=== PATIENT | male | born 1985 | race Caucasian/White ===

== ENCOUNTER 2016-06-18 09:14 | Inpatient (IN) ==
[2016-06-18] MEDS ORDERED: ONDANSETRON 4 MG/2 ML VIAL IV ONE (09:23)
[2016-06-18] MEDS: HYDROmorphone 2 MG/ML SYRINGE IV PRN ×7 (09:54→17:29)
--- NOTE | 2016-06-18 09:54 | XRay Report ---
CLINICAL INFORMATION: Increasing dyspnea TECHNIQUE: Upright PA and lateral chest x-ray COMPARISON: Multiple previous chest x-rays including examinations dated 06/14/2016, 10/13/2015, 10/11/2015, 09/30/2015, 09/28/2015. FINDINGS: Bilateral infiltrates are worse than on previous examination. There continue to be septal lines consistent with pulmonary edema. There are increasing central infiltrates bilaterally. Bilateral central distribution suggests worsening pulmonary edema. There is a more focal infiltrate in the left perihilar region and pneumonia is possible. Clinical correlation and continued radiographic follow-up recommended. There is mild cardiomegaly, unchanged. No pleural fluid. IMPRESSION: 1. Increasing parenchymal infiltrates most consistent with pulmonary edema. Pneumonia is not excluded. 2. Chest x-ray is worse since 06/14/2016 Interpreted and Authenticated by: Roman Mcqueen 06/18/16
--- NOTE | 2016-06-18 09:59 | Emergency Department Note ---
General Adult HPI - General Chief complaint: Headache Stated complaint: bernal, cough, anxious Time Seen by Provider: 06/18/16 09:22 Source: patient Mode of arrival: ambulatory Limitations: no limitations - History of Present Illness HPI Narrative: This is a dialysis patient who seems to be having trouble with fluid overload over the last couple of weeks. He gets dialysis Sunday. I saw him last Sunday in the morning before his dialysis and he felt fluid overloaded. He went to dialysis and then he says he feels better after dialysis before the next dialysis he tends to feel short of breath. His chest x -ray today certainly looks fluid overloaded. Patient denies getting extra salt in his diet and says he is careful about that. Also careful not to take too much fluid in his diet. He is coughing a little bit of blood tinged sputum. He also has had a headache recently. - Related Data Previous Rx's Medication Instructions Recorded gabapentin 100 mg capsule 200 mg PO Q8H #60 cap 10/25/15 metoprolol tartrate 25 mg tablet 100 mg PO BID 90 Days 11/26/15 hydralazine 100 mg tablet 100 mg PO TID 90 Days 12/20/15 paroxetine 20 mg tablet 40 mg PO DAILY #30 tab 01/24/16 clonazepam 2 mg tablet 2 mg PO BID #60 tab 03/23/16 nifedipine ER 90 mg 90 mg PO DAILY #30 tab 03/23/16 tablet,extended release 24 hr trazodone 150 mg tablet 150 mg PO QHS PRN #30 tab 03/23/16 valsartan 160 mg tablet 1 each PO BID #60 tab 03/23/16 omeprazole 20 mg capsule,delayed 20 mg PO BIDAC #60 cap 04/14/16 release ropinirole 0.5 mg tablet 0.5 mg PO QHS 30 Days 04/14/16 calcium acetate 667 mg capsule 667 mg PO .COMPLEX #450 cap 04/24/16 Allergies Allergy/AdvReac Type Severity Reaction Status Date / Time Iodinated Contrast Media - Allergy Itching Verified 06/05/16 08:58 Oral and Review of Systems Constitutional: Denies: fever Eyes: Denies: eye pain ENT ED: Denies: ear pain Cardiovascular: Denies: chest pain Respiratory: Reports: cough, dyspnea Gastrointestinal: Denies: abdominal pain Genitourinary: Denies: urgency Musculoskeletal: Denies: back pain Integumentary: Denies: rash Neurological: Reports: headache Past Medical History - Past Medical History Medical history: Reports: CHF, CVA, hypertension, renal disease, seizures, thyroid disease, valvular heart disease, other Surgical history ED: Reports: orthopedic, other (shoulder replacement), other ( nephrectomy) Psychiatric history: Reports: anxiety - Social History Alcohol use: Reports: None Drug use: Reports: marijuana Physical Exam - General Limitations: no limitations General appearance: alert, in no apparent distress - Head Head exam: atraumatic, normocephalic - Eye Eye exam: Present: normal appearance - ENT ENT exam: normal exam, normal oropharynx - Neck Neck exam: Present: normal inspection - Chest Chest inspection: Present: normal inspection - Respiratory Respiratory exam: Present: normal lung sounds bilaterally. Absent: respiratory distress, wheezes - Cardiovascular Cardiovascular exam: Present: regular rate, normal rhythm, normal heart sounds - Abdominal Exam Abdominal exam: Present: soft. Absent: distention, tenderness - Extremities Exam Extremities exam: Absent: pedal edema - Neurological Exam Neurological exam: Present: alert, oriented X3 - Psychiatric Psychiatric exam: Present: normal affect, normal mood - Skin Skin exam: Present: warm, dry, intact. Absent: rash Course Vital Signs Temperature 97.8 F 06/18/16 09:15 Pulse Rate 109 H 06/18/16 09:15 Respiratory Rate 32 H 06/18/16 09:15 Blood Pressure 154/107 06/18/16 09:15 Pulse Oximetry (%) 94 06/18/16 09:15 Temperature 97.8 F 06/18/16 09:15 Pulse Rate 96 H 06/18/16 10:30 Respiratory Rate 27 H 06/18/16 10:30 Blood Pressure 181/119 06/18/16 10:30 Pulse Oximetry (%) 95 06/18/16 10:30 Medical Decision Making - [facility] Narrative Medical decision making narrative: I discussed this case with Dr. Barr the director corporate security sales applications engineer and Dr. Zee and the patient will be admitted to the ICU for acute dialysis - Lab Data Lab results reviewed: Yes I reviewed the patient's lab results. Result diagrams: 06/18/16 09:27 06/18/16 09:27 Lab Results 06/18/16 06/18/16 06/18/16 Range/Units 09:27 09:27 09:27 WBC 8.3 (4.5-11.0) K/mcL RBC 3.15 L (4.50-5.90) M/mcL Hgb 10.4 L (13.5-16.5) g/dL Hct 31.9 L (41.0-55.0) % MCV 101.1 H (80.0-100.0) fL MCH 33.1 (26.0-34.0) pg MCHC 32.7 (31.0-36.0) g/dL RDW 16.5 H (11.5-14.5) % Plt Count 289 (140-440) K/mcL MPV 7.0 L (7.4-10.4) fL Gran % 75.9 (38.0-78.0) % Lymph % (Auto) 10.0 L (15.5-49.0) % [place] % (Auto) 5.7 (1.0-9.0) % Eos % (Auto) 7.7 H (0.0-7.0) % Baso % (Auto) 0.7 (0.0-2.0) % Gran # 6.3 (1.8-8.0) K/mcL Lymph # 0.8 L (1.5-4.8) K/mcL [place] # 0.5 (0.1-0.9) K/mcL Eos # 0.6 (0.0-0.7) K/mcL Baso # 0.1 (0.0-0.3) K/mcL Sodium 137 (133-145) mmol/L Potassium 5.6 H (3.3-5.1) mmol/L Chloride 95 L (96-108) mmol/L Carbon Dioxide 24 (22-30) mmol/L Anion Gap 18.0 H (8-16) BUN 63 H (6-20) mg/dl Creatinine 10.1 H* (0.7-1.2) mg/dl GFR Calculation 6 Glucose 109 H (70-105) mg/dL Calcium 10.0 (8.6-10.4) mg/dl Total Bilirubin 0.5 (0.0-1.0) mg/dL AST 47 H (0-37) U/l ALT 74 H (0-40) U/l Alkaline Phosphatase 68 (39-117) U/L Troponin T 0.06 H* (0-0.03) ng/ml NT-Pro-B Natriuret Pep 39055.0 H (0-125) pg/ml Total Protein 7.8 (5.9-8.4) gm/dL Albumin 4.5 (3.2-5.2) gm/dL Globulin 3.3 (2.2-3.7) gm/dL Albumin/Globulin Ratio 1.4 (1.0-2.3) - Radiology Data Radiology results reviewed: Yes I reviewed the patient's radiology results. ( chest x-ray shows pulmonary edema) Disposition Clinical Impression: Fluid overload Disposition: Xfer As Inpt ([facility]) Condition: Good Referrals: Pat Martinez DO [Primary Care Provider] - Time of Disposition: 11:42
[2016-06-18 10:11] LABS: Basophils # (Auto) 0.1 K/mcL (0.0-0.3); Basophils % (Auto) 0.7 % (0.0-2.0); Eosinophils # (Auto) 0.6 K/mcL (0.0-0.7); Eosinophils % (Auto) 7.7 % (0.0-7.0); Granulocytes % (Auto) 75.9 % (38.0-78.0); Lymphocytes # (Auto) 0.8 K/mcL (1.5-4.8); Mean Cell Volume 101.1 fL (80.0-100.0); Mean Corpuscular HGB Conc 32.7 g/dL (31.0-36.0); Mean Corpuscular Hemoglobin 33.1 pg (26.0-34.0); Monocytes # (Auto) 0.5 K/mcL (0.1-0.9); Monocytes % (Auto) 5.7 % (1.0-9.0); Platelet Count 289 K/mcL (140-440); RBC 3.15 M/mcL (4.50-5.90); Red Cell Distribution Width 16.5 % (11.5-14.5)
[2016-06-18 10:31] LABS: ALT/SGPT 74 U/l (0-40); Albumin 4.5 gm/dL (3.2-5.2); Albumin/Globulin Ratio 1.4 (1.0-2.3); Alkaline Phosphatase 68 U/L (39-117); Blood Urea Nitrogen 63 mg/dl (6-20)
--- NOTE | 2016-06-18 12:02 | Emergency Department Note ---
General Adult HPI - General Chief complaint: Headache Stated complaint: bernal, cough, anxious Time Seen by Provider: 06/18/16 09:22 Source: patient Mode of arrival: ambulatory Limitations: no limitations - Related Data Previous Rx's Medication Instructions Recorded gabapentin 100 mg capsule 200 mg PO Q8H #60 cap 10/25/15 metoprolol tartrate 25 mg tablet 100 mg PO BID 90 Days 11/26/15 hydralazine 100 mg tablet 100 mg PO TID 90 Days 12/20/15 paroxetine 20 mg tablet 40 mg PO DAILY #30 tab 01/24/16 clonazepam 2 mg tablet 2 mg PO BID #60 tab 03/23/16 nifedipine ER 90 mg 90 mg PO DAILY #30 tab 03/23/16 tablet,extended release 24 hr trazodone 150 mg tablet 150 mg PO QHS PRN #30 tab 03/23/16 valsartan 160 mg tablet 1 each PO BID #60 tab 03/23/16 omeprazole 20 mg capsule,delayed 20 mg PO BIDAC #60 cap 04/14/16 release ropinirole 0.5 mg tablet 0.5 mg PO QHS 30 Days 04/14/16 calcium acetate 667 mg capsule 667 mg PO .COMPLEX #450 cap 04/24/16 Allergies Allergy/AdvReac Type Severity Reaction Status Date / Time Iodinated Contrast Media - Allergy Itching Verified 06/05/16 08:58 Oral and Review of Systems Constitutional: Denies: fever Eyes: Denies: eye pain ENT ED: Denies: ear pain Cardiovascular: Denies: chest pain Respiratory: Reports: cough, dyspnea Gastrointestinal: Denies: abdominal pain Genitourinary: Denies: urgency Musculoskeletal: Denies: back pain Integumentary: Denies: rash Neurological: Reports: headache Past Medical History - Past Medical History Medical history: Reports: CHF, CVA, hypertension, renal disease, seizures, thyroid disease, valvular heart disease, other Surgical history ED: Reports: orthopedic, other (shoulder replacement), other ( nephrectomy) Psychiatric history: Reports: anxiety - Social History Alcohol use: Reports: None Drug use: Reports: marijuana Physical Exam - General Limitations: no limitations General appearance: alert, in no apparent distress Course Vital Signs Temperature 97.8 F 06/18/16 09:15 Pulse Rate 109 H 06/18/16 09:15 Respiratory Rate 32 H 03/19/17 09:15 Blood Pressure 154/107 03/19/17 09:15 Pulse Oximetry (%) 94 06/18/16 09:15 Temperature 97.8 F 06/18/16 09:15 Pulse Rate 93 H 06/18/16 11:15 Respiratory Rate 16 06/18/16 11:15 Blood Pressure 169/116 06/18/16 11:15 Pulse Oximetry (%) 91 06/18/16 11:15 Medical Decision Making - MDM Narrative Medical decision making narrative: Additional history reveals moderately severe mitral valve disease with both regurgitation and insufficiency. Patient is on hold for a valve replacement because of drug abuse with methamphetamine. - Lab Data Result diagrams: 06/18/16 09:27 06/18/16 09:27 Lab Results 06/18/16 06/18/16 06/18/16 Range/Units 09:27 09:27 09:27 WBC 8.3 (4.5-11.0) K/mcL RBC 3.15 L (4.50-5.90) M/mcL Hgb 10.4 L (13.5-16.5) g/dL Hct 31.9 L (41.0-55.0) % MCV 101.1 H (80.0-100.0) fL MCH 33.1 (26.0-34.0) pg MCHC 32.7 (31.0-36.0) g/dL RDW 16.5 H (11.5-14.5) % Plt Count 289 (140-440) K/mcL MPV 7.0 L (7.4-10.4) fL Gran % 75.9 (38.0-78.0) % Lymph % (Auto) 10.0 L (15.5-49.0) % [place] % (Auto) 5.7 (1.0-9.0) % Eos % (Auto) 7.7 H (0.0-7.0) % Baso % (Auto) 0.7 (0.0-2.0) % Gran # 6.3 (1.8-8.0) K/mcL Lymph # 0.8 L (1.5-4.8) K/mcL [place] # 0.5 (0.1-0.9) K/mcL Eos # 0.6 (0.0-0.7) K/mcL Baso # 0.1 (0.0-0.3) K/mcL Sodium 137 (133-145) mmol/L Potassium 5.6 H (3.3-5.1) mmol/L Chloride 95 L (96-108) mmol/L Carbon Dioxide 24 (22-30) mmol/L Anion Gap 18.0 H (8-16) BUN 63 H (6-20) mg/dl Creatinine 10.1 H* (0.7-1.2) mg/dl GFR Calculation 6 Glucose 109 H (70-105) mg/dL Calcium 10.0 (8.6-10.4) mg/dl Total Bilirubin 0.5 (0.0-1.0) mg/dL AST 47 H (0-37) U/l ALT 74 H (0-40) U/l Alkaline Phosphatase 68 (39-117) U/L Troponin T 0.06 H* (0-0.03) ng/ml NT-Pro-B Natriuret Pep 83047.0 H (0-125) pg/ml Total Protein 7.8 (5.9-8.4) gm/dL Albumin 4.5 (3.2-5.2) gm/dL Globulin 3.3 (2.2-3.7) gm/dL Albumin/Globulin Ratio 1.4 (1.0-2.3) Disposition Clinical Impression: Fluid overload Disposition: Xfer As Inpt ([facility]) Condition: Good Referrals: Pat Martinez DO [Primary Care Provider] -
[2016-06-18] MEDS ORDERED: NITROGLYCERIN 1 GM OINT.TOP TD ONE (12:21)
--- NOTE | 2016-06-18 12:27 | Internal Med History&Physical ---
Medical - H&P: HPI Patient information: Note initiated : 06/18/16 at 12:22 pm Service Date, if different from initiated Date: [] Patient: Jorge Bates a 31 y/o M admitted on for bernal, cough, anxious. Chief Complaint: [] History of present illness: Mr. Bates is a 31 year old male with h/o ESRD on HD, MWF, presents to the ER today with sob, and blood in sputum. The patient has not been feeling well since Sunday when he was in the ER for shortness of breath and noted to be in fluid overload. he presented just 1 hr before his scheduled HD session then and had HD done, with improvement in symptoms. He also had HD done on Sunday. The patient has since Sunday worsening sob, cough with blood and frothy sputum, shortness of breath on minimal exertion. Activity makes it worse, rest makes it better. He also has been a migraine headache for the last 2 days. He denies missing HD sessions or having them cut short, admits to be compliant to dietary restrictions. He also has not done meth since 2 weeks as per him. In the ER his bp was high, CXR shows yazan pulm edema, he is needing oxygen, bp is very high with systolic > 180, diastolic > 110, His bnp is chr elevatd and troponin is c hr elevated. Nephrology was consulted for HD, and patient presented to hospitalist for admission to [facility] for fluid overload. The patient h/o reviewed, he had an echo done in 09/2015 which showed lvh, moderate to severe ms and mr, pulm htn with pressure of 60mmhg. Subsequently he was evaluated at [facility] ( I do not have access to documents) but the patient was noted to need a new valve, however given his ongoing use of methamphetamine he is unable to get a new valve. I discussed with him again that he needs to quit drugs if there is any hope for him to survive. - Constitutional Constitutional: Present: fatigue, weakness - EENT Eyes: Absent: blind spots, blurry vision Ears: Absent: ear discharge, tinnitus Nose, mouth and throat: Absent: disequilibrium, dizziness - Cardiovascular Cardiovascular: Present: diaphoresis, dyspnea on exertion, orthopnea, paroxysmal nocturnal dyspnea. Absent: chest pain, palpatations - Respiratory Respiratory: Present: hemoptysis, dyspnea on exertion, wheezing, chest congestion, excessive phlegm production - Gastrointestinal Gastrointestinal: Present: constipation. Absent: abdominal pain, nausea, vomiting - Genitourinary Additional comments: no urine, s/p yazan nephrectomy. - Integumentary Integumentary: Absent: skin pain, skin ulcer, wounds, jaundice - Neurological Neurological: Present: headache(s). Absent: focal weakness, syncope, vertigo - Psychiatric Psychiatric: Present: anxiety, depression. Absent: confusion - Endocrine Endocrine: Absent: polydipsia, polyphagia, polyuria Additional comments: no urine. - Hematologic/Lymphatic Hematologic/Lymphatic: Absent: easy bleeding, easy bruising - Allergic/Immunologic Allergic/Immunologic: Present: wheezing. 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) Mitral regurgitation (Chronic) Uncontrolled hypertension (Chronic) FSGS (focal segmental glomerulosclerosis) with nephrosis (Resolved) Surgical history: Past Surgical History History of parathyroidectomy (Chronic) History of shoulder replacement (Chronic) History of surgery (Chronic) S/p nephrectomy (Inactive) Family history: reviewed and not pertinent (mother with h/o drug abuse.) Medical - H&P: Meds Home Medications Medication Instructions Recorded Confirmed Type gabapentin 100 mg capsule 200 mg PO Q8H #60 cap 10/25/15 06/14/16 Rx metoprolol tartrate 25 mg tablet 100 mg PO BID 90 Days 11/26/15 06/14/16 Rx hydralazine 100 mg tablet 100 mg PO TID 90 Days 12/20/15 06/14/16 Rx paroxetine 20 mg tablet 40 mg PO DAILY #30 tab 01/24/16 06/14/16 Rx clonazepam 2 mg tablet 2 mg PO BID #60 tab 03/23/16 06/14/16 Rx nifedipine ER 90 mg 90 mg PO DAILY #30 tab 03/23/16 06/14/16 Rx tablet,extended release 24 hr trazodone 150 mg tablet 150 mg PO QHS PRN #30 tab 03/23/16 06/14/16 Rx valsartan 160 mg tablet 1 each PO BID #60 tab 03/23/16 06/14/16 Rx omeprazole 20 mg capsule,delayed 20 mg PO BIDAC #60 cap 04/14/16 06/14/16 Rx release ropinirole 0.5 mg tablet 0.5 mg PO QHS 30 Days 04/14/16 06/14/16 Rx calcium acetate 667 mg capsule 667 mg PO .COMPLEX #450 cap 04/24/16 06/14/16 Rx Allergies Allergy/AdvReac Type Severity Reaction Status Date / Time Iodinated Contrast Media - Allergy Itching Verified 06/05/16 08:58 Oral and Medical - H&P: Exam - Constitutional Vitals: Temp Pulse Resp BP Pulse Ox 97.8 F 93 H 16 169/116 91 06/18/16 09:15 06/18/16 11:15 06/18/16 11:15 06/18/16 11:15 06/18/16 11:15 General appearance: mild distress - Head Head exam: Present: atraumatic, normal inspection, normocephalic - Eye Eye exam: Present: PERRL. Absent: periorbital swelling, periorbital tenderness , scleral icterus - ENT ENT exam: Present: mucous membranes moist - Neck Neck exam: Present: normal inspection - Respiratory Respiratory exam: Present: prolonged expiratory phase, rales, wheezes. Absent: accessory muscle use, respiratory distress, rhonchi, stridor - Cardiovascular Cardiovascular exam: Present: normal rate and rhythm, +S1, +S2 - GI/Abdominal GI/Abdominal exam: Present: normal bowel sounds, soft. Absent: firm, guarding, rigid - Extremities Exam Extremities exam: Present: Foot pink and warm, neurovascular intact. Absent: pedal edema - Back Exam Back exam: Present: normal inspection. Absent: CVA tenderness (L), CVA tenderness (R), paraspinal tenderness - Neurological Exam Neurological exam: Present: alert, CN II-XII intact, oriented X3. Absent: motor sensory deficit - Psychiatric Psychiatric exam: Present: anxious. Absent: agitated, depressed - Skin Skin exam: Present: warm. Absent: rash, urticaria Medical - H&P: Reslt - Labs CBC & Chem 7: 06/18/16 09:27 06/18/16 09:27 Labs: Short CBC 06/18/16 Range/Units 09:27 WBC 8.3 (4.5-11.0) K/mcL Hgb 10.4 L (13.5-16.5) g/dL Hct 31.9 L (41.0-55.0) % Plt Count 289 (140-440) K/mcL BMP 06/18/16 09:27 Sodium 137 Potassium 5.6 H Chloride 95 L Carbon Dioxide 24 BUN 63 H Creatinine 10.1 H* Glucose 109 H Calcium 10.0 Cardiac Enzymes 06/18/16 Range/Units 09:27 Troponin T 0.06 H* (0-0.03) ng/ml Liver Function 06/18/16 Range/Units 09:27 Total Bilirubin 0.5 (0.0-1.0) mg/dL AST 47 H (0-37) U/l ALT 74 H (0-40) U/l Alkaline Phosphatase 68 (39-117) U/L Albumin 4.5 (3.2-5.2) gm/dL Medical - H&P: A/P (1) Acute congestive heart failure Current visit: Yes Status: Acute (2) Hypertensive emergency Current visit: Yes Status: Acute (3) Mitral stenosis with insufficiency Current visit: Yes Status: Acute (4) Pulmonary hypertension Current visit: Yes Status: Acute (5) Substance use disorder Current visit: Yes Status: Acute (6) End stage renal disease Current visit: No Status: Chronic (7) Acute respiratory failure with hypoxia Current visit: Yes Status: Acute (8) Migraine Current visit: Yes Status: Acute - Narrative A/P Narrative: Admit to ICU Oxygen supplementation NTG TD to help with BP and shortness of breath, the bp should improve with HD, if needed will start on NTG drip. Nephrology consulted, dialysis to be initiated as soon as pt mobilized to ICU. Gillian valve replacement is needed, however cannot happen till pt is free from meth, educated on same, pt verablized understanding, but it seems that the patient has been counselled many times in the past with no results Pulm HTN secondary to lvh, mitral valve pathology, need to relieve forward pressures to help with pulm htn. Monitor on tele, close resp status monitoring, bipap if needed. [place] to help with shortness of breath given wheezing on exam. DVT - Hep SQ Diet- Renal Code - full Social History - Tobacco smoking status: Current some day smoker - Tobacco Type tobacco type: cigarettes - Quit Details pack-years: 10 - Alcohol alcohol intake frequency: holiday/special occasion only - Substance use substance use type: marijuana, amphetamines counseling given: Yes
--- NOTE | 2016-06-18 12:42 | Nephrology Consult Note ---
History of Present Illness - Reason for Consult Patient information: Note initiated : 06/18/16 at 12:33 pm Service Date, if different from initiated Date: [] Patient: Jorge Bates 31 y/o M admitted on for melgar, cough, anxious. Chief Complaint: [] Consult date: 06/18/16 end stage renal disease, hyperkalemia, accelerated hypertension Requesting physician: Rigo Jones - Chief Complaint SOB, anxiety, MELGAR - History of Present Illness Pt is a 31 yo male with hx of ESRD on Hemodialysis ( MWF, last HD on Sunday) , hx of substance abuse who presented to the ED with c/o SOB, and bloody, frothy sputum. Pt was seen in ED on 06/14/16, 1 hour prior to HD with similar complaints. He did feel better after his HD session. CXR done showed worsening pulmonary congestion, with a possible infiltrate in the left hilar region. -Pt denies any fevers/chills. He is c/o of a MELGAR, has had migraine x 2 days and BPs have been elevated with SBP > 170 and DBP > 110. Pt was last hemodialyzed on Sunday06/16/16, was doing fine until last night when he became SOB. States compliance with fluid intake and low salt diet. States he has been fluid overloaded on and off and has been feeling it in his chest with no edema on ext. He feels some generalized chest pressure which he states he feels with volume overload. BNP > 27026 and Troponin > 0.06 but has been elevated since 2016 based on evaluation of EMR. Pt had an ECHO done in 09/2015 which showed: LVH, moderate to severe MS and MR, PHTN with pressure of 60mmhg. Pt had an evaluation done at [facility], was noted to need valve replacement but unable to get one given his ongoing use of methamphetamine Tox screen was sent from ED which is pending at this time. Appreciate Dr Puente help with managing this patient Review of Systems ROS unobtainable: other (as ) All systems PM: reviewed and no additional remarkable complaints except as stated (as stated in HPI) Past History Past medical history: End stage renal disease (Chronic) on HD Fluid overload Anemia in chronic kidney disease (CKD) Anxiety disorder (Acute) Chest pain Congestive heart failure Epileptic seizure Fracture of fifth metacarpal bone of left hand Hyperkalemia Hypertensive crisis Medication side effects Nausea Restless legs Insomnia disorder Mitral regurgitation Uncontrolled hypertension FSGS (focal segmental glomerulosclerosis) with nephrosis Past surgical history: History of parathyroidectomy (Chronic) History of shoulder replacement (Chronic) History of surgery (Chronic) S/p nephrectomy Past family history: mother with hx of drug abuse Past social history: Lives with his girlfriend Hx of meth use Medications and Allergies Home Medications Medication Instructions Recorded Confirmed Type gabapentin 100 mg capsule 200 mg PO Q8H #60 cap 10/25/15 06/14/16 Rx metoprolol tartrate 25 mg tablet 100 mg PO BID 90 Days 11/26/15 06/14/16 Rx hydralazine 100 mg tablet 100 mg PO TID 90 Days 12/20/15 06/14/16 Rx paroxetine 20 mg tablet 40 mg PO DAILY #30 tab 01/24/16 06/14/16 Rx clonazepam 2 mg tablet 2 mg PO BID #60 tab 03/23/16 06/14/16 Rx nifedipine ER 90 mg 90 mg PO DAILY #30 tab 03/23/16 06/14/16 Rx tablet,extended release 24 hr trazodone 150 mg tablet 150 mg PO QHS PRN #30 tab 03/23/16 06/14/16 Rx valsartan 160 mg tablet 1 each PO BID #60 tab 03/23/16 06/14/16 Rx omeprazole 20 mg capsule,delayed 20 mg PO BIDAC #60 cap 04/14/16 06/14/16 Rx release ropinirole 0.5 mg tablet 0.5 mg PO QHS 30 Days 04/14/16 06/14/16 Rx calcium acetate 667 mg capsule 667 mg PO .COMPLEX #450 cap 04/24/16 06/14/16 Rx Allergies Allergy/AdvReac Type Severity Reaction Status Date / Time Iodinated Contrast Media - Allergy Itching Verified 06/05/16 08:58 Oral and Exam - Vital Signs Vital signs: Temp Pulse Resp BP Pulse Ox 97.8 F 93 H 16 169/116 91 06/18/16 09:15 06/18/16 11:15 06/18/16 11:15 06/18/16 11:15 06/18/16 11:15 - General Appearance General appearance: well-developed, well-nourished, moderate distress (visibly SOB), anxious EENT: mucous membranes dry (mildly), scleral icterus Neck: no JVD, supple Respiratory: wheezing (decreased air entry overall), rales Cardiology: no edema, regular rate, regular rhythm, normal S1, normal S2 Gastrointestinal: normoactive bowel sounds, no tenderness, no guarding, no organomegaly Integumentary: no rash, warm and dry Neurologic: no focal deficit, no asterixis, alert and oriented x3 Musculoskeletal: no deformities, no erythema Psychiatric: cooperative (anxious) Additional exam: Left upper ext - AVF with +ve thrill/bruit Results - Lab Results 06/18/16 09:27 06/18/16 09:27 Most recent lab results Calcium 10.0 mg/dl (8.6-10.4) 06/18/16 09:27 BNP > 18,000 CXR : with pulmonary edema (worsened since 06/14/16); and infiltrate in left perihilar region - Image Kidney/bladder ultrasound: other Assessment and Plan (1) Fluid overload Pt with hx of valvular problems, ESRD on HD with volume overload Tox screen pending Has elevated BPs ? flash pulmonary edema - will dialyze patient today - monitor BNP and troponin ( at baseline at present) Status: Acute Priority: High (2) ESRD (end stage renal disease) on dialysis MWF schedule for HD Is SOB, with more pulmonary congestion than when seen in ED on 06/14 Was HDialyzed on 06/16 will undergo HD now monitor salt/fluid intake f/u tox screen results Given his hx of PHTN and valvular problems, will need care with fluid removal at HD Status: Acute (3) Acute congestive heart failure As above Status: Acute (4) Migraine hx of migraines on prn dialudid Needs care with med administration given HD dependence and chance of med acculumation in his system Status: Acute (5) Substance use disorder hx of Meth use Tox screen pending Status: Acute (6) Pneumonia ? infiltrate on CXR - PNA vs vascular congestion empiric antibiotics ordered for now Status: Acute (7) Hypertensive urgency BPs elevated SBP/DBP > 180/>110; likely 2/2 volume overload +/- meth use +/- pain ( HAs) NTG patch ordered HD will help tele monitoring Status: Acute
[2016-06-18] MEDS ORDERED: NALOXONE HCL 0.4 MG/ML VIAL IV PRN (13:09)
[2016-06-18] MEDS: 0.9 % SODIUM CHLORIDE 10 ML SYRINGE IV SCH ×2 (13:20→21:22)
[2016-06-18] MEDS ORDERED: CEFEPIME 1 GM in DEXTROSE 5% IN WATER 50 ML IV ONE (14:00)
[2016-06-18] MEDS ORDERED: cloNIDine HCL 0.1 MG TABLET ONE (14:22)
[2016-06-18] MEDS: cloNIDine HCL 0.1 MG TABLET PO SCH ×2 (14:22→17:41)
[2016-06-18] MEDS: ACETAMINOPHEN 325 MG TABLET PO PRN ×2 (14:24→18:19)
[2016-06-18] MEDS ORDERED: cloNIDine HCL 0.1 MG TABLET PO ONE (14:45)
[2016-06-18] MEDS ORDERED: VANCOMYCIN PER PHARMACY IV SCH (14:58)
[2016-06-18] MEDS ORDERED: VANCOMYCIN 1,000 MG in 0.9 % SODIUM CHLORIDE 250 ML IV ONE (15:00)
[2016-06-18] MEDS ORDERED: hydrALAZINE 20 MG/ML VIAL IV ONE ×2 (15:16→16:00)
[2016-06-18] MEDS ORDERED: traZODone HCL 150 MG TABLET PO PRN (15:44)
[2016-06-18] MEDS: IPRATROPIUM/ALBUTEROL 3 ML AMPUL.NEB NEB SCH ×3 (15:55→23:16)
[2016-06-18] MEDS: CALCIUM ACETATE 667 MG CAPSULE PO SCH (17:01)
[2016-06-18] MEDS: PANTOPRAZOLE 40 MG TABLET PO SCH (17:02)
[2016-06-18] MEDS ORDERED: LORazepam 2 MG/ML VIAL IV PRN (17:17)
[2016-06-18] MEDS ORDERED: LORazepam 2 MG/ML VIAL ONE (18:09)
[2016-06-18] MEDS: METOPROLOL TARTRATE 25 MG TABLET PO SCH ×2 (18:19→21:22)
[2016-06-18] MEDS: LOSARTAN 50 MG TABLET PO SCH ×2 (18:19→21:22)
--- NOTE | 2016-06-18 18:57 | Cat Scan Report ---
CLINICAL INFORMATION: Headache. Hypertension. COMPARISON: None. TECHNIQUE: Axial noncontrast-enhanced images through the brain. FINDINGS: No acute intracranial hemorrhage. No intra-axial hematoma. There is mild white matter abnormality within the centrum semiovale bilaterally. Findings are consistent with small vessel ischemic change in this patient with history of chronic renal failure. No localized mass effect. No midline shift. Brain volume is normal. No hydrocephalus. Brainstem and cerebellum are negative. No extra-axial, intracranial abnormality. No subdural hematoma. No subarachnoid hemorrhage. No calvarial lesions. Skull base is negative. IMPRESSION: No acute abnormality. Interpreted and Authenticated by: Roman Mcqueen 06/18/16
[2016-06-18] MEDS ORDERED: KETOROLAC 15 MG/ML VIAL IV PRN (19:17)
[2016-06-18] MEDS ORDERED: HYDROmorphone 2 MG/ML SYRINGE IV PRN (19:18)
[2016-06-18] MEDS ORDERED: DOXAZOSIN 1 MG TABLET PO SCH (19:45)
[2016-06-18] MEDS ORDERED: KETOROLAC 15 MG/ML VIAL ONE (19:52)
[2016-06-18] MEDS ORDERED: CLONAZEPAM 2 MG PO SCH (21:00)
[2016-06-18] MEDS ORDERED: METOPROLOL TARTRATE 25 MG TABLET PO SCH (21:00)
[2016-06-18] MEDS ORDERED: VALSARTAN 160 MG TABLET PO SCH (21:00)
[2016-06-18] MEDS ORDERED: clonazePAM 1 MG TABLET PO SCH (21:00)
[2016-06-18] MEDS ORDERED: LOSARTAN 50 MG TABLET PO SCH (21:00)
[2016-06-18] MEDS: HEPARIN 5,000 UNIT/ML VIAL SQ SCH (21:45)
[2016-06-18] MEDS: GABAPENTIN 100 MG CAPSULE PO SCH (21:45)
[2016-06-18] MEDS: DOXAZOSIN 4 MG TABLET PO SCH (21:46)
[2016-06-18] MEDS: hydrALAZINE 25 MG TABLET PO SCH (21:46)
[2016-06-18] MEDS: rOPINIRole 0.25 MG TABLET PO SCH (21:47)
[2016-06-18] MEDS: clonazePAM 1 MG TABLET PO SCH (21:47)
[2016-06-18] MEDS ORDERED: CALCIUM CARBONATE 500 MG TAB.CHEW CHEWED PRN (21:51)
[2016-06-19] MEDS: IPRATROPIUM/ALBUTEROL 3 ML AMPUL.NEB NEB SCH ×6 (02:57→22:46)
[2016-06-19 06:05] LABS: Basophils # (Auto) 0 K/mcL (0.0-0.3); Basophils % (Auto) 0.5 % (0.0-2.0); Eosinophils # (Auto) 0.4 K/mcL (0.0-0.7); Granulocytes % (Auto) 63.1 % (38.0-78.0); Lymphocytes # (Auto) 1.2 K/mcL (1.5-4.8); Lymphocytes % (Auto) 20.9 % (15.5-49.0); Mean Cell Volume 100.8 fL (80.0-100.0); Mean Corpuscular HGB Conc 32.8 g/dL (31.0-36.0); Monocytes # (Auto) 0.5 K/mcL (0.1-0.9); Monocytes % (Auto) 8.5 % (1.0-9.0); Platelet Count 207 K/mcL (140-440); RBC 2.46 M/mcL (4.50-5.90)
[2016-06-19 06:19] LABS: ALT/SGPT 68 U/l (0-40); Albumin 3.3 gm/dL (3.2-5.2); Albumin/Globulin Ratio 1.2 (1.0-2.3); Alkaline Phosphatase 50 U/L (39-117); Bilirubin,Direct < 0.2 mg/dL (0.0-0.3); Blood Urea Nitrogen 37 mg/dl (6-20); Gamma Glutamyl Transpeptidase 45 U/L (8-61); Magnesium 1.9 mg/dL (1.6-2.5); Phosphorous 3.6 mg/dL (2.7-4.5); Uric Acid 2.9 mg/dL (2.5-8.0)
[2016-06-19] MEDS: 0.9 % SODIUM CHLORIDE 10 ML SYRINGE IV SCH ×3 (06:43→21:05)
[2016-06-19] MEDS: PANTOPRAZOLE 40 MG TABLET PO SCH ×2 (07:36→17:24)
[2016-06-19] MEDS: hydrALAZINE 25 MG TABLET PO SCH ×3 (07:36→20:56)
[2016-06-19] MEDS: GABAPENTIN 100 MG CAPSULE PO SCH ×3 (08:08→20:57)
[2016-06-19] MEDS: METOPROLOL TARTRATE 25 MG TABLET PO SCH ×2 (08:08→20:57)
--- NOTE | 2016-06-19 08:08 | XRay Report ---
CLINICAL INFORMATION: Headache. Cough. Anxiety. TECHNIQUE: AP portable upright chest x-ray COMPARISON: Multiple previous chest x-rays including most recent studies dated 06/18/2016, 06/14/2016, 10/11/2015. FINDINGS: Vascularity remains prominent consistent with chronic pulmonary congestion. The bilateral central infiltrates and left perihilar consolidation are improved. No new focal infiltrate or mass. There is cardiomegaly, unchanged. IMPRESSION: 1. Cardiomegaly and prominent vascularity consistent with pulmonary congestion. 2. No focal infiltrate. Interpreted and Authenticated by: Roman Mcqueen 06/19/16
[2016-06-19] MEDS: LOSARTAN 50 MG TABLET PO SCH ×2 (08:09→21:00)
[2016-06-19] MEDS: HEPARIN 5,000 UNIT/ML VIAL SQ SCH ×2 (08:09→20:57)
[2016-06-19] MEDS: CALCIUM ACETATE 667 MG CAPSULE PO SCH ×3 (08:09→17:24)
[2016-06-19] MEDS: NIFEdipine 30 MG TAB.XL.24H PO SCH (08:17)
[2016-06-19] MEDS: ACETAMINOPHEN 325 MG TABLET PO PRN ×2 (08:17→13:02)
--- NOTE | 2016-06-19 08:17 | Nephrology Progress Note ---
Subjective Patient information: Note initiated : 06/19/16 at 8:16 am Service Date, if different from initiated Date: [] Patient: Jorge Bates 31 y/o M admitted on 06/18/16 for melgar, cough, anxious. Chief Complaint: [] Principal diagnosis: SOB, MELGAR Interval history: Pt admitted, hemodialyzed with improvement in symptoms. Repeat CXR without any infiltrate. Toxicology report pending. Has hx of anxiety and substance abuse Objective - Vital Signs Vital signs: Vital Signs Temp Pulse Pulse Resp BP BP Pulse Ox 06/19/16 07:27 99 H 16 06/19/16 07:15 100 06/19/16 07:00 99 H 16 150/119 100 06/19/16 06:00 20 160/113 99 06/19/16 04:57 16 151/110 99 06/19/16 04:00 99.1 F 14 139/104 98 06/19/16 03:00 17 136/98 99 06/19/16 02:57 98 H 19 06/19/16 01:58 14 139/98 97 06/19/16 01:00 14 136/95 95 06/19/16 00:00 99.4 F 15 144/110 96 06/18/16 23:24 98 H 18 06/18/16 23:00 14 155/112 98 06/18/16 22:00 16 156/98 92 06/18/16 20:07 98 H 17 06/18/16 20:00 99.5 F 25 H 163/110 96 06/18/16 19:59 97 06/18/16 19:17 170/113 06/18/16 19:00 100.1 F H 108 H 24 162/97 99 06/18/16 18:15 99.6 F 108 H 178/106 06/18/16 18:00 100.3 F H 20 181/113 97 06/18/16 17:56 97 H 181/113 06/18/16 17:45 98 H 173/111 06/18/16 17:31 99 H 170/113 06/18/16 17:19 98 H 169/119 06/18/16 17:05 120 H 176/120 06/18/16 17:00 99.3 F 25 H 176/120 94 06/18/16 16:48 113 H 192/122 06/18/16 16:31 111 H 172/117 06/18/16 16:20 96 H 180/130 06/18/16 16:05 95 H 181/124 06/18/16 16:00 98.9 F 16 180/130 99 06/18/16 15:54 93 H 193/131 06/18/16 15:40 92 H 193/137 06/18/16 15:10 96 H 198/125 06/18/16 15:09 98.9 F 06/18/16 15:00 98.9 F 21 198/125 93 06/18/16 14:52 101 H 202/127 06/18/16 14:39 101 H 206/138 06/18/16 14:24 99.0 F 06/18/16 14:10 98.7 F 102 H 184/127 06/18/16 14:00 30 H 182/118 98 Intake and Output 06/18/16 06/19/16 06/19/16 21:59 05:59 13:59 Intake Total 960 / 960 500 / 500 0 / 0 Output Total 33987 / 37961 Balance -28284 / -54645 500 / 500 0 / 0 Intake: IV 300 / 300 Dextrose 5% in Water 50 50 / 50 ml @ 100 mls/hr IV ONCE ONE with Maxipime 1 gm Rx #:[id number] Sodium Chloride 0.9% 250 250 / 250 ml @ 250 mls/hr IV ONCE ONE with Vancomycin 1,000 mg Rx#:[id number] Oral 660 / 660 500 / 500 0 / 0 Output: Hemodialysis UF 52505 / 58884 Other: Meal Dinner Percent of Meal Consumed 50% Feeding Ability Independent Weight 133 lb 6 oz Intake & Output: Intake & Output 06/18/16 06/19/16 06/19/16 21:59 05:59 13:59 Intake Total 960 / 960 500 / 500 0 / 0 Output Total 45944 / 82499 Balance -38889 / -85474 500 / 500 0 / 0 Weight 133 lb 6 oz Intake: IV 300 / 300 Dextrose 5% in Water 50 50 / 50 ml @ 100 mls/hr IV ONCE ONE with Maxipime 1 gm Rx #:[id number] Sodium Chloride 0.9% 250 250 / 250 ml @ 250 mls/hr IV ONCE ONE with Vancomycin 1,000 mg Rx#:[id number] Oral 660 / 660 500 / 500 0 / 0 Output: Hemodialysis UF 90437 / 13549 Other: Meal Dinner Percent of Meal Consumed 50% Feeding Ability Independent - General Appearance General appearance: well-developed, well-nourished (laying comfortably in bed) EENT: mucous membranes moist Neck: supple Respiratory: clear (overall decreased breath sounds bilaterally) Cardiology: regular rate, regular rhythm, normal S1, normal S2 Gastrointestinal: normoactive bowel sounds, no tenderness, no guarding Neurologic: no focal deficit, no asterixis, alert and oriented x3 Musculoskeletal: no deformities, no erythema Psychiatric: mood/affect appropriate, cooperative - Lab 06/19/16 04:00 06/19/16 04:00 Most recent lab results Calcium 8.4 mg/dl (8.6-10.4) L 06/19/16 04:00 Phosphorus 3.6 mg/dL (2.7-4.5) 06/19/16 04:00 Magnesium 1.9 mg/dL (1.6-2.5) 06/19/16 04:00 Assessment and Plan (1) Fluid overload improved s/p HD yesterday for now, will need daily dialysis Status: Acute Priority: High (2) ESRD (end stage renal disease) on dialysis HD today will aim for HD alternating with PUF Status: Acute (3) Acute congestive heart failure improved post HD CXR improved Status: Acute (4) Migraine no MELGAR this AM CT head obtained yesterday was negative Status: Acute (5) Substance use disorder Tox screen pending Status: Acute (6) Pneumonia was febrile yesterday and CXR with possible infiltrate Tx with empiric antibiotics CXR today with out infiltrate ( was volume overloaded) Status: Acute (7) Hypertensive urgency BPs improved post HD Diastolic remain high ? anxiety. ? illicit drug use on clonazepam which will help with BPs will monitor for now Status: Acute
[2016-06-19] MEDS: clonazePAM 1 MG TABLET PO SCH ×2 (08:18→21:02)
[2016-06-19] MEDS: KETOROLAC 15 MG/ML VIAL IV PRN ×2 (08:25→21:29)
--- NOTE | 2016-06-19 09:02 | Internal Med Progress Note ---
Medical - PN: Subj Patient information: Note initiated : 06/19/16 at 8:59 am Service Date, if different from initiated Date: [] Patient: Jorge Bates 31 y/o M admitted on 06/18/16 for bernal, cough, anxious. Chief Complaint: [] Interval history: 06/18: Mr. Bates is a 31 year old male with h/o ESRD on HD, MWF, presents to the ER today with sob, and blood in sputum. The patient has not been feeling well since Sunday when he was in the ER for shortness of breath and noted to be in fluid overload. he presented just 1 hr before his scheduled HD session then and had HD done, with improvement in symptoms. He also had HD done on Sunday. The patient has since Sunday worsening sob, cough with blood and frothy sputum, shortness of breath on minimal exertion. Activity makes it worse, rest makes it better. He also has been a migraine headache for the last 2 days. He denies missing HD sessions or having them cut short, admits to be compliant to dietary restrictions. He also has not done meth since 2 weeks as per him. In the ER his bp was high, CXR shows yazan pulm edema, he is needing oxygen, bp is very high with systolic > 180, diastolic > 110, His bnp is chr elevated and troponin is c hr elevated.Nephrology was consulted for HD, and patient presented to hospitalist for admission to [facility] for fluid overload.The patient h/o reviewed, he had an echo done in 09/2015 which showed lvh, moderate to severe ms and mr, pulm htn with pressure of 60mmhg.Subsequently he was evaluated at [facility] ( I do not have access to documents) but the patient was noted to need a new valve, however given his ongoing use of methamphetamine he is unable to get a new valve. I discussed with him again that he needs to quit drugs if there is any hope for him to survive. Pt Procalcitonin was elevated, concern for possible pna, on vanco and cefepime for same. 06/19: Pt seen examined doing well, overnight events noted, he is intermittently tachycardic, Headache due to migraine, CT head is negative. The patient had HD yesterday, with 3500m removed, today plan to have HD again. his BP was high during HD needing IV hydralazine. I have resumed his home meds and added doxazosin to his regime. This AM he denies any cp, has some sob, no nausea or vomting, headache better ( on ketorolac for same Has no kidneys). Pertinent ROS: Denies headache, dizziness Denies chest pain, palpitations cough and sob much improved Denies abdominal pain, nausea or vomiting. - Constitutional Vitals: Vital Signs Temp Pulse Resp BP Pulse Ox 99.1 F 109 H 16 159/99 95 06/19/16 04:00 06/19/16 08:00 06/19/16 08:00 06/19/16 08:00 06/19/16 08:00 Period Temp Pulse Resp BP Sys/Umana Pulse Ox Last 24 Hr 98.7 F-100.3 F 92-120 14-30 136-206/95-138 92-100 Intake and Output 06/18/16 06/19/16 06/19/16 21:59 05:59 13:59 Intake Total 960 / 960 500 / 500 200 / 200 Output Total 97314 / 40632 Balance -20489 / -05652 500 / 500 200 / 200 Weight 133 lb 6 oz Intake & Output: Intake & Output 06/18/16 06/19/16 06/19/16 21:59 05:59 13:59 Intake Total 960 / 960 500 / 500 200 / 200 Output Total 80791 / 19392 Balance -54547 / -37686 500 / 500 200 / 200 Weight 133 lb 6 oz Intake: IV 300 / 300 Dextrose 5% in Water 50 50 / 50 ml @ 100 mls/hr IV ONCE ONE with Maxipime 1 gm Rx #:[id number] Sodium Chloride 0.9% 250 250 / 250 ml @ 250 mls/hr IV ONCE ONE with Vancomycin 1,000 mg Rx#:[id number] Oral 660 / 660 500 / 500 200 / 200 Output: Hemodialysis UF 96225 / 62670 Other: Meal Dinner Breakfast Percent of Meal Consumed 50% 75% Feeding Ability Independent Assist with Tray Set Up Exam: Constitutional; Afebrile, cooperative, alert, not in distress. Eyes- No icterus, Pupils equal, reactive, No periorbital swelling Ears- Ext ear normal, hearing normal to conversation. Neck- Midline trachea, supple Respiratory system: Air Entry equal on both sides, No crackles or wheezing, no rhonchi. CVS- Rate rhythm regular, S1,S2 heard, no gallop, no rub. Abdomen- Soft nontender abdomen, no organomegaly, no tenderness, no guarding or rigidity, [employer]- AOOx3, moving all extremities, no focal deficit noted. Medical - PN: Obj Da - Labs CBC & Chem 7: 06/19/16 04:00 06/19/16 04:00 Labs: Abnormal Lab Results 06/19/16 06/19/16 04:00 04:00 RBC 2.46 L Hgb 8.1 L Hct 24.8 L MCV 100.8 H RDW 16.0 H Lymph # 1.2 L Chloride 93 L BUN 37 H Creatinine 6.0 H* Calcium 8.4 L AST 50 H ALT 68 H Meds: Medications Acetaminophen (Tylenol) 650 mg PO Q4-6HP PRN PRN Reason: PAIN/FEVER > 101 Last Admin: 06/19/16 08:17 Dose: 650 mg Albuterol/Ipratropium (Duoneb) 3 ml NEB Q4HRT [facility] Last Admin: 06/19/16 07:24 Dose: 3 ml Calcium Acetate (Phoslo) 667 mg PO TIDCC [facility] Last Admin: 06/19/16 08:09 Dose: 667 mg Calcium Carbonate/Glycine (Tums) 500 mg CHEWED Q4HP PRN PRN Reason: Dyspepsia Clonazepam (Klonopin) 1 mg PO BID [facility] Last Admin: 06/19/16 08:18 Dose: 1 mg Doxazosin Mesylate (Cardura) 2 mg PO HS [facility] Last Admin: 06/18/16 21:46 Dose: 2 mg Gabapentin (Neurontin) 200 mg PO TID [facility] Last Admin: 06/19/16 08:08 Dose: 200 mg Heparin Sodium (Porcine) (Heparin) 5,000 unit SQ Q12 [facility] Last Admin: 06/19/16 08:09 Dose: 5,000 unit Hydralazine HCl (Apresoline) 75 mg PO TID [facility] Last Admin: 06/19/16 07:36 Dose: 75 mg Hydromorphone HCl (Dilaudid) 1 mg IV Q4-6HP PRN PRN Reason: Pain Last Admin: 06/18/16 21:56 Dose: 1 mg Cefepime HCl 0.5 gm/ Dextrose 50 mls @ 100 mls/hr IV Q24H [facility] Ketorolac Tromethamine (Toradol) 15 mg IV Q6HP PRN PRN Reason: headache/ pain. Last Admin: 06/19/16 08:25 Dose: 15 mg Lorazepam (Ativan) 0.5 mg IV Q2-4HP PRN PRN Reason: ANXIETY/SEDATION Last Admin: 06/18/16 18:13 Dose: 0.5 mg Losartan Potassium (Cozaar) 100 mg PO BID [facility] Last Admin: 06/19/16 08:09 Dose: 100 mg Metoprolol Tartrate (Lopressor) 50 mg PO BID [facility] Last Admin: 06/19/16 08:08 Dose: 50 mg Naloxone HCl (Narcan) 0.1 mg IV Q2MIN PRN PRN Reason: Opiate Reversal Nifedipine (Procardia Xl) 90 mg PO DAILY [facility] Last Admin: 06/19/16 08:17 Dose: 90 mg Pantoprazole Sodium (Protonix) 40 mg PO BIDAC [facility] Last Admin: 06/19/16 07:36 Dose: 40 mg Ropinirole HCl (Requip) 0.5 mg PO HS [facility] Last Admin: 06/18/16 21:47 Dose: 0.5 mg Sodium Chloride (Saline Flush) 10 ml IV Q8 [facility] Last Admin: 06/19/16 06:43 Dose: 10 ml Trazodone HCl (Desyrel) 150 mg PO QHS PRN PRN Reason: insomnia Last Admin: 06/18/16 21:47 Dose: 150 mg Vancomycin HCl (Vancomycin Per Pharmacy) 1 order IV UD [facility] Medical - PN: A/P - Time Spent With Patient Total time spent is greater than 50% in coordination of care (as documented) at patient's floor/unit and/or counseling patient: (1) Acute congestive heart failure Status: Acute Current Visit: Yes (2) Hypertensive emergency Status: Acute Current Visit: Yes (3) Mitral stenosis with insufficiency Status: Acute Current Visit: Yes (4) Pulmonary hypertension Status: Acute Current Visit: Yes (5) Substance use disorder Status: Acute Current Visit: Yes (6) End stage renal disease Status: Chronic Current Visit: No (7) Acute respiratory failure with hypoxia Status: Acute Current Visit: Yes (8) Migraine Status: Acute Current Visit: Yes (9) HCAP (healthcare-associated pneumonia) Status: Acute Current Visit: Yes - Narrative A/P Narrative: Acute congestive heart failure : X ray shows edema this AM, continue HD. ESRD on HD: HD as per nephrology, Acute hypoxic resp failure: On Oxygen 2-3 L, Resp rate much better this AM. Headache: Migrane headache, on ketorolac and dilaudid, CT head neg for any SAH Hcap pna: elevated procalcitonin, CXR was positive yesterday, reported neg today , cultures awaited, IV vanco and cefepime for now. Substance abuse: Meth and THC, educated to abstain, unable to get valve replacement unless his changes. Has been to rehab multiple times. Mitral regurgitation/ stenosis/ Pulmonary HTN: Medical management for now. Follows with Dr Nair. Hypertension, Uncontrolled: Resumed home meds, Started on doxazosin, monitor BP , Anxiety: atvian prn for now, on clonazepam 1mg bid, (takes 2mg bid at home) DVT: hep sq Diet: renal diet Code: Full code. Medical - PN: Qual - VTE Deep Vein Thrombosis/Pulmonary Embolism Present on Admission: No
[2016-06-19] MEDS: CEFEPIME 0.5 GM in DEXTROSE 5% IN WATER 50 ML IV SCH ×2 (09:10→14:50)
[2016-06-19] MEDS ORDERED: METOPROLOL TARTRATE 5 MG/5 ML VIAL IV ONE (11:17)
[2016-06-19] MEDS: METOPROLOL TARTRATE 5 MG/5 ML VIAL IV SCH ×3 (11:23→11:35)
[2016-06-19] MEDS: rOPINIRole 0.25 MG TABLET PO SCH (20:56)
[2016-06-19] MEDS: DOXAZOSIN 4 MG TABLET PO SCH (21:02)
[2016-06-20] MEDS: IPRATROPIUM/ALBUTEROL 3 ML AMPUL.NEB NEB SCH ×3 (04:01→13:06)
[2016-06-20 05:44] LABS: Basophils # (Auto) 0.1 K/mcL (0.0-0.3); Basophils % (Auto) 1.2 % (0.0-2.0); Eosinophils # (Auto) 0.4 K/mcL (0.0-0.7); Eosinophils % (Auto) 9.2 % (0.0-7.0); Granulocytes % (Auto) 62.6 % (38.0-78.0); Mean Cell Volume 100.4 fL (80.0-100.0); Mean Corpuscular HGB Conc 32.6 g/dL (31.0-36.0); Mean Corpuscular Hemoglobin 32.7 pg (26.0-34.0); Monocytes # (Auto) 0.3 K/mcL (0.1-0.9); Platelet Count 239 K/mcL (140-440); RBC 3.01 M/mcL (4.50-5.90); Red Cell Distribution Width 15.6 % (11.5-14.5)
[2016-06-20 06:04] LABS: Vancomycin,Random 12.2 ug/ml
[2016-06-20 06:16] LABS: ALT/SGPT 86 U/l (0-40); Albumin 3.6 gm/dL (3.2-5.2); Albumin/Globulin Ratio 1.2 (1.0-2.3); Alkaline Phosphatase 57 U/L (39-117); Bilirubin,Direct < 0.2 mg/dL (0.0-0.3); Blood Urea Nitrogen 32 mg/dl (6-20); Gamma Glutamyl Transpeptidase 50 U/L (8-61); Magnesium 2.1 mg/dL (1.6-2.5); Phosphorous 2.8 mg/dL (2.7-4.5); Uric Acid 2.7 mg/dL (2.5-8.0)
[2016-06-20] MEDS: 0.9 % SODIUM CHLORIDE 10 ML SYRINGE IV SCH ×2 (06:34→14:12)
[2016-06-20] MEDS: PANTOPRAZOLE 40 MG TABLET PO SCH (07:22)
[2016-06-20] MEDS: hydrALAZINE 25 MG TABLET PO SCH (08:10)
[2016-06-20] MEDS: GABAPENTIN 100 MG CAPSULE PO SCH (08:11)
[2016-06-20] MEDS: CALCIUM ACETATE 667 MG CAPSULE PO SCH ×2 (08:11→12:50)
[2016-06-20] MEDS: LOSARTAN 50 MG TABLET PO SCH (08:11)
[2016-06-20] MEDS: HEPARIN 5,000 UNIT/ML VIAL SQ SCH (08:12)
[2016-06-20] MEDS: METOPROLOL TARTRATE 25 MG TABLET PO SCH (08:12)
[2016-06-20] MEDS: clonazePAM 1 MG TABLET PO SCH (08:13)
--- NOTE | 2016-06-20 08:42 | Nephrology Progress Note ---
Subjective Patient information: Note initiated : 06/20/16 at 8:41 am Service Date, if different from initiated Date: [] Patient: Jorge Bates 31 y/o M admitted on 06/18/16 for Headache, Cough, Anxious/Fluid Overload. Chief Complaint: [] Principal diagnosis: SOB, MELGAR Interval history: Was dialyzed yesterday, very comfortable, breathing well and BPs good. Wants to go home today since its his daughters first birthday tomorrow. Objective - Vital Signs Vital signs: Vital Signs Temp Pulse Pulse Resp BP BP Pulse Ox 06/20/16 08:00 94 H 16 139/102 96 06/20/16 07:00 101 H 16 134/104 96 06/20/16 06:35 96 06/20/16 06:00 98 H 16 129/99 95 06/20/16 05:00 91 H 18 129/99 98 06/20/16 04:00 98.4 F 96 H 20 127/88 96 06/20/16 03:00 92 H 18 134/105 06/20/16 02:00 85 20 116/94 99 06/20/16 01:00 83 16 120/86 99 06/20/16 00:00 90 18 125/84 06/19/16 23:00 98 H 18 129/88 94 06/19/16 22:00 98 H 18 135/100 97 06/19/16 21:00 96 H 18 135/95 96 06/19/16 20:00 98.7 F 20 128/90 99 06/19/16 18:00 96 H 16 128/85 96 06/19/16 17:00 102 H 16 124/84 100 06/19/16 16:00 97.4 F L 20 129/82 96 06/19/16 15:00 90 16 120/75 98 06/19/16 14:00 95 H 12 136/96 95 06/19/16 13:20 98.7 F 89 129/85 06/19/16 13:09 96 06/19/16 13:00 88 16 125/89 97 06/19/16 12:58 86 125/89 06/19/16 12:29 97 H 149/94 06/19/16 12:00 99.0 F 88 20 136/77 136/77 96 06/19/16 11:46 94 H 16 131/101 96 06/19/16 11:38 93 H 132/95 06/19/16 11:37 92 H 132/95 06/19/16 11:32 97 H 136/105 06/19/16 11:30 81 147/92 06/19/16 11:26 87 118/100 06/19/16 11:24 103 H 118/100 06/19/16 11:00 16 95 06/19/16 10:56 99 H 143/95 06/19/16 10:30 101 H 152/96 06/19/16 10:20 104 H 143/99 06/19/16 10:00 98 H 16 143/99 96 06/19/16 09:59 102 H 151/102 06/19/16 09:50 100 H 140/104 06/19/16 09:36 102 H 139/119 06/19/16 09:15 99.2 F 101 H 146/112 06/19/16 09:00 99.2 F 105 H 16 146/112 94 Intake and Output 06/19/16 06/20/16 06/20/16 21:59 05:59 13:59 Intake Total 240 / 240 300 / 300 0 / 0 Output Total 0 / 0 Balance 240 / 240 300 / 300 0 / 0 Intake: Oral 240 / 240 300 / 300 0 / 0 Output: Urine Catheter Amount 0 / 0 Other: Meal Dinner Percent of Meal Consumed 75% Feeding Ability Assist with Tray Set Up # Bowel Movements 0 Weight 132 lb 6.4 oz Intake & Output: Intake & Output 06/19/16 06/20/16 06/20/16 21:59 05:59 13:59 Intake Total 240 / 240 300 / 300 0 / 0 Output Total 0 / 0 Balance 240 / 240 300 / 300 0 / 0 Weight 132 lb 6.4 oz Intake: Oral 240 / 240 300 / 300 0 / 0 Output: Urine Catheter Amount 0 / 0 Other: Meal Dinner Percent of Meal Consumed 75% Feeding Ability Assist with Tray Set Up # Bowel Movements 0 - General Appearance General appearance: well-developed, well-nourished EENT: mucous membranes moist Neck: supple Respiratory: clear (no wheezing/crackles) Cardiology: no edema, regular rate, regular rhythm, normal S1, normal S2 Gastrointestinal: normoactive bowel sounds, no tenderness, no guarding Integumentary: no rash, warm and dry Neurologic: no focal deficit, no asterixis, alert and oriented x3 Musculoskeletal: no deformities Psychiatric: mood/affect appropriate - Lab 06/20/16 04:30 06/20/16 04:30 Most recent lab results Calcium 9.1 mg/dl (8.6-10.4) 06/20/16 04:30 Phosphorus 2.8 mg/dL (2.7-4.5) 06/20/16 04:30 Magnesium 2.1 mg/dL (1.6-2.5) 06/20/16 04:30 Assessment and Plan (1) Fluid overload improved s/p HD yesterday will schedule for PUF today Status: Acute Priority: High (2) ESRD (end stage renal disease) on dialysis PUF today Regular HD tomorrow Status: Acute (3) Acute congestive heart failure improved post HD breathing well, not in fluid overload Status: Acute (4) Migraine continues with mild MELGAR this AM Status: Acute (5) Substance use disorder Tox screen pending Status: Acute (6) Pneumonia was febrile, started on empiric antibiotics will be d/c with 4 more days of antibiotics Status: Acute (7) Hypertensive urgency BPs improved , diastolic slightly high likely a combination of fluid overload + illicit drug use + anxiety Is on clonazepam Status: Acute
[2016-06-20] MEDS: CEFEPIME 0.5 GM in DEXTROSE 5% IN WATER 50 ML IV SCH ×2 (08:52→09:00)
[2016-06-20] MEDS: KETOROLAC 15 MG/ML VIAL IV PRN (09:00)
[2016-06-20] MEDS ORDERED: ONDANSETRON 4 MG/2 ML VIAL ONE (09:06)
[2016-06-20] MEDS ORDERED: ONDANSETRON 4 MG/2 ML VIAL IV PRN (09:07)
[2016-06-20] MEDS: VANCOMYCIN 1,000 MG in 0.9 % SODIUM CHLORIDE 250 ML IV ONE ×2 (09:47→12:45)
[2016-06-20] MEDS: NIFEdipine 30 MG TAB.XL.24H PO SCH ×2 (09:47→12:50)
--- NOTE | 2016-06-20 11:01 | Discharge Summary ---
Medical - DS: Prov Patient information: Note initiated : 06/20/16 at 10:56 am Service Date, if different from initiated Date: [] Patient: Jorge Bates 31 y/o M admitted on 06/18/16 for Headache, Cough, Anxious/Fluid Overload. Chief Complaint: [] Date of admission: 06/18/16 13:02 Discharge date: 06/20/16 Primary care physician: [f_Reg Prim Care Provider] Medical - DS: Meds - Discharge Medications Prescriptions: Cefepime [Maxipime] 0.5 gm IV Q24H #5 vial Vancomycin Per Pharmacy 1 order IV ONCE #4 miscell Active and Home Medications: Home Medications gabapentin 100 mg capsule 200 mg PO Q8H #60 cap 10/25/15 [Rx Confirmed 06/18/16 Last Taken 06/17/16] clonazepam 2 mg tablet 2 mg PO BID #60 tab 03/23/16 [Rx Confirmed 06/18/16 Last Taken 06/11/16] nifedipine ER 90 mg tablet,extended release 24 hr 90 mg PO DAILY #30 tab [Rx Confirmed 06/18/16 Last Taken 06/17/16] trazodone 150 mg tablet 150 mg PO QHS PRN #30 tab 03/23/16 [Rx Confirmed Last Taken 06/17/16] valsartan 160 mg tablet 1 each PO BID #60 tab 03/23/16 [Rx Confirmed 06/18/16 Last Taken 06/17/16] omeprazole 20 mg capsule,delayed release 20 mg PO BIDAC #60 cap 04/14/16 [Rx Confirmed 06/18/16 Last Taken 06/17/16] ropinirole 0.5 mg tablet 0.5 mg PO QHS 30 Days 04/14/16 [Rx Confirmed 06/18/16 Last Taken 06/17/16] Metoprolol Tartrate [Lopressor] 50 mg PO BID 06/18/16 [History Confirmed Last Taken 06/17/16] calcium acetate 667 mg capsule 667 mg PO TID 06/18/16 [History Confirmed Last Taken 06/17/16] hydrALAZINE [Apresoline] 75 mg PO TID 06/18/16 [History Confirmed 06/18/16 Last Taken 03/18/17] Cefepime [Maxipime] 0.5 gm IV Q24H #5 vial 06/20/16 [Rx Last Taken Unknown] Doxazosin [Cardura] 2 mg PO HS #30 tablet 06/20/16 [Rx Last Taken Unknown] Vancomycin Per Pharmacy 1 order IV ONCE #4 miscell 06/20/16 [Rx Last Taken Unknown] Medical - DS: Hosp Hospital course: DISCHARGE DIAGNOSIS * Acute congestive heart failure : fully resolved with ongoing dialysis and fluid removal * nosocomial pneumonia-clinical improvement noted.continue cefepime and vancomycin for additional 4 days * acute hypoxic respiratory failure secondary to accommodation above-On room air.. Resolved * ESRD on HD. Managed by nephrology * hypertension Continue home medication. Add doxazocin * Migrane headache, on ketorolac and dilaudid, CT head neg for any SAH * history of sepsis is * Severe mitral stenosis/Regurgitation-follow cardiology as outpatient * Anxiety: ontinue home dose clonazepam on discharge BRIEF HOSPITAL COURSE 06/18: Mr. Bates is a 31 year old male with h/o ESRD on HD, MWF, presents to the ER today with sob, and blood in sputum. The patient has not been feeling well since Sunday when he was in the ER for shortness of breath and noted to be in fluid overload. he presented just 1 hr before his scheduled HD session then and had HD done, with improvement in symptoms. He also had HD done on Sunday. The patient has since Sunday worsening sob, cough with blood and frothy sputum, shortness of breath on minimal exertion. Activity makes it worse, rest makes it better. He also has been a migraine headache for the last 2 days. He denies missing HD sessions or having them cut short, admits to be compliant to dietary restrictions. He also has not done meth since 2 weeks as per him. In the ER his bp was high, CXR shows yazan pulm edema, he is needing oxygen, bp is very high with systolic > 180, diastolic > 110, His bnp is chr elevated and troponin is c hr elevated.Nephrology was consulted for HD, and patient presented to hospitalist for admission to [facility] for fluid overload.The patient h/o reviewed, he had an echo done in 09/2015 which showed lvh, moderate to severe ms and mr, pulm htn with pressure of 60mmhg.Subsequently he was evaluated at [facility] ( I do not have access to documents) but the patient was noted to need a new valve, however given his ongoing use of methamphetamine he is unable to get a new valve. I discussed with him again that he needs to quit drugs if there is any hope for him to survive. Pt Procalcitonin was elevated, concern for possible pna, on vanco and cefepime for same. 06/19: Pt seen examined doing well, overnight events noted, he is intermittently tachycardic, Headache due to migraine, CT head is negative. The patient had HD yesterday, with 3500m removed, today plan to have HD again. his BP was high during HD needing IV hydralazine. I have resumed his home meds and added doxazosin to his regime. This AM he denies any cp, has some sob, no nausea or vomting, headache better ( on ketorolac for same Has no kidneys). 06/20-patient doing well. Ongoing hemodialysis. On room air. She is at baseline. No active concerns including fever chills nausea vomiting CP/SOB area and no overnight events. Discharging with advice to continue antibiotics for additional 4 days and follow-up with nephrology/cardiology. Discharge diagnosis: . - Time Spent with Patient Total time spent providing and/or coordinating discharge services: Greater than 30 minutes Medical - DS: Exam - Constitutional Vitals: Vital Signs Temp Pulse Pulse Resp BP BP Pulse Ox 06/20/16 10:48 98.8 F 93 H 125/95 06/20/16 10:00 94 H 16 116/83 95 06/20/16 09:00 99.2 F 96 H 16 134/95 06/20/16 08:00 94 H 16 139/102 96 06/20/16 07:00 101 H 16 134/104 96 06/20/16 06:35 96 06/20/16 06:00 98 H 16 129/99 95 06/20/16 05:00 91 H 18 129/99 98 06/20/16 04:00 98.4 F 96 H 20 127/88 96 06/20/16 03:00 92 H 18 134/105 06/20/16 02:00 85 20 116/94 99 06/20/16 01:00 83 16 120/86 99 06/20/16 00:00 90 18 125/84 06/19/16 23:00 98 H 18 129/88 94 06/19/16 22:00 98 H 18 135/100 97 06/19/16 21:00 96 H 18 135/95 96 06/19/16 20:00 98.7 F 20 128/90 99 06/19/16 18:00 96 H 16 128/85 96 06/19/16 17:00 102 H 16 124/84 100 06/19/16 16:00 97.4 F L 20 129/82 96 06/19/16 15:00 90 16 120/75 98 06/19/16 14:00 95 H 12 136/96 95 06/19/16 13:20 98.7 F 89 129/85 06/19/16 13:09 96 06/19/16 13:00 88 16 125/89 97 06/19/16 12:58 86 125/89 06/19/16 12:29 97 H 149/94 06/19/16 12:00 99.0 F 88 20 136/77 136/77 96 06/19/16 11:46 94 H 16 131/101 96 06/19/16 11:38 93 H 132/95 06/19/16 11:37 92 H 132/95 06/19/16 11:32 97 H 136/105 06/19/16 11:30 81 147/92 06/19/16 11:26 87 118/100 06/19/16 11:24 103 H 118/100 06/19/16 11:00 16 95 Intake and Output 06/19/16 06/20/16 06/20/16 21:59 05:59 13:59 Intake Total 290 / 290 300 / 300 150 / 150 Output Total 0 / 0 300 / 300 Balance 290 / 290 300 / 300 -150 / -150 Intake: IV 50 / 50 50 / 50 Dextrose 5% in Water 50 50 / 50 50 / 50 ml @ 100 mls/hr IV Q24H ANDRE with Maxipime 0.5 gm Rx#:[id number] Oral 240 / 240 300 / 300 100 / 100 Output: Urine Catheter Amount 0 / 0 Emesis 300 / 300 Hemodialysis UF 0 / 0 Other: Meal Dinner Breakfast Percent of Meal Consumed 75% 100% Feeding Ability Assist with Tray Set Up Assist with Tray Set Up # Bowel Movements 0 Weight 132 lb 6.4 oz Medical - DS: Data Labs on day of discharge: Labs from last 24 hours 03/21/17 03/21/17 03/21/17 04:30 04:30 04:30 WBC 4.9 RBC 3.01 L Hgb 9.8 L Hct 30.2 L MCV 100.4 H MCH 32.7 MCHC 32.6 RDW 15.6 H Plt Count 239 MPV 7.2 L Gran % 62.6 Lymph % (Auto) 20.0 [place] % (Auto) 7.0 Eos % (Auto) 9.2 H Baso % (Auto) 1.2 Gran # 3.0 Lymph # 1.0 L [place] # 0.3 Eos # 0.4 Baso # 0.1 Sodium 137 Potassium 3.9 Chloride 94 L Carbon Dioxide 29 Anion Gap 14.0 BUN 32 H Creatinine 5.7 H* GFR Calculation 12 Glucose 98 Uric Acid 2.7 Calcium 9.1 Phosphorus 2.8 Magnesium 2.1 Total Bilirubin 0.7 Direct Bilirubin < 0.2 GGT 50 AST 60 H ALT 86 H Alkaline Phosphatase 57 Lactate Dehydrogenase 232 Total Protein 6.7 Albumin 3.6 Globulin 3.1 Albumin/Globulin Ratio 1.2 Triglycerides 92 Random Vancomycin 12.2 Vancomycin Dose Not Reportable Vanco Last Dose Time Not Reportable Preliminary micro results at discharge 06/18/16 13:15 Blood Culture - Preliminary Blood 06/18/16 13:26 Blood Culture - Preliminary Blood Medical - DS: A/P - Patient/Caregiver Discharge Instructions Activity: increase activity as tolerated Diet: Renal/Consistent Carbs Additional Instructions: Follow-up PCP in 5 days follow-up nephrology for hemodialysis Follow-up cardiology for MS MR evaluation I recommend primary care physician to check INR, CBC BMP UA as a posthospital follow-up and Chest x-ray in 1 week for interval change assessment. Antibiotics for additional 4 days-IV vancomycin/cefepime Return to ER if worsening fever chills shortness of breath, diarrhea, bleeding Review risk and side effect profile of medications including antibiotics. Side effect may include mild to severe reaction including rash, diarrhea, cdiff and even which can be prevented by close follow-up with PCP and monitoring for side effects Refrain from smoking , methamphetamine use and alcohol Continue renal/low sodium diet and activity as advised Discussed importance of medication adherence Please review medication list with patient prior to discharge Please schedule follow-up with PCP/Providers prior to discharge and provide printouts Portions of this chart may have been created with Dragon voice recognition software. Occasional wrong-word or ?sound-like? substitutions may have occurred due to the inherent limitations of voice recognition software. Please read the chart carefully and recognize, using context, where the substitutions have occurred. CC- PCP Prescriptions: Cefepime [Maxipime] 0.5 gm IV Q24H #5 vial Vancomycin Per Pharmacy 1 order IV ONCE #4 miscell - Follow up Plan Follow up with: Pat Martinez DO [Primary Care Provider] - 06/27/16 11:00 am Disposition: Home, Self-Care Prognosis: Good Rehab Potential: Undetermined I certify that the patient requires SNF services: No Overall status at discharge: patient is progressing back to baseline Medical - DS: Qual - VTE Deep Vein Thrombosis/Pulmonary Embolism Present on Admission: No
[2016-06-26 14:46] LABS: Amphetamine Screen NEGATIVE (NEGATIVE); Benzodiazepine Screen NEGATIVE (NEGATIVE); Opiate Screen NEGATIVE (NEGATIVE)
== END 2016-06-20 14:50 | disposition home or self-care (01) | DRG 291 ==
LOC: ED 09:14 → ICU 13:02
PROVIDERS: ADMIT Internal Medicine; ATTEND Internal Medicine

== ENCOUNTER 2016-11-25 19:17 | Inpatient (IN) ==
[2016-11-25] MEDS ORDERED: 0.9 % SODIUM CHLORIDE 1,000 ML IV ONE (19:27)
[2016-11-25] MEDS ORDERED: FUROSEMIDE 100 MG/10 ML VIAL IV ONE (19:54)
[2016-11-25] MEDS ORDERED: CALCIUM CHLORIDE 1,000 MG/10 ML SYRINGE IV ONE (19:54)
[2016-11-25] MEDS ORDERED: DEXTROSE 50% 50 ML VIAL IV ONE (19:54)
[2016-11-25] MEDS ORDERED: INSULIN REGULAR, HUMAN 1 UNIT/0.01 ML UNIT IV ONE (19:54)
[2016-11-25] MEDS ORDERED: ALBUTEROL SULFATE 5 MG/ML NEB SOLUTION BOTTLE NEB ONE (19:54)
[2016-11-25] MEDS ORDERED: SODIUM POLYSTYRENE SULFONATE 15 GM/60 ML SUSPENSION PO ONE (19:54)
[2016-11-25 19:59] LABS: Basophils # (Auto) 0 K/mcL (0.0-0.3); Basophils % (Auto) 0.8 % (0.0-2.0); Eosinophils # (Auto) 0.2 K/mcL (0.0-0.7); Eosinophils % (Auto) 4.6 % (0.0-7.0); Lymphocytes # (Auto) 1.3 K/mcL (1.5-4.8); Lymphocytes % (Auto) 27.3 % (15.5-49.0); Mean Corpuscular HGB Conc 33.5 g/dL (31.0-36.0); Mean Corpuscular Hemoglobin 33.5 pg (26.0-34.0); Monocytes # (Auto) 0.5 K/mcL (0.1-0.9); Monocytes % (Auto) 10.3 % (1.0-12.0); Platelet Count 149 K/mcL (140-440); RBC 3.21 M/mcL (4.50-5.90); Red Cell Distribution Width 14.6 % (11.5-14.5)
[2016-11-25] MEDS ORDERED: DEXTROSE 50% 50 ML SYRINGE IV ONE (20:13)
[2016-11-25 20:21] LABS: ALT/SGPT 78 U/l (0-40); Albumin 4.6 gm/dL (3.2-5.2); Alkaline Phosphatase 51 U/L (39-117); Blood Urea Nitrogen 111 mg/dl (6-20); Magnesium 2.4 mg/dL (1.6-2.5)
--- NOTE | 2016-11-25 20:37 | Emergency Department Note ---
Syncope HPI - General Chief Complaint: Syncope Stated Complaint: passed out at home Time Seen by Provider: 11/25/16 19:27 Source: patient Mode of arrival: ambulatory Limitations: no limitations - History of Present Illness HPI Narrative: 31-year-old male who missed his dialysis appointment yesterday. Then today after working in the yard he had syncopal episode at a friend's house. He is somewhat emotionally distraught due to "stress". He has avoided taking any fluids because he does not want to be overloaded. He is very fatigued but denies any nausea vomiting diarrhea fever - Related Data Home Medications Medication Instructions Recorded Confirmed calcium acetate 667 mg capsule 667 mg PO TID 06/18/16 11/05/16 Previous Rx's Medication Instructions Recorded valsartan 160 mg tablet 1 each PO BID #60 tab 03/23/16 doxazosin 4 mg tablet 2 mg PO HS #30 tab 06/28/16 alprazolam 1 mg tablet 1 mg PO BID PRN #60 tab 08/17/16 trazodone 150 mg tablet 150 mg PO QHS PRN #30 tab 08/22/16 ropinirole 0.5 mg tablet 0.5 mg PO QHS 30 Days 08/30/16 omeprazole 20 mg capsule,delayed 20 mg PO BIDAC #60 cap 10/04/16 release gabapentin 100 mg capsule 200 mg PO Q8H #60 cap 10/05/16 nifedipine ER 90 mg 90 mg PO DAILY #30 tab 10/10/16 tablet,extended release 24 hr metoprolol tartrate 25 mg tablet 50 mg PO BID #60 tab 11/08/16 hydralazine 25 mg tablet 75 mg PO TID #90 tab 11/14/16 sertraline 100 mg tablet 100 mg PO QDAY #30 tab 11/15/16 Allergies Allergy/AdvReac Type Severity Reaction Status Date / Time Iodinated Contrast- Oral and Allergy Itching Verified 08/29/16 15:41 IV Dye [Iodinated Contrast Media - Oral and] Review of Systems All systems ED: reviewed and negative except as stated. Past Medical History - Past Medical History Attestation: Yes: The following information was validated with the patient. Medical history: Reports: CHF, CVA, hypertension, renal disease, seizures, thyroid disease, valvular heart disease. Denies: diabetes Surgical history ED: Reports: orthopedic, other (right shoulder replacement), other (nephrectomy, fistula) Psychiatric history: Reports: anxiety - Social History smoking status: Current every day smoker Alcohol use: Reports: None Drug use: Reports: marijuana Physical Exam Thin male fatigued ill-appearing. Normocephalic atraumatic. Bilateral conjunctival injection which is mild. No discharge. Pupils are equal round reactive light and accommodation. No nasal discharge or congestion. Oropharynx with dry buccal mucosa. Neck is supple without lymphadenopathy or thyromegaly. Heart is regular rate and rhythm no murmurs appreciated. Lungs are clear to auscultation bilaterally without wheezes rales rhonchi or respiratory distress. Abdomen is soft nontender nondistended. Fistulas on left arm. No pedal edema. No dysarthria ataxia or tremor. Somewhat emotionally distraught labile mood - General Limitations: no limitations Course Vital Signs Temperature 96.8 F L 11/25/16 19:18 Pulse Rate 79 11/25/16 19:18 Respiratory Rate 16 11/25/16 19:18 Pulse Oximetry (%) 99 11/25/16 19:18 Temperature 96.8 F L 11/25/16 19:18 Pulse Rate 81 11/25/16 20:47 Respiratory Rate 16 11/25/16 20:25 Blood Pressure 171/99 11/25/16 20:47 Pulse Oximetry (%) 99 11/25/16 20:47 Syncope - Lab Data Lab results reviewed: Yes I reviewed the patient's lab results. Result diagrams: 11/25/16 19:35 11/25/16 19:36 Lab Results 11/25/16 11/25/16 Range/Units 19:35 19:36 WBC 4.7 (4.5-11.0) K/mcL RBC 3.21 L (4.50-5.90) M/mcL Hgb 10.7 L (13.5-16.5) g/dL Hct 32.1 L (41.0-55.0) % POC Hct 33.0 L (41.0-55.0) % MCV 100.0 (80.0-100.0) fL MCH 33.5 (26.0-34.0) pg MCHC 33.5 (31.0-36.0) g/dL RDW 14.6 H (11.5-14.5) % Plt Count 149 (140-440) K/mcL MPV 7.5 (7.4-10.4) fL Gran % 57.0 (38.0-78.0) % Lymph % (Auto) 27.3 (15.5-49.0) % [place] % (Auto) 10.3 (1.0-12.0) % Eos % (Auto) 4.6 (0.0-7.0) % Baso % (Auto) 0.8 (0.0-2.0) % Gran # 2.7 (1.8-8.0) K/mcL Lymph # (Auto) 1.3 L (1.5-4.8) K/mcL [place] # (Auto) 0.5 (0.1-0.9) K/mcL Eos # (Auto) 0.2 (0.0-0.7) K/mcL Baso # (Auto) 0 (0.0-0.3) K/mcL POC Sodium 139 (133-145) mmol/L Sodium 141 (133-145) mmol/L POC Potassium 6.1 H* (3.3-5.1) mmol/L Potassium 6.3 H* (3.3-5.1) mmol/L POC Chloride 106 (96-108) mmol/L Chloride 99 (96-108) mmol/L Carbon Dioxide 20 L (22-30) mmol/L POC Total CO2 21 L (22-30) mmol/L Anion Gap 22.0 H (8-16) POC BUN 116 H* (6-20) mg/dl BUN 111 H* (6-20) mg/dl Creatinine 17.3 H* (0.7-1.2) mg/dl POC Creatinine 18.7 H* (0.7-1.2) mg/dl GFR Calculation 3 Glucose 141 H (70-105) mg/dL POC Glucose 136 H (70-105) mg/dL Calcium 8.9 (8.6-10.4) mg/dl POC WB Ioniz Calcium 1.08 L (1.16-1.32) mmol/L Magnesium 2.4 (1.6-2.5) mg/dL Total Bilirubin 0.5 (0.0-1.0) mg/dL AST 66 H (0-37) U/l ALT 78 H (0-40) U/l Alkaline Phosphatase 51 (39-117) U/L Total Protein 6.9 (5.9-8.4) gm/dL Albumin 4.6 (3.2-5.2) gm/dL Globulin 2.3 (2.2-3.7) gm/dL Albumin/Globulin Ratio 2.0 (1.0-2.3) - Radiology Data Radiology results reviewed: Yes I reviewed the patient's radiology results. X-ray shows no acute cardiopulmonary pathology - EKG Data EKG attestation: Yes I reviewed and interpreted this EKG. 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 Found to be hyperkalemic so protocol intervention started. Discussed with Dr. Jenkins and he agreed patient needs urgent dialysis. Discussed with Dr. Fuentes the hospitalist who agreed to accept the patient for further care. Will be admitted and get urgent dialysis Disposition: [facility]fer As Inpt ([facility] Condition: Fair Referrals: Pat Martinez DO [Primary Care Provider] -
--- NOTE | 2016-11-25 20:43 | Internal Med History&Physical ---
Medical - H&P: [facility] Patient information: Note initiated : 11/25/16 at 8:39 pm Service Date, if different from initiated Date: [] Patient: Jorge Bates 31 y/o M admitted on for passed out at home. Chief Complaint: [] Chief complaint: fall History of present illness: Mr. Bates is a 31 year old M who passed out at home. The patient has been working in the yard and missed dialysis yesterday as he has been busy with recent move and trying to take care of 1-1/2-year-old. e called the dialysis center and as unable to schedule ialysis until Sunday. He also has been working in his yard in the sun and felt that he probably got too dehydrated. he subsequently passed out nd was down for a minute until family discovered and brought him to [place] [facility]. He denied thunderclap headache, fever or seizure like activity. Denied incontinence. here was no postictal phase. He denies unilateral weakness or chest palpitations. Initial evaluation in the ER was significant for potassium 6.3 along with BUN over 100 and creatinine 17.7. ff initiating hyperkalemia protocol Nephrology was consulted. Nephrology recommended admission for emergent hemodialysis. Patient carries a history of IV drug use/with amphetamines. a tox screen is pending As per recent echo patient has significant valvular heart disease but he denies shortness of breath,cough or productive sputum. 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) Mitral regurgitation (Chronic) Uncontrolled hypertension (Chronic) FSGS (focal segmental glomerulosclerosis) with nephrosis (Resolved) Surgical history: History of parathyroidectomy (Chronic) History of shoulder replacement (Chronic) History of surgery (Chronic) S/p nephrectomy (Inactive) Pertinent family history: istory of drug abuse in mother Functional capacity: independent ambulation Drug use: other Alcohol use: none Medical - H&P: Meds Home Medications Medication Instructions Recorded Confirmed Type valsartan 160 mg tablet 1 each PO BID #60 tab 03/23/16 11/05/16 Rx calcium acetate 667 mg capsule 667 mg PO TID 06/18/16 11/05/16 History doxazosin 4 mg tablet 2 mg PO HS #30 tab 06/28/16 11/05/16 Rx alprazolam 1 mg tablet 1 mg PO BID PRN #60 tab 08/17/16 11/05/16 Rx trazodone 150 mg tablet 150 mg PO QHS PRN #30 tab 08/22/16 11/05/16 Rx ropinirole 0.5 mg tablet 0.5 mg PO QHS 30 Days 08/30/16 11/05/16 Rx omeprazole 20 mg capsule,delayed 20 mg PO BIDAC #60 cap 10/04/16 11/05/16 Rx release gabapentin 100 mg capsule 200 mg PO Q8H #60 cap 10/05/16 11/05/16 Rx nifedipine ER 90 mg 90 mg PO DAILY #30 tab 10/10/16 11/05/16 Rx tablet,extended release 24 hr metoprolol tartrate 25 mg tablet 50 mg PO BID #60 tab 11/08/16 Rx hydralazine 25 mg tablet 75 mg PO TID #90 tab 11/14/16 Rx sertraline 100 mg tablet 100 mg PO QDAY #30 tab 11/15/16 Rx Allergies Allergy/AdvReac Type Severity Reaction Status Date / Time Iodinated Contrast- Oral and Allergy Itching Verified 08/29/16 15:41 IV Dye [Iodinated Contrast Media - Oral and] Medical - H&P: Exam - Constitutional Vitals: Temp Pulse Resp Pulse Ox 96.8 F L 77 16 98 11/25/16 19:18 11/25/16 20:25 11/25/16 20:25 11/25/16 20:25 General appearance: disheveled, thin Exam: pupils symmetric oral cavity dry no eardischarge Dry mouthmucous membrane neck no lymphadenopathy S1 and S2 regular diminished breath sounds bases Abdomen soft no cyanosis clubbing, eft upper extremity multiple fistulas forearm and arm. Fistula thrill appreciated only mid left arm no joint swelling lert but anxious moving all 4 extremities Medical - H&P: Reslt - Labs CBC & Chem 7: 11/25/16 19:35 11/25/16 19:36 Labs: Short CBC 11/25/16 Range/Units 19:35 WBC 4.7 (4.5-11.0) K/mcL Hgb 10.7 L (13.5-16.5) g/dL Hct 32.1 L (41.0-55.0) % Plt Count 149 (140-440) K/mcL BMP 11/25/16 19:36 Sodium 141 Potassium 6.3 H* Chloride 99 Carbon Dioxide 20 L BUN 111 H* Creatinine 17.3 H* Glucose 141 H Calcium 8.9 Liver Function 11/25/16 Range/Units 19:36 Total Bilirubin 0.5 (0.0-1.0) mg/dL AST 66 H (0-37) U/l ALT 78 H (0-40) U/l Alkaline Phosphatase 51 (39-117) U/L Albumin 4.6 (3.2-5.2) gm/dL Medical - H&P: A/P (1) Hyperkalemia, diminished renal excretion Current visit: Yes Status: Acute * Hyperkalemia-Nephrology consulted. patient missed hemodialysis. Emergent hemodialysis tonight. Patient status post hyperkalemia protocol * Syncope-unclear etiology. Possible hyperkalemia mediated arrhythmia. Admit to ICU. emergent hemodialysis.Continue monitoring * history of substance abuse-tox screen * Hypertension on metoprolol/valsartan/hydralazineNifedipine * Neuropathy on gabapentin * anxiety disorder on sertraline/alprazolamtrazodone * Full code Plan * nephrology consult for emergent hemodialysis * Monitor for arrythmia * admitted to ICU. * Tox screen * CXR Critical care time jenna 35 minutes
[2016-11-25] MEDS ORDERED: ONDANSETRON 4 MG/2 ML VIAL IV PRN (22:31)
[2016-11-25] MEDS ORDERED: SENNOSIDES/DOCUSATE SODIUM 1 TAB TABLET PO SCH (22:31)
[2016-11-25] MEDS ORDERED: traZODone HCL 50 MG TABLET PO PRN (22:31)
[2016-11-25] MEDS ORDERED: ACETAMINOPHEN 325 MG TABLET PO PRN (22:31)
[2016-11-25] MEDS: HEPARIN 5,000 UNIT/ML VIAL SQ SCH (23:03)
[2016-11-25] MEDS: DOCUSATE SODIUM 100 MG CAPSULE PO SCH (23:03)
[2016-11-25] MEDS: 0.9 % SODIUM CHLORIDE 10 ML SYRINGE IV SCH (23:03)
[2016-11-26] MEDS ORDERED: LORazepam 2 MG/ML VIAL IV ONE (00:47)
[2016-11-26] MEDS ORDERED: LORazepam 2 MG/ML VIAL ONE (00:55)
[2016-11-26] MEDS ORDERED: METOPROLOL TARTRATE 25 MG TABLET ONE (05:30)
[2016-11-26] MEDS: 0.9 % SODIUM CHLORIDE 10 ML SYRINGE IV SCH ×2 (05:37→13:09)
[2016-11-26] MEDS: hydrALAZINE 25 MG TABLET PO SCH ×2 (05:37→07:14)
[2016-11-26 06:06] LABS: Mean Cell Volume 100.3 fL (80.0-100.0); Mean Corpuscular Hemoglobin 34.1 pg (26.0-34.0); Platelet Count 136 K/mcL (140-440); RBC 3.02 M/mcL (4.50-5.90); Red Cell Distribution Width 14.6 % (11.5-14.5)
[2016-11-26 06:54] LABS: ALT/SGPT 78 U/l (0-40); Albumin 3.8 gm/dL (3.2-5.2); Albumin/Globulin Ratio 1.6 (1.0-2.3); Alkaline Phosphatase 51 U/L (39-117); Bilirubin,Direct < 0.2 mg/dL (0.0-0.3); Blood Urea Nitrogen 59 mg/dl (6-20); Gamma Glutamyl Transpeptidase 52 U/L (8-61); Magnesium 1.9 mg/dL (1.6-2.5); Uric Acid 4.5 mg/dL (2.5-8.0)
[2016-11-26] MEDS: HEPARIN 5,000 UNIT/ML VIAL SQ SCH (07:12)
[2016-11-26] MEDS: DOCUSATE SODIUM 100 MG CAPSULE PO SCH (07:14)
[2016-11-26 08:00] LABS: Basophils % (Manual) 1 % (0-2); Eosinophils % (Manual) 5 % (0-7); Lymphocytes % 33 % (15-49); Monocytes % (Manual) 7 % (1-12); Platelet Estimate DECREASED (NORMAL); RBC Morphology NORMAL (NORMAL); Segmented Neutrophils % 54 % (38-78)
--- NOTE | 2016-11-26 08:07 | XRay Report ---
CLINICAL INFORMATION: History CHF - hyperkalemia COMPARISON: 07/27/2016 FINDINGS: The heart has increased and is now moderately enlarged. Mediastinum is unremarkable. The pulmonary arteries are moderately congested and there is moderate peribronchialvascular edema with interstitial edema in the lateral bases. Tiny bilateral pleural effusions noted. No infiltrates IMPRESSION: Moderate CHF Interpreted and Authenticated by: Roman Perez 11/26/16
[2016-11-26] MEDS ORDERED: MULTIVIT,THER IRON,CA,FA & MIN 1 TABLET PO SCH (09:00)
[2016-11-26] MEDS ORDERED: LOSARTAN 50 MG TABLET PO SCH ×2 (09:00→21:00)
[2016-11-26] MEDS ORDERED: METOPROLOL TARTRATE 50 MG TABLET PO SCH (09:00)
[2016-11-26] MEDS ORDERED: NIFEdipine 30 MG TAB.XL.24H PO SCH (11:15)
[2016-11-26] MEDS ORDERED: traZODone HCL 150 MG TABLET PO PRN (12:18)
--- NOTE | 2016-11-26 12:23 | Internal Med Progress Note ---
Medical - PN: Subj Patient information: Note initiated : 11/26/16 at 12:19 pm Service Date, if different from initiated Date: [] Patient: Jorge Bates 31 y/o M admitted on 11/25/16 for passed out at home. Chief Complaint: [] Interval history: The patient has been working in the yard and missed dialysis yesterday as he has been busy with recent move and trying to take care of 1-1/2-year-old. e called the dialysis center and as unable to schedule ialysis until Sunday. He also has been working in his yard in the sun and felt that he probably got too dehydrated. he subsequently passed out nd was down for a minute until family discovered and brought him to [facility]. He denied thunderclap headache, fever or seizure like activity. Denied incontinence. here was no postictal phase. He denies unilateral weakness or chest palpitations. Initial evaluation in the ER was significant for potassium 6.3 along with BUN over 100 and creatinine 17.7. ff initiating hyperkalemia protocol Nephrology was consulted. Nephrology recommended admission for emergent hemodialysis. 11/26- otassium down to 4.7 from 6.3 post hemodialysis. moderate CHF on chest imaging, patient this morning feels a lot better. No overnight events. Fever chills or rrhythmias and monitor. Await further recommendations from nephrology. Patient will likely be discharge in 24 hours. - Constitutional Vitals: Vital Signs Temp Pulse Resp BP Pulse Ox 98.1 F 79 21 195/135 98 11/26/16 08:00 11/26/16 10:01 11/26/16 10:42 11/26/16 10:01 11/26/16 10:42 Period Temp Pulse Resp BP Sys/[place] Pulse Ox Last 24 Hr 97 F-98.1 F 79-102 11-23 153-204/93-137 90-100 Intake and Output 11/25/16 11/26/16 11/26/16 21:59 05:59 13:59 Intake Total 0 / 1000 710 / 710 Output Total 2700 / 2700 Balance -2700 / -1700 710 / 710 Intake & Output: Intake & Output 11/25/16 11/26/16 11/26/16 21:59 05:59 13:59 Intake Total 0 / 1000 710 / 710 Output Total 2700 / 2700 Balance -2700 / -1700 710 / 710 Intake: Oral 0 / 0 710 / 710 Output: Void Amount 0 / 0 Hemodialysis UF 2700 / 2700 General appearance: thin Exam: nondistressedalert and oriented nonlabored breathing no pallor Nondistended abdomen Medical - PN: Obj Da - Labs CBC & Chem 7: 11/26/16 04:08 11/26/16 04:08 Labs: Abnormal Lab Results 11/26/16 11/26/16 04:08 04:08 WBC 3.6 L RBC 3.02 L Hgb 10.3 L Hct 30.3 L MCV 100.3 H MCH 34.1 H RDW 14.6 H Plt Count 136 L Platelet Estimate Decreased A BUN 59 H Creatinine 11.7 H* Calcium 8.5 L Phosphorus 5.3 H AST 63 H ALT 78 H Lactate Dehydrogenase 428 H Meds: Medications Acetaminophen (Tylenol) 650 mg PO Q4-6HP PRN PRN Reason: PAIN/FEVER > 101 Docusate Sodium (Colace) 100 mg PO BID [facility] Last Admin: 11/26/16 07:14 Dose: 100 mg Heparin Sodium (Porcine) (Heparin) 5,000 unit SQ Q12 [facility] Last Admin: 11/26/16 07:12 Dose: 5,000 unit Hydralazine HCl (Apresoline) 25 mg PO TID [facility] Last Admin: 11/26/16 07:14 Dose: 25 mg Iron Carb/Multivit/[place]/Folic Acid (Multivitamin W/Minerals) 1 tab PO DAILY [facility] Last Admin: 11/26/16 07:14 Dose: 1 tab Metoprolol Tartrate (Lopressor) 50 mg PO BID [facility] Last Admin: 11/26/16 07:14 Dose: 50 mg Nifedipine (Procardia Xl) 60 mg PO Q12H [facility] Last Admin: 11/26/16 11:15 Dose: 60 mg Ondansetron HCl (Zofran) 4 mg IV Q4-6HP PRN PRN Reason: Nausea And Vomiting Senna/Docusate Sodium (Senna Plus Tablet) 1 tab PO HS [facility] Last Admin: 11/25/16 23:03 Dose: Not Given Sodium Chloride (Saline Flush) 10 ml IV Q8 [facility] Last Admin: 11/26/16 05:37 Dose: 10 ml Trazodone HCl (Desyrel) 50 mg PO HSP PRN PRN Reason: Insomnia Medical - PN: A/P - Time Spent With Patient Total time spent is greater than 50% in coordination of care (as documented) at patient's floor/unit and/or counseling patient: 25 - 35 minutes (1) Hyperkalemia, diminished renal excretion Status: Acute Assessment and plan: * Hyperkalemia-clinically resolved post hemodialysis Management nephrology. * acute decompensated heart failure secondary to volume overload-managed by nephrology. Ongoing hemodialysis and fluid removal * suboptimally controlled hypertension currently on hydralazine/beta maya/ARB * Neuropathy and gabapentin * Anxiety disorder on sertraline/lprazolam/trazodone * GERD on PPI * Full code plan * hyperkalemia/volume overload management per nephrologywith ongoing hemodialysis * pre-existing medical condition management as above * discharge once approved by nephrology Current Visit: Yes Medical - PN: Qual - VTE Deep Vein Thrombosis/Pulmonary Embolism Present on Admission: No
[2016-11-26] MEDS ORDERED: ALPRAZolam 0.5 MG TABLET PO PRN (12:25)
--- NOTE | 2016-11-26 14:17 | Discharge Summary ---
Medical - DS: Prov Patient information: Note initiated : 11/26/16 at 2:14 pm Service Date, if different from initiated Date: [] Patient: Jorge Bates 31 y/o M admitted on 11/25/16 for passed out at home. Chief Complaint: [] Date of admission: 11/25/16 22:21 Discharge date: 11/26/16 Primary care physician: Pat Martinez DO Medical - DS: Meds - Discharge Medications Prescriptions: NIFEdipine [Procardia Xl] 60 mg PO Q12H #60 Active and Home Medications: Home Medications calcium acetate 667 mg capsule 667 mg PO TID 06/18/16 [History Confirmed Last Taken 11/25/16] doxazosin 4 mg tablet 2 mg PO HS #30 tab 06/28/16 [Rx Confirmed 11/25/16 Last Taken 11/24/16] alprazolam 1 mg tablet 1 mg PO BID PRN #60 tab 08/17/16 [Rx Confirmed 11/25/16 Last Taken 11/25/16] trazodone 150 mg tablet 150 mg PO QHS PRN #30 tab 08/22/16 [Rx Confirmed Last Taken Unknown] ropinirole 0.5 mg tablet 0.5 mg PO QHS 30 Days 08/30/16 [Rx Confirmed 11/25/16 Last Taken Unknown] omeprazole 20 mg capsule,delayed release 20 mg PO BIDAC #60 cap 10/04/16 [Rx Confirmed 11/25/16 Last Taken 11/25/16] gabapentin 100 mg capsule 200 mg PO Q8H #60 cap 10/05/16 [Rx Confirmed 11/25/16 Last Taken 11/24/16] metoprolol tartrate 25 mg tablet 50 mg PO BID #60 tab 11/08/16 [Rx Confirmed Last Taken 11/25/16] hydralazine 25 mg tablet 75 mg PO TID #90 tab 11/14/16 [Rx Confirmed 11/25/16 Last Taken 11/25/16] sertraline 100 mg tablet 100 mg PO QDAY #30 tab 11/15/16 [Rx Confirmed 11/25/16 Last Taken 11/25/16] NIFEdipine [Procardia Xl] 60 mg PO Q12H #60 11/26/16 [Rx Last Taken Unknown] Medical - DS: Hosp Hospital course: DISCHARGE DIAGNOSIS * Hyperkalemia-clinically resolved post hemodialysis. Nephrology recommends discontinuing valsartan due to hyperkalemia. * acute decompensated heart failure secondary to volume overload-managed by nephrology. Ongoing hemodialysis and fluid removal * suboptimally controlled hypertension . Nephrology recommends continuing hydralazine/beta maya and dditionally added nifedipine 60 twice dailywhile discontinuing valsartan * Neuropathy and gabapentin * Anxiety disorder on sertraline/alprazolam/trazodone * GERD on PPI Brief hospital course . Mr. Bates is a 31 year old M admitted with hyperkalemia and decompensated heart failure from volume overload following missed dialysis The patient has been working in the yard and missed dialysis yesterday as he has been busy with recent move and trying to take care of 1-1/2-year-old. as per patient he called the dialysis center and as unable to schedule dialysis until Sunday. He also has been working in his yard in the sun and felt that he probably got too dehydrated. he subsequently passed out and was down for a minute until family discovered and brought him to [place] ER. He denied thunderclap headache, fever or seizure like activity. Denied incontinence. here was no postictal phase. He denies unilateral weakness or chest palpitations. Initial evaluation in the ER was significant for potassium 6.3 along with BUN over 100 and creatinine 17.7. ff initiating hyperkalemia protocol Nephrology was consulted. Nephrology recommended admission for emergent hemodialysis. 11/26- otassium down to 4.7 from 6.3 post hemodialysis. moderate CHF on chest imaging, patient this morning feels a lot better. No overnight events. Fever chills or rrhythmias and monitor. Await further recommendations from nephrology. Patient will likely be discharge in 24 hours. Nephrology after assessing patient ost dialysis recommended discharge on nifedipine 60twice daily and recommended discotinuing valsartan. detailed discharge instructions as below. patient agrees to follow up with nephrology for continued hemodialysis. He is ambulating tolerating diet and feels at baseline Discharge diagnosis: hyperkalemia,congestive heart failure from volume overload, missed hemodialy - Time Spent with Patient Total time spent providing and/or coordinating discharge services: Greater than 30 minutes Medical - DS: Exam - Constitutional Vitals: Vital Signs Temp Pulse Resp BP BP Pulse Ox 11/26/16 13:41 98 11/26/16 13:10 78 100 11/26/16 13:03 98.5 F 76 16 193/142 98 11/26/16 12:00 98 11/26/16 11:02 14 194/128 11/26/16 10:42 21 98 11/26/16 10:01 79 16 195/135 100 11/26/16 09:00 23 H 178/137 99 11/26/16 08:00 98.1 F 22 196/137 100 11/26/16 07:02 14 204/125 99 11/26/16 06:01 16 198/105 100 11/26/16 06:00 99 11/26/16 05:09 20 190/124 94 11/26/16 04:02 98.1 F 22 181/109 91 11/26/16 03:02 15 175/108 98 11/26/16 02:02 12 174/110 100 11/26/16 01:02 16 169/111 100 11/26/16 00:59 97 F 102 H 169/111 11/26/16 00:25 86 157/105 11/26/16 00:02 97.8 F 14 167/93 95 11/26/16 00:00 98 11/25/16 23:57 88 167/93 11/25/16 23:31 94 H 18 94 11/25/16 23:27 90 181/99 11/25/16 23:12 88 165/102 11/25/16 23:02 13 173/102 93 11/25/16 22:57 89 173/102 11/25/16 22:40 97 F 90 153/108 11/25/16 22:31 98.0 F 11 L 157/97 90 Intake and Output 11/26/16 11/26/16 11/26/16 05:59 13:59 21:59 Intake Total 0 / 1000 710 / 710 Output Total 2700 / 2700 Balance -2700 / -1700 710 / 710 Intake: Oral 0 / 0 710 / 710 Output: Void Amount 0 / 0 Hemodialysis UF 2700 / 2700 Medical - DS: Data Labs on day of discharge: Labs from last 24 hours 11/26/16 11/26/16 04:08 04:08 WBC 3.6 L RBC 3.02 L Hgb 10.3 L Hct 30.3 L MCV 100.3 H MCH 34.1 H MCHC 34.0 RDW 14.6 H Plt Count 136 L MPV 7.5 Total Counted 100 Seg Neutrophils % 54 Band Neutrophils % Not Reportable Lymphocytes % 33 Monocytes % (Manual) 7 Eosinophils % (Manual) 5 Basophils % (Manual) 1 Platelet Estimate Decreased A RBC Morphology Normal Sodium 139 Potassium 4.7 Chloride 100 Carbon Dioxide 23 Anion Gap 16.0 BUN 59 H Creatinine 11.7 H* GFR Calculation 5 Glucose 70 Uric Acid 4.5 Calcium 8.5 L Phosphorus 5.3 H Magnesium 1.9 Total Bilirubin 0.4 Direct Bilirubin < 0.2 GGT 52 AST 63 H ALT 78 H Alkaline Phosphatase 51 Lactate Dehydrogenase 428 H Total Protein 6.2 Albumin 3.8 Globulin 2.4 Albumin/Globulin Ratio 1.6 Triglycerides 90 Medical - DS: A/P - Patient/Caregiver Discharge Instructions Activity: increase activity as tolerated Diet: Renal Additional Instructions: discontinue valsartan take nifedipine as advised by nephrology ontinue hemodialysis as scheduled follow-up nephrology and 3-5 days Duration from substance abuse including methamphetamine Prescriptions: NIFEdipine [Procardia Xl] 60 mg PO Q12H #60 - Follow up Plan Follow up with: Pat Martinez DO [Primary Care Provider] - Disposition: Home, Self-Care Prognosis: Fair Rehab Potential: Fair I certify that the patient requires SNF services: No Overall status at discharge: patient is progressing back to baseline Medical - DS: Qual - VTE Deep Vein Thrombosis/Pulmonary Embolism Present on Admission: No
--- NOTE | 2016-11-26 14:47 | Nephrology Consult Note ---
History of Present Illness - Reason for Consult Patient information: Note initiated : 11/26/16 at 2:46 pm Service Date, if different from initiated Date: [] Patient: Jorge Bates 31 y/o M admitted on 11/25/16 for passed out at home. Chief Complaint: [] Consult date: 11/25/16 Requesting physician: Marco Antonio Arce - Chief Complaint Managment of hemodialysis for end stage renal disease - History of Present Illness 31 years old male with h/o ESRD on hemodialysis, admitted with c/o syncope. He missed dialysis on Sunday11/24/2016 from his usual [id number][facility][id number]. On ER labs, he was noted to have hyperkalemia and sever azotemia and received a short hemodialysis last night using 1K bath. He was noted to have uncontrolled hypertension, with SBP up to 204 mmHg. He was on valsartan as out patient, replaced by available formulary Losartan while hospitalized. Due to non- compliance with hemodialysis and risk of recurrent hyperkalemia, ARB was stopped and he was started on Nifedipine XL 60 mg po q12h. He continues to receive Hydralazine, Metoprolol and Cardura from his out patient anti hypertensive regimen. He is scheduled for hemodialysis in am tomorrow at [facility] out patient hemodialysis center, according to usual out patient Sunday-Sunday -Sunday hemodialysis schedule At present, he reported feeling well. No c/o dyspnea, chest discomfort, nausea, vomiting or fever. He has LUE AV fistula and noted to have high negative arterial pressures at out patient and was ordered to go for fistulogram by interventional radiology at [facility] Review of Systems All systems PM: reviewed and no additional remarkable complaints except as stated Past History Past medical history: Medical - H&P: PMH Medical history: Fluid overload (Acute) Anemia in chronic kidney disease (CKD) (Acute) Anxiety disorder (Acute) Chest pain (Acute) Congestive heart failure (Acute) ESRD (end stage renal disease) on dialysis (Acute) Epileptic seizure (Acute) Fluid overload (Acute) Fracture of fifth metacarpal bone of left hand (Acute) Hyperkalemia (Acute) Hypertensive crisis (Acute) Medication side effects (Acute) Nausea (Acute) Restless legs (Acute) End stage renal disease (Chronic) 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 Denied use of alcohol or drug abuse Medications and Allergies Home Medications Medication Instructions Recorded Confirmed Type calcium acetate 667 mg capsule 667 mg PO TID 06/18/16 11/25/16 History doxazosin 4 mg tablet 2 mg PO HS #30 tab 06/28/16 11/25/16 Rx alprazolam 1 mg tablet 1 mg PO BID PRN #60 tab 08/17/16 11/25/16 Rx trazodone 150 mg tablet 150 mg PO QHS PRN #30 tab 08/22/16 11/25/16 Rx ropinirole 0.5 mg tablet 0.5 mg PO QHS 30 Days 08/30/16 11/25/16 Rx omeprazole 20 mg capsule,delayed 20 mg PO BIDAC #60 cap 10/04/16 11/25/16 Rx release gabapentin 100 mg capsule 200 mg PO Q8H #60 cap 10/05/16 11/25/16 Rx metoprolol tartrate 25 mg tablet 50 mg PO BID #60 tab 11/08/16 11/25/16 Rx hydralazine 25 mg tablet 75 mg PO TID #90 tab 11/14/16 11/25/16 Rx sertraline 100 mg tablet 100 mg PO QDAY #30 tab 11/15/16 11/25/16 Rx NIFEdipine [Procardia Xl] 60 mg PO Q12H #60 11/26/16 Rx Allergies Allergy/AdvReac Type Severity Reaction Status Date / Time Iodinated Contrast- Oral and AdvReac Mild Itching Verified 11/26/16 07:04 IV Dye [Iodinated Contrast Media - Oral and] Exam - Vital Signs Vital signs: Temp Pulse Resp BP Pulse Ox 98.5 F 87 16 186/121 93 11/26/16 13:03 11/26/16 14:36 11/26/16 13:03 11/26/16 14:04 11/26/16 14:36 Results - Lab Results 11/26/16 04:08 11/26/16 04:08 Most recent lab results Calcium 8.5 mg/dl (8.6-10.4) L 11/26/16 04:08 Phosphorus 5.3 mg/dL (2.7-4.5) H 11/26/16 04:08 Magnesium 1.9 mg/dL (1.6-2.5) 11/26/16 04:08 Assessment and Plan (1) ESRD (end stage renal disease) on dialysis 31 years old male with h/o ESRD on chronic out patient hemodialysis, non- compliance with hemodialysis. Hyperkalemia has resolved after hemodialysis. Valsartan will be discontinued from his out patient medications, and Nifedipine XL 60 mg po q12h will be added to his anti hypertensive regimen. He will continue his usual dose of phosphate binders. Expect BP to improve with ultrafiltration to his estimated dry weight at outpatient dialysis. Counseled regrading compliance with medications and dialysis Stable for discharge from renal stand point Status: Acute
[2016-11-26] MEDS ORDERED: hydrALAZINE 25 MG TABLET PO SCH (15:00)
[2016-11-26] MEDS ORDERED: GABAPENTIN 100 MG CAPSULE PO SCH (15:00)
[2016-11-26] MEDS ORDERED: OMEPRAZOLE 20 MG CAPSULE PO SCH (17:00)
[2016-11-26] MEDS ORDERED: CALCIUM ACETATE 667 MG CAPSULE PO SCH (17:30)
[2016-11-26] MEDS ORDERED: rOPINIRole 0.25 MG TABLET PO SCH (21:00)
[2016-11-26] MEDS ORDERED: METOPROLOL TARTRATE 25 MG TABLET PO SCH (21:00)
[2016-11-26] MEDS ORDERED: DOXAZOSIN 4 MG TABLET PO SCH (21:00)
[2016-11-27] MEDS ORDERED: SERTRALINE 50 MG TABLET PO SCH (09:00)
== END 2016-11-26 16:15 | disposition home or self-care (01) | DRG 640 ==
LOC: ED 19:17 → ICU 22:20
PROVIDERS: ADMIT Internal Medicine; ATTEND Internal Medicine

== ENCOUNTER 2016-12-27 14:15 | Inpatient (IN) ==
--- NOTE | 2016-12-27 14:43 | Emergency Department Note ---
General Adult HPI - General Chief complaint: Cold/Flu Symptoms Stated complaint: Cough, hypertension Time Seen by Provider: 12/27/16 14:41 Source: patient Mode of arrival: ambulatory Limitations: no limitations - History of Present Illness HPI Narrative: Patient sent over from Dr. Navarrete's office after dialysis. His diastolic blood pressure was 138 when he checked in he is complaining of a headache which is frontal and in the back of his neck, no fevers no chills but has had a cough for the last couple of days, slightly wheezy he states he still smokes 1 or 2 cigarettes a day, on dialysis for the last 9 years ago. Finished his dialysis run today, he thinks she has a migraine but is not vomiting, does not have any photophobia. Denies chest pain but he has a history of CHF, fluid overload - Related Data Home Medications Medication Instructions Recorded Confirmed calcium acetate 667 mg capsule 667 mg PO TID 06/18/16 12/05/16 Previous Rx's Medication Instructions Recorded doxazosin 4 mg tablet 2 mg PO HS #30 tab 06/28/16 trazodone 150 mg tablet 150 mg PO QHS PRN #30 tab 08/22/16 omeprazole 20 mg capsule,delayed 20 mg PO BIDAC #60 cap 10/04/16 release sertraline 100 mg tablet 100 mg PO QDAY #30 tab 11/15/16 NIFEdipine [Procardia Xl] 60 mg PO Q12H #60 11/26/16 gabapentin 100 mg capsule 200 mg PO Q8H #180 cap 11/29/16 hydralazine 25 mg tablet 75 mg PO TID #90 tab 12/06/16 Ondansetron HCl [Zofran ODT] 4 mg SL Q4-6HP PRN #14 tablet 12/09/16 alprazolam 1 mg tablet 1 mg PO BID PRN #60 tab 12/20/16 metoprolol tartrate 25 mg tablet 50 mg PO BID #60 tab 12/20/16 ropinirole 0.5 mg tablet 0.5 mg PO QHS 30 Days 12/25/16 Allergies Allergy/AdvReac Type Severity Reaction Status Date / Time Iodinated Contrast- Oral and AdvReac Mild Itching Verified 12/27/16 14:19 IV Dye [Iodinated Contrast Media - Oral and] Review of Systems All systems ED: reviewed and negative except as stated. 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 Absent: conjunctival injection, nystagmus - ENT ENT exam: normal exam, normal oropharynx, mucous membranes moist, TM's normal bilaterally, normal external ear exam - Neck Neck exam: Present: normal inspection, full ROM, trachea midline. Absent: tenderness, meningismus, thyromegaly - Chest Chest inspection: Present: normal inspection, symmetric chest wall rise - Respiratory Respiratory exam: Present: wheezes, stridor, prolonged expiratory phase - Cardiovascular Cardiovascular exam: Present: regular rate, normal rhythm, systolic murmur - Abdominal Exam Abdominal exam: Present: soft, normal bowel sounds. Absent: distention, tenderness, guarding - Extremities Exam Extremities exam: Present: other (AV fistula to the left forearm). Absent: pedal edema, joint swelling - Back Exam Back exam: Present: normal inspection. Absent: CVA tenderness (R), CVA tenderness (L) - Neurological Exam Neurological exam: Present: alert, oriented X3, CN II-XII intact - Psychiatric Psychiatric exam: Present: normal affect - Skin Skin exam: Present: warm, dry, intact Course Vital Signs Temperature 97.8 F 12/27/16 14:16 Pulse Rate 98 H 12/27/16 14:16 Respiratory Rate 16 12/27/16 14:16 Blood Pressure 208/136 12/27/16 14:16 Pulse Oximetry (%) 100 12/27/16 14:16 Temperature 97.8 F 12/27/16 14:16 Pulse Rate 92 H 12/27/16 17:31 Respiratory Rate 17 12/27/16 17:31 Blood Pressure 205/122 12/27/16 17:31 Pulse Oximetry (%) 98 12/27/16 17:31 Medical Decision Making - [facility] Narrative Medical decision making narrative: His blood pressure remained high despite multiple doses of medications, at this point we will start him on nicardipine drip and he will be admitted for further observation. Final diagnosis is hypertensive crisis, renal failure, on dialysis. Discussed with Dr. East - Medical Records Medical records reviewed: Yes I reviewed the patient's medical records. - Lab Data Lab results reviewed: Yes I reviewed the patient's lab results. Result diagrams: 12/27/16 14:51 12/27/16 14:51 Lab Results 12/27/16 12/27/16 12/27/16 Range/Units 14:51 14:51 14:51 WBC 5.5 (4.5-11.0) K/mcL RBC 3.06 L (4.50-5.90) M/mcL Hgb 10.0 L (13.5-16.5) g/dL Hct 29.5 L (41.0-55.0) % MCV 96.4 (80.0-100.0) fL MCH 32.6 (26.0-34.0) pg MCHC 33.8 (31.0-36.0) g/dL RDW 13.4 (11.5-14.5) % Plt Count 133 L (140-440) K/mcL MPV 8.1 (7.4-10.4) fL Gran % 66.8 (38.0-78.0) % Lymph % (Auto) 18.7 (15.5-49.0) % [place] % (Auto) 6.8 (1.0-12.0) % Eos % (Auto) 7.2 H (0.0-7.0) % Baso % (Auto) 0.5 (0.0-2.0) % Gran # 3.6 (1.8-8.0) K/mcL Lymph # (Auto) 1.0 L (1.5-4.8) K/mcL [place] # (Auto) 0.4 (0.1-0.9) K/mcL Eos # (Auto) 0.4 (0.0-0.7) K/mcL Baso # (Auto) 0 (0.0-0.3) K/mcL Sodium 136 (133-145) mmol/L Potassium 4.6 (3.3-5.1) mmol/L Chloride 96 (96-108) mmol/L Carbon Dioxide 28 (22-30) mmol/L Anion Gap 12.0 (8-16) BUN 48 H (6-20) mg/dl Creatinine 7.4 H* (0.7-1.2) mg/dl GFR Calculation 9 Glucose 94 (70-105) mg/dL Calcium 8.5 L (8.6-10.4) mg/dl Total Bilirubin 0.5 (0.0-1.0) mg/dL AST 19 (0-37) U/l ALT 33 (0-40) U/l Alkaline Phosphatase 59 (39-117) U/L Troponin T 0.08 H* (0-0.03) ng/ml NT-Pro-B Natriuret Pep 26111.0 H (0-125) pg/ml Total Protein 6.6 (5.9-8.4) gm/dL Albumin 3.8 (3.2-5.2) gm/dL Globulin 2.8 (2.2-3.7) gm/dL Albumin/Globulin Ratio 1.4 (1.0-2.3) - Radiology Data Radiology results reviewed: Yes I reviewed the patient's radiology results. Disposition Pt seen by [facility] only: No Clinical Impression: Congestive heart failure, Hypertensive urgency Disposition: Xfer As Inpt ([facility]) Condition: Fair Referrals: Pat Martinez DO [Primary Care Provider] -
[2016-12-27] MEDS ORDERED: METOPROLOL TARTRATE 5 MG/5 ML VIAL IV ONE ×2 (14:44→16:24)
[2016-12-27] MEDS ORDERED: PROCHLORPERAZINE 10 MG/2 ML VIAL IV ONE (14:44)
[2016-12-27] MEDS ORDERED: diphenhydrAMINE 50 MG/ML VIAL IV ONE (14:44)
[2016-12-27] MEDS ORDERED: cloNIDine HCL 0.1 MG TABLET PO SCH ×2 (15:00→16:30)
[2016-12-27] MEDS ORDERED: hydrALAZINE 20 MG/ML VIAL IV ONE ×2 (15:14→16:24)
[2016-12-27 15:18] LABS: Basophils # (Auto) 0 K/mcL (0.0-0.3); Basophils % (Auto) 0.5 % (0.0-2.0); Eosinophils # (Auto) 0.4 K/mcL (0.0-0.7); Eosinophils % (Auto) 7.2 % (0.0-7.0); Granulocytes % (Auto) 66.8 % (38.0-78.0); Lymphocytes % (Auto) 18.7 % (15.5-49.0); Mean Cell Volume 96.4 fL (80.0-100.0); Mean Corpuscular HGB Conc 33.8 g/dL (31.0-36.0); Mean Corpuscular Hemoglobin 32.6 pg (26.0-34.0); Monocytes # (Auto) 0.4 K/mcL (0.1-0.9); Monocytes % (Auto) 6.8 % (1.0-12.0); Platelet Count 133 K/mcL (140-440); RBC 3.06 M/mcL (4.50-5.90); Red Cell Distribution Width 13.4 % (11.5-14.5)
[2016-12-27 15:45] LABS: ALT/SGPT 33 U/l (0-40); Albumin 3.8 gm/dL (3.2-5.2); Albumin/Globulin Ratio 1.4 (1.0-2.3); Alkaline Phosphatase 59 U/L (39-117); Blood Urea Nitrogen 48 mg/dl (6-20)
--- NOTE | 2016-12-27 15:54 | XRay Report ---
CLINICAL INFORMATION: Chest pain COMPARISON: 11/25/2016 FINDINGS: The heart is mildly enlarged, but slightly decreased. Mediastinum is unremarkable. The pulmonary vessels are mildly distended and there is minimal interstitial edema. No infiltrates. Small bilateral pleural effusions noted IMPRESSION: Mild CHF Interpreted and Authenticated by: Roman Perez 12/27/16
[2016-12-27] MEDS ORDERED: METOPROLOL TARTRATE 50 MG TABLET PO ONE (16:31)
[2016-12-27] MEDS ORDERED: niCARdipine 25 MG in 0.9 % SODIUM CHLORIDE 240 ML IV SCH (17:15)
[2016-12-27] MEDS ORDERED: niCARdipine 25 MG in 0.9 % SODIUM CHLORIDE 240 ML IV ONE (17:30)
--- NOTE | 2016-12-27 18:04 | Internal Med History&Physical ---
Medical - H&P: HPI Patient information: Note initiated : 12/27/16 at 5:49 pm Patient: Jorge Bates 31 y/o M admitted on for Cough, Hypertension. History of present illness: Mr. Bates is a 31 year old man with a history of end-stage renal disease, hypertension, CHF, and drug abuse, as well as tobacco abuse, who has not been feeling well over the last week. He says about 1 week ago he started to have intermittent nausea vomiting and diarrhea. He is not sure if he kept all of his medications down. And then 3 or 4 days ago he developed a bad headache, a sore throat, runny nose and a cough. Today when he came to dialysis, blood pressures were very high. He was sent to the emergency room after dialysis with blood pressures greater than 220/140. In the emergency room he received IV hydralazine and metoprolol, oral clonidine, IV morphine, and ultimately nicardipine drip. Patient reports a fairly severe headache lately, but denies new eye or ear changes, sinus pain, tooth pain. He denies stiff neck, swollen glands, chest pain or palpitations. He has noted mildly increased shortness of breath the last couple of days. He is also noted wheezing, which started a few days ago. He denies abdominal pain. He has not had nausea, vomiting, diarrhea today. He is anuric. 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 daily Ropinirole 0.5 mg nightly Omeprazole 20 mg p.o. twice daily Metoprolol 50 mg twice daily Hydralazine 75 mg 3 times daily Gabapentin 200 mg every 8 hours Doxazosin 2 mg nightly Calcium acetate 667 mg 3 times daily Alprazolam 1 mg twice daily as needed Zofran 4 mg sublingual every 4 hours as needed Nifedipine XL 60 mg every 12 hours (Intermittent marijuana and methamphetamines) Allergies: Oral and IV dye. Family history: Father reportedly had heart failure. Mother of a drug overdose. He does not know his siblings. Past social history: He currently lives with a friend and her kids. He smokes 2 or 3 cigarettes per day. He smokes marijuana frequently. He still smokes methamphetamines intermittently. He is unemployed. He does manage to do some light housework. Medical - H&P: Meds Home Medications Medication Instructions Recorded Confirmed Type calcium acetate 667 mg capsule 667 mg PO TID 06/18/16 12/05/16 History doxazosin 4 mg tablet 2 mg PO HS #30 tab 06/28/16 12/05/16 Rx trazodone 150 mg tablet 150 mg PO QHS PRN #30 tab 08/22/16 12/05/16 Rx omeprazole 20 mg capsule,delayed 20 mg PO BIDAC #60 cap 10/04/16 12/05/16 Rx release sertraline 100 mg tablet 100 mg PO QDAY #30 tab 11/15/16 12/05/16 Rx NIFEdipine [Procardia Xl] 60 mg PO Q12H #60 11/26/16 12/05/16 Rx gabapentin 100 mg capsule 200 mg PO Q8H #180 cap 11/29/16 12/05/16 Rx hydralazine 25 mg tablet 75 mg PO TID #90 tab 12/06/16 Rx Ondansetron HCl [Zofran ODT] 4 mg SL Q4-6HP PRN #14 tablet 12/09/16 Rx alprazolam 1 mg tablet 1 mg PO BID PRN #60 tab 12/20/16 Rx metoprolol tartrate 25 mg tablet 50 mg PO BID #60 tab 12/20/16 Rx ropinirole 0.5 mg tablet 0.5 mg PO QHS 30 Days 12/25/16 Rx Allergies Allergy/AdvReac Type Severity Reaction Status Date / Time Iodinated Contrast- Oral and AdvReac Mild Itching Verified 12/27/16 14:19 IV Dye [Iodinated Contrast Media - Oral and] Medical - H&P: Exam - Constitutional Vitals: Temp Pulse Resp BP Pulse Ox 97.8 F 92 H 17 205/122 98 12/27/16 14:16 12/27/16 17:31 12/27/16 17:31 12/27/16 17:31 12/27/16 17:31 Blood pressure max 225/193, currently down to 163/102. O2 saturation is currently 87-94% on room air. Head: Normocephalic, atraumatic. Ears: TMs and canals are clear. Eyes: PERRLA, EOMI, anicteric. Pharynx: Appears clear. Teeth are in fair condition. Neck: Is supple, without obvious JVD, thyromegaly, lymphadenopathy. I do not believe he has bruits, but there is a lot of noise in the neck related to chest wheezing. Cardiac exam shows regular rate and rhythm with normal S1 and S2, without murmurs, rubs, gallops. Lungs: Breath sounds are diffusely coarse, with fairly diffuse wheezing throughout. I do not hear definite crackles or rhonchi. Abdomen: Is soft and nontender without obvious masses. Bowel sounds are active. Extremities: Show no edema, cyanosis or clubbing. Left upper and lower arms of scars at fistula sites. There appear to be some venous aneurysms in the lower arm. Neurologic exam: Patient is alert and oriented, although he seems sleepy at times. He is calm and cooperative. Cranial nerves are grossly intact. Motor exam is grossly intact and symmetric. Medical - H&P: Reslt - Labs CBC & Chem 7: 12/27/16 14:51 12/27/16 14:51 Labs: Short CBC 12/27/16 Range/Units 14:51 WBC 5.5 (4.5-11.0) K/mcL Hgb 10.0 L (13.5-16.5) g/dL Hct 29.5 L (41.0-55.0) % Plt Count 133 L (140-440) K/mcL BMP 12/27/16 14:51 Sodium 136 Potassium 4.6 Chloride 96 Carbon Dioxide 28 BUN 48 H Creatinine 7.4 H* Glucose 94 Calcium 8.5 L Cardiac Enzymes 12/27/16 Range/Units 14:51 Troponin T 0.08 H* (0-0.03) ng/ml Liver Function 12/27/16 Range/Units 14:51 Total Bilirubin 0.5 (0.0-1.0) mg/dL AST 19 (0-37) U/l ALT 33 (0-40) U/l Alkaline Phosphatase 59 (39-117) U/L Albumin 3.8 (3.2-5.2) gm/dL December 27: Troponin is elevated at 0.08 BNP is elevated at 48,637 Chest x-ray: Mild cardiomegaly. Mild pulmonary vascular distention consistent with mild CHF. EKG: Shows normal sinus rhythm, with LVH and peaked T waves, no significant change from December 06, 2016. Medical - H&P: A/P (1) Hypertensive emergency Current visit: No Status: Acute (2) Hyperkalemia, diminished renal excretion Current visit: No Status: Acute (3) End stage renal disease Current visit: No Status: Chronic (4) Congestive heart failure Current visit: Yes Status: Acute (5) Anemia in chronic kidney disease (CKD) Current visit: No Status: Acute (6) Restless legs Current visit: No Status: Acute (7) Upper respiratory infection Current visit: Yes Status: Acute (8) Substance use disorder Current visit: No Status: Acute - Narrative A/P Narrative: #1. Hypertensive urgency/renal. -This patient has a long history of uncontrolled hypertension, in the setting of end-stage renal disease. He did not respond well to treatments given in the ER, and is now admitted for aggressive management with an IV drip. He has been vomiting on and off for the last week, and may not have kept all of his medications down. Unfortunately, he is also still intermittently using methamphetamines, which may be contributing to his blood pressure issues. His chest x-ray would suggest mild volume overload, although he just had dialysis today. -Monitor on telemetry. -Nephrology consult. -BNP and troponin are both elevated, but these are chronically elevated, so meaning is unclear. -Continue oral metoprolol, hydralazine, doxazosin, nifedipine. Wean nicardipine drip as able.. Continue calcium acetate. -History of focal segmental glomerulosclerosis. 2. CODE STATUS: Full code. He would like his roommate, Zeinab Gilliland, to act as his POA. 3. DVT prophylaxis: Subcu heparin. 4. Chronic anemia. 5. Cardiac. History of CHF. He may have a mild CHF exacerbation at this time. Dr. Jenkins says he will be dialyzed tomorrow, and take off extra fluid. - history of mitral regurgitation. 6. History of a seizure disorder. 7. History of restless leg syndrome. Continue ropinirole. 8. History of IV drug use. -Patient continues to intermittently use methamphetamines, although he says he is trying to stop. We discussed that that definitely contributes to blood pressure issues. 9. GI. History of gastroparesis. Continue omeprazole. 10. Psychiatric. History of depression. Continue sertraline and trazodone. Continue as needed alprazolam. #11. Infectious disease. Patient has an abnormal lung exam, and recent history of upper respiratory symptoms. I will cover him with Rocephin, just in case there is an infectious component of his current breathing issues. -Oxygen, nebulizers, pulmonary toilet as needed. Visit took approximately 60 minutes, to review patient's previous records, review his case with the ER MD, interview and examine him, touch base with nephrology, and write orders.
[2016-12-27] MEDS ORDERED: MAGNESIUM HYDROXIDE 30 ML ORAL.SUSP PO PRN (19:15)
[2016-12-27] MEDS ORDERED: ONDANSETRON 4 MG/2 ML VIAL IV PRN (19:15)
[2016-12-27] MEDS ORDERED: DOCUSATE SODIUM 100 MG CAPSULE PO PRN (19:15)
[2016-12-27] MEDS ORDERED: ALBUTEROL SULFATE 2.5 MG/3 ML NEBULIZER NEB PRN (19:15)
[2016-12-27] MEDS ORDERED: LORazepam 2 MG/ML VIAL IV PRN (19:15)
[2016-12-27] MEDS ORDERED: traZODone HCL 150 MG TABLET PO PRN (20:30)
[2016-12-27] MEDS ORDERED: ONDANSETRON ODT 4 MG TABLET SL PRN (20:30)
[2016-12-27] MEDS ORDERED: guaiFENesin/CODEINE 10 ML UDC PO PRN (20:32)
[2016-12-27] MEDS ORDERED: rOPINIRole 0.25 MG TABLET PO SCH (21:00)
[2016-12-27] MEDS ORDERED: DOXAZOSIN 4 MG TABLET PO SCH (21:00)
[2016-12-27] MEDS: METOPROLOL TARTRATE 25 MG TABLET PO SCH (22:23)
[2016-12-27] MEDS ORDERED: cefTRIAXone 1 GM VIAL ONE (22:30)
[2016-12-27] MEDS: cefTRIAXone 1 GM in DEXTROSE 5% IN WATER 50 ML IV SCH (22:33)
[2016-12-27] MEDS: HEPARIN 5,000 UNIT/ML VIAL SQ SCH (22:34)
[2016-12-27] MEDS: hydrALAZINE 25 MG TABLET PO SCH (22:34)
[2016-12-27] MEDS: NIFEdipine 30 MG TAB.XL.24H PO SCH (22:35)
[2016-12-27] MEDS: ALPRAZolam 0.5 MG TABLET PO SCH (22:35)
[2016-12-27] MEDS: 0.9 % SODIUM CHLORIDE 10 ML SYRINGE IV SCH (22:35)
[2016-12-27] MEDS: GABAPENTIN 100 MG CAPSULE PO SCH (22:36)
[2016-12-28] MEDS ORDERED: niCARdipine 25 MG in 0.9 % SODIUM CHLORIDE 240 ML IV SCH (00:15)
[2016-12-28] MEDS: 0.9 % SODIUM CHLORIDE 10 ML SYRINGE IV SCH (05:51)
[2016-12-28] MEDS: GABAPENTIN 100 MG CAPSULE PO SCH (05:51)
[2016-12-28 06:00] LABS: ALT/SGPT 28 U/l (0-40); Albumin 3.7 gm/dL (3.2-5.2); Albumin/Globulin Ratio 1.4 (1.0-2.3); Alkaline Phosphatase 60 U/L (39-117); Bilirubin,Direct < 0.2 mg/dL (0.0-0.3); Blood Urea Nitrogen 60 mg/dl (6-20); Gamma Glutamyl Transpeptidase 72 U/L (8-61); Magnesium 1.7 mg/dL (1.6-2.5); Uric Acid 4.4 mg/dL (2.5-8.0)
[2016-12-28] MEDS ORDERED: OMEPRAZOLE 20 MG CAPSULE PO SCH ×2 (07:30→17:00)
[2016-12-28] MEDS: NIFEdipine 30 MG TAB.XL.24H PO SCH (07:38)
[2016-12-28] MEDS: METOPROLOL TARTRATE 25 MG TABLET PO SCH (07:39)
[2016-12-28] MEDS: ALPRAZolam 0.5 MG TABLET PO SCH (07:39)
[2016-12-28] MEDS: hydrALAZINE 25 MG TABLET PO SCH (07:39)
[2016-12-28] MEDS: HEPARIN 5,000 UNIT/ML VIAL SQ SCH (07:40)
[2016-12-28] MEDS ORDERED: CALCIUM ACETATE 667 MG CAPSULE PO SCH (08:00)
--- NOTE | 2016-12-28 08:35 | Nephrology Consult Note ---
History of Present Illness - Reason for Consult Patient information: Note initiated : 12/28/16 at 8:32 am Service Date, if different from initiated Date: [] Patient: Jorge Bates 31 y/o M admitted on 12/27/16 for Cough, Hypertension. Chief Complaint: [] Consult date: 12/28/16 - History of Present Illness 31 years old male sent from dialysis unit due to uncontrolled hypertension. He stated that he was not able to take his out patient BP meds due to nausea and vomiting. He had dialysis yesterday, post HD weight was 62.3 kg. CXR showed mild CHF. He likely also has LRTI and is receiving empiric iv Rocephin. BP is better after iv nicardipine and resumption of his out patient BP meds since he is able to tolerate them now Past History Past medical history: Medical history: Fluid overload (Acute) Anemia in chronic kidney disease (CKD) (Acute) Anxiety disorder (Acute) Chest pain (Acute) Congestive heart failure (Acute) ESRD (end stage renal disease) on dialysis (Acute) Epileptic seizure (Acute) Fluid overload (Acute) Fracture of fifth metacarpal bone of left hand (Acute) Hyperkalemia (Acute) Hypertensive crisis (Acute) Medication side effects (Acute) Nausea (Acute) Restless legs (Acute) End stage renal disease (Chronic) 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 Mother of a drug overdose. He does not know his siblings. Past social history: Social history: He currently lives with a friend and her kids. He smokes 2 or 3 cigarettes per day. He smokes marijuana frequently. He still smokes methamphetamines intermittently. He is unemployed. He does manage to do some light housework. Medications and Allergies Home Medications Medication Instructions Recorded Confirmed Type calcium acetate 667 mg capsule 667 mg PO TID 06/18/16 12/28/16 History doxazosin 4 mg tablet 2 mg PO HS #30 tab 06/28/16 12/28/16 Rx trazodone 150 mg tablet 150 mg PO QHS PRN #30 tab 08/22/16 12/28/16 Rx omeprazole 20 mg capsule,delayed 20 mg PO BIDAC #60 cap 10/04/16 12/28/16 Rx release sertraline 100 mg tablet 100 mg PO QDAY #30 tab 11/15/16 12/28/16 Rx NIFEdipine [Procardia Xl] 60 mg PO Q12H #60 11/26/16 12/28/16 Rx gabapentin 100 mg capsule 200 mg PO Q8H #180 cap 11/29/16 12/28/16 Rx hydralazine 25 mg tablet 75 mg PO TID #90 tab 12/06/16 12/28/16 Rx Ondansetron HCl [Zofran ODT] 4 mg SL Q4-6HP PRN #14 tablet 12/09/16 12/28/16 Rx alprazolam 1 mg tablet 1 mg PO BID PRN #60 tab 12/20/16 12/28/16 Rx metoprolol tartrate 25 mg tablet 50 mg PO BID #60 tab 12/20/16 12/28/16 Rx ropinirole 0.5 mg tablet 0.5 mg PO QHS 30 Days 12/25/16 12/28/16 Rx Allergies Allergy/AdvReac Type Severity Reaction Status Date / Time Iodinated Contrast- Oral and AdvReac Mild Itching Verified 12/27/16 14:19 IV Dye [Iodinated Contrast Media - Oral and] Exam - Vital Signs Vital signs: Temp Pulse Resp BP Pulse Ox 99.1 F H 88 16 153/104 96 12/28/16 08:01 12/28/16 08:09 12/28/16 05:00 12/28/16 08:01 12/28/16 08:09 Results - Lab Results 12/27/16 14:51 12/28/16 03:52 Most recent lab results Calcium 8.5 mg/dl (8.6-10.4) L 12/28/16 03:52 Phosphorus 2.5 mg/dL (2.7-4.5) L 12/28/16 03:52 Magnesium 1.7 mg/dL (1.6-2.5) 12/28/16 03:52 Assessment and Plan (1) Fluid overload HD today, 2-2.5 hrs, with goal of UF up to 2.0L as tolerated. Agree with continuing usual anti-hypertensive medications. If clinically improved, and without dyspnea or hypoxia, after hemodialysis, discharge home can be considered Status: Acute
[2016-12-28] MEDS ORDERED: SERTRALINE 50 MG TABLET PO SCH (09:00)
[2016-12-28] MEDS: cefTRIAXone 1 GM in DEXTROSE 5% IN WATER 50 ML IV SCH (09:20)
--- NOTE | 2016-12-28 09:23 | XRay Report ---
CLINICAL INFORMATION: Fever and cough COMPARISON: 12/27/2016 FINDINGS: Moderate cardiomegaly has increased slightly. Mediastinum is unremarkable. Pulmonary vasculature remain mildly distended and there is moderate interstitial disease throughout both lungs which has worsened considerably. IMPRESSION: Moderate moderate interstitial disease throughout both lungs worsening considerably since yesterday. This could represent pulmonary edema from CHF and/or interstitial inflammation.. If there is any clinical support for CHF, consider diuresis and repeat two view chest x-ray to determine underlying interstitial inflammation Interpreted and Authenticated by: Roman Perez 12/28/16
--- NOTE | 2016-12-28 10:29 | Internal Med Progress Note ---
Medical - PN: Subj Patient information: Note initiated : 12/28/16 at 10:29 am Service Date, if different from initiated Date: [] Patient: Jorge Bates 31 y/o M admitted on 12/27/16 for Cough, Hypertension. Chief Complaint: [] - Constitutional Vitals: Vital Signs Temp Pulse Resp BP Pulse Ox 99.1 F H 88 16 153/104 96 12/28/16 08:01 12/28/16 08:09 12/28/16 05:00 12/28/16 08:01 12/28/16 08:09 Period Temp Pulse Resp BP Sys/Umana Pulse Ox Last 24 Hr 99.1 F-99.2 F 81-102 16-16 131-166/84-110 88-100 Intake and Output 12/27/16 12/28/16 12/28/16 21:59 05:59 13:59 Intake Total 50 / 50 550 / 550 300 / 300 Balance 50 / 50 550 / 550 300 / 300 Weight 138 lb Intake & Output: Intake & Output 12/27/16 12/28/16 12/28/16 21:59 05:59 13:59 Intake Total 50 / 50 550 / 550 300 / 300 Balance 50 / 50 550 / 550 300 / 300 Weight 138 lb Intake: IV 500 / 500 Rocephin 1 gm In Dextrose 50 / 50 5% in Water 50 ml @ 100 mls/hr IV Q24H [facility] Rx#: [id number] Cardene 25 MG In Sodium 450 / 450 Chloride 0.9% 240 ml @ 5 MG/HR 50 mls/hr IV ONCE [facility] Rx#:[id number] Oral 50 / 50 50 / 50 300 / 300 Other: Meal Breakfast Percent of Meal Consumed 100% Medical - PN: Obj Da - Labs CBC & Chem 7: 12/27/16 14:51 12/28/16 03:52 Labs: Abnormal Lab Results 12/28/16 03:52 Chloride 94 L BUN 60 H Creatinine 9.2 H* Calcium 8.5 L Phosphorus 2.5 L GGT 72 H Lactate Dehydrogenase 306 H Meds: Medications Albuterol Sulfate (Ventolin) 2.5 mg NEB Q4HRT PRN PRN Reason: Shortness Of Breath Or Wheezing Alprazolam (Xanax) 1 mg PO BID [facility] Last Admin: 12/28/16 07:39 Dose: 1 mg Calcium Acetate (Phoslo) 667 mg PO TIDCC [facility] Last Admin: 12/28/16 07:39 Dose: 667 mg Docusate Sodium (Colace) 100 mg PO BID PRN PRN Reason: Constipation Doxazosin Mesylate (Cardura) 2 mg PO HS [facility] Last Admin: 12/27/16 22:34 Dose: 2 mg Gabapentin (Neurontin) 200 mg PO Q8 [facility] Last Admin: 12/28/16 05:51 Dose: 200 mg Guaifenesin/Codeine Phosphate (Robitussin Ac) 10 ml PO Q4HP PRN PRN Reason: Cough Heparin Sodium (Porcine) (Heparin) 5,000 unit SQ Q12 [facility] Last Admin: 12/28/16 07:40 Dose: 5,000 unit Hydralazine HCl (Apresoline) 75 mg PO TID [facility] Last Admin: 12/28/16 07:39 Dose: 75 mg Ceftriaxone Sodium 1 gm/ (Dextrose) 50 mls @ 100 mls/hr IV Q24H [facility] Last Admin: 12/28/16 09:20 Dose: 100 mls/hr Nicardipine HCl 25 mg/ Sodium (Chloride) 250 mls @ 50 mls/hr IV ONCE [facility]; 5 MG/ HR PRN Reason: Protocol Last Titration: 12/28/16 05:20 Dose: 0 mg/hr, 0 mls/hr Lorazepam (Ativan) 0.5 mg IV Q2HP PRN PRN Reason: ANXIETY/SEDATION Magnesium Hydroxide (Milk Of Magnesia) 30 ml PO DAILYP PRN PRN Reason: Constipation Metoprolol Tartrate (Lopressor) 50 mg PO BID [facility] Last Admin: 12/28/16 07:39 Dose: 50 mg Nifedipine (Procardia Xl) 60 mg PO Q12 [facility] Last Admin: 12/28/16 07:38 Dose: 60 mg Omeprazole (Prilosec) 20 mg PO BIDAC [facility] Last Admin: 12/28/16 07:39 Dose: 20 mg Ondansetron HCl (Zofran) 4 mg IV Q4-6HP PRN PRN Reason: Nausea And Vomiting Ondansetron HCl (Zofran Odt) 4 mg SL Q4-6HP PRN PRN Reason: Nausea And Vomiting Ropinirole HCl (Requip) 0.5 mg PO HS [facility] Last Admin: 12/27/16 22:35 Dose: 0.5 mg Sertraline HCl (Zoloft) 100 mg PO DAILY [facility] Last Admin: 12/28/16 07:39 Dose: 100 mg Sodium Chloride (Saline Flush) 10 ml IV Q8 [facility] Last Admin: 12/28/16 05:51 Dose: 10 ml Trazodone HCl (Desyrel) 150 mg PO QHS PRN PRN Reason: insomnia Medical - PN: A/P - Time Spent With Patient Total time spent is greater than 50% in coordination of care (as documented) at patient's floor/unit and/or counseling patient: (1) Hypertensive emergency Status: Acute Current Visit: No (2) Hyperkalemia, diminished renal excretion Status: Acute Current Visit: No (3) End stage renal disease Status: Chronic Current Visit: No (4) Congestive heart failure Status: Acute Current Visit: Yes (5) Anemia in chronic kidney disease (CKD) Status: Acute Current Visit: No (6) Restless legs Status: Acute Current Visit: No (7) Upper respiratory infection Status: Acute Current Visit: Yes (8) Substance use disorder Status: Acute Current Visit: No Medical - PN: Qual - VTE Deep Vein Thrombosis/Pulmonary Embolism Present on Admission: No
[2016-12-28] MEDS ORDERED: guaiFENesin/CODEINE 10 ML UDC PO PRN (11:28)
[2016-12-28] MEDS ORDERED: ALBUTEROL SULFATE 2.5 MG/3 ML NEBULIZER NEB PRN (11:28)
[2016-12-28] MEDS ORDERED: LORazepam 2 MG/ML VIAL IV PRN (11:28)
[2016-12-28] MEDS ORDERED: DOCUSATE SODIUM 100 MG CAPSULE PO PRN (11:28)
[2016-12-28] MEDS ORDERED: ONDANSETRON 4 MG/2 ML VIAL IV PRN (11:28)
[2016-12-28] MEDS ORDERED: traZODone HCL 150 MG TABLET PO PRN (11:28)
[2016-12-28] MEDS ORDERED: MAGNESIUM HYDROXIDE 30 ML ORAL.SUSP PO PRN (11:28)
[2016-12-28] MEDS ORDERED: ONDANSETRON ODT 4 MG TABLET SL PRN (11:28)
[2016-12-28] MEDS: CALCIUM ACETATE 667 MG CAPSULE PO SCH ×2 (13:57→17:03)
[2016-12-28] MEDS ORDERED: 0.9 % SODIUM CHLORIDE 10 ML SYRINGE IV SCH (14:00)
[2016-12-28] MEDS ORDERED: GABAPENTIN 100 MG CAPSULE PO SCH (14:00)
[2016-12-28] MEDS ORDERED: hydrALAZINE 25 MG TABLET PO SCH (15:00)
--- NOTE | 2016-12-28 15:57 | XRay Report ---
CLINICAL INFORMATION: Post dialysis COMPARISON: 12/20/2016 0637 hours FINDINGS: Following dialysis, interstitial edema has decreased only slightly. There is moderate residual. The heart is moderately enlarged, but unchanged. Mediastinum is unremarkable. Pulmonary vessels remain mild to moderately distended IMPRESSION: Moderate CHF or volume overload. Only slight reduction in interstitial edema following dialysis Interpreted and Authenticated by: Roman Perez 12/28/16
[2016-12-28] MEDS ORDERED: AZITHROMYCIN 250 MG TABLET PO ONE (16:12)
--- NOTE | 2016-12-28 16:17 | Discharge Summary ---
Medical - DS: Prov Patient information: Note initiated : 12/28/16 at 4:09 pm Patient: Jorge Bates 31 y/o M admitted on 12/27/16 for Cough, Hypertension/ CHF. Date of admission: 12/27/16 19:05 Discharge date: 12/28/16 Primary care physician: Pat Martinez DO Admitting clinician: Liliana Carrasco Consults: Dr. Momo Jenkins, nephrology Attending physician on discharge: Liliana Carrasco Medical - DS: Meds - Discharge Medications Prescriptions: Azithromycin [Zithromax] 250 mg PO DAILY #4 tablet guaiFENesin/CODEINE [Robitussin AC] 10 ml PO Q4HP PRN #120 PRN Reason: Cough Active and Home Medications: Discharge medications: Zithromax, 250 mg p.o. daily, 4 more days. Guaifenesin with codeine, 10 mL every 4-6 hours as needed cough Alprazolam 1 mg p.o. twice daily as needed anxiety PhosLo 667 mg 3 times daily with meals Doxazosin 2 mg nightly Gabapentin 200 mg every 8 hours Hydralazine 75 mg p.o. 3 times daily Metoprolol 50 mg p.o. twice daily Nifedipine 60 mg p.o. every 12 hours Omeprazole 20 mg p.o. twice daily next line Zofran 4 mg sublingual every 4-6 hours as needed Requip 0.5 mg p.o. nightly Sertraline 100 mg p.o. daily Trazodone 150 mg nightly as needed Previous home Medications: calcium acetate 667 mg capsule 667 mg PO TID 06/18/16 [History Confirmed Last Taken 12/27/16] doxazosin 4 mg tablet 2 mg PO HS #30 tab 06/28/16 [Rx Confirmed 12/28/16 Last Taken 12/26/16] trazodone 150 mg tablet 150 mg PO QHS PRN #30 tab 08/22/16 [Rx Confirmed Last Taken 12/26/16] omeprazole 20 mg capsule,delayed release 20 mg PO BIDAC #60 cap 10/04/16 [Rx Confirmed 12/28/16 Last Taken 12/27/16] sertraline 100 mg tablet 100 mg PO QDAY #30 tab 11/15/16 [Rx Confirmed 12/28/16 Last Taken 12/26/16] gabapentin 100 mg capsule 200 mg PO Q8H #180 cap 11/29/16 [Rx Confirmed Last Taken 12/27/16] hydralazine 25 mg tablet 75 mg PO TID #90 tab 12/06/16 [Rx Confirmed 12/28/16 Last Taken 12/27/16] Ondansetron HCl [Zofran ODT] 4 mg SL Q4-6HP PRN #14 tablet 12/09/16 [Rx Confirmed 12/28/16 Last Taken Unknown] alprazolam 1 mg tablet 1 mg PO BID PRN #60 tab 12/20/16 [Rx Confirmed 12/28/16 Last Taken 12/26/16] metoprolol tartrate 25 mg tablet 50 mg PO BID #60 tab 12/20/16 [Rx Confirmed Last Taken 12/26/16] ropinirole 0.5 mg tablet 0.5 mg PO QHS 30 Days 12/25/16 [Rx Confirmed 12/28/16 Last Taken 12/26/16] nifedipine ER 30 mg tablet,extended release 24 hr 60 mg PO Q12H #60 12/28/16 [ Rx Last Taken Unknown] Medical - DS: Hosp Hospital course: Mr. Bates is a 31 year old M December 27, 2016: History of present illness: Mr. Bates is a 31 year old man with a history of end-stage renal disease, hypertension, CHF, and drug abuse, as well as tobacco abuse, who has not been feeling well over the last week. He says about 1 week ago he started to have intermittent nausea vomiting and diarrhea. He is not sure if he kept all of his medications down. And then 3 or 4 days ago he developed a bad headache, a sore throat, runny nose and a cough. Today when he came to dialysis, blood pressures were very high. He was sent to the emergency room after dialysis with blood pressures greater than 220/140. In the emergency room he received IV hydralazine and metoprolol, oral clonidine, IV morphine, and ultimately nicardipine drip. Patient reports a fairly severe headache lately, but denies new eye or ear changes, sinus pain, tooth pain. He denies stiff neck, swollen glands, chest pain or palpitations. He has noted mildly increased shortness of breath the last couple of days. He is also noted wheezing, which started a few days ago. He denies abdominal pain. He has not had nausea, vomiting, diarrhea today. He is anuric. December 28, 2016: Hospital course: -The patient was admitted with hypertensive urgency and severe headache. Over the course of the evening, blood pressure gradually came down after an IV nicardipine drip, plus numerous oral doses of metoprolol, nifedipine, clonidine , hydralazine, morphine. This morning, blood pressure was closer to his baseline. He then underwent dialysis, and blood pressure has been much closer to normal since then. The patient reports his headache is almost gone at this time. With the numerous medications it took to get him controlled, and his past history of stroke, his providers feel that he should stay overnight and let us continue to monitor him, to be sure that things do not ramp back up. However, the patient is quite anxious to leave, and indicates he would leave AMA if he has to. -Patient had very congested lung sounds on admission. Chest x-ray was suggestive of possible CHF. However, he also had recent symptoms of an upper respiratory infection. He was started on IV Rocephin. Today he will be changed over to oral Zithromax. Follow-up chest x-ray this morning actually looks worse than last night, but that was prior to dialysis. He has since had a follow-up chest x-ray after dialysis, and that continues to show cardiomegaly , and pulmonary vessels remain mild to moderately distended. 2500 mL of fluid was removed during dialysis today. Otherwise today, the patient denies chest pain or palpitations. He continues to have a congested cough, congested lungs, with mild shortness of breath. He denies abdominal pain, nausea or vomiting, diarrhea or constipation. He is in uric. Exam: Temperature 98.9. Heart rate 84. Blood pressure 132/90. O2 saturation 98% on 2 L nasal cannula Neck is supple without obvious lymphadenopathy or JVD. Cardiac exam shows regular rate and rhythm. Lungs: Continue to show diffuse coarse, wet sounding breath sounds with wheezes throughout both lung vidal. There is no accessory muscle use. Abdomen is soft and nontender. Extremities: Show no edema. Neurologic exam: Is grossly nonfocal. A/P Narrative: #1. Hypertensive urgency/renal. -This patient has a long history of uncontrolled hypertension, in the setting of end-stage renal disease. He was admitted after very aggressive treatment for hypertension in the emergency room yesterday, to which he had only minimal response. It is not clear if perhaps he missed some of his doses of medication over the last week, as he reports he had been having nausea and vomiting. This morning, blood pressure was closer to normal, after very aggressive management overnight, including a nicardipine drip. Blood pressure is even lower this afternoon, after receiving dialysis. Unfortunately, he still occasionally uses methamphetamines, which are likely contributing to his erratic blood pressure control. Chest x-ray continues to show signs of pulmonary vascular congestion, worrisome for worsening CHF. -The patient did have an echocardiogram in September 2015, which mainly showed moderate to moderately severe mitral stenosis as well as mitral regurgitation. There is also moderate left atrial enlargement, and moderate pulmonary hypertension. Concentric LVH was also noted. Ejection fraction 70%. -BNP and troponin are both elevated, but these are chronically elevated, so meaning is unclear. -Continue oral metoprolol, hydralazine, doxazosin, nifedipine. In view of possible worsening heart failure symptoms, consider titrating his metoprolol up, and possibly changing over to metoprolol succinate, which would allow possible weaning of the nifedipine or hydralazine doses. Continue calcium acetate. -History of focal segmental glomerulosclerosis. 2. CODE STATUS: Full code. He would like his roommate, Zeinab Gilliland, to act as his POA. 3. DVT prophylaxis: Subcu heparin. 4. Chronic anemia. 5. Cardiac. History of CHF. He was dialyzed for 2500 mL today. It is not clear that that has improved his chest x-ray findings, but perhaps those are lagging behind his clinical improvement. - history of mitral regurgitation. 6. History of a seizure disorder. 7. History of restless leg syndrome. Continue ropinirole. 8. History of IV drug use. -Patient continues to intermittently use methamphetamines, although he says he is trying to stop. We discussed that that definitely contributes to blood pressure issues. Social work did touch base with him today, about entering rehab. 9. GI. History of gastroparesis. Continue omeprazole. 10. Psychiatric. History of depression. Continue sertraline and trazodone. Continue as needed alprazolam. #11. Infectious disease. Patient had an abnormal lung exam, and recent history of upper respiratory symptoms. We covered him him with Rocephin, just in case there is an infectious component of his current breathing issues. He discharges, he will be switched over to oral Zithromax. -Oxygen, nebulizers, pulmonary toilet as needed were prescribed, while in the hospital. Approximately 40 minutes was spent today, interviewing and examining the patient , touching base with nephrology as well as case management, reviewing his case at our team meeting, reviewing test results and writing orders.. .. Discharge diagnosis: Hypertensive urgency. Pulmonary vascular congestion. URI. Secondary discharge diagnosis: Drug abuse, with methamphetamines and marijuana. End-stage renal disease, on dialysis. History of anxiety History of CHF Restless leg syndrome Moderately severe mitral regurgitation as well as mitral stenosis. - Time Spent with Patient Total time spent providing and/or coordinating discharge services: Greater than 30 minutes Medical - DS: Exam - Constitutional Vitals: Vital Signs Temp Pulse Pulse Pulse Resp BP Pulse Ox 12/28/16 13:50 79 94 12/28/16 13:30 82 121/84 99 12/28/16 13:14 80 128/93 94 12/28/16 13:04 82 132/90 99 12/28/16 13:00 82 136/88 98 12/28/16 12:59 98.9 F 84 132/90 12/28/16 12:48 83 98 12/28/16 12:37 98.7 F 83 132/93 98 12/28/16 12:35 82 95 12/28/16 12:32 85 132/93 12/28/16 12:30 81 132/93 96 12/28/16 12:11 83 130/92 100 12/28/16 12:04 85 130/92 12/28/16 12:00 85 126/86 100 12/28/16 11:47 83 135/93 98 12/28/16 11:42 83 135/93 12/28/16 11:30 82 135/85 99 12/28/16 11:12 84 131/94 99 12/28/16 11:01 85 137/94 100 12/28/16 11:00 98.6 F 106 H 131/94 12/28/16 10:30 85 132/93 93 12/28/16 10:00 87 137/92 93 12/28/16 09:30 86 135/90 90 12/28/16 09:00 87 124/89 96 12/28/16 08:31 99.1 F H 87 139/106 100 12/28/16 08:09 88 96 12/28/16 08:01 99.1 F H 93 H 153/104 95 12/28/16 08:00 99 12/28/16 07:30 161/109 12/28/16 07:11 91 H 100 12/28/16 07:00 93 H 138/105 100 12/28/16 06:30 96 H 148/100 97 12/28/16 06:00 95 H 143/100 95 12/28/16 05:30 94 H 138/97 93 12/28/16 05:00 102 H 16 144/88 89 L 12/28/16 04:30 97 H 133/90 92 12/28/16 04:00 99.2 F H 96 H 131/84 94 12/28/16 03:30 102 H 148/100 99 12/28/16 03:00 95 H 143/97 95 12/28/16 02:30 94 H 145/101 88 L 12/28/16 02:00 90 91 H 90 16 150/103 92 12/28/16 01:31 96 H 147/103 94 12/28/16 01:00 91 H 138/99 94 12/28/16 00:30 90 136/100 94 12/28/16 00:01 96 H 166/104 91 12/27/16 23:48 88 93 12/27/16 23:45 88 142/102 92 12/27/16 23:30 87 147/100 92 12/27/16 23:04 82 156/110 97 12/27/16 22:30 139/95 12/27/16 22:00 135/94 12/27/16 21:30 149/95 12/27/16 21:00 83 135/102 96 12/27/16 20:33 85 92 12/27/16 20:30 83 143/97 95 12/27/16 20:15 81 139/90 93 12/27/16 20:00 85 151/98 91 12/27/16 19:45 87 152/108 96 12/27/16 19:37 89 153/107 91 Intake and Output 12/28/16 12/28/16 12/28/16 05:59 13:59 21:59 Intake Total 550 / 550 600 / 600 Output Total 2500 / 2500 Balance 550 / 550 -1900 / -1900 Intake: IV 500 / 500 Rocephin 1 gm In Dextrose 50 / 50 5% in Water 50 ml @ 100 mls/hr IV Q24H [facility] Rx#: [id number] Cardene 25 MG In Sodium 450 / 450 Chloride 0.9% 240 ml @ 5 MG/HR 50 mls/hr IV ONCE [facility] Rx#:[id number] Oral 50 / 50 600 / 600 Output: Hemodialysis UF 2500 / 2500 Other: Meal Lunch Percent of Meal Consumed 100% Medical - DS: Data Labs on day of discharge: Labs from last 24 hours 12/28/16 03:52 Sodium 134 Potassium 5.1 Chloride 94 L Carbon Dioxide 27 Anion Gap 13.0 BUN 60 H Creatinine 9.2 H* GFR Calculation 7 Glucose 105 Uric Acid 4.4 Calcium 8.5 L Phosphorus 2.5 L Magnesium 1.7 Total Bilirubin 0.4 Direct Bilirubin < 0.2 GGT 72 H AST 17 ALT 28 Alkaline Phosphatase 60 Lactate Dehydrogenase 306 H Total Protein 6.4 Albumin 3.7 Globulin 2.7 Albumin/Globulin Ratio 1.4 Triglycerides 118 December 28: Chest x-ray from 3:51 PM: Postdialysis: Moderate CHF, only slight reduction in interstitial edema following dialysis. Chest x-ray from 09 29: Shows moderate interstitial disease throughout both lungs, worsening since yesterday. Could represent pulmonary edema and/or interstitial inflammation. December 27: CBC: White blood cell count is 5000, hemoglobin 10, hematocrit 29, platelets 133 ,000. 7.2% eosinophils are noted on the differential. Troponin is elevated at 0.08 BNP is elevated at 48,637 Chest x-ray: Mild cardiomegaly. Mild pulmonary vascular distention consistent with mild CHF. EKG: Shows normal sinus rhythm, with LVH and peaked T waves, no significant change from December 06, 2016. Medical - DS: A/P - Patient/Caregiver Discharge Instructions Activity: increase activity as tolerated Diet: Renal Additional Instructions: 1. Your dialysis on December 29 is scheduled for 11:20. #2. Hypertensive crisis. We suspect that you missed several doses of your blood pressure medications, while you were sick over the last week. Your blood pressure has returned to normal today, after dialysis. -These resume all your usual blood pressure medications. Please do not miss any doses. -Please avoid use of [id number] medications, and also illegal drugs such as methamphetamines, which could spike your blood pressure. Blood pressures as high certainly put you at risk for stroke. -Your chest x-ray shows extra fluid in your lungs, which had not completely resolved by this afternoon. Please follow-up with your primary care physician, or with Dr. Navarrete, sometime in the next several days, to recheck your lungs, labs , and perhaps a chest x-ray. You may need a follow-up echocardiogram. -Since you have been having symptoms of infection for the last few days, we treated you with IV antibiotics. Because we had to stop these early, we have started you on oral Zithromax. Please take 1 a day for the next 4 days. Next -I have also prescribed guaifenesin with codeine, to use as needed for your cough. Please return to the emergency room for recurrent symptoms, very high blood pressures, shortness of breath, bad headaches, etc. #3. Drug abuse. Please make an appointment with [facility], to discuss possible detox and rehab. Drug use in the setting of your severe kidney disease, puts her at very high risk for severe complications. Prescriptions: Azithromycin [Zithromax] 250 mg PO DAILY #4 tablet guaiFENesin/CODEINE [Robitussin AC] 10 ml PO Q4HP PRN #120 PRN Reason: Cough - Problem Maintenance (1) Hypertensive emergency Status: Acute (2) Hyperkalemia, diminished renal excretion Status: Acute (3) End stage renal disease Status: Chronic (4) Congestive heart failure Status: Acute Qualifiers: Congestive heart failure type: unspecified congestive heart failure type (5) Anemia in chronic kidney disease (CKD) Status: Chronic (6) Restless legs Status: Chronic (7) Upper respiratory infection Status: Acute Qualifiers: URI type: unspecified viral URI Qualified Code(s): J06.9 - Acute upper respiratory infection, unspecified; B97.89 - Other viral agents as the cause of diseases classified elsewhere (8) Substance use disorder Status: Chronic - Follow up Plan Follow up with: Elle Navarrete MD [Physician] - (Follow up with Dr. Navarrete in dialysis clinic.) Pat Martinez DO [Primary Care Provider] - 01/04/17 1:30 pm Disposition: Home, Self-Care Prognosis: Fair Rehab Potential: Fair Overall status at discharge: patient is progressing back to baseline Medical - DS: Qual - VTE Deep Vein Thrombosis/Pulmonary Embolism Present on Admission: No
[2016-12-28] MEDS ORDERED: NIFEdipine 30 MG TAB.XL.24H PO SCH (21:00)
[2016-12-28] MEDS ORDERED: METOPROLOL TARTRATE 25 MG TABLET PO SCH (21:00)
[2016-12-28] MEDS ORDERED: DOXAZOSIN 4 MG TABLET PO SCH (21:00)
[2016-12-28] MEDS ORDERED: rOPINIRole 0.25 MG TABLET PO SCH (21:00)
[2016-12-28] MEDS ORDERED: ALPRAZolam 0.5 MG TABLET PO SCH (21:00)
[2016-12-28] MEDS ORDERED: HEPARIN 5,000 UNIT/ML VIAL SQ SCH (21:00)
[2016-12-29] MEDS ORDERED: cefTRIAXone 1 GM in DEXTROSE 5% IN WATER 50 ML IV SCH (09:00)
[2016-12-29] MEDS ORDERED: SERTRALINE 50 MG TABLET PO SCH (09:00)
== END 2016-12-28 18:15 | disposition home or self-care (01) | DRG 304 ==
LOC: ED 14:15 → ICU 19:05
PROVIDERS: ADMIT Internal Medicine; ATTEND Internal Medicine

== ENCOUNTER 2017-01-26 14:13 | Inpatient (IN) ==
--- NOTE | 2017-01-26 15:03 | XRay Report ---
HISTORY: Reason for Exam:SOB. And pulmonary edema FINDINGS: Congestive heart failure is present with mild cardiomegaly and coronary edema. The heart has diminished in size and the pulmonary edema has improved since the earlier study done at 2:21 AM on the same date. There is no pleural effusion. No lobar consolidation has developed. IMPRESSION: Improving congestive heart failure and pulmonary edema Interpreted and Authenticated by: Rodolfo Giles 01/26/17
[2017-01-26 15:15] LABS: Basophils # (Auto) 0.1 K/mcL (0.0-0.3); Basophils % (Auto) 0.8 % (0.0-2.0); Eosinophils # (Auto) 0.3 K/mcL (0.0-0.7); Eosinophils % (Auto) 4.4 % (0.0-7.0); Granulocytes % (Auto) 70.5 % (38.0-78.0); Lymphocytes # (Auto) 1.3 K/mcL (1.5-4.8); Mean Cell Volume 97.8 fL (80.0-100.0); Mean Corpuscular HGB Conc 33.7 g/dL (31.0-36.0); Monocytes # (Auto) 0.4 K/mcL (0.1-0.9); Monocytes % (Auto) 5.3 % (1.0-12.0); Platelet Count 211 K/mcL (140-440); RBC 2.22 M/mcL (4.50-5.90); Red Cell Distribution Width 16.9 % (11.5-14.5)
[2017-01-26] MEDS ORDERED: 0.9 % SODIUM CHLORIDE 250 ML IV SCH ×2 (15:45→21:15)
--- NOTE | 2017-01-26 15:46 | Nephrology Consult Note ---
History of Present Illness - Reason for Consult Patient information: Note initiated : 01/26/17 at 3:41 pm Service Date, if different from initiated Date: [] Patient: Jorge Bates 31 y/o M admitted on for SOB, Coughing Up Blood. Chief Complaint: [] Consult date: 01/26/17 end stage renal disease Requesting physician: Rigo Jones - Chief Complaint SOB - History of Present Illness Mr Bates is a 31 y/o male with PMH of HTN, ESRD on HD, who presented to ED last night with SOB that was of sudden onset Patient was noted to have uncontrolled HTN, BP was more than 200 systolic and more than 120 diastolic and he was treated with vasotec. He also had 2 episodes of vomiting. He received symptomatic treatment for this. I was called this morning to evaluate him He was noted to have uncontrolled HTN with elevated pro bnp and CXR s/o CHF He was dialysed as outpatient and he had an episode of ? hematemesis and he was still SOB and hence sent back to ER He had repeat CXR which showed improving CHF but his Hb declined from 8.2 to 7.3 given concern of fluid excess, possible GI bleed and persistent uncontrolled HTN , patient needs hospitalisation, we do not have tele bed or GI video conference specialist this weekend and hence I have requested the patient be transferred to [facility] for further management Patient denies CP, his SOB was a little better he denies LE edema no other concerns Review of Systems All systems PM: reviewed and no additional remarkable complaints except as stated (as in HPI) Past History Past medical history: 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 h/o uncontrolled HTN h/o severe MR intervention not needed by cardiology last year h/o renal osteodystrophy, h/o anemia Past surgical history: b/l nephrectomy h/o AVF/AVG surgery Past family history: not pertinent Past social history: lives with his friends h/o drub abuse, 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 and smoke marijuana Medications and Allergies Home Medications Medication Instructions Recorded Confirmed Type calcium acetate 667 mg capsule 667 mg PO TID 06/18/16 12/28/16 History doxazosin 4 mg tablet 2 mg PO HS #30 tab 06/28/16 12/28/16 Rx trazodone 150 mg tablet 150 mg PO QHS PRN #30 tab 08/22/16 12/28/16 Rx omeprazole 20 mg capsule,delayed 20 mg PO BIDAC #60 cap 10/04/16 12/28/16 Rx release sertraline 100 mg tablet 100 mg PO QDAY #30 tab 11/15/16 12/28/16 Rx gabapentin 100 mg capsule 200 mg PO Q8H #180 cap 11/29/16 12/28/16 Rx hydralazine 25 mg tablet 75 mg PO TID #90 tab 12/06/16 12/28/16 Rx Ondansetron HCl [Zofran ODT] 4 mg SL Q4-6HP PRN #14 tablet 12/09/16 12/28/16 Rx metoprolol tartrate 25 mg tablet 50 mg PO BID #60 tab 12/20/16 12/28/16 Rx ropinirole 0.5 mg tablet 0.5 mg PO QHS 30 Days #30 tab 12/25/16 12/28/16 Rx Azithromycin [Zithromax] 250 mg PO DAILY #4 tablet 12/28/16 Rx guaiFENesin/CODEINE [Robitussin AC] 10 ml PO Q4HP PRN #120 12/28/16 Rx nifedipine ER 30 mg 60 mg PO Q12H #60 12/28/16 Rx tablet,extended release 24 hr Ondansetron HCl [Zofran ODT] 4 mg SL Q6H PRN #20 tab 01/13/17 Rx alprazolam 1 mg tablet 1 mg PO BID PRN #60 tab 01/15/17 Rx levETIRAcetam [Keppra] 500 mg PO DAILY #30 tab 01/20/17 Rx Allergies Allergy/AdvReac Type Severity Reaction Status Date / Time Iodinated Contrast- Oral and AdvReac Mild Itching Verified 01/13/17 09:28 IV Dye [Iodinated Contrast Media - Oral and] Exam - Vital Signs Vital signs: Temp Pulse Resp BP Pulse Ox 97.5 F 91 H 16 175/122 94 01/26/17 14:15 01/26/17 15:34 01/26/17 14:55 01/26/17 15:32 01/26/17 15:34 - General Appearance General appearance: appears started age, chronically ill EENT: mucous membranes moist Neck: no JVD Respiratory: rales Cardiology: no edema, normal S1, normal S2 Gastrointestinal: no tenderness, no guarding Integumentary: warm and dry Neurologic: alert and oriented x3 Musculoskeletal: no erythema, no clubbing Psychiatric: mood/affect appropriate Results - Lab Results 01/26/17 14:49 Assessment and Plan (1) Anemia Status: Acute (2) ESRD (end stage renal disease) on dialysis ER physician concerned with drop in H/H and ongoing bleed prefers PRBC transfusion before transfer to [facility] appreciate ER Physician's help in getting this patient appropiate care and transfer to outside facility he has been dialysed today but will likely need more dialysis and fluid removal again tomorrow, he has around 3.1L of net UF today Status: Acute
--- NOTE | 2017-01-26 17:13 | Emergency Department Note ---
GI Bleed HPI - General Chief complaint: Shortness of Breath/Dyspnea Stated complaint: SOB, coughing up blood Time Seen by Provider: 01/26/17 15:39 Source: patient Mode of arrival: wheelchair Limitations: no limitations - History of Present Illness MD complaint: blood streaked emesis, coffee ground emesis, other (possible hemoptysis mildly (pink tingued mucous)) Onset (ago): hour(s) Consistency: intermittent Severity: moderate Context: other (today after dialysis. Has a history of nausea/vomiting for which he has ondansetron. Sometimes makes difficult to take medications. Did take his medications without vomiting them up last pm.) Associated symptoms: Reports: nausea, vomiting (multiple episodes yesterday. Stomach problems X 2 months. Takes Prevacid two BID. Once previous hematemesis about a week ago.), chills, shortness of breath, other (hot flashes new X 2 weeks. Received dialysis after admission and discharge early this AM, removal of 2.3 L (?) per Dr. Navarrete. Labs were ordered and chest x-ray.) - Related Data Home Medications Medication Instructions Recorded Confirmed calcium acetate 667 mg capsule 667 mg PO TID 06/18/16 12/28/16 Previous Rx's Medication Instructions Recorded doxazosin 4 mg tablet 2 mg PO HS #30 tab 06/28/16 trazodone 150 mg tablet 150 mg PO QHS PRN #30 tab 08/22/16 omeprazole 20 mg capsule,delayed 20 mg PO BIDAC #60 cap 10/04/16 release sertraline 100 mg tablet 100 mg PO QDAY #30 tab 11/15/16 gabapentin 100 mg capsule 200 mg PO Q8H #180 cap 11/29/16 hydralazine 25 mg tablet 75 mg PO TID #90 tab 12/06/16 Ondansetron HCl [Zofran ODT] 4 mg SL Q4-6HP PRN #14 tablet 12/09/16 metoprolol tartrate 25 mg tablet 50 mg PO BID #60 tab 12/20/16 ropinirole 0.5 mg tablet 0.5 mg PO QHS 30 Days #30 tab 12/25/16 Azithromycin [Zithromax] 250 mg PO DAILY #4 tablet 12/28/16 guaiFENesin/CODEINE [Robitussin AC] 10 ml PO Q4HP PRN #120 12/28/16 nifedipine ER 30 mg 60 mg PO Q12H #60 12/28/16 tablet,extended release 24 hr Ondansetron HCl [Zofran ODT] 4 mg SL Q6H PRN #20 tab 01/13/17 alprazolam 1 mg tablet 1 mg PO BID PRN #60 tab 01/15/17 levETIRAcetam [Keppra] 500 mg PO DAILY #30 tab 01/20/17 Allergies Allergy/AdvReac Type Severity Reaction Status Date / Time Iodinated Contrast- Oral and AdvReac Mild Itching Verified 01/13/17 09:28 IV Dye [Iodinated Contrast Media - Oral and] Review of Systems Review of Systems: see HPI and previous H&P of Dr. Jones from earlier today. Past Medical History - Past Medical History [facility] Narrative: see information in previous H&P from earlier today. Medical history: Reports: CHF, CVA, hypertension, renal disease (end stage - focal segmental glomerulosclerosis - on dialysis.), seizures, thyroid disease, valvular heart disease, other Surgical history ED: Reports: orthopedic, other, vascular surgery, other ( fistula) Psychiatric history: Reports: anxiety - Social History smoking status: Current some day smoker Alcohol use: Reports: None Drug use: Reports: marijuana (Heavy daily use), methamphetamine Physical Exam - General Limitations: no limitations General appearance: alert, in no apparent distress - Head Head exam: atraumatic, normocephalic - Chest Chest inspection: Present: symmetric chest wall rise - Respiratory Respiratory exam: Absent: respiratory distress - Cardiovascular Cardiovascular exam: Present: regular rate, normal rhythm - Abdominal Exam Abdominal exam: Present: tenderness (mild midline upper abdomen). Absent: distention, guarding, rebound, rigidity - Extremities Exam Extremities exam: Absent: pedal edema, pretibial edema - Expanded Upper Extremity Exam Shoulder exam: Present: other Arm exam: Present: other (multiple bumps (AV Fistulas) left forearm.) - Neurological Exam Neurological exam: Present: alert, oriented X3 - Psychiatric Psychiatric exam: Present: normal affect - Skin Skin exam: Present: warm, dry Course Vital Signs Temperature 97.5 F 01/26/17 14:15 Pulse Rate 90 01/26/17 14:15 Respiratory Rate 20 01/26/17 14:15 Blood Pressure 193/135 01/26/17 14:15 Pulse Oximetry (%) 95 01/26/17 14:15 Temperature 97.5 F 01/26/17 14:15 Pulse Rate 95 H 01/26/17 18:28 Respiratory Rate 19 01/26/17 18:54 Blood Pressure 202/146 01/26/17 20:46 Pulse Oximetry (%) 96 01/26/17 18:28 GI Bleed - [facility] Narrative Medical decision making narrative: Patient's initial hemoglobin was 8.3 earlier this morning and on repeat this evening was 7.4. I discussed his case with Dr. Navarrete with concern of not being able to do dialysis over the weekend and that patient probably needed to be observed if his labs went low because there is not a monitored bed available and [facility] and dialysis is not available at [facility]. We had concluded to give him 1 unit of blood before transfer to [place]. I next spoke with Dr. Almonte at [place], hospitalist, who indicated that he would prefer to have patient have an additional 4 hour blood test to check for stability and confirm that he is bleeding rather than just bring him in for observation and transfer him. If he needs a scope and we are unable to do that certainly that could be a reason for transfer. Had been given clonidine by Dr. Navarrete during the day during or around dialysis; and Vasotec when was in ER early this AM. Bp was 169/ 120 here near admission to ER (2nd admission). Will monitor. 9:10 PM Multiple discussions throughout the afternoon and evening regarding this patient 's situation and concerns include the following considerations. Follow-up blood test (CBC) showed a further decline to 7.0 of his hemoglobin. This indicates that he is continuing to have a slow GI bleed. Obtaining an upper scope is agreed by all that it needs to be done. Stabilizing him or improving this risk by giving him pRBC's before EGD, is the chosen course, after discussing this with both Dr. Yo, surgeon, and Dr. Zee, hospitalist. Patient seems stable enough to improve this area with slow IV infusion while monitoring for congestive heart failure. Therefore patient will be admitted to a monitored bed here which is now available. Consideration for EGD by Dr. Yo in AM. Meanwhile will be put on PPI drip, blood pressure monitored also. Dialysis if needed over the weekend I understand will be available. - Lab Data Result diagrams: 10/27/17 18:50 Lab Results 01/26/17 01/26/17 01/26/17 Range/Units 14:49 14:49 16:25 WBC 6.7 (4.5-11.0) K/mcL RBC 2.22 L (4.50-5.90) M/mcL Hgb 7.3 L (13.5-16.5) g/dL Hct 21.7 L (41.0-55.0) % POC Hct 20.0 L* (41.0-55.0) % MCV 97.8 (80.0-100.0) fL MCH 33.0 (26.0-34.0) pg MCHC 33.7 (31.0-36.0) g/dL RDW 16.9 H (11.5-14.5) % Plt Count 211 (140-440) K/mcL MPV 7.1 L (7.4-10.4) fL Gran % 70.5 (38.0-78.0) % Lymph % (Auto) 19.0 (15.5-49.0) % Burt % (Auto) 5.3 (1.0-12.0) % Eos % (Auto) 4.4 (0.0-7.0) % Baso % (Auto) 0.8 (0.0-2.0) % Gran # 4.7 (1.8-8.0) K/mcL Lymph # (Auto) 1.3 L (1.5-4.8) K/mcL Burt # (Auto) 0.4 (0.1-0.9) K/mcL Eos # (Auto) 0.3 (0.0-0.7) K/mcL Baso # (Auto) 0.1 (0.0-0.3) K/mcL POC Sodium 134 (133-145) mmol/L POC Potassium 4.2 (3.3-5.1) mmol/L POC Chloride 93 L (96-108) mmol/L POC Total CO2 31 H (22-30) mmol/L POC BUN 26 H (6-20) mg/dl POC Creatinine 4.8 H (0.7-1.2) mg/dl POC Glucose 91 (70-105) mg/dL POC WB Ioniz Calcium 0.96 L (1.16-1.32) mmol/L NT-Pro-B Natriuret Pep 13280.0 H (0-125) pg/ml 01/26/17 Range/Units 18:50 WBC 6.0 (4.5-11.0) K/mcL RBC 2.14 L (4.50-5.90) M/mcL Hgb 7.0 L* (13.5-16.5) g/dL Hct 20.9 L* (41.0-55.0) % POC Hct (41.0-55.0) % MCV 97.4 (80.0-100.0) fL MCH 32.5 (26.0-34.0) pg MCHC 33.4 (31.0-36.0) g/dL RDW 16.7 H (11.5-14.5) % Plt Count 181 (140-440) K/mcL MPV 7.2 L (7.4-10.4) fL Gran % 70.6 (38.0-78.0) % Lymph % (Auto) 18.6 (15.5-49.0) % Burt % (Auto) 5.8 (1.0-12.0) % Eos % (Auto) 4.2 (0.0-7.0) % Baso % (Auto) 0.8 (0.0-2.0) % Gran # 4.2 (1.8-8.0) K/mcL Lymph # (Auto) 1.1 L (1.5-4.8) K/mcL Burt # (Auto) 0.3 (0.1-0.9) K/mcL Eos # (Auto) 0.2 (0.0-0.7) K/mcL Baso # (Auto) 0 (0.0-0.3) K/mcL POC Sodium (133-145) mmol/L POC Potassium (3.3-5.1) mmol/L POC Chloride (96-108) mmol/L POC Total CO2 (22-30) mmol/L POC BUN (6-20) mg/dl POC Creatinine (0.7-1.2) mg/dl POC Glucose (70-105) mg/dL POC WB Ioniz Calcium (1.16-1.32) mmol/L NT-Pro-B Natriuret Pep (0-125) pg/ml Disposition Pt seen by LEARNING OPERATIONS SPECIALIST/PA only: No Clinical Impression: Anemia, blood loss, Hypertension, essential CRF (chronic renal failure) Qualifiers: Chronic kidney disease stage: stage 5 Qualified Code(s): N18.5 - Chronic kidney disease, stage 5 CHF (congestive heart failure) Qualifiers: Congestive heart failure type: unspecified congestive heart failure type Congestive heart failure chronicity: chronic Qualified Code(s): I50.9 - Heart failure, unspecified Hematemesis Qualifiers: Nausea presence: with nausea Qualified Code(s): K92.0 - Hematemesis Disposition: Xfer As Inpt ([facility]) Condition: Fair Referrals: Pat Martinez DO [Primary Care Provider] -
[2017-01-26 19:33] LABS: Basophils # (Auto) 0 K/mcL (0.0-0.3); Basophils % (Auto) 0.8 % (0.0-2.0); Eosinophils # (Auto) 0.2 K/mcL (0.0-0.7); Eosinophils % (Auto) 4.2 % (0.0-7.0); Granulocytes % (Auto) 70.6 % (38.0-78.0); Lymphocytes # (Auto) 1.1 K/mcL (1.5-4.8); Lymphocytes % (Auto) 18.6 % (15.5-49.0); Mean Cell Volume 97.4 fL (80.0-100.0); Mean Corpuscular HGB Conc 33.4 g/dL (31.0-36.0); Mean Corpuscular Hemoglobin 32.5 pg (26.0-34.0); Monocytes # (Auto) 0.3 K/mcL (0.1-0.9); Monocytes % (Auto) 5.8 % (1.0-12.0); Platelet Count 181 K/mcL (140-440); RBC 2.14 M/mcL (4.50-5.90); Red Cell Distribution Width 16.7 % (11.5-14.5)
[2017-01-26] MEDS ORDERED: ACETAMINOPHEN 325 MG TABLET PO ONE (21:26)
[2017-01-26] MEDS ORDERED: HYDROmorphone 2 MG/ML SYRINGE IV PRN (22:10)
[2017-01-26] MEDS ORDERED: PANTOPRAZOLE 40 MG VIAL IV ONE ×2 (22:10→22:24)
[2017-01-26] MEDS ORDERED: NALOXONE HCL 0.4 MG/ML VIAL IV PRN (22:10)
[2017-01-26] MEDS ORDERED: ONDANSETRON 4 MG/2 ML VIAL IV PRN (22:10)
[2017-01-26] MEDS ORDERED: ALPRAZolam 0.5 MG TABLET PO PRN (22:10)
--- NOTE | 2017-01-26 22:16 | Internal Med History&Physical ---
Medical - H&P: HPI Patient information: Note initiated : 01/26/17 at 10:13 pm Service Date, if different from initiated Date: [] Patient: Jorge Bates 31 y/o M admitted on 01/26/17 for SOB, Coughing Up Blood. Chief Complaint: [] History of present illness: Mr. Bates is a 31 year old Male presents to the ER last night with complaints of shortness of breath, he was also having some epigastric pain and nausea and some vomiting. Overnight he was noted to be chf and fluid overload secondary to his ESRD status. the patient had hb of 8.2 at that time. He underwent dialysis , but her had some coughing up of red sputum? vs spitting or vomiting bright red blood, not clear on the history here. The pt does admit having coffe ground emesis this AM before hemodialysis. The patient hb after hd is 7.4, and then dropped to 7.0 Initially there was no ICU bed available to admit the patient, later in the evening bed did become available, the patient was therefore admitted to the hospital ICu for close monitoring and treatment The patient notes that he has been having epigastric abdominal pain x 2 weeks, he note that he has had a few episodes of blood in his vomitus. He denies any conor or blood in the stools He denies using aspirin, nsaids, or consuming alcohol, admits to use of tobacco he does admit to having headaches and consuming some otc meds for same In the ER x ray chest showed chf, labs show hb of 7.0, hr was mildly tachycardic 100-120, bp elevated significantly likely as he did not get his bp meds All systems: reviewed and no additional remarkable complaints except as stated ( as per HPI) Medical - H&P: PMH Medical history: Medical History Fluid overload (Acute) Fluid overload (Acute) Acute congestive heart failure (Acute) Hypertensive emergency (Acute) Mitral stenosis with insufficiency (Acute) Pulmonary hypertension (Acute) Substance use disorder (Chronic) Acute respiratory failure with hypoxia (Acute) Migraine (Acute) Pneumonia (Acute) Hypertensive urgency (Acute) HCAP (healthcare-associated pneumonia) (Acute) Fall (Acute) Acute anxiety (Acute) Sinusitis (Acute) Sinusitis (Acute) Nausea (Acute) Laceration (Acute) Dehydration (Acute) Hyperkalemia, diminished renal excretion (Acute) Gastroparesis (Acute) Upper respiratory infection (Acute) Generalized seizure (Acute) Anemia (Acute) Anemia, blood loss (Acute) CRF (chronic renal failure) (Acute) Hypertension, essential (Acute) Hematemesis (Acute) End stage renal disease (Chronic) Mitral regurgitation (Chronic) Epileptic seizure (Acute) Anxiety disorder (Acute) Nausea (Acute) Medication side effects (Acute) 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) Anxiety (Chronic) FSGS (focal segmental glomerulosclerosis) with nephrosis (Resolved) Congestive heart failure (Acute) ESRD (end stage renal disease) on dialysis (Acute) Uncontrolled hypertension (Chronic) Anemia in chronic kidney disease (CKD) (Chronic) Hyperkalemia (Acute) Restless legs (Chronic) Hypertensive crisis (Acute) Fracture of fifth metacarpal bone of left hand (Acute) Chest pain (Acute) Surgical history: Past Surgical History S/p nephrectomy (Inactive) History of parathyroidectomy (Chronic) History of shoulder replacement (Chronic) History of surgery (Chronic) Pertinent family history: Family History Father Heart failure Medical - H&P: Meds Home Medications Medication Instructions Recorded Confirmed Type ALPRAZolam [Xanax] 1 mg PO BID 01/26/17 01/26/17 History Calcium Acetate [Phoslyra] 667 mg PO TID 01/26/17 01/26/17 History Metoprolol Tartrate [Lopressor] 100 mg PO BID 01/26/17 01/26/17 History NIFEdipine [Procardia Xl] 90 mg PO ONCE 01/26/17 01/26/17 History Omeprazole [Prilosec] 20 mg PO BID 01/26/17 01/26/17 History PARoxetine [Paxil] 40 mg PO ONCE 01/26/17 01/26/17 History hydrALAZINE HCL [Hydralazine HCl] 100 mg PO TID 01/26/17 01/26/17 History traZODone HCL [Desyrel] 100 mg PO TID 01/26/17 01/26/17 History Allergies Allergy/AdvReac Type Severity Reaction Status Date / Time Iodinated Contrast- Oral and AdvReac Mild Itching Verified 01/13/17 09:28 IV Dye [Iodinated Contrast Media - Oral and] Medical - H&P: Exam - Constitutional Vitals: Temp Pulse Resp BP Pulse Ox 97.5 F 95 H 19 202/146 96 01/26/17 14:15 01/26/17 18:28 01/26/17 18:54 01/26/17 20:46 01/26/17 18:28 Exam: GENERAL: The patient is a well-developed, well-nourished in no apparent distress. Is alert and oriented x3. VITAL SIGNS: Reviewed and as noted elsewhere. HEENT: Head is normocephalic and atraumatic. Extraocular muscles are intact. Pupils are equal, round, and reactive to light. Nares appeared normal. Mouth appears any without lesions. Mucous membranes are moist. NECK: Normal to inspection, Supple, No lymphadenopathy or thyromegaly. LUNGS: Air entry equal on both sides, yazan exp wheezing present, no crackles or rhonchi noted. No accessory muscles of respiration HEART: Regular rate and rhythm normal, S1 and S2 heard, no Gallop, S3 or Rub Noted, No Gross murmur heard. ABDOMEN: Soft, nontender, and nondistended. Positive bowel sounds. No hepatosplenomegaly was noted. EXTREMITIES: No cyanosis, clubbing, rash, lesions or edema. NEUROLOGIC: Cranial nerves II through XII are grossly intact. Motor and Sensory System Grossly Intact PSYCHIATRIC: Normal affect, Normal Mood. Appropriate Behavior. SKIN: No ulceration or wounds noted, No jaundice, No rash noted. Medical - H&P: Reslt - Labs CBC & Chem 7: 01/26/17 18:50 Labs: Short CBC 01/26/17 01/26/17 Range/Units 14:49 18:50 WBC 6.7 6.0 (4.5-11.0) K/mcL Hgb 7.3 L 7.0 L* (13.5-16.5) g/dL Hct 21.7 L 20.9 L* (41.0-55.0) % Plt Count 211 181 (140-440) K/mcL Medical - H&P: A/P - Narrative A/P Narrative: A/P Acute Upper GI bleed Congestive heart failure ESRd on HD Subsutance abuse issues Anemia acute blood loss and anemia of chr disease Malignant hypertension Plan Admit to PCU status IV blood transfusion 1 unit overnight slowly, high risk of developoing chf given x ray shows chf today after dialysis as well as patient not having any kidneys to help remove fluid with lasix, Will need HD tomorrow , nephrology aware IV protonix 80mg IV bolus then drip IV nicardipine to control blood pressure for now, resume home meds gradually. Monitor hb, goal Hb > 8 -9 given thats where he usually is prn dilaudid for pain DVT SCD NPO for now Full code Social History - Tobacco smoking status: Current some day smoker - Tobacco Type tobacco type: cigarettes - Quit Details pack-years: 10 - Alcohol alcohol intake frequency: holiday/special occasion only - Substance use substance use type: marijuana, amphetamines counseling given: Yes
[2017-01-26] MEDS: PANTOPRAZOLE 80 MG in 0.9 % SODIUM CHLORIDE 100 ML IV SCH (22:36)
[2017-01-26] MEDS: 0.9 % SODIUM CHLORIDE 10 ML SYRINGE IV SCH (22:37)
[2017-01-26] MEDS: niCARdipine 25 MG in 0.9 % SODIUM CHLORIDE 240 ML IV SCH (22:49)
[2017-01-26] MEDS ORDERED: HYDROmorphone 2 MG/ML SYRINGE ONE (23:34)
[2017-01-27] MEDS: IPRATROPIUM/ALBUTEROL 3 ML AMPUL.NEB NEB SCH ×7 (00:37→23:09)
[2017-01-27] MEDS: niCARdipine 25 MG in 0.9 % SODIUM CHLORIDE 240 ML IV SCH ×3 (03:05→19:18)
[2017-01-27] MEDS ORDERED: HYDROmorphone 2 MG/ML SYRINGE ONE (03:08)
[2017-01-27] MEDS ORDERED: IPRATROPIUM/ALBUTEROL 3 ML AMPUL.NEB NEB ONE (03:31)
[2017-01-27] MEDS: 0.9 % SODIUM CHLORIDE 10 ML SYRINGE IV SCH ×3 (05:11→22:11)
[2017-01-27 06:04] LABS: Basophils # (Auto) 0.1 K/mcL (0.0-0.3); Basophils % (Auto) 0.7 % (0.0-2.0); Eosinophils # (Auto) 0.2 K/mcL (0.0-0.7); Eosinophils % (Auto) 2.4 % (0.0-7.0); Granulocytes % (Auto) 77.8 % (38.0-78.0); Lymphocytes % (Auto) 12.5 % (15.5-49.0); Mean Cell Volume 97.2 fL (80.0-100.0); Mean Corpuscular HGB Conc 34.2 g/dL (31.0-36.0); Mean Corpuscular Hemoglobin 33.2 pg (26.0-34.0); Monocytes # (Auto) 0.5 K/mcL (0.1-0.9); Monocytes % (Auto) 6.6 % (1.0-12.0); Platelet Count 188 K/mcL (140-440); RBC 2.67 M/mcL (4.50-5.90); Red Cell Distribution Width 15.5 % (11.5-14.5)
[2017-01-27 06:49] LABS: ALT/SGPT 48 U/l (0-40); Albumin 3.4 gm/dL (3.2-5.2); Albumin/Globulin Ratio 1.3 (1.0-2.3); Alkaline Phosphatase 56 U/L (39-117); Amylase 180 U/L (28-100); Bilirubin,Direct < 0.2 mg/dL (0.0-0.3); Blood Urea Nitrogen 35 mg/dl (6-20); Gamma Glutamyl Transpeptidase 46 U/L (8-61); Lipase 226 U/L (7-60); Magnesium 1.9 mg/dL (1.6-2.5); Uric Acid 3.5 mg/dL (2.5-8.0)
[2017-01-27] MEDS: PANTOPRAZOLE 80 MG in 0.9 % SODIUM CHLORIDE 100 ML IV SCH (08:33)
[2017-01-27] MEDS ORDERED: niCARdipine 25 MG in 0.9 % SODIUM CHLORIDE 240 ML IV SCH (09:00)
--- NOTE | 2017-01-27 11:03 | General Surg History&Physical ---
History of Present Illness Patient information: Note initiated : 01/27/17 at 11:01 am Service Date, if different from initiated Date: [] Patient: Jorge Bates a 31 y/o M admitted on 01/26/17 for SOB, Coughing Up Blood. Chief Complaint: [] HPI: Mr. Bates is a 31 year old M admitted with history of upper GI bleeding and progressive anemia. Patient states that he has had intermittent emesis of blood for about 1 month. He had some emesis of coffee-ground material while on dialysis on yesterday and was transferred to the emergency room. His hemoglobin had drifted down from a previous level of 10-7.3. He did not have melena or hematochezia. He has a long history of epigastric pain. He has not had evaluation of this pain. He is not on nonsteroidals or aspirin products. He is not on blood thinners. He is admitted and has received 1 unit of blood. He is not in acute distress but will need to have urgent endoscopy. Review of Systems - Constitutional fatigue, headache(s), malaise - EENT Nose, mouth and throat: dizziness, headache(s), no abnormal hearing, no bleeding gums, no epistaxis, no mouth lesions - Cardiovascular dyspnea on exertion, irregular heart rhythm, leg edema, palpatations, pedal edema, rapid heart rate, syncope, no chest pain at rest, no chest pain with activity, no diaphoresis - Respiratory dyspnea, dyspnea on exertion, chest congestion - Gastrointestinal abdominal pain, coffee ground emesis, dyspepsia, hematochezia, nausea, vomiting , no melena - Genitourinary other (Anuric status post bilateral nephrectomy on hemodialysis) - Musculoskeletal arthralgias, muscle cramps, muscle weakness - Integumentary no new lesions, no pruritus, no rash - Neurological convulsions, headache(s), no confusion - Psychiatric abnormal sleep pattern, anxiety, depression - Endocrine fatigue - Hematologic/Lymphatic no easy bleeding, no easy bruising, no lymphadenopathy - Allergic/Immunologic no tongue swelling, no throat swelling, no itchy eyes, no uticaria, no wheezing , no lip swelling Past History Past medical history: End-stage renal disease status post bilateral nephrectomy on hemodialysis Recurrent congestive heart failure due to volume overload Recurrent hypertensive emergency Pulmonary hypertension Migraine headaches Gastroparesis Seizure disorder Anemia of chronic renal disease Focal segmental glomerulosclerosis Chronic substance abuse Mitral valve heart disease with insufficiency Past surgical history: Bilateral nephrectomy Parathyroidectomy Right shoulder replacement AV fistula with multiple revisions Past family history: Father at early age due to heart disease Mother due to overdose 2 siblings health unknown Past social history: Tobacco use daily Alcohol use Frequent marijuana and methamphetamine use Disabled Unemployed Medications and Allergies Home Medications Medication Instructions Recorded Confirmed Type ALPRAZolam [Xanax] 1 mg PO BIDP PRN 01/26/17 01/27/17 History Calcium Acetate [Phoslyra] 667 mg PO TIDCC 01/26/17 01/27/17 History Metoprolol Tartrate [Lopressor] 50 mg PO BID 01/26/17 01/27/17 History Omeprazole [Prilosec] 20 mg PO BIDAC 01/26/17 01/27/17 History hydrALAZINE HCL [Hydralazine HCl] 75 mg PO TID 01/26/17 01/27/17 History Doxazosin [Cardura] 2 mg PO HS 01/27/17 01/27/17 History Gabapentin [Neurontin] 200 mg PO TID 01/27/17 01/27/17 History NIFEdipine [Nifedipine ER] 60 mg PO BID 01/27/17 01/27/17 History Sertraline [Zoloft] 100 mg PO DAILY 01/27/17 01/27/17 History levETIRAcetam [Keppra] 500 mg PO DAILY 01/27/17 01/27/17 History rOPINIRole [Requip] 0.5 mg PO HS 01/27/17 01/27/17 History traZODone HCL [Desyrel] 150 mg PO HSP PRN 01/27/17 01/27/17 History Allergies Allergy/AdvReac Type Severity Reaction Status Date / Time Iodinated Contrast- Oral and AdvReac Mild Itching Verified 01/13/17 09:28 IV Dye [Iodinated Contrast Media - Oral and] Exam Temp Pulse Resp BP Pulse Ox 98.5 F 96 H 19 146/81 94 01/27/17 09:01 01/27/17 10:13 01/27/17 10:13 01/27/17 10:01 01/27/17 10:13 - General physical appearance well developed, well nourished, no distress - Eyes PERRL, normal ocular movement - ENT normal pinna, normal nares, normal mucosa, no hearing loss, no congestion - Head Head exam IM: Present: atraumatic, normal inspection, normocephalic - Neck no masses, no bruits, trachea midline, no lymphadectomy, no venous distension, other (He will lower surgical scar) - Cardiovascular Cardiovascular exam IM: Present: normal rate and rhythm, gallop, JVD, RRR, +S1, +S2, +S4, systolic murmur Intensity IM: 3/6 - Respiratory normal expansion, normal respiratory effort, clear to percussion, clear to auscultation - Abdomen Abdomen: Present: soft, non tender, bowel sounds, surgical scars (Healed midline surgical scar) Hernia: Present: none - Genitourinary Present: normal penis with no external lesions - Integumentary Present: no rash, no growths, no abnormal pigmentation - Neurologic Present: normal coordination, normal sensation - Musculoskeletal Present: normal gait, normal posture, other (AV fistula left upper extremity; no peripheral edema; operative changes right shoulder) - Psychiatric Present: oriented to time, oriented to person, oriented to place, speech is normal, memory intact Assessment and Plan (1) Upper GI bleeding Patient has been adequately transfused and is on PPI infusion We will do upper endoscopy this morning and treat as appropriate Other medical problems will be handled by nephrology and hospitalist Status: Acute (2) Mitral stenosis with insufficiency Status: Acute (3) Pulmonary hypertension Status: Acute (4) Gastroparesis Status: Acute (5) Anemia, blood loss Status: Acute (6) Hypertension, essential Status: Acute (7) Epileptic seizure Status: Acute Qualifiers: Epilepsy type: unspecified Intractability: not intractable Status epilepticus: without status epilepticus Qualified Code(s): G40.909 - Epilepsy , unspecified, not intractable, without status epilepticus (8) Congestive heart failure Status: Acute Qualifiers: Congestive heart failure type: unspecified congestive heart failure type Congestive heart failure chronicity: chronic Qualified Code(s): I50.9 - Heart failure, unspecified (9) ESRD (end stage renal disease) on dialysis Status: Acute (10) Anemia in chronic kidney disease (CKD) Status: Chronic
[2017-01-27] MEDS ORDERED: MIDAZOLAM 2 MG/2 ML VIAL IV ONE (12:00)
[2017-01-27] MEDS ORDERED: CALCIUM ACETATE 667 MG CAPSULE PO SCH (12:00)
[2017-01-27] MEDS ORDERED: DEXAMETHASONE 10 MG/ML VIAL IV ONE (12:00)
[2017-01-27] MEDS ORDERED: ONDANSETRON 4 MG/2 ML VIAL IV ONE (12:00)
[2017-01-27] MEDS ORDERED: SUCCINYLCHOLINE 20 MG/ML ML IV ONE (12:00)
[2017-01-27] MEDS ORDERED: LIDOCAINE HCL/PF 100 MG/5 ML SYRINGE IV ONE (12:00)
[2017-01-27] MEDS ORDERED: PROPOFOL 200 MG/20 ML VIAL IV ONE (12:00)
[2017-01-27] MEDS ORDERED: fentaNYL 100 MCG/2 ML VIAL IV ONE (12:00)
[2017-01-27] MEDS ORDERED: KETAMINE 100 MG/ML ML IV ONE (12:00)
--- NOTE | 2017-01-27 12:18 | Brief Operative Note ---
Date of procedure: 01/27/17 Pre-op diagnosis: upper G I BLEEDEING Post-op diagnosis: other (ACUTE EROSIVE GASTRITISAND DUODENITIS) Procedure: EGD WITH BIOPSIES AND CLOTEST Grafts/Implants: No Anesthesia: GETA Findings: MODERATELY DIFFUSE INFLAMMATION OF BODY AND ANTRUM OF STOMACH AND DUODENAL BULB NO MAJOR ULCERATION NORMAL ESOPHAGUS Complications: none Surgeon: Terry Yo Specimens Removed/Pathology: none sent (GASTRIC BIOPSIES) Condition: stable Disposition: ICU
[2017-01-27] MEDS ORDERED: ONDANSETRON 4 MG/2 ML VIAL IV PRN ×2 (12:32→13:53)
[2017-01-27] MEDS ORDERED: ePHEDrine 50 MG/ML AMPUL IV PRN ×2 (12:32→13:53)
[2017-01-27] MEDS ORDERED: IPRATROPIUM/ALBUTEROL 3 ML AMPUL.NEB NEB PRN ×2 (12:32→13:53)
[2017-01-27] MEDS ORDERED: fentaNYL 100 MCG/2 ML VIAL IV PRN ×2 (12:32→13:53)
[2017-01-27] MEDS ORDERED: NALOXONE HCL 0.4 MG/ML VIAL IV PRN ×3 (12:32→13:53)
[2017-01-27] MEDS ORDERED: BENZOCAINE/MENTHOL 1 LOZENGE PO PRN ×2 (12:32→13:53)
[2017-01-27] MEDS ORDERED: MEPERIDINE 25 MG/ML SYRINGE IV PRN ×2 (12:32→13:53)
[2017-01-27] MEDS ORDERED: FLUMAZENIL 0.1 MG/ML ML IV PRN ×2 (12:32→13:53)
[2017-01-27] MEDS ORDERED: PROMETHAZINE 25 MG/ML VIAL IV PRN ×2 (12:32→13:53)
[2017-01-27] MEDS ORDERED: diphenhydrAMINE 50 MG/ML VIAL IV PRN ×2 (12:32→13:53)
[2017-01-27] MEDS ORDERED: LACTATED RINGERS 1,000 ML IV SCH ×2 (12:45→13:53)
[2017-01-27] MEDS ORDERED: traZODone HCL 150 MG TABLET PO PRN (13:39)
[2017-01-27] MEDS ORDERED: SERTRALINE 50 MG TABLET PO SCH (13:40)
--- NOTE | 2017-01-27 14:02 | Internal Med Progress Note ---
Medical - PN: Subj Patient information: Note initiated : 01/27/17 at 1:58 pm Service Date, if different from initiated Date: [] Patient: Jorge Bates 31 y/o M admitted on 01/26/17 for SOB, Coughing Up Blood. Chief Complaint: [] Interval history: Mr. Bates is a 31 year old Male presents to the ER last night with complaints of shortness of breath, he was also having some epigastric pain and nausea and some vomiting. Overnight he was noted to be chf and fluid overload secondary to his ESRD status. the patient had hb of 8.2 at that time. He underwent dialysis , but her had some coughing up of red sputum? vs spitting or vomiting bright red blood, not clear on the history here. The pt does admit having coffe ground emesis this AM before hemodialysis. The patient hb after hd is 7.4, and then dropped to 7.0 Initially there was no ICU bed available to admit the patient, later in the evening bed did become available, the patient was therefore admitted to the hospital ICu for close monitoring and treatment The patient notes that he has been having epigastric abdominal pain x 2 weeks, he note that he has had a few episodes of blood in his vomitus. He denies any conor or blood in the stools He denies using aspirin, nsaids, or consuming alcohol, admits to use of tobacco he does admit to having headaches and consuming some otc meds for same In the ER x ray chest showed chf, labs show hb of 7.0, hr was mildly tachycardic 100-120, bp elevated significantly likely as he did not get his bp meds january 27 Patient seen examined overnight events noted, bp is better on the nicardipine drip s/p EGD this Am, no ulcer only gastritis, plan for omeprazole and carafate outpatient surgery follow up with Dr gaby gandhi nephrology following, not sure if plan to have HD today. Pertinent ROS: Present headache. Denies chest pain, palpitations Denies cough or shortness of breath epigastric abdominal pain present, no nausea or vomiting. - Constitutional Vitals: Vital Signs Temp Pulse Resp BP Pulse Ox 97.4 F 96 H 14 146/80 94 01/27/17 13:24 01/27/17 13:24 01/27/17 13:24 01/27/17 13:24 01/27/17 13:24 Period Temp Pulse Resp BP Sys/Umana Pulse Ox Last 24 Hr 97.4 F-100.9 F 87-116 10-32 96-214/49-148 89-100 Intake and Output 01/26/17 01/27/17 01/27/17 21:59 05:59 13:59 Intake Total 613 / 613 130 / 130 Balance 613 / 613 130 / 130 Weight 139 lb 15.896 oz 158 lb 158 lb Patient Weight 01/28/17 05:59 Weight 158 lb Intake & Output: Intake & Output 01/26/17 01/27/17 01/27/17 21:59 05:59 13:59 Intake Total 613 / 613 130 / 130 Balance 613 / 613 130 / 130 Weight 139 lb 15.896 oz 158 lb 158 lb Intake: IV 288 / 288 10 / 10 Cardene 25 MG In Sodium 288 / 288 10 / 10 Chloride 0.9% 240 ml @ 5 MG/HR 50 mls/hr IV Q5H [facility] Rx#: [id number] Blood Product 325 / 325 GI Tube Flush IV - Manual Only 60 Exam: Constitutional; Afebrile, cooperative, alert, not in distress. Eyes- No icterus, , No periorbital swelling Ears- Ext ear normal, hearing normal to conversation. Neck- Midline trachea, supple Respiratory system: Air Entry equal on both sides, No crackles or wheezing, no rhonchi. CVS- Rate rhythm regular, S1,S2 heard, no gallop, no rub. Abdomen- Soft nontender abdomen, no organomegaly, no tenderness, no guarding or rigidity, LEVEL VIAL SETTER- AOOx3, moving all extremities, no gross focal deficit noted. Medical - PN: Obj Da - Labs CBC & Chem 7: 01/27/17 03:50 01/27/17 03:50 Labs: Abnormal Lab Results 01/27/17 01/27/17 01/26/17 03:50 03:50 18:50 RBC 2.67 L 2.14 L Hgb 8.9 L 7.0 L* Hct 25.9 L 20.9 L* POC Hct RDW 15.5 H 16.7 H MPV 7.2 L Lymph % (Auto) 12.5 L Lymph # (Auto) 1.0 L 1.1 L POC Chloride Chloride 95 L POC Total CO2 POC BUN BUN 35 H Creatinine 5.6 H* POC Creatinine Calcium 8.3 L POC WB Ioniz Calcium AST 73 H ALT 48 H Lactate Dehydrogenase 406 H NT-Pro-B Natriuret Pep Amylase 180 H Lipase 226 H 01/26/17 01/26/17 01/26/17 16:25 14:49 14:49 RBC 2.22 L Hgb 7.3 L Hct 21.7 L POC Hct 20.0 L* RDW 16.9 H MPV 7.1 L Lymph % (Auto) Lymph # (Auto) 1.3 L POC Chloride 93 L Chloride POC Total CO2 31 H POC BUN 26 H BUN Creatinine POC Creatinine 4.8 H Calcium POC WB Ioniz Calcium 0.96 L AST ALT Lactate Dehydrogenase NT-Pro-B Natriuret Pep 76019.0 H Amylase Lipase Meds: Medications Albuterol/Ipratropium (Duoneb) 3 ml NEB Q4HRT ANDRE Albuterol/Ipratropium (Duoneb) 3 ml NEB ONCE PRN PRN Reason: Wheezing Stop: 01/27/17 14:32 Alprazolam (Xanax) 1 mg PO BIDP PRN PRN Reason: Anxiety Calcium Acetate (Phoslo) 667 mg PO TIDCC [facility] Diphenhydramine HCl (Benadryl) 25 mg IV ONCE PRN PRN Reason: ITCH Stop: 01/27/17 14:32 Doxazosin Mesylate (Cardura) 2 mg PO HS [facility] Ephedrine Sulfate (Akovaz) 0 mg IV Q30M PRN PRN Reason: Hypotension Stop: 01/27/17 14:32 Fentanyl (Sublimaze) 25 mcg IV Q2M PRN PRN Reason: Pain Stop: 01/27/17 14:33 Flumazenil (Romazicon) 0.1 mg IV Q2MIN PRN PRN Reason: BENZODIAZEPINE REVERSAL Stop: 01/27/17 14:33 Gabapentin (Neurontin) 200 mg PO TID ANDRE Hydralazine HCl (Apresoline) 75 mg PO TID ANDRE Hydromorphone HCl (Dilaudid) 0.5 mg IV Q2HP PRN PRN Reason: Pain Lactated Ringer's (Lactated Ringers) 1,000 mls @ 20 mls/hr IV .Q24H ANDRE Stop: 01/27/17 14:33 Nicardipine HCl 25 mg/ Sodium (Chloride) 250 mls @ 50 mls/hr IV Q5H ANDRE; 5 MG/ HR PRN Reason: Protocol Levetiracetam (Keppra) 500 mg PO DAILY [facility] Meperidine HCl (Demerol) 12.5 mg IV Q5M PRN PRN Reason: Shivering Stop: 01/27/17 14:32 Metoprolol Tartrate (Lopressor) 50 mg PO BID ANDRE Naloxone HCl (Narcan) 0.1 mg IV Q2MIN PRN PRN Reason: Opiate Reversal Naloxone HCl (Narcan) 0.1 mg IV Q2MIN PRN PRN Reason: Opiate Reversal Stop: 01/27/17 14:33 Nifedipine (Procardia Xl) 60 mg PO BID [facility] Non-Formulary Medication (Nifedipine [Nifedipine Er]) 60 mg PO BID [facility] Non-Formulary Medication (Ropinirole) 0.5 mg PO HS [facility] Omeprazole (Prilosec) 20 mg PO BIDAC [facility] Ondansetron HCl (Zofran) 4 mg IV Q4-6HP PRN PRN Reason: Nausea And Vomiting Ondansetron HCl (Zofran) 4 mg IV ONCE PRN PRN Reason: Nausea And Vomiting Stop: 01/27/17 14:33 Paroxetine HCl (Paxil) 40 mg PO DAILY [facility] Promethazine HCl (Phenergan) 6.25 mg IV Q15M PRN PRN Reason: Nausea And Vomiting Stop: 01/27/17 14:33 Ropinirole HCl (Requip) 0.5 mg PO HS [facility] Sertraline HCl (Zoloft) 100 mg PO DAILY [facility] Sodium Chloride (Saline Flush) 10 ml IV Q8 [facility] Sucralfate (Carafate) 1 gm PO ACHS [facility] Throat Lozenges (Cepacol) 1 lozenge PO PRN PRN PRN Reason: Sore Throat Stop: 01/27/17 14:32 Trazodone HCl (Desyrel) 150 mg PO HSP PRN PRN Reason: Insomnia Medical - PN: A/P - Time Spent With Patient Total time spent is greater than 50% in coordination of care (as documented) at patient's floor/unit and/or counseling patient: - Narrative A/P Narrative: A/P Acute Upper GI bleed Congestive heart failure ESRd on HD Subsutance abuse issues Anemia acute blood loss and anemia of chr disease Malignant hypertension acute anxiety Plan monitor for now, still needs nicardipine drip, resume home meds d/c ppi drip, on oral ppi and carafate Nehrpology following, may need HD today resume home prn dilaudid for pain prn xanax. DVT SCD renal diet Full code Medical - PN: Qual - VTE Deep Vein Thrombosis/Pulmonary Embolism Present on Admission: No
[2017-01-27] MEDS ORDERED: METOPROLOL TARTRATE 50 MG TABLET PO ONE (14:19)
[2017-01-27] MEDS ORDERED: NIFEdipine 30 MG TAB.XL.24H PO ONE (14:21)
[2017-01-27] MEDS: hydrALAZINE 25 MG TABLET PO SCH ×2 (14:38→22:09)
[2017-01-27] MEDS ORDERED: GABAPENTIN 100 MG CAPSULE PO SCH (15:00)
[2017-01-27] MEDS ORDERED: traZODone HCL 50 MG TABLET PO SCH (15:00)
[2017-01-27] MEDS ORDERED: hydrALAZINE 25 MG TABLET PO SCH ×2 (15:00)
[2017-01-27] MEDS: GABAPENTIN 100 MG CAPSULE PO SCH ×2 (15:30→22:09)
[2017-01-27] MEDS ORDERED: OMEPRAZOLE 20 MG CAPSULE PO SCH (17:00)
[2017-01-27] MEDS: SUCRALFATE 1 GM/10 ML ORAL.SUSP PO SCH ×2 (17:35→22:09)
[2017-01-27] MEDS: OMEPRAZOLE 20 MG CAPSULE PO SCH (17:36)
[2017-01-27] MEDS: CALCIUM ACETATE 667 MG CAPSULE PO SCH (17:39)
--- NOTE | 2017-01-27 18:12 | Nephrology Progress Note ---
Subjective Patient information: Note initiated : 01/27/17 at 6:09 pm Service Date, if different from initiated Date: [] Patient: Jorge Bates 31 y/o M admitted on 01/26/17 for SOB, Coughing Up Blood. Chief Complaint: [] Principal diagnosis: GI Bleed Interval history: Patient was hospitalised at [facility] last night as we had a tele bed he received one unit of prbc transfusion overnight he also was on nicardipine gtt for uncontrolled HTN he is feeling much better today He denies SOB, this has improved denies CP no edema he did have EGD this am which showed erosive gastritis Pertinent ROS: as above Objective - Vital Signs Vital signs: Vital Signs Temp Pulse Pulse Resp BP BP BP 01/27/17 17:53 98.2 F 94 H 153/93 01/27/17 17:05 96 H 15 01/27/17 17:01 95 H 14 134/85 01/27/17 16:46 96 H 13 123/82 01/27/17 16:37 95 H 13 127/88 01/27/17 16:31 96 H 15 119/102 01/27/17 16:16 95 H 16 132/84 01/27/17 16:08 96 H 11 L 137/85 01/27/17 16:07 97.6 F 96 H 23 H 137/85 01/27/17 15:46 97 H 22 152/86 01/27/17 15:31 96 H 21 151/94 01/27/17 15:25 97.7 F 93 H 20 01/27/17 15:18 98 H 16 01/27/17 15:16 92 H 19 156/90 01/27/17 15:01 96 H 18 154/93 01/27/17 14:46 95 H 18 172/103 01/27/17 14:31 95 H 13 169/104 01/27/17 14:16 90 15 162/98 01/27/17 14:01 92 H 19 161/88 01/27/17 13:46 92 H 16 146/88 01/27/17 13:28 95 H 22 146/80 01/27/17 13:24 97.4 F 96 H 14 146/80 01/27/17 13:00 98.4 F 96 H 17 121/57 01/27/17 12:50 98.2 F 92 H 18 112/52 10/28/17 12:45 90 18 110/49 01/27/17 12:40 94 H 20 100/53 01/27/17 12:35 98.1 F 94 H 18 96/49 01/27/17 11:46 101 H 17 162/89 01/27/17 11:31 97 H 21 150/77 01/27/17 11:25 98 H 16 01/27/17 11:19 101 H 20 01/27/17 11:16 98 H 28 H 145/79 01/27/17 11:01 96 H 18 143/88 01/27/17 10:46 96 H 13 150/87 01/27/17 10:31 95 H 13 140/91 01/27/17 10:16 98.6 F 95 H 18 143/82 01/27/17 10:13 96 H 19 01/27/17 10:01 96 H 17 146/81 01/27/17 09:46 95 H 12 157/93 01/27/17 09:31 97 H 11 L 160/97 01/27/17 09:16 96 H 12 160/98 01/27/17 09:01 98.5 F 94 H 12 158/96 01/27/17 08:46 94 H 12 158/98 01/27/17 08:31 93 H 13 161/97 01/27/17 08:16 94 H 18 156/91 01/27/17 08:09 92 H 14 01/27/17 08:01 99.6 F H 99 H 21 167/98 01/27/17 08:00 01/27/17 07:39 91 H 18 01/27/17 07:31 89 12 151/93 01/27/17 07:16 90 12 154/96 01/27/17 07:14 90 14 01/27/17 07:01 89 13 158/96 01/27/17 06:46 92 H 14 159/96 01/27/17 06:31 89 11 L 150/94 01/27/17 06:17 87 11 L 150/90 01/27/17 06:01 87 11 L 147/91 01/27/17 05:46 88 11 L 144/92 01/27/17 05:31 11 L 147/93 01/27/17 05:16 11 L 147/93 01/27/17 05:01 14 153/96 01/27/17 05:00 11 L 01/27/17 04:46 91 H 11 L 151/91 01/27/17 04:31 92 H 11 L 149/99 01/27/17 04:16 91 H 10 L 153/94 01/27/17 04:01 94 H 12 164/104 01/27/17 04:00 95 H 13 01/27/17 03:46 93 H 10 L 146/127 01/27/17 03:31 95 H 12 148/96 01/27/17 03:16 97 H 11 L 150/96 01/27/17 03:07 17 01/27/17 03:01 102 H 14 156/102 01/27/17 02:46 12 150/92 01/27/17 02:31 96 H 13 145/91 01/27/17 02:16 99 H 13 159/97 01/27/17 02:01 98 H 12 150/95 01/27/17 02:00 01/27/17 01:46 12 149/86 01/27/17 01:31 13 155/89 01/27/17 01:16 13 154/88 01/27/17 01:01 13 144/89 01/27/17 00:46 14 161/91 01/27/17 00:31 116 H 16 176/95 01/27/17 00:16 110 H 13 157/87 01/27/17 00:01 110 H 21 163/90 01/26/17 23:46 113 H 18 172/95 01/26/17 23:31 113 H 21 172/93 01/26/17 23:16 111 H 22 186/113 01/26/17 23:07 109 H 16 01/26/17 23:01 109 H 16 199/121 01/26/17 22:46 106 H 32 H 214/125 01/26/17 22:17 107 H 24 H 198/128 01/26/17 22:12 181/127 01/26/17 22:02 100.9 F H 106 H 27 H 199/121 01/26/17 21:46 181/127 01/26/17 21:31 193/128 01/26/17 21:27 191/148 01/26/17 21:16 188/131 01/26/17 21:01 185/129 01/26/17 20:46 202/146 01/26/17 20:31 197/139 01/26/17 20:16 184/120 01/26/17 20:01 176/132 01/26/17 19:46 185/119 01/26/17 19:31 194/136 01/26/17 19:16 176/134 01/26/17 19:01 176/124 01/26/17 18:54 19 01/26/17 18:46 22 195/133 01/26/17 18:31 17 192/133 01/26/17 18:28 95 H 16 191/127 01/26/17 18:16 94 H 14 191/127 Pulse Ox 01/27/17 17:53 01/27/17 17:05 99 01/27/17 17:01 99 01/27/17 16:46 100 01/27/17 16:37 100 01/27/17 16:31 100 01/27/17 16:16 100 01/27/17 16:08 99 01/27/17 16:07 100 01/27/17 15:46 99 01/27/17 15:31 87 L 01/27/17 15:25 91 01/27/17 15:18 98 01/27/17 15:16 100 01/27/17 15:01 98 01/27/17 14:46 100 01/27/17 14:31 100 01/27/17 14:16 100 01/27/17 14:01 100 01/27/17 13:46 96 01/27/17 13:28 98 01/27/17 13:24 94 01/27/17 13:00 94 01/27/17 12:50 98 01/27/17 12:45 91 01/27/17 12:40 94 01/27/17 12:35 91 01/27/17 11:46 95 01/27/17 11:31 95 01/27/17 11:25 01/27/17 11:19 96 01/27/17 11:16 96 01/27/17 11:01 94 01/27/17 10:46 93 01/27/17 10:31 92 01/27/17 10:16 92 01/27/17 10:13 94 01/27/17 10:01 93 01/27/17 09:46 97 01/27/17 09:31 98 01/27/17 09:16 97 01/27/17 09:01 98 01/27/17 08:46 100 01/27/17 08:31 100 01/27/17 08:16 100 01/27/17 08:09 100 01/27/17 08:01 97 01/27/17 08:00 100 01/27/17 07:39 95 01/27/17 07:31 94 01/27/17 07:16 94 01/27/17 07:14 94 01/27/17 07:01 95 01/27/17 06:46 95 01/27/17 06:31 97 01/27/17 06:17 96 01/27/17 06:01 96 01/27/17 05:46 94 01/27/17 05:31 01/27/17 05:16 01/27/17 05:01 01/27/17 05:00 01/27/17 04:46 98 01/27/17 04:31 97 01/27/17 04:16 97 01/27/17 04:01 94 01/27/17 04:00 93 01/27/17 03:46 95 01/27/17 03:31 93 01/27/17 03:16 91 01/27/17 03:07 01/27/17 03:01 94 01/27/17 02:46 01/27/17 02:31 98 01/27/17 02:16 96 01/27/17 02:01 97 01/27/17 02:00 97 01/27/17 01:46 01/27/17 01:31 01/27/17 01:16 01/27/17 01:01 01/27/17 00:46 01/27/17 00:31 93 01/27/17 00:16 92 01/27/17 00:01 92 01/26/17 23:46 89 L 01/26/17 23:31 90 01/26/17 23:16 92 01/26/17 23:07 91 01/26/17 23:01 90 01/26/17 22:46 95 01/26/17 22:17 93 01/26/17 22:12 01/26/17 22:02 91 01/26/17 21:46 01/26/17 21:31 01/26/17 21:27 01/26/17 21:16 01/26/17 21:01 01/26/17 20:46 01/26/17 20:31 01/26/17 20:16 01/26/17 20:01 01/26/17 19:46 01/26/17 19:31 01/26/17 19:16 01/26/17 19:01 01/26/17 18:54 01/26/17 18:46 01/26/17 18:31 01/26/17 18:28 96 01/26/17 18:16 96 Intake and Output 01/27/17 01/27/17 01/27/17 05:59 13:59 21:59 Intake Total 613 / 613 130 / 130 240 / 240 Balance 613 / 613 130 / 130 240 / 240 Intake: IV 288 / 288 240 / 240 Protonix 80 mg In Sodium 78 / 78 Chloride 0.9% 100 ml @ 8 MG/HR 10 mls/hr IV Q10H [facility] Rx#: [id number] Cardene 25 MG In Sodium 288 / 288 162 / 162 Chloride 0.9% 240 ml @ 5 MG/HR 50 mls/hr IV Q5H [facility] Rx#: [id number] Blood Product 325 / 325 GI Tube Flush IV - Manual Only Other: Weight 158 lb 158 lb Patient Weight 01/28/17 05:59 Weight 158 lb Intake & Output: Intake & Output 01/27/17 01/27/17 01/27/17 05:59 13:59 21:59 Intake Total 613 / 613 130 / 130 240 / 240 Balance 613 / 613 130 / 130 240 / 240 Weight 158 lb 158 lb Intake: IV 288 / 288 240 / 240 Protonix 80 mg In Sodium 78 / 78 Chloride 0.9% 100 ml @ 8 MG/HR 10 mls/hr IV Q10H [facility] Rx#: [id number] Cardene 25 MG In Sodium 288 / 288 162 / 162 Chloride 0.9% 240 ml @ 5 MG/HR 50 mls/hr IV Q5H [facility] Rx#: [id number] Blood Product 325 / 325 GI Tube Flush / 60 IV - Manual Only - General Appearance General appearance: appears started age, chronically ill EENT: mucous membranes moist Neck: no JVD Respiratory: rales Cardiology: no rub, no edema, normal S1, normal S2 Gastrointestinal: no tenderness, no guarding Integumentary: no rash, warm and dry Neurologic: alert and oriented x3 Musculoskeletal: no cyanosis, no clubbing - Lab 01/27/17 03:50 01/27/17 03:50 Most recent lab results Calcium 8.3 mg/dl (8.6-10.4) L 01/27/17 03:50 Phosphorus 2.8 mg/dL (2.7-4.5) 01/27/17 03:50 Magnesium 1.9 mg/dL (1.6-2.5) 01/27/17 03:50 Assessment and Plan (1) Anemia Status: Acute (2) ESRD (end stage renal disease) on dialysis Patient will be dialysed today for fluid removal given persistent pul edema on CXR repeated after dialysis yesterday dialysis today for 3 hrs using revaclear dialyser, 2K/2.5Ca dialysate, UF goal of 2-3L as tolerated, [id number]/min and qd700/800ml/min his next HD is on Sunday uncontrolled HTN: would resume home medications ad taper and stop nicardipine gtt drug tox is pending will discuss with patient if interested in trying to get to inpatient rehab and see if case management can help with this anemia: s/p transfusion, has received aranesp this week he will resume aranesp as outpt h/o GI bleed with EGD showing acute erosive gastritis, on PPI will follow histo path Status: Acute
[2017-01-27] MEDS ORDERED: NIFEdipine 30 MG TAB.XL.24H PO SCH (21:00)
[2017-01-27] MEDS ORDERED: NIFEDIPINE 60 MG PO SCH ×2 (21:00)
[2017-01-27] MEDS ORDERED: rOPINIRole 0.25 MG TABLET PO SCH (21:00)
[2017-01-27] MEDS ORDERED: traZODone HCL 150 MG TABLET PO SCH (21:00)
[2017-01-27] MEDS ORDERED: DOXAZOSIN 4 MG TABLET PO SCH (21:00)
[2017-01-27] MEDS ORDERED: ROPINIROLE 0.5 MG PO SCH ×2 (21:00)
[2017-01-27] MEDS ORDERED: METOPROLOL TARTRATE 50 MG TABLET PO SCH (21:00)
[2017-01-27] MEDS: rOPINIRole 0.25 MG TABLET PO SCH (22:09)
[2017-01-27] MEDS: NIFEdipine 30 MG TAB.XL.24H PO SCH (22:10)
[2017-01-27] MEDS: DOXAZOSIN 4 MG TABLET PO SCH (22:10)
[2017-01-27] MEDS: METOPROLOL TARTRATE 50 MG TABLET PO SCH (22:11)
[2017-01-27] MEDS: traZODone HCL 150 MG TABLET PO PRN (22:11)
[2017-01-27] MEDS: HYDROmorphone 2 MG/ML SYRINGE IV PRN (23:23)
[2017-01-27] MEDS: ONDANSETRON 4 MG/2 ML VIAL IV PRN (23:24)
[2017-01-28] MEDS: IPRATROPIUM/ALBUTEROL 3 ML AMPUL.NEB NEB SCH ×6 (04:37→22:51)
[2017-01-28] MEDS: niCARdipine 25 MG in 0.9 % SODIUM CHLORIDE 240 ML IV SCH ×4 (05:16→22:27)
[2017-01-28 05:17] LABS: Basophils # (Auto) 0 K/mcL (0.0-0.3); Basophils % (Auto) 0 % (0.0-2.0); Eosinophils # (Auto) 0 K/mcL (0.0-0.7); Eosinophils % (Auto) 0 % (0.0-7.0); Granulocytes % (Auto) 94.7 % (38.0-78.0); Lymphocytes # (Auto) 0.3 K/mcL (1.5-4.8); Lymphocytes % (Auto) 3.1 % (15.5-49.0); Mean Cell Volume 96.6 fL (80.0-100.0); Mean Corpuscular HGB Conc 34.3 g/dL (31.0-36.0); Mean Corpuscular Hemoglobin 33.1 pg (26.0-34.0); Monocytes # (Auto) 0.2 K/mcL (0.1-0.9); Monocytes % (Auto) 2.2 % (1.0-12.0); Platelet Count 215 K/mcL (140-440); RBC 2.69 M/mcL (4.50-5.90); Red Cell Distribution Width 16.5 % (11.5-14.5)
[2017-01-28 05:32] LABS: ALT/SGPT 49 U/l (0-40); Albumin 3.4 gm/dL (3.2-5.2); Albumin/Globulin Ratio 1.4 (1.0-2.3); Alkaline Phosphatase 56 U/L (39-117); Bilirubin,Direct < 0.2 mg/dL (0.0-0.3); Blood Urea Nitrogen 33 mg/dl (6-20); Gamma Glutamyl Transpeptidase 42 U/L (8-61); Magnesium 1.9 mg/dL (1.6-2.5); Uric Acid 3.1 mg/dL (2.5-8.0)
[2017-01-28] MEDS: 0.9 % SODIUM CHLORIDE 10 ML SYRINGE IV SCH ×3 (05:44→22:28)
[2017-01-28] MEDS: SUCRALFATE 1 GM/10 ML ORAL.SUSP PO SCH ×4 (07:28→21:07)
[2017-01-28] MEDS: OMEPRAZOLE 20 MG CAPSULE PO SCH ×2 (07:28→16:15)
[2017-01-28] MEDS: CALCIUM ACETATE 667 MG CAPSULE PO SCH ×3 (07:31→16:15)
[2017-01-28] MEDS: HYDROmorphone 2 MG/ML SYRINGE IV PRN ×5 (07:35→23:02)
[2017-01-28] MEDS: METOPROLOL TARTRATE 50 MG TABLET PO SCH ×2 (08:14→21:10)
[2017-01-28] MEDS: GABAPENTIN 100 MG CAPSULE PO SCH ×3 (08:14→21:09)
[2017-01-28] MEDS: hydrALAZINE 25 MG TABLET PO SCH ×3 (08:14→21:11)
[2017-01-28] MEDS: levETIRAcetam 500 MG TABLET PO SCH (08:14)
[2017-01-28] MEDS: SERTRALINE 50 MG TABLET PO SCH (08:15)
[2017-01-28] MEDS: NIFEdipine 30 MG TAB.XL.24H PO SCH ×2 (08:15→21:09)
[2017-01-28] MEDS ORDERED: PARoxetine 20 MG TABLET PO SCH ×2 (09:00)
[2017-01-28] MEDS ORDERED: levETIRAcetam 500 MG TABLET PO SCH (09:00)
--- NOTE | 2017-01-28 10:01 | Internal Med Progress Note ---
Medical - PN: Subj Patient information: Note initiated : 01/28/17 at 9:59 am Service Date, if different from initiated Date: [] Patient: Jorge Bates 31 y/o M admitted on 01/26/17 for SOB, Coughing Up Blood. Chief Complaint: [] Interval history: Mr. Bates is a 31 year old Male presents to the ER last night with complaints of shortness of breath, he was also having some epigastric pain and nausea and some vomiting. Overnight he was noted to be chf and fluid overload secondary to his ESRD status. the patient had hb of 8.2 at that time. He underwent dialysis , but her had some coughing up of red sputum? vs spitting or vomiting bright red blood, not clear on the history here. The pt does admit having coffe ground emesis this AM before hemodialysis. The patient hb after hd is 7.4, and then dropped to 7.0 Initially there was no ICU bed available to admit the patient, later in the evening bed did become available, the patient was therefore admitted to the hospital ICu for close monitoring and treatment The patient notes that he has been having epigastric abdominal pain x 2 weeks, he note that he has had a few episodes of blood in his vomitus. He denies any conor or blood in the stools He denies using aspirin, nsaids, or consuming alcohol, admits to use of tobacco he does admit to having headaches and consuming some otc meds for same In the ER x ray chest showed chf, labs show hb of 7.0, hr was mildly tachycardic 100-120, bp elevated significantly likely as he did not get his bp meds january 27 Patient seen examined overnight events noted, bp is better on the nicardipine drip s/p EGD this Am, no ulcer only gastritis, plan for omeprazole and carafate outpatient surgery follow up with Dr gaby gandhi nephrology following, not sure if plan to have HD today. January 28 Patient seen examined no acute overnight events, still has migraine type headaches. he denies any other complaints his blood pressure went up again this AM needing reinitiation of nicardipine drip, he was off for a while. The patient bp meds this AM are resumed will check to see if his bp improves and if so d/c drip and get him on med surg status The patient has strong history of substance abuse, he has been trying to get in a inpatient rehab program to help. However as outpatient this has been difficult for him. He has been present in the ER 21 times this year in this facility, probably has been seen also in the other hospital. Case discussed with director social service to see if we can get him in a acute rehab program so as to help with his substance abuse issues. Pertinent ROS: chr headaches present. Denies chest pain, palpitations Denies cough or shortness of breath Denies abdominal pain, nausea or vomiting. - Constitutional Vitals: Vital Signs Temp Pulse Resp BP Pulse Ox 98.8 F 97 H 12 149/90 91 01/28/17 08:01 01/28/17 09:31 01/28/17 09:50 01/28/17 09:46 01/28/17 09:31 Period Temp Pulse Resp BP Sys/Umana Pulse Ox Last 24 Hr 97.4 F-99.0 F 77-101 - 96-183/49-121 87-100 Intake and Output 01/27/17 01/28/17 01/28/17 21:59 05:59 13:59 Intake Total 875 / 875 107 / 107 82 / 82 Output Total 3600 / 3600 Balance -2725 / -2725 107 / 107 82 / 82 Weight 161 lb Intake & Output: Intake & Output 01/27/17 01/28/17 01/28/17 21:59 05:59 13:59 Intake Total 875 / 875 107 / 107 82 / 82 Output Total 3600 / 3600 Balance -2725 / -2725 107 / 107 82 / 82 Weight 161 lb Intake: IV 775 / 775 107 / 107 82 / 82 Protonix 80 mg In Sodium 78 / 78 Chloride 0.9% 100 ml @ 8 MG/HR 10 mls/hr IV Q10H ANDRE Rx#: [id number] Cardene 25 MG In Sodium 250 / 250 107 / 107 82 / 82 Chloride 0.9% 240 ml @ 5 MG/HR 50 mls/hr IV Q5H ANDRE Rx#: [id number] Oral 100 / 100 Output: Hemodialysis UF 3600 / 3600 Exam: Constitutional; Afebrile, cooperative, alert, not in distress. Eyes- No icterus, , No periorbital swelling Ears- Ext ear normal, hearing normal to conversation. Neck- Midline trachea, supple Respiratory system: Air Entry equal on both sides, No crackles or wheezing, no rhonchi. CVS- Rate rhythm regular, S1,S2 heard, no gallop, no rub. Abdomen- Soft nontender abdomen, no organomegaly, no tenderness, no guarding or rigidity, HEAD IRRIGATOR- AOOx3, moving all extremities, no gross focal deficit noted. Medical - PN: Obj Da - Labs CBC & Chem 7: 01/28/17 03:47 01/28/17 03:47 Labs: Abnormal Lab Results 01/28/17 01/28/17 01/27/17 03:47 03:47 03:50 RBC 2.69 L Hgb 8.9 L Hct 26.0 L POC Hct RDW 16.5 H MPV Gran % 94.7 H Lymph % (Auto) 3.1 L Lymph # (Auto) 0.3 L POC Chloride Chloride 94 L 95 L Carbon Dioxide 31 H POC Total CO2 POC BUN BUN 33 H 35 H Creatinine 5.4 H* 5.6 H* POC Creatinine Glucose 239 H Calcium 8.4 L 8.3 L POC WB Ioniz Calcium AST 47 H 73 H ALT 49 H 48 H Lactate Dehydrogenase 319 H 406 H NT-Pro-B Natriuret Pep Amylase 180 H Lipase 226 H 01/27/17 01/26/17 01/26/17 03:50 18:50 16:25 RBC 2.67 L 2.14 L Hgb 8.9 L 7.0 L* Hct 25.9 L 20.9 L* POC Hct 20.0 L* RDW 15.5 H 16.7 H MPV 7.2 L Gran % Lymph % (Auto) 12.5 L Lymph # (Auto) 1.0 L 1.1 L POC Chloride 93 L Chloride Carbon Dioxide POC Total CO2 31 H POC BUN 26 H BUN Creatinine POC Creatinine 4.8 H Glucose Calcium POC WB Ioniz Calcium 0.96 L AST ALT Lactate Dehydrogenase NT-Pro-B Natriuret Pep Amylase Lipase 01/26/17 01/26/17 14:49 14:49 RBC 2.22 L Hgb 7.3 L Hct 21.7 L POC Hct RDW 16.9 H MPV 7.1 L Gran % Lymph % (Auto) Lymph # (Auto) 1.3 L POC Chloride Chloride Carbon Dioxide POC Total CO2 POC BUN BUN Creatinine POC Creatinine Glucose Calcium POC WB Ioniz Calcium AST ALT Lactate Dehydrogenase NT-Pro-B Natriuret Pep 16406.0 H Amylase Lipase Meds: Medications Albuterol/Ipratropium (Duoneb) 3 ml NEB Q4HRT [facility] Last Admin: 01/28/17 07:12 Dose: 3 ml Alprazolam (Xanax) 1 mg PO BIDP PRN PRN Reason: Anxiety Calcium Acetate (Phoslo) 667 mg PO TIDCC [facility] Last Admin: 01/28/17 07:31 Dose: 667 mg Doxazosin Mesylate (Cardura) 2 mg PO HS [facility] Last Admin: 01/27/17 22:10 Dose: 2 mg Gabapentin (Neurontin) 200 mg PO TID [facility] Last Admin: 01/28/17 08:14 Dose: 200 mg Hydralazine HCl (Apresoline) 75 mg PO TID [facility] Last Admin: 01/28/17 08:14 Dose: 75 mg Hydromorphone HCl (Dilaudid) 0.5 mg IV Q2HP PRN PRN Reason: Pain Last Admin: 01/28/17 07:35 Dose: 0.5 mg Nicardipine HCl 25 mg/ Sodium (Chloride) 250 mls @ 50 mls/hr IV Q5H [facility]; 5 MG/ HR PRN Reason: Protocol Last Titration: 01/28/17 07:04 Dose: 2 mg/hr, 20 mls/hr Levetiracetam (Keppra) 500 mg PO DAILY [facility] Last Admin: 01/28/17 08:14 Dose: 500 mg Metoprolol Tartrate (Lopressor) 50 mg PO BID [facility] Last Admin: 01/28/17 08:14 Dose: 50 mg Naloxone HCl (Narcan) 0.1 mg IV Q2MIN PRN PRN Reason: Opiate Reversal Nifedipine (Procardia Xl) 60 mg PO BID [facility] Last Admin: 01/28/17 08:15 Dose: 60 mg Omeprazole (Prilosec) 20 mg PO BIDAC [facility] Last Admin: 01/28/17 07:28 Dose: 20 mg Ondansetron HCl (Zofran) 4 mg IV Q4-6HP PRN PRN Reason: Nausea And Vomiting Last Admin: 01/27/17 23:24 Dose: 4 mg Ropinirole HCl (Requip) 0.5 mg PO HS [facility] Last Admin: 01/27/17 22:09 Dose: 0.5 mg Sertraline HCl (Zoloft) 100 mg PO DAILY [facility] Last Admin: 01/28/17 08:15 Dose: 100 mg Sodium Chloride (Saline Flush) 10 ml IV Q8 [facility] Last Admin: 01/28/17 05:44 Dose: 10 ml Sucralfate (Carafate) 1 gm PO ACHS [facility] Last Admin: 01/28/17 07:28 Dose: 1 gm Trazodone HCl (Desyrel) 150 mg PO HSP PRN PRN Reason: Insomnia Last Admin: 01/27/17 22:11 Dose: 150 mg Medical - PN: A/P - Time Spent With Patient Total time spent is greater than 50% in coordination of care (as documented) at patient's floor/unit and/or counseling patient: - Narrative A/P Narrative: A/P Acute Upper GI bleed Congestive heart failure ESRd on HD Subsutance abuse issues Anemia acute blood loss and anemia of chr disease Malignant hypertension acute anxiety Plan monitor for now, still needs nicardipine drip, resume home meds wean off drip if able to titrate home bp meds in consultation with nephrology d/c ppi drip, on oral ppi and carafate Nehrpology following, Patient will need x gala to inaptient rehab if possible for his substance abuse issues, to break cycle of repeated ER visits after consuming drugs. He has no kidneys and he is unable to monitor prn dilaudid for pain prn xanax. DVT SCD renal diet Full code Medical - PN: Qual - VTE Deep Vein Thrombosis/Pulmonary Embolism Present on Admission: No
[2017-01-28] MEDS ORDERED: hydrALAZINE 25 MG TABLET PO ONE (10:08)
[2017-01-28] MEDS ORDERED: METOPROLOL TARTRATE 50 MG TABLET PO ONE (10:13)
[2017-01-28] MEDS: ONDANSETRON 4 MG/2 ML VIAL IV PRN ×2 (14:59→21:13)
[2017-01-28] MEDS: CALCIUM CARBONATE 500 MG TAB.CHEW CHEWED PRN ×2 (15:45→19:32)
[2017-01-28] MEDS: ALPRAZolam 0.5 MG TABLET PO PRN (17:54)
[2017-01-28] MEDS ORDERED: LORazepam 2 MG/ML VIAL IV PRN (18:57)
[2017-01-28] MEDS ORDERED: NICOTINE 7 MG PATCH TOPICAL SCH (19:00)
[2017-01-28] MEDS: rOPINIRole 0.25 MG TABLET PO SCH (21:06)
[2017-01-28] MEDS: traZODone HCL 150 MG TABLET PO PRN (21:07)
[2017-01-28] MEDS: DOXAZOSIN 4 MG TABLET PO SCH (21:08)
[2017-01-29] MEDS: niCARdipine 25 MG in 0.9 % SODIUM CHLORIDE 240 ML IV SCH ×2 (03:10→07:16)
[2017-01-29] MEDS: IPRATROPIUM/ALBUTEROL 3 ML AMPUL.NEB NEB SCH ×2 (03:11→07:16)
[2017-01-29] MEDS: HYDROmorphone 2 MG/ML SYRINGE IV PRN ×2 (05:31→08:26)
[2017-01-29] MEDS: ONDANSETRON 4 MG/2 ML VIAL IV PRN (05:31)
[2017-01-29 06:05] LABS: Basophils # (Auto) 0 K/mcL (0.0-0.3); Basophils % (Auto) 0.3 % (0.0-2.0); Eosinophils # (Auto) 0.2 K/mcL (0.0-0.7); Eosinophils % (Auto) 2.2 % (0.0-7.0); Granulocytes % (Auto) 80.1 % (38.0-78.0); Lymphocytes # (Auto) 1.2 K/mcL (1.5-4.8); Mean Corpuscular HGB Conc 34.2 g/dL (31.0-36.0); Mean Corpuscular Hemoglobin 33.5 pg (26.0-34.0); Monocytes # (Auto) 0.7 K/mcL (0.1-0.9); Monocytes % (Auto) 6.4 % (1.0-12.0); Platelet Count 205 K/mcL (140-440); RBC 2.37 M/mcL (4.50-5.90); Red Cell Distribution Width 16.9 % (11.5-14.5)
[2017-01-29 06:35] LABS: ALT/SGPT 40 U/l (0-40); Albumin 2.9 gm/dL (3.2-5.2); Albumin/Globulin Ratio 1.2 (1.0-2.3); Alkaline Phosphatase 46 U/L (39-117); Bilirubin,Direct < 0.2 mg/dL (0.0-0.3); Blood Urea Nitrogen 60 mg/dl (6-20); Gamma Glutamyl Transpeptidase 35 U/L (8-61); Magnesium 2.1 mg/dL (1.6-2.5); Uric Acid 4.9 mg/dL (2.5-8.0)
[2017-01-29] MEDS: OMEPRAZOLE 20 MG CAPSULE PO SCH ×2 (07:24→18:42)
[2017-01-29] MEDS: SUCRALFATE 1 GM/10 ML ORAL.SUSP PO SCH ×4 (07:34→22:13)
[2017-01-29] MEDS: 0.9 % SODIUM CHLORIDE 10 ML SYRINGE IV SCH ×3 (07:37→20:55)
[2017-01-29] MEDS: CALCIUM ACETATE 667 MG CAPSULE PO SCH ×3 (08:24→18:42)
[2017-01-29] MEDS: ALPRAZolam 0.5 MG TABLET PO PRN (08:24)
[2017-01-29] MEDS: GABAPENTIN 100 MG CAPSULE PO SCH ×3 (08:24→20:40)
[2017-01-29] MEDS ORDERED: ACETAMINOPHEN 1,000 MG/100 ML BOTTLE IV ONE ×2 (08:25→10:00)
[2017-01-29] MEDS: METOPROLOL TARTRATE 50 MG TABLET PO SCH ×2 (08:25→20:45)
[2017-01-29] MEDS: levETIRAcetam 500 MG TABLET PO SCH (08:25)
[2017-01-29] MEDS: NIFEdipine 30 MG TAB.XL.24H PO SCH ×2 (08:25→20:41)
[2017-01-29] MEDS: SERTRALINE 50 MG TABLET PO SCH (08:25)
[2017-01-29] MEDS: hydrALAZINE 25 MG TABLET PO SCH ×3 (08:26→20:44)
[2017-01-29] MEDS ORDERED: ONDANSETRON 4 MG/2 ML VIAL IV PRN (09:40)
[2017-01-29] MEDS ORDERED: ALPRAZolam 0.5 MG TABLET PO PRN (09:40)
[2017-01-29] MEDS ORDERED: NALOXONE HCL 0.4 MG/ML VIAL IV PRN (09:40)
[2017-01-29] MEDS ORDERED: HYDROmorphone 2 MG/ML SYRINGE IV PRN (09:40)
[2017-01-29] MEDS ORDERED: CALCIUM CARBONATE 500 MG TAB.CHEW CHEWED PRN (09:40)
[2017-01-29] MEDS ORDERED: IPRATROPIUM/ALBUTEROL 3 ML AMPUL.NEB NEB PRN (10:10)
[2017-01-29] MEDS: NICOTINE 7 MG PATCH TOPICAL SCH ×2 (10:44→22:14)
--- NOTE | 2017-01-29 10:47 | Operative Note ---
DATE OF OPERATION: 01/27/2017 PREOPERATIVE DIAGNOSIS: Upper GI bleeding. POSTOPERATIVE DIAGNOSIS: Acute erosive gastritis and duodenitis. PROCEDURE: Esophagogastroduodenoscopy with biopsies and CLOtest. SURGEON: Terry Yo MD FINDINGS: Moderately diffuse inflammation of the body and antrum of the stomach and duodenal bulb. No major ulcerations, normal esophagus. DESCRIPTION OF PROCEDURE: Under general endotracheal anesthesia, the patient was left in supine position. The head was turned to the left. A bite block was placed. A timeout procedure was carried out as per protocol. The scope was introduced through the bite block into the retropharynx and esophagus. The esophagus was normal down to the GE junction. GE junction was normal. There was no inflammation, stricture or web or ring. There is no hiatal hernia. There was some moderate diffuse inflammation in the scattered pattern of the body and antrum. There were superficial erosions in the proximal antrum and in the prepyloric area. There was inflammation with superficial erosions in the duodenal bulb. Second and third portions of the duodenum were normal. There was no active bleeding. Scope was pulled back, retroflexed view was done. No hiatal hernia was seen. No other ulcerations or mass, or other abnormality was noted. Biopsies of the prepyloric antrum were taken and some were sent for H. pylori. The patient tolerated the procedure well. Air was suctioned from the stomach and the scope was removed. He was awakened, extubated, and transferred back to the ICU in stable satisfactory condition. LCS:jonas Job ID: [id number] Doc ID: [id number] Terry Yo M.D.
[2017-01-29] MEDS ORDERED: niCARdipine 25 MG in 0.9 % SODIUM CHLORIDE 240 ML IV PRN (11:00)
[2017-01-29] MEDS ORDERED: IPRATROPIUM/ALBUTEROL 3 ML AMPUL.NEB NEB SCH (11:00)
--- NOTE | 2017-01-29 15:05 | Nephrology Progress Note ---
Subjective Patient information: Note initiated : 01/29/17 at 2:35 pm Service Date, if different from initiated Date: [] Patient: Jorge Bates 31 y/o M admitted on 01/26/17 for SOB, Coughing Up Blood/Upper GI Bleed. Chief Complaint: [] Principal diagnosis: GI Bleed Interval history: c/o feeling withdrawal symptoms, on ativan no SOB, CP still c/o epigastric discomfort BP control a little better due for dialysis today SW working to see if he could for inpatient rehab which the patient agrees to Pertinent ROS: as above Objective - Vital Signs Vital signs: Vital Signs Temp Pulse Pulse Resp BP BP Pulse Ox 01/29/17 12:00 97.7 F 81 12 139/96 97 01/29/17 11:00 93 01/29/17 10:51 124/78 87 L 01/29/17 10:50 89 L 01/29/17 09:01 99.9 F H 131/88 92 01/29/17 08:02 133/84 89 L 01/29/17 07:43 89 01/29/17 07:01 150/104 01/29/17 06:00 145/101 01/29/17 05:00 138/88 01/29/17 04:01 127/86 01/29/17 03:01 141/82 01/29/17 02:01 144/86 01/29/17 01:00 136/81 01/29/17 00:25 99.1 F H 01/29/17 00:01 130/83 01/28/17 23:00 144/104 01/28/17 22:57 93 H 16 01/28/17 22:00 130/78 01/28/17 21:00 130/80 01/28/17 20:01 128/80 01/28/17 19:37 97 01/28/17 19:02 95 H 16 135/99 01/28/17 18:56 98 01/28/17 18:02 137/84 01/28/17 17:31 140/98 01/28/17 17:02 18 122/73 95 01/28/17 16:31 142/96 01/28/17 16:01 97.8 F 16 141/91 96 01/28/17 15:32 136/87 01/28/17 15:02 147/92 01/28/17 14:42 94 H 16 Intake and Output 01/29/17 01/29/17 01/29/17 05:59 13:59 21:59 Intake Total 480 / 480 665 / 665 Output Total 450 / 450 Balance 665 / 665 Intake: IV 100 / 100 Oral 480 / 480 565 / 565 Output: Emesis 450 / 450 Other: Meal hs snack Breakfast Percent of Meal Consumed 100% 100% Feeding Ability Independent Independent Intake & Output: Intake & Output 01/29/17 01/29/17 01/29/17 05:59 13:59 21:59 Intake Total 480 / 480 665 / 665 Output Total 450 / 450 Balance 665 / 665 Intake: IV 100 / 100 Oral 480 / 480 565 / 565 Output: Emesis 450 / 450 Other: Meal hs snack Breakfast Percent of Meal Consumed 100% 100% Feeding Ability Independent Independent - General Appearance General appearance: appears started age, chronically ill EENT: mucous membranes moist Neck: no JVD, no carotid bruit Respiratory: clear Cardiology: no edema, normal S1, normal S2 Gastrointestinal: no tenderness, no guarding Integumentary: no rash, warm and dry Neurologic: alert and oriented x3 Psychiatric: mood/affect appropriate - Lab 01/29/17 08:30 01/29/17 03:47 Most recent lab results Calcium 8.2 mg/dl (8.6-10.4) L 01/29/17 03:47 Phosphorus 4.1 mg/dL (2.7-4.5) 01/29/17 03:47 Magnesium 2.1 mg/dL (1.6-2.5) 01/29/17 03:47 Assessment and Plan (1) Anemia Status: Acute (2) ESRD (end stage renal disease) on dialysis Patient will be dialysed today dialysis today for 4 hrs using revaclear dialyser, 2K/2.5Ca dialysate, UF goal of 2-3L as tolerated, qb 400ml/min and qd700/800ml/min his next HD is on sunday uncontrolled HTN: on meds, improving control will follow and optimize drug tox is pending awaiting inpatient rehab placement, hope this works as patient has significant cardiac issues and need to stop using meth to prevent progression of this, also cannot get renal transplant without been drug free anemia: s/p transfusion, will need aranesp h/o GI bleed with EGD showing acute erosive gastritis, on PPI will follow histo path Status: Acute
--- NOTE | 2017-01-29 15:36 | Internal Med Progress Note ---
Medical - PN: Subj Patient information: Note initiated : 01/29/17 at 3:34 pm Service Date, if different from initiated Date: [] Patient: Jorge Bates 31 y/o M admitted on 01/26/17 for SOB, Coughing Up Blood/Upper GI Bleed. Chief Complaint: [] Interval history: Mr. Bates is a 31 year old Male presents to the ER last night with complaints of shortness of breath, he was also having some epigastric pain and nausea and some vomiting. Overnight he was noted to be chf and fluid overload secondary to his ESRD status. the patient had hb of 8.2 at that time. He underwent dialysis , but her had some coughing up of red sputum? vs spitting or vomiting bright red blood, not clear on the history here. The pt does admit having coffe ground emesis this AM before hemodialysis. The patient hb after hd is 7.4, and then dropped to 7.0 Initially there was no ICU bed available to admit the patient, later in the evening bed did become available, the patient was therefore admitted to the hospital ICu for close monitoring and treatment The patient notes that he has been having epigastric abdominal pain x 2 weeks, he note that he has had a few episodes of blood in his vomitus. He denies any conor or blood in the stools He denies using aspirin, nsaids, or consuming alcohol, admits to use of tobacco he does admit to having headaches and consuming some otc meds for same In the ER x ray chest showed chf, labs show hb of 7.0, hr was mildly tachycardic 100-120, bp elevated significantly likely as he did not get his bp meds january 27 Patient seen examined overnight events noted, bp is better on the nicardipine drip s/p EGD this Am, no ulcer only gastritis, plan for omeprazole and carafate outpatient surgery follow up with Dr gaby gandhi nephrology following, not sure if plan to have HD today. January 28 Patient seen examined no acute overnight events, still has migraine type headaches. he denies any other complaints his blood pressure went up again this AM needing reinitiation of nicardipine drip, he was off for a while. The patient bp meds this AM are resumed will check to see if his bp improves and if so d/c drip and get him on med surg status The patient has strong history of substance abuse, he has been trying to get in a inpatient rehab program to help. However as outpatient this has been difficult for him. He has been present in the ER 21 times this year in this facility, probably has been seen also in the other hospital. Case discussed with social staff worker to see if we can get him in a acute rehab program so as to help with his substance abuse issues. January 29 pt seen examined, notes had some vomiting with few blood streaks hb stable patient off nicardipine drip now, ok to xfer to med surg patient thinks he is withdrawing from his dailyi meth use, daily thc, tobacco use. prn ativan ordered. the patient later seen walking in his room and fairly comfortable and did not seem much in distress he is awaiting placement to inpatient rehab for his substance abuse issues. Pertinent ROS: Present headache, dizziness Denies chest pain, palpitations Denies cough or shortness of breath Denies abdominal pain, nausea or vomiting. has some myalgia. - Constitutional Vitals: Vital Signs Temp Pulse Resp BP Pulse Ox 98.2 F 78 12 160/106 97 01/29/17 14:25 01/29/17 15:20 01/29/17 12:00 01/29/17 15:20 01/29/17 12:00 Period Temp Pulse Resp BP Sys/Umana Pulse Ox Last 24 Hr 97.7 F-99.9 F 78-95 12-18 122-160/73-108 87-98 Intake and Output 01/29/17 01/29/17 01/29/17 05:59 13:59 21:59 Intake Total 480 / 480 665 / 665 Output Total 450 / 450 Balance 665 / 665 Intake & Output: Intake & Output 01/29/17 01/29/17 01/29/17 05:59 13:59 21:59 Intake Total 480 / 480 665 / 665 Output Total 450 / 450 Balance 665 / 665 Intake: IV 100 / 100 Oral 480 / 480 565 / 565 Output: Emesis 450 / 450 Other: Meal hs snack Breakfast Percent of Meal Consumed 100% 100% Feeding Ability Independent Independent Exam: Constitutional; Afebrile, cooperative, alert, not in distress. Eyes- No icterus, , No periorbital swelling Ears- Ext ear normal, hearing normal to conversation. Neck- Midline trachea, supple Respiratory system: Air Entry equal on both sides, No crackles or wheezing, no rhonchi. CVS- Rate rhythm regular, S1,S2 heard, no gallop, no rub. Abdomen- Soft nontender abdomen, no organomegaly, no tenderness, no guarding or rigidity, CHARGE ACCOUNT IDENTIFICATION CLERK- AOOx3, moving all extremities, no gross focal deficit noted. Medical - PN: Obj Da - Labs CBC & Chem 7: 01/29/17 08:30 01/29/17 03:47 Labs: Abnormal Lab Results 01/29/17 01/29/17 01/29/17 08:30 03:47 03:47 RBC 2.37 L Hgb 8.5 L 7.9 L Hct 25.3 L 23.2 L POC Hct RDW 16.9 H MPV Gran % 80.1 H Lymph % (Auto) 11.0 L Gran # 8.6 H Lymph # (Auto) 1.2 L POC Chloride Chloride 93 L Carbon Dioxide POC Total CO2 POC BUN BUN 60 H Creatinine 7.5 H* POC Creatinine Glucose Calcium 8.2 L POC WB Ioniz Calcium AST ALT Lactate Dehydrogenase NT-Pro-B Natriuret Pep Total Protein 5.4 L Albumin 2.9 L Amylase Lipase 01/28/17 01/28/17 01/27/17 03:47 03:47 03:50 RBC 2.69 L Hgb 8.9 L Hct 26.0 L POC Hct RDW 16.5 H MPV Gran % 94.7 H Lymph % (Auto) 3.1 L Gran # Lymph # (Auto) 0.3 L POC Chloride Chloride 94 L 95 L Carbon Dioxide 31 H POC Total CO2 POC BUN BUN 33 H 35 H Creatinine 5.4 H* 5.6 H* POC Creatinine Glucose 239 H Calcium 8.4 L 8.3 L POC WB Ioniz Calcium AST 47 H 73 H ALT 49 H 48 H Lactate Dehydrogenase 319 H 406 H NT-Pro-B Natriuret Pep Total Protein Albumin Amylase 180 H Lipase 226 H 01/27/17 01/26/17 01/26/17 03:50 18:50 16:25 RBC 2.67 L 2.14 L Hgb 8.9 L 7.0 L* Hct 25.9 L 20.9 L* POC Hct 20.0 L* RDW 15.5 H 16.7 H MPV 7.2 L Gran % Lymph % (Auto) 12.5 L Gran # Lymph # (Auto) 1.0 L 1.1 L POC Chloride 93 L Chloride Carbon Dioxide POC Total CO2 31 H POC BUN 26 H BUN Creatinine POC Creatinine 4.8 H Glucose Calcium POC WB Ioniz Calcium 0.96 L AST ALT Lactate Dehydrogenase NT-Pro-B Natriuret Pep Total Protein Albumin Amylase Lipase 01/26/17 14:49 RBC Hgb Hct POC Hct RDW MPV Gran % Lymph % (Auto) Gran # Lymph # (Auto) POC Chloride Chloride Carbon Dioxide POC Total CO2 POC BUN BUN Creatinine POC Creatinine Glucose Calcium POC WB Ioniz Calcium AST ALT Lactate Dehydrogenase NT-Pro-B Natriuret Pep 47945.0 H Total Protein Albumin Amylase Lipase Meds: Medications Albuterol/Ipratropium (Duoneb) 3 ml NEB Q4HRT PRN PRN Reason: Shortness Of Breath Or Wheezing Alprazolam (Xanax) 1 mg PO BIDP PRN PRN Reason: Anxiety Calcium Acetate (Phoslo) 667 mg PO TIDCC [facility] Last Admin: 01/29/17 12:15 Dose: 667 mg Calcium Carbonate/Glycine (Tums) 500 mg CHEWED Q4HP PRN PRN Reason: Dyspepsia Doxazosin Mesylate (Cardura) 2 mg PO HS [facility] Gabapentin (Neurontin) 200 mg PO TID [facility] Hydralazine HCl (Apresoline) 100 mg PO TID [facility] Hydromorphone HCl (Dilaudid) 0.5 mg IV Q2HP PRN PRN Reason: Pain Last Admin: 01/29/17 13:36 Dose: 0.5 mcg Nicardipine HCl 25 mg/ Sodium (Chloride) 250 mls @ 50 mls/hr IV Q5HP PRN; Protocol; 5 MG/HR PRN Reason: Hypertension Levetiracetam (Keppra) 500 mg PO DAILY [facility] Lorazepam (Ativan) 1 mg IV Q2-4HP PRN PRN Reason: ANXIETY/SEDATION Metoprolol Tartrate (Lopressor) 100 mg PO BID [facility] Naloxone HCl (Narcan) 0.1 mg IV Q2MIN PRN PRN Reason: Opiate Reversal Nicotine (Nicoderm) 7 mg TOPICAL DAILY@1000 [facility] Last Admin: 01/29/17 10:44 Dose: 7 mg Nifedipine (Procardia Xl) 60 mg PO BID [facility] Omeprazole (Prilosec) 40 mg PO BIDAC [facility] Ondansetron HCl (Zofran) 4 mg IV Q4-6HP PRN PRN Reason: Nausea And Vomiting Ropinirole HCl (Requip) 0.5 mg PO HS [facility] Sertraline HCl (Zoloft) 100 mg PO DAILY [facility] Sodium Chloride (Saline Flush) 10 ml IV Q8 [facility] Sucralfate (Carafate) 1 gm PO ACHS [facility] Last Admin: 01/29/17 11:34 Dose: 1 gm Trazodone HCl (Desyrel) 150 mg PO HSP PRN PRN Reason: Insomnia Medical - PN: A/P - Time Spent With Patient Total time spent is greater than 50% in coordination of care (as documented) at patient's floor/unit and/or counseling patient: - Narrative A/P Narrative: A/P Acute Upper GI bleed Congestive heart failure ESRd on HD Subsutance abuse issues Anemia acute blood loss and anemia of chr disease Malignant hypertension acute anxiety Plan med surg status off nicardipine drip x 24 hrs continue oroal ppi and carafate, recent egd neg, slight blood from vomitus likely from gasritis. Nehrpology following, HD today Patient will need x gala to inaptient rehab if possible for his substance abuse issues, to break cycle of repeated ER visits after consuming drugs. He has no kidneys prn dilaudid for pain prn xanax ativan prn for withdrawal. DVT SCD renal diet Full code Medical - PN: Qual - VTE Deep Vein Thrombosis/Pulmonary Embolism Present on Admission: No
[2017-01-29] MEDS: DOXAZOSIN 4 MG TABLET PO SCH (20:41)
[2017-01-29] MEDS: rOPINIRole 0.25 MG TABLET PO SCH (20:42)
[2017-01-29] MEDS: HYDROmorphone 2 MG TABLET PO PRN (20:56)
[2017-01-29] MEDS: traZODone HCL 150 MG TABLET PO PRN (20:56)
[2017-01-30] MEDS: HYDROmorphone 2 MG TABLET PO PRN ×5 (04:18→21:16)
[2017-01-30 06:30] LABS: ALT/SGPT 47 U/l (0-40); Albumin 3.2 gm/dL (3.2-5.2); Albumin/Globulin Ratio 1.4 (1.0-2.3); Alkaline Phosphatase 53 U/L (39-117); Bilirubin,Direct < 0.2 mg/dL (0.0-0.3); Blood Urea Nitrogen 32 mg/dl (6-20); Gamma Glutamyl Transpeptidase 38 U/L (8-61); Magnesium 1.9 mg/dL (1.6-2.5); Uric Acid 2.4 mg/dL (2.5-8.0)
[2017-01-30 07:30] LABS: Basophils # (Auto) 0.1 K/mcL (0.0-0.3); Basophils % (Auto) 0.5 % (0.0-2.0); Eosinophils # (Auto) 0.5 K/mcL (0.0-0.7); Eosinophils % (Auto) 5.4 % (0.0-7.0); Granulocytes % (Auto) 66.1 % (38.0-78.0); Lymphocytes # (Auto) 1.9 K/mcL (1.5-4.8); Lymphocytes % (Auto) 20.1 % (15.5-49.0); Mean Cell Volume 98.2 fL (80.0-100.0); Mean Corpuscular HGB Conc 34.4 g/dL (31.0-36.0); Mean Corpuscular Hemoglobin 33.8 pg (26.0-34.0); Monocytes # (Auto) 0.7 K/mcL (0.1-0.9); Monocytes % (Auto) 7.9 % (1.0-12.0); Platelet Count 217 K/mcL (140-440); RBC 2.47 M/mcL (4.50-5.90); Red Cell Distribution Width 17.1 % (11.5-14.5)
[2017-01-30] MEDS: GABAPENTIN 100 MG CAPSULE PO SCH ×3 (07:59→21:15)
[2017-01-30] MEDS: METOPROLOL TARTRATE 50 MG TABLET PO SCH ×2 (07:59→21:16)
[2017-01-30] MEDS: CALCIUM ACETATE 667 MG CAPSULE PO SCH ×3 (07:59→16:57)
[2017-01-30] MEDS: SERTRALINE 50 MG TABLET PO SCH (08:01)
[2017-01-30] MEDS: OMEPRAZOLE 20 MG CAPSULE PO SCH ×2 (08:01→16:57)
[2017-01-30] MEDS: NIFEdipine 30 MG TAB.XL.24H PO SCH ×2 (08:01→21:16)
[2017-01-30] MEDS: SUCRALFATE 1 GM/10 ML ORAL.SUSP PO SCH ×4 (08:01→21:16)
[2017-01-30] MEDS: levETIRAcetam 500 MG TABLET PO SCH (08:02)
[2017-01-30] MEDS: hydrALAZINE 25 MG TABLET PO SCH ×3 (08:09→21:15)
[2017-01-30] MEDS: NICOTINE 7 MG PATCH TOPICAL SCH (12:23)
--- NOTE | 2017-01-30 12:49 | Internal Med Progress Note ---
Medical - PN: Subj Patient information: Note initiated : 01/30/17 at 12:44 pm Service Date, if different from initiated Date: [] Patient: Jorge Bates 31 y/o M admitted on 01/26/17 for SOB, Coughing Up Blood/Upper GI Bleed. Chief Complaint: [] Interval history: Mr. Bates is a 31 year old Male presents to the ER last night with complaints of shortness of breath, he was also having some epigastric pain and nausea and some vomiting. Overnight he was noted to be chf and fluid overload secondary to his ESRD status. the patient had hb of 8.2 at that time. He underwent dialysis , but her had some coughing up of red sputum? vs spitting or vomiting bright red blood, not clear on the history here. The pt does admit having coffe ground emesis this AM before hemodialysis. The patient hb after hd is 7.4, and then dropped to 7.0 Initially there was no ICU bed available to admit the patient, later in the evening bed did become available, the patient was therefore admitted to the hospital ICu for close monitoring and treatment The patient notes that he has been having epigastric abdominal pain x 2 weeks, he note that he has had a few episodes of blood in his vomitus. He denies any conor or blood in the stools He denies using aspirin, nsaids, or consuming alcohol, admits to use of tobacco he does admit to having headaches and consuming some otc meds for same In the ER x ray chest showed chf, labs show hb of 7.0, hr was mildly tachycardic 100-120, bp elevated significantly likely as he did not get his bp meds january 27 Patient seen examined overnight events noted, bp is better on the nicardipine drip s/p EGD this Am, no ulcer only gastritis, plan for omeprazole and carafate outpatient surgery follow up with Dr gaby gandhi nephrology following, not sure if plan to have HD today. January 28 Patient seen examined no acute overnight events, still has migraine type headaches. he denies any other complaints his blood pressure went up again this AM needing reinitiation of nicardipine drip, he was off for a while. The patient bp meds this AM are resumed will check to see if his bp improves and if so d/c drip and get him on med surg status The patient has strong history of substance abuse, he has been trying to get in a inpatient rehab program to help. However as outpatient this has been difficult for him. He has been present in the ER 21 times this year in this facility, probably has been seen also in the other hospital. Case discussed with social media content specialist to see if we can get him in a acute rehab program so as to help with his substance abuse issues. January 29 pt seen examined, notes had some vomiting with few blood streaks hb stable patient off nicardipine drip now, ok to xfer to med surg patient thinks he is withdrawing from his dailyi meth use, daily thc, tobacco use. prn ativan ordered. the patient later seen walking in his room and fairly comfortable and did not seem much in distress he is awaiting placement to inpatient rehab for his substance abuse issues. January 30: This 31-year-old man with a long-standing history of kidney failure, CHF, drug abuse, hypertension was admitted with volume overload and pulmonary vascular congestion. He also had nausea, vomiting and some bleeding, and endoscopy showed gastritis. Blood pressure was also initially poorly controlled. Both volume status and blood pressure are now improving, as he is receiving regular dialysis. He continues to have lots of discomforts related to drug withdrawal. He reports significant fatigue, aching all over, bitemporal headache, but is reportedly used to using daily marijuana and methamphetamines. Otherwise, he denies fever chills, shortness of breath, chest pain other than generalized aching, abdominal pain, nausea or vomiting, diarrhea or constipation. He is a anuric. Medical History Fluid overload (Acute) Acute congestive heart failure (Acute) Hypertensive emergency (Acute) Mitral stenosis with insufficiency (Acute) Pulmonary hypertension (Acute) Substance use disorder (Chronic) Migraine (Acute) Pneumonia (Acute) HCAP (healthcare-associated pneumonia) (Acute) Acute anxiety (Acute) Sinusitis Hyperkalemia, diminished renal excretion (Acute) Gastroparesis (Acute) Generalized seizure (Acute) Anemia, blood loss (Acute) CRF (chronic renal failure) (Acute) Mitral regurgitation (Chronic) Epileptic seizure (Acute) FSGS (focal segmental glomerulosclerosis) with nephrosis (Resolved) Congestive heart failure (Acute) Anemia in chronic kidney disease (CKD) (Chronic) Restless legs (Chronic) - Constitutional Vitals: Vital Signs Temp Pulse Resp BP Pulse Ox 97.5 F 82 16 146/84 100 01/30/17 08:21 01/30/17 07:29 01/30/17 08:00 01/30/17 08:00 01/30/17 08:00 Period Temp Pulse Resp BP Sys/Umana Pulse Ox Last 24 Hr 97.5 F-98.9 F 72-87 16-18 135-176/75-112 93-100 Intake and Output 01/29/17 01/30/17 01/30/17 21:59 05:59 13:59 Intake Total 660 / 660 150 / 150 Output Total 3000 / 3000 Balance -2340 / -2340 150 / 150 Weight 147 lb 6.4 oz Intake & Output: Intake & Output 01/29/17 01/30/17 01/30/17 21:59 05:59 13:59 Intake Total 660 / 660 150 / 150 Output Total 3000 / 3000 Balance -2340 / -2340 150 / 150 Weight 147 lb 6.4 oz Intake: Oral 660 / 660 150 / 150 Output: Hemodialysis UF 3000 / 3000 Other: Meal Dinner Breakfast Percent of Meal Consumed 100% 100% Feeding Ability Independent Independent On exam, he is sitting up in bed, in no acute distress. Head is normocephalic atraumatic. Neck: Is supple without obvious JVD. Cardiac exam shows regular rate and rhythm. Lungs are clear to auscultation. Abdomen is soft and nontender. Extremities show no edema. Neurologic exam is grossly nonfocal. Medical - PN: Obj Da - Labs CBC & Chem 7: 01/30/17 04:05 01/30/17 04:05 Labs: Abnormal Lab Results 01/30/17 01/30/17 01/29/17 04:05 04:05 08:30 RBC 2.47 L Hgb 8.4 L 8.5 L Hct 24.3 L 25.3 L RDW 17.1 H Gran % Lymph % (Auto) Gran # Lymph # (Auto) Chloride 93 L Carbon Dioxide BUN 32 H Creatinine 5.2 H* Glucose Uric Acid 2.4 L Calcium 8.0 L Phosphorus 2.5 L AST ALT 47 H Lactate Dehydrogenase 251 H Total Protein 5.5 L Albumin Triglycerides 207 H 01/29/17 01/29/17 01/28/17 03:47 03:47 03:47 RBC 2.37 L Hgb 7.9 L Hct 23.2 L RDW 16.9 H Gran % 80.1 H Lymph % (Auto) 11.0 L Gran # 8.6 H Lymph # (Auto) 1.2 L Chloride 93 L 94 L Carbon Dioxide 31 H BUN 60 H 33 H Creatinine 7.5 H* 5.4 H* Glucose 239 H Uric Acid Calcium 8.2 L 8.4 L Phosphorus AST 47 H ALT 49 H Lactate Dehydrogenase 319 H Total Protein 5.4 L Albumin 2.9 L Triglycerides 01/28/17 03:47 RBC 2.69 L Hgb 8.9 L Hct 26.0 L RDW 16.5 H Gran % 94.7 H Lymph % (Auto) 3.1 L Gran # Lymph # (Auto) 0.3 L Chloride Carbon Dioxide BUN Creatinine Glucose Uric Acid Calcium Phosphorus AST ALT Lactate Dehydrogenase Total Protein Albumin Triglycerides January 26: Nasal MRSA screen is negative. Chest x-ray: Showed pulmonary edema with mild cardiomegaly. This was improved on a follow-up film several hours later. Meds: Medications Albuterol/Ipratropium (Duoneb) 3 ml NEB Q4HRT PRN PRN Reason: Shortness Of Breath Or Wheezing Alprazolam (Xanax) 1 mg PO BIDP PRN PRN Reason: Anxiety Calcium Acetate (Phoslo) 667 mg PO TIDCC [facility] Last Admin: 01/30/17 12:14 Dose: 667 mg Calcium Carbonate/Glycine (Tums) 500 mg CHEWED Q4HP PRN PRN Reason: Dyspepsia Doxazosin Mesylate (Cardura) 2 mg PO HS [facility] Last Admin: 01/29/17 20:41 Dose: 2 mg Gabapentin (Neurontin) 200 mg PO TID [facility] Last Admin: 01/30/17 07:59 Dose: 200 mg Hydralazine HCl (Apresoline) 100 mg PO TID [facility] Last Admin: 01/30/17 08:09 Dose: 100 mg Hydromorphone HCl (Dilaudid) 0.5 mg IV Q2HP PRN PRN Reason: Pain Last Admin: 01/29/17 13:36 Dose: 0.5 mcg Hydromorphone HCl (Dilaudid) 2 mg PO Q3HP PRN PRN Reason: Pain Last Admin: 01/30/17 12:14 Dose: 2 mg Nicardipine HCl 25 mg/ Sodium (Chloride) 250 mls @ 50 mls/hr IV Q5HP PRN; Protocol; 5 MG/HR PRN Reason: Hypertension Levetiracetam (Keppra) 500 mg PO DAILY [facility] Last Admin: 01/30/17 08:02 Dose: 500 mg Lorazepam (Ativan) 1 mg IV Q2-4HP PRN PRN Reason: ANXIETY/SEDATION Metoprolol Tartrate (Lopressor) 100 mg PO BID [facility] Last Admin: 01/30/17 07:59 Dose: 100 mg Naloxone HCl (Narcan) 0.1 mg IV Q2MIN PRN PRN Reason: Opiate Reversal Nicotine (Nicoderm) 7 mg TOPICAL DAILY@1000 [facility] Last Admin: 01/30/17 12:23 Dose: 7 mg Nifedipine (Procardia Xl) 60 mg PO BID [facility] Last Admin: 01/30/17 08:01 Dose: 60 mg Omeprazole (Prilosec) 40 mg PO BIDAC [facility] Last Admin: 01/30/17 08:01 Dose: 40 mg Ondansetron HCl (Zofran) 4 mg IV Q4-6HP PRN PRN Reason: Nausea And Vomiting Ropinirole HCl (Requip) 0.5 mg PO HS [facility] Last Admin: 01/29/17 20:42 Dose: 0.5 mg Sertraline HCl (Zoloft) 100 mg PO DAILY [facility] Last Admin: 01/30/17 08:01 Dose: 100 mg Sodium Chloride (Saline Flush) 10 ml IV Q8 [facility] Last Admin: 01/29/17 20:55 Dose: 10 ml Sucralfate (Carafate) 1 gm PO ACHS [facility] Last Admin: 01/30/17 12:19 Dose: 1 gm Trazodone HCl (Desyrel) 150 mg PO HSP PRN PRN Reason: Insomnia Last Admin: 01/29/17 20:56 Dose: 150 mg Medical - PN: A/P - Time Spent With Patient Total time spent is greater than 50% in coordination of care (as documented) at patient's floor/unit and/or counseling patient: 15 - 24 minutes - Narrative A/P Narrative: A/P #1. Cardiopulmonary. Patient presented with acute pulmonary vascular congestion due to volume overload, due to renal failure. He is now status post dialysis, and volume is closer to euvolemic. He is no longer short of breath. He is medically stable. 2. GI. Patient did have some heme positive emesis, and upper endoscopy showed gastritis. He is no longer having vomiting or abdominal pain, and is maintained on PPI. Hemoglobin has been stable. continue Carafate as well. 3. Renal. Patient continues with regular dialysis to manage electrolytes and volume. Continue calcium acetate. Renal diet. 4. Ongoing substance abuse issues. Patient met with QB [facility] today. We are all hopeful that he can get into an inpatient rehab program, as he really hopes to work on this issue. 5. Malignant hypertension. Blood pressures are now well controlled. Continue hydralazine, metoprolol. He is no longer requiring nicardipine. continue doxazosin. 6. Anxiety. Continue as needed Xanax. Gabapentin ongoing may also help. Continue sertraline. Continue trazodone. 7. Restless leg syndrome. continue alprazolam, gabapentin, Requip. 8. Seizure disorder. Continue Keppra. 9. CODE STATUS: Full code. 10. DVT prophylaxis: SCDs. Medical - PN: Qual - VTE Deep Vein Thrombosis/Pulmonary Embolism Present on Admission: No
[2017-01-30] MEDS: 0.9 % SODIUM CHLORIDE 10 ML SYRINGE IV SCH ×2 (15:49→21:22)
[2017-01-30] MEDS: DOXAZOSIN 4 MG TABLET PO SCH (21:14)
[2017-01-30] MEDS: rOPINIRole 0.25 MG TABLET PO SCH (21:15)
[2017-01-30] MEDS: traZODone HCL 150 MG TABLET PO PRN (21:15)
[2017-01-31] MEDS: LORazepam 2 MG/ML VIAL IV PRN ×4 (00:49→21:44)
[2017-01-31 05:17] LABS: Basophils # (Auto) 0 K/mcL (0.0-0.3); Basophils % (Auto) 0.7 % (0.0-2.0); Eosinophils # (Auto) 0.4 K/mcL (0.0-0.7); Eosinophils % (Auto) 5.5 % (0.0-7.0); Granulocytes % (Auto) 66.4 % (38.0-78.0); Lymphocytes # (Auto) 1.4 K/mcL (1.5-4.8); Lymphocytes % (Auto) 19.8 % (15.5-49.0); Mean Cell Volume 96.9 fL (80.0-100.0); Mean Corpuscular HGB Conc 34.5 g/dL (31.0-36.0); Mean Corpuscular Hemoglobin 33.5 pg (26.0-34.0); Monocytes # (Auto) 0.5 K/mcL (0.1-0.9); Monocytes % (Auto) 7.6 % (1.0-12.0); Platelet Count 201 K/mcL (140-440); RBC 2.36 M/mcL (4.50-5.90); Red Cell Distribution Width 16.9 % (11.5-14.5)
[2017-01-31] MEDS: 0.9 % SODIUM CHLORIDE 10 ML SYRINGE IV SCH ×3 (05:40→21:46)
[2017-01-31 05:53] LABS: ALT/SGPT 44 U/l (0-40); Albumin 3.1 gm/dL (3.2-5.2); Albumin/Globulin Ratio 1.4 (1.0-2.3); Alkaline Phosphatase 48 U/L (39-117); Bilirubin,Direct < 0.2 mg/dL (0.0-0.3); Blood Urea Nitrogen 58 mg/dl (6-20); Gamma Glutamyl Transpeptidase 36 U/L (8-61); Magnesium 2.1 mg/dL (1.6-2.5); Uric Acid 4.5 mg/dL (2.5-8.0)
[2017-01-31] MEDS: SUCRALFATE 1 GM/10 ML ORAL.SUSP PO SCH ×4 (07:09→21:43)
[2017-01-31] MEDS: OMEPRAZOLE 20 MG CAPSULE PO SCH ×2 (07:10→17:53)
[2017-01-31] MEDS: NICOTINE 7 MG PATCH TOPICAL SCH (09:43)
[2017-01-31] MEDS: hydrALAZINE 25 MG TABLET PO SCH ×3 (09:43→21:44)
[2017-01-31] MEDS: SERTRALINE 50 MG TABLET PO SCH (09:44)
[2017-01-31] MEDS: GABAPENTIN 100 MG CAPSULE PO SCH ×3 (09:44→21:43)
[2017-01-31] MEDS: NIFEdipine 30 MG TAB.XL.24H PO SCH ×2 (09:44→21:43)
[2017-01-31] MEDS: METOPROLOL TARTRATE 50 MG TABLET PO SCH ×2 (09:44→21:43)
[2017-01-31] MEDS: levETIRAcetam 500 MG TABLET PO SCH (09:44)
[2017-01-31] MEDS: CALCIUM ACETATE 667 MG CAPSULE PO SCH ×3 (09:44→17:54)
[2017-01-31] MEDS: HYDROmorphone 2 MG TABLET PO PRN ×3 (09:55→21:42)
--- NOTE | 2017-01-31 17:05 | Nephrology Progress Note ---
Subjective Patient information: Note initiated : 01/31/17 at 4:59 pm Service Date, if different from initiated Date: [] Patient: Jorge Bates 31 y/o M admitted on 01/26/17 for SOB, Coughing Up Blood/Upper GI Bleed. Chief Complaint: [] Principal diagnosis: GI Bleed Interval history: Patient has no particular complaints today no SOB, CP, dizziness still awaiting placement for inpatient/outpt rehab for continuous drug abuse Objective - Vital Signs Vital signs: Vital Signs Temp Pulse Pulse Resp BP BP Pulse Ox 01/31/17 16:48 81 153/99 01/31/17 16:17 81 149/96 01/31/17 15:47 82 148/98 01/31/17 15:22 81 152/100 01/31/17 14:39 98.8 F 80 167/114 01/31/17 12:00 98.6 F 77 18 160/117 96 01/31/17 06:56 96 01/31/17 03:49 98.4 F 77 18 155/85 96 01/30/17 23:06 98.1 F 82 18 150/82 95 01/30/17 20:00 97.9 F 84 20 140/77 96 Intake and Output 01/31/17 01/31/17 01/31/17 05:59 13:59 21:59 Intake Total 225 / 225 Balance 225 / 225 Intake: Oral 225 / 225 Other: Weight 150 lb 6.4 oz 150 lb 6.4 oz Patient Weight 02/01/17 05:59 Weight 150 lb 6.4 oz Intake & Output: Intake & Output 01/31/17 01/31/17 01/31/17 05:59 13:59 21:59 Intake Total 225 / 225 Balance 225 / 225 Weight 150 lb 6.4 oz 150 lb 6.4 oz Intake: Oral 225 / 225 - General Appearance General appearance: appears started age EENT: mucous membranes moist Neck: no JVD Respiratory: clear Cardiology: no rub, no edema, normal S1, normal S2 Gastrointestinal: no tenderness, no guarding Integumentary: no rash, warm and dry Neurologic: no asterixis, alert and oriented x3 Musculoskeletal: no erythema, no cyanosis Psychiatric: mood/affect appropriate - Lab 01/31/17 04:10 01/31/17 04:10 Most recent lab results Calcium 8.4 mg/dl (8.6-10.4) L 01/31/17 04:10 Phosphorus 2.7 mg/dL (2.7-4.5) 01/31/17 04:10 Magnesium 2.1 mg/dL (1.6-2.5) 01/31/17 04:10 Assessment and Plan (1) Anemia Status: Acute (2) ESRD (end stage renal disease) on dialysis Patient will be dialysed today dialysis today for 4 hrs using revaclear dialyser, 2K/2.5Ca dialysate, UF goal of 2-3L as tolerated or to DW, qb 400ml/min and qd700/800ml/min his next HD is on SUNDAY uncontrolled HTN: on meds, improving control will follow and optimize drug tox is pending awaiting inpatient rehab placement, Patient has had repeated ER visits related to multiple medical issues including uncontrolled HTN/fluid overload/pulmonary edema/seizures/etc he is not always compliant with his meds and a part of this is drug abuse he is a young individual who is going to a very tough social situation and unfortunately no rehab facility has helped us accept this individual and work with him to improve/get him drug free which will help solve a lot of issues ( prevent further damage to heart) possibly get renal transplant He remains at risk for high mortality if he does not meet the goals our administrator social welfare is trying hard to get some facility to accept him so that we can ensure he gets his meds and ofcourse help with drug rehab anemia: s/p transfusion, will give aranesp h/o GI bleed with EGD showing acute erosive gastritis, on PPI will follow histo path Status: Acute
[2017-01-31] MEDS ORDERED: DARBEPOETIN ALFA 100 MCG/ML VIAL IV ONE (18:00)
--- NOTE | 2017-01-31 20:32 | Internal Med Progress Note ---
Medical - PN: Subj Patient information: Note initiated : 01/31/17 at 8:29 pm Service Date, if different from initiated Date: [] Patient: Jorge Bates 31 y/o M admitted on 01/26/17 for SOB, Coughing Up Blood/Upper GI Bleed. Chief Complaint: [] Interval history: Mr. Bates is a 31 year old Male presents to the ER last night with complaints of shortness of breath, he was also having some epigastric pain and nausea and some vomiting. Overnight he was noted to be chf and fluid overload secondary to his ESRD status. the patient had hb of 8.2 at that time. He underwent dialysis , but her had some coughing up of red sputum? vs spitting or vomiting bright red blood, not clear on the history here. The pt does admit having coffe ground emesis this AM before hemodialysis. The patient hb after hd is 7.4, and then dropped to 7.0 Initially there was no ICU bed available to admit the patient, later in the evening bed did become available, the patient was therefore admitted to the hospital ICu for close monitoring and treatment The patient notes that he has been having epigastric abdominal pain x 2 weeks, he note that he has had a few episodes of blood in his vomitus. He denies any conor or blood in the stools He denies using aspirin, nsaids, or consuming alcohol, admits to use of tobacco he does admit to having headaches and consuming some otc meds for same In the ER x ray chest showed chf, labs show hb of 7.0, hr was mildly tachycardic 100-120, bp elevated significantly likely as he did not get his bp meds january 27 Patient seen examined overnight events noted, bp is better on the nicardipine drip s/p EGD this Am, no ulcer only gastritis, plan for omeprazole and carafate outpatient surgery follow up with Dr gaby gandhi nephrology following, not sure if plan to have HD today. January 28 Patient seen examined no acute overnight events, still has migraine type headaches. he denies any other complaints his blood pressure went up again this AM needing reinitiation of nicardipine drip, he was off for a while. The patient bp meds this AM are resumed will check to see if his bp improves and if so d/c drip and get him on med surg status The patient has strong history of substance abuse, he has been trying to get in a inpatient rehab program to help. However as outpatient this has been difficult for him. He has been present in the ER 21 times this year in this facility, probably has been seen also in the other hospital. Case discussed with social work job titles to see if we can get him in a acute rehab program so as to help with his substance abuse issues. January 29 pt seen examined, notes had some vomiting with few blood streaks hb stable patient off nicardipine drip now, ok to xfer to med surg patient thinks he is withdrawing from his dailyi meth use, daily thc, tobacco use. prn ativan ordered. the patient later seen walking in his room and fairly comfortable and did not seem much in distress he is awaiting placement to inpatient rehab for his substance abuse issues. January 30: This 31-year-old man with a long-standing history of kidney failure, CHF, drug abuse, hypertension was admitted with volume overload and pulmonary vascular congestion. He also had nausea, vomiting and some bleeding, and endoscopy showed gastritis. Blood pressure was also initially poorly controlled. Both volume status and blood pressure are now improving, as he is receiving regular dialysis. He continues to have lots of discomforts related to drug withdrawal. He reports significant fatigue, aching all over, bitemporal headache, but is reportedly used to using daily marijuana and methamphetamines. Otherwise, he denies fever chills, shortness of breath, chest pain other than generalized aching, abdominal pain, nausea or vomiting, diarrhea or constipation. He is a anuric. January 31: The patient has no particular complaints today. He continues to have some chronic aches and pains and fatigue. He is still hopeful about getting into an inpatient rehab program, as he would like to move forward with his life. Medical History Fluid overload (Acute) Acute congestive heart failure (Acute) Hypertensive emergency (Acute) Mitral stenosis with insufficiency (Acute) Pulmonary hypertension (Acute) Substance use disorder (Chronic) Migraine (Acute) Pneumonia (Acute) HCAP (healthcare-associated pneumonia) (Acute) Acute anxiety (Acute) Sinusitis Hyperkalemia, diminished renal excretion (Acute) Gastroparesis (Acute) Generalized seizure (Acute) Anemia, blood loss (Acute) CRF (chronic renal failure) (Acute) Mitral regurgitation (Chronic) Epileptic seizure (Acute) FSGS (focal segmental glomerulosclerosis) with nephrosis (Resolved) Congestive heart failure (Acute) Anemia in chronic kidney disease (CKD) (Chronic) Restless legs (Chronic) - Constitutional Vitals: Vital Signs Temp Pulse Resp BP Pulse Ox 99.3 F H 78 18 161/100 96 01/31/17 18:59 01/31/17 18:59 01/31/17 12:00 01/31/17 18:59 01/31/17 12:00 Period Temp Pulse Resp BP Sys/[place] Pulse Ox Last 24 Hr 98.1 F-99.3 F 77-82 18-18 148-167/82-117 95-96 Intake and Output 01/31/17 01/31/17 01/31/17 05:59 13:59 21:59 Intake Total 225 / 225 400 / 400 Output Total 3400 / 3400 Balance 225 / 225 -3000 / -3000 Weight 150 lb 6.4 oz 150 lb 6.4 oz Patient Weight 02/01/17 05:59 Weight 150 lb 6.4 oz Intake & Output: Intake & Output 01/31/17 01/31/17 01/31/17 05:59 13:59 21:59 Intake Total 225 / 225 400 / 400 Output Total 3400 / 3400 Balance 225 / 225 -3000 / -3000 Weight 150 lb 6.4 oz 150 lb 6.4 oz Intake: Oral 225 / 225 400 / 400 Output: Hemodialysis UF 3400 / 3400 On exam, he is sitting up in bed, in no acute distress. Head is normocephalic atraumatic. Neck: Is supple without obvious JVD. Cardiac exam shows regular rate and rhythm. Lungs are clear to auscultation. Abdomen is soft and nontender. Extremities show no edema. Neurologic exam is grossly nonfocal. Medical - PN: Obj Da - Labs CBC & Chem 7: 01/31/17 04:10 01/31/17 04:10 Labs: Abnormal Lab Results 01/31/17 01/31/17 01/30/17 04:10 04:10 04:05 RBC 2.36 L Hgb 7.9 L Hct 22.9 L RDW 16.9 H MPV 7.3 L Gran % Lymph % (Auto) Gran # Lymph # (Auto) 1.4 L Sodium 132 L Chloride 92 L 93 L BUN 58 H 32 H Creatinine 7.5 H* 5.2 H* Uric Acid 2.4 L Calcium 8.4 L 8.0 L Phosphorus 2.5 L ALT 44 H 47 H Lactate Dehydrogenase 251 H Total Protein 5.3 L 5.5 L Albumin 3.1 L Triglycerides 207 H 01/30/17 01/29/17 01/29/17 04:05 08:30 03:47 RBC 2.47 L Hgb 8.4 L 8.5 L Hct 24.3 L 25.3 L RDW 17.1 H MPV Gran % Lymph % (Auto) Gran # Lymph # (Auto) Sodium Chloride 93 L BUN 60 H Creatinine 7.5 H* Uric Acid Calcium 8.2 L Phosphorus ALT Lactate Dehydrogenase Total Protein 5.4 L Albumin 2.9 L Triglycerides 01/29/17 03:47 RBC 2.37 L Hgb 7.9 L Hct 23.2 L RDW 16.9 H MPV Gran % 80.1 H Lymph % (Auto) 11.0 L Gran # 8.6 H Lymph # (Auto) 1.2 L Sodium Chloride BUN Creatinine Uric Acid Calcium Phosphorus ALT Lactate Dehydrogenase Total Protein Albumin Triglycerides January 26: Nasal MRSA screen is negative. Chest x-ray: Showed pulmonary edema with mild cardiomegaly. This was improved on a follow-up film several hours later. Meds: Medications Albuterol/Ipratropium (Duoneb) 3 ml NEB Q4HRT PRN PRN Reason: Shortness Of Breath Or Wheezing Alprazolam (Xanax) 1 mg PO BIDP PRN PRN Reason: Anxiety Calcium Acetate (Phoslo) 667 mg PO TIDCC [facility] Last Admin: 01/31/17 17:54 Dose: 667 mg Calcium Carbonate/Glycine (Tums) 500 mg CHEWED Q4HP PRN PRN Reason: Dyspepsia Doxazosin Mesylate (Cardura) 2 mg PO HS [facility] Last Admin: 01/30/17 21:14 Dose: 2 mg Gabapentin (Neurontin) 200 mg PO TID [facility] Last Admin: 01/31/17 14:34 Dose: 200 mg Hydralazine HCl (Apresoline) 100 mg PO TID [facility] Last Admin: 01/31/17 14:47 Dose: 100 mg Hydromorphone HCl (Dilaudid) 0.5 mg IV Q2HP PRN PRN Reason: Pain Last Admin: 01/29/17 13:36 Dose: 0.5 mcg Hydromorphone HCl (Dilaudid) 2 mg PO Q3HP PRN PRN Reason: Pain Last Admin: 01/31/17 14:33 Dose: 2 mg Nicardipine HCl 25 mg/ Sodium (Chloride) 250 mls @ 50 mls/hr IV Q5HP PRN; Protocol; 5 MG/HR PRN Reason: Hypertension Levetiracetam (Keppra) 500 mg PO DAILY [facility] Last Admin: 01/31/17 09:44 Dose: 500 mg Lorazepam (Ativan) 1 mg IV Q2-4HP PRN PRN Reason: ANXIETY/SEDATION Last Admin: 01/31/17 14:33 Dose: 1 mg Metoprolol Tartrate (Lopressor) 100 mg PO BID [facility] Last Admin: 01/31/17 09:44 Dose: 100 mg Naloxone HCl (Narcan) 0.1 mg IV Q2MIN PRN PRN Reason: Opiate Reversal Nicotine (Nicoderm) 7 mg TOPICAL DAILY@1000 [facility] Last Admin: 01/31/17 09:43 Dose: 7 mg Nifedipine (Procardia Xl) 60 mg PO BID [facility] Last Admin: 01/31/17 09:44 Dose: 60 mg Omeprazole (Prilosec) 40 mg PO BIDAC [facility] Last Admin: 01/31/17 17:53 Dose: 40 mg Ondansetron HCl (Zofran) 4 mg IV Q4-6HP PRN PRN Reason: Nausea And Vomiting Ropinirole HCl (Requip) 0.5 mg PO HS [facility] Last Admin: 01/30/17 21:15 Dose: 0.5 mg Sertraline HCl (Zoloft) 100 mg PO DAILY [facility] Last Admin: 01/31/17 09:44 Dose: 100 mg Sodium Chloride (Saline Flush) 10 ml IV Q8 [facility] Last Admin: 01/31/17 14:34 Dose: 10 ml Sucralfate (Carafate) 1 gm PO ACHS [facility] Last Admin: 01/31/17 17:53 Dose: 1 gm Trazodone HCl (Desyrel) 150 mg PO HSP PRN PRN Reason: Insomnia Last Admin: 01/30/17 21:15 Dose: 150 mg Medical - PN: A/P - Time Spent With Patient Total time spent is greater than 50% in coordination of care (as documented) at patient's floor/unit and/or counseling patient: 15 - 24 minutes - Narrative A/P Narrative: A/P #1. Cardiopulmonary. Patient presented with acute pulmonary vascular congestion due to volume overload, due to renal failure. He is now status post dialysis, and volume is closer to euvolemic. He is no longer short of breath. He is medically stable. 2. GI. Patient did have some heme positive emesis, and upper endoscopy showed gastritis. He is no longer having vomiting or abdominal pain, and is maintained on PPI. Hemoglobin has been stable. continue Carafate as well. 3. Renal. Patient continues with regular dialysis to manage electrolytes and volume. Continue calcium acetate. Renal diet. 4. Ongoing substance abuse issues. Patient met with [facility] today. We are all hopeful that he can get into an inpatient rehab program, as he really hopes to work on this issue. Apparently the program we were looking at his objecting to his dialysis schedule, thinking it would be disruptive. 5. Malignant hypertension. Blood pressures are now well controlled. Continue hydralazine, metoprolol. He is no longer requiring nicardipine. continue doxazosin. 6. Anxiety. Continue as needed Xanax. Gabapentin ongoing may also help. Continue sertraline. Continue trazodone. 7. Restless leg syndrome. continue alprazolam, gabapentin, Requip. 8. Seizure disorder. Continue Keppra. 9. CODE STATUS: Full code. 10. DVT prophylaxis: SCDs. Medical - PN: Qual - VTE Deep Vein Thrombosis/Pulmonary Embolism Present on Admission: No
[2017-01-31] MEDS: rOPINIRole 0.25 MG TABLET PO SCH (21:45)
[2017-01-31] MEDS: DOXAZOSIN 4 MG TABLET PO SCH (21:45)
[2017-02-01] MEDS: 0.9 % SODIUM CHLORIDE 10 ML SYRINGE IV SCH ×3 (06:18→23:27)
[2017-02-01] MEDS: HYDROmorphone 2 MG TABLET PO PRN ×4 (06:37→22:14)
[2017-02-01 06:41] LABS: Basophils # (Auto) 0 K/mcL (0.0-0.3); Basophils % (Auto) 0.6 % (0.0-2.0); Eosinophils # (Auto) 0.3 K/mcL (0.0-0.7); Eosinophils % (Auto) 4.1 % (0.0-7.0); Granulocytes % (Auto) 72.8 % (38.0-78.0); Lymphocytes # (Auto) 1.4 K/mcL (1.5-4.8); Lymphocytes % (Auto) 17.2 % (15.5-49.0); Mean Cell Volume 96.8 fL (80.0-100.0); Mean Corpuscular HGB Conc 34.4 g/dL (31.0-36.0); Mean Corpuscular Hemoglobin 33.3 pg (26.0-34.0); Monocytes # (Auto) 0.4 K/mcL (0.1-0.9); Monocytes % (Auto) 5.3 % (1.0-12.0); Platelet Count 237 K/mcL (140-440); RBC 2.65 M/mcL (4.50-5.90); Red Cell Distribution Width 16.5 % (11.5-14.5)
[2017-02-01] MEDS: LORazepam 2 MG/ML VIAL IV PRN ×5 (06:43→19:08)
[2017-02-01 07:21] LABS: ALT/SGPT 52 U/l (0-40); Albumin 2.9 gm/dL (3.2-5.2); Albumin/Globulin Ratio 1.1 (1.0-2.3); Alkaline Phosphatase 57 U/L (39-117); Bilirubin,Direct < 0.2 mg/dL (0.0-0.3); Blood Urea Nitrogen 41 mg/dl (6-20); Gamma Glutamyl Transpeptidase 39 U/L (8-61); Uric Acid 3.9 mg/dL (2.5-8.0)
[2017-02-01] MEDS: SUCRALFATE 1 GM/10 ML ORAL.SUSP PO SCH ×4 (08:52→22:09)
[2017-02-01] MEDS: OMEPRAZOLE 20 MG CAPSULE PO SCH ×2 (08:52→18:08)
[2017-02-01] MEDS: NIFEdipine 30 MG TAB.XL.24H PO SCH ×2 (08:53→22:10)
[2017-02-01] MEDS: CALCIUM ACETATE 667 MG CAPSULE PO SCH ×3 (08:53→18:09)
[2017-02-01] MEDS: GABAPENTIN 100 MG CAPSULE PO SCH ×3 (08:53→22:13)
[2017-02-01] MEDS: METOPROLOL TARTRATE 50 MG TABLET PO SCH ×2 (08:53→22:14)
[2017-02-01] MEDS: levETIRAcetam 500 MG TABLET PO SCH (08:53)
[2017-02-01] MEDS: SERTRALINE 50 MG TABLET PO SCH (08:54)
[2017-02-01] MEDS: hydrALAZINE 25 MG TABLET PO SCH ×3 (08:55→22:13)
[2017-02-01] MEDS: NICOTINE 7 MG PATCH TOPICAL SCH (09:41)
[2017-02-01] MEDS ORDERED: LORazepam 2 MG/ML VIAL IV ONE (13:08)
[2017-02-01 13:15] LABS: Basophils # (Auto) 0 K/mcL (0.0-0.3); Basophils % (Auto) 0.3 % (0.0-2.0); Eosinophils # (Auto) 0.5 K/mcL (0.0-0.7); Eosinophils % (Auto) 5.6 % (0.0-7.0); Granulocytes % (Auto) 70.9 % (38.0-78.0); Lymphocytes # (Auto) 1.4 K/mcL (1.5-4.8); Lymphocytes % (Auto) 15.6 % (15.5-49.0); Mean Cell Volume 96.2 fL (80.0-100.0); Mean Corpuscular HGB Conc 34.6 g/dL (31.0-36.0); Mean Corpuscular Hemoglobin 33.3 pg (26.0-34.0); Monocytes # (Auto) 0.7 K/mcL (0.1-0.9); Monocytes % (Auto) 7.6 % (1.0-12.0); Platelet Count 278 K/mcL (140-440); RBC 2.87 M/mcL (4.50-5.90); Red Cell Distribution Width 16.9 % (11.5-14.5)
--- NOTE | 2017-02-01 13:23 | Internal Med Progress Note ---
Medical - PN: Subj Patient information: Note initiated : 02/01/17 at 1:23 pm Service Date, if different from initiated Date: [] Patient: Jorge Bates 31 y/o M admitted on 01/26/17 for SOB, Coughing Up Blood/Upper GI Bleed. Chief Complaint: [] Interval history: Mr. Bates is a 31 year old Male presents to the ER last night with complaints of shortness of breath, he was also having some epigastric pain and nausea and some vomiting. Overnight he was noted to be chf and fluid overload secondary to his ESRD status. the patient had hb of 8.2 at that time. He underwent dialysis , but her had some coughing up of red sputum? vs spitting or vomiting bright red blood, not clear on the history here. The pt does admit having coffe ground emesis this AM before hemodialysis. The patient hb after hd is 7.4, and then dropped to 7.0 Initially there was no ICU bed available to admit the patient, later in the evening bed did become available, the patient was therefore admitted to the hospital ICu for close monitoring and treatment The patient notes that he has been having epigastric abdominal pain x 2 weeks, he note that he has had a few episodes of blood in his vomitus. He denies any conor or blood in the stools He denies using aspirin, nsaids, or consuming alcohol, admits to use of tobacco he does admit to having headaches and consuming some otc meds for same In the ER x ray chest showed chf, labs show hb of 7.0, hr was mildly tachycardic 100-120, bp elevated significantly likely as he did not get his bp meds january 27 Patient seen examined overnight events noted, bp is better on the nicardipine drip s/p EGD this Am, no ulcer only gastritis, plan for omeprazole and carafate outpatient surgery follow up with Dr gaby gandhi nephrology following, not sure if plan to have HD today. January 28 Patient seen examined no acute overnight events, still has migraine type headaches. he denies any other complaints his blood pressure went up again this AM needing reinitiation of nicardipine drip, he was off for a while. The patient bp meds this AM are resumed will check to see if his bp improves and if so d/c drip and get him on med surg status The patient has strong history of substance abuse, he has been trying to get in a inpatient rehab program to help. However as outpatient this has been difficult for him. He has been present in the ER 21 times this year in this facility, probably has been seen also in the other hospital. Case discussed with social media marketing specialist to see if we can get him in a acute rehab program so as to help with his substance abuse issues. January 29 pt seen examined, notes had some vomiting with few blood streaks hb stable patient off nicardipine drip now, ok to xfer to med surg patient thinks he is withdrawing from his dailyi meth use, daily thc, tobacco use. prn ativan ordered. the patient later seen walking in his room and fairly comfortable and did not seem much in distress he is awaiting placement to inpatient rehab for his substance abuse issues. January 30: This 31-year-old man with a long-standing history of kidney failure, CHF, drug abuse, hypertension was admitted with volume overload and pulmonary vascular congestion. He also had nausea, vomiting and some bleeding, and endoscopy showed gastritis. Blood pressure was also initially poorly controlled. Both volume status and blood pressure are now improving, as he is receiving regular dialysis. He continues to have lots of discomforts related to drug withdrawal. He reports significant fatigue, aching all over, bitemporal headache, but is reportedly used to using daily marijuana and methamphetamines. Otherwise, he denies fever chills, shortness of breath, chest pain other than generalized aching, abdominal pain, nausea or vomiting, diarrhea or constipation. He is a anuric. January 31: The patient has no particular complaints today. He continues to have some chronic aches and pains and fatigue. He is still hopeful about getting into an inpatient rehab program, as he would like to move forward with his life. February 01: Earlier today, we got word from all of the rehab centers as well as the nursing homes, that they could not take the patient, as they could not accommodate both his rehab and his dialysis schedules. The patient was very upset, and was noted by staff to be sitting on the side of his bed crying. Shortly thereafter , an aide went in to help him, and found him lying on the floor. A rapid response was called, and as staff gathered to assist him, he had a grand mal seizure. Numerous staff members picked him up and placed him in his bed and rolled him onto his side. When vital signs were obtained, blood pressure, oxygenation, heart rate were fine. Patient was given IV Ativan, and the seizure ceased briefly, and then recurred. Seizures recurred numerous times after that, each time treated with IV Ativan. Eventually we obtained IV Keppra , and infuse that as well. Patient was then moved to the intensive care unit. Blood was drawn for chemistries and CBC, serum tox screen, Keppra level. Patient eventually settled down enough to go down for head CT. This shows patchy regions of low attenuation in the deep bifrontal and biparietal white matter, which could indicate ischemia versus other pathology. The radiologist notes the patient has already had several head CTs, and suggest that the next study be a brain MRI-seizure protocol. This morning, the patient was awake and alert. This evening, he is heavily sedated. He is only able to barely flutter his eyelids for me at this time. Nurses note that when he wakes up between seizures, he seems fairly alert and can follow commands. There was some concern of mild weakness of his left hand, but that appears inconsistent. Currently he is just too sedated to give any more of a history. We did search his bags in his room. We did find numerous loose pills as well as a pillbox. The pharmacist examined these, and they just appear to be his usual prescription medications. His girlfriend visited, and nurses asked her if the patient could have gotten hold of any illegal drugs. The girlfriend did not think so, although reportedly they both are known to abuse various drugs. Medical History Fluid overload (Acute) Acute congestive heart failure (Acute) Hypertensive emergency (Acute) Mitral stenosis with insufficiency (Acute) Pulmonary hypertension (Acute) Substance use disorder (Chronic) Migraine (Acute) Pneumonia (Acute) HCAP (healthcare-associated pneumonia) (Acute) Acute anxiety (Acute) Sinusitis Hyperkalemia, diminished renal excretion (Acute) Gastroparesis (Acute) Generalized seizure (Acute) Anemia, blood loss (Acute) CRF (chronic renal failure) (Acute) Mitral regurgitation (Chronic) Epileptic seizure (Acute) FSGS (focal segmental glomerulosclerosis) with nephrosis (Resolved) Congestive heart failure (Acute) Anemia in chronic kidney disease (CKD) (Chronic) Restless legs (Chronic) - Constitutional Vitals: Vital Signs Temp Pulse Resp BP Pulse Ox 97.3 F 82 20 178/124 98 02/01/17 12:00 02/01/17 04:20 02/01/17 12:00 02/01/17 12:00 02/01/17 12:00 Period Temp Pulse Resp BP Sys/Umana Pulse Ox Last 24 Hr 97.3 F-99.3 F 76-82 16-20 148-178/86-124 94-98 Intake and Output 01/31/17 02/01/17 02/01/17 21:59 05:59 13:59 Intake Total 400 / 400 1900 / 1900 60 / 60 Output Total 3400 / 3400 0 / 0 Balance -3000 / -3000 1900 / 1900 60 / 60 Weight 146 lb Intake & Output: Intake & Output 01/31/17 02/01/17 02/01/17 21:59 05:59 13:59 Intake Total 400 / 400 1900 / 1900 60 / 60 Output Total 3400 / 3400 0 / 0 Balance -3000 / -3000 1900 / 1900 60 / 60 Weight 146 lb Intake: Oral 400 / 400 1900 / 1900 60 / 60 Output: Void Amount 0 / 0 Hemodialysis UF 3400 / 3400 Other: Meal Breakfast Percent of Meal Consumed 100% Feeding Ability Assist with Tray Set Up # Bowel Movements 1 On exam this morning, patient was awake and alert. Neck showed no obvious lymphadenopathy or JVD. Cardiac exam showed regular rate and rhythm. Lungs are clear to auscultation. Abdomen is soft and nontender. Extremities showed no edema. Neurologic exam is grossly nonfocal. Later in the afternoon, the patient was found to be seizing, with myoclonic jerks of all extremities. Initially he appeared to have lost consciousness completely. Later episodes occurred while he seemed to be moaning at the same time. Currently, he is obtunded, but occasionally has myoclonic jerks of all extremities. Medical - PN: Obj Da - Labs CBC & Chem 7: 02/01/17 12:50 02/01/17 12:50 Labs: Abnormal Lab Results 02/01/17 02/01/17 02/01/17 12:50 04:15 04:15 RBC 2.87 L 2.65 L Hgb 9.6 L 8.8 L Hct 27.7 L 25.7 L RDW 16.9 H 16.5 H MPV 7.1 L 7.2 L Lymph # (Auto) 1.4 L 1.4 L Sodium Chloride 92 L BUN 41 H Creatinine 5.5 H* Glucose 107 H Uric Acid Calcium 8.4 L Phosphorus ALT 52 H Lactate Dehydrogenase 254 H Total Protein 5.6 L Albumin 2.9 L Triglycerides 175 H 01/31/17 01/31/17 01/30/17 04:10 04:10 04:05 RBC 2.36 L Hgb 7.9 L Hct 22.9 L RDW 16.9 H MPV 7.3 L Lymph # (Auto) 1.4 L Sodium 132 L Chloride 92 L 93 L BUN 58 H 32 H Creatinine 7.5 H* 5.2 H* Glucose Uric Acid 2.4 L Calcium 8.4 L 8.0 L Phosphorus 2.5 L ALT 44 H 47 H Lactate Dehydrogenase 251 H Total Protein 5.3 L 5.5 L Albumin 3.1 L Triglycerides 207 H 01/30/17 04:05 RBC 2.47 L Hgb 8.4 L Hct 24.3 L RDW 17.1 H MPV Lymph # (Auto) Sodium Chloride BUN Creatinine Glucose Uric Acid Calcium Phosphorus ALT Lactate Dehydrogenase Total Protein Albumin Triglycerides February 01: Serum tox screen: Is pending. CT of the brain without contrast: IMPRESSION: Moderate sized patchy regions of low attenuation in the deep bifrontal and biparietal white matter which could indicate ischemia or other pathology. Note: patient has had several CTs to evaluate seizures. At this point, suggest brain MRI - seizure protocol in an attempt to establish an epileptogenic focus which may be amenable to radiosurgery or other therapy EKG: Shows normal sinus rhythm at a rate of 79. He does have signs of LVH, and rather peaked T waves. This is compared to his EKG from January 26, 2017. There is some suggestion of ST elevation in leads V5 V6, but none of these changes appear significantly different from before. January 26: Nasal MRSA screen is negative. Chest x-ray: Showed pulmonary edema with mild cardiomegaly. This was improved on a follow-up film several hours later. Meds: Medications Albuterol/Ipratropium (Duoneb) 3 ml NEB Q4HRT PRN PRN Reason: Shortness Of Breath Or Wheezing Alprazolam (Xanax) 1 mg PO BIDP PRN PRN Reason: Anxiety Calcium Acetate (Phoslo) 667 mg PO TIDCC [facility] Last Admin: 02/01/17 12:11 Dose: 667 mg Calcium Carbonate/Glycine (Tums) 500 mg CHEWED Q4HP PRN PRN Reason: Dyspepsia Doxazosin Mesylate (Cardura) 2 mg PO HS [facility] Last Admin: 01/31/17 21:45 Dose: 2 mg Gabapentin (Neurontin) 200 mg PO TID [facility] Last Admin: 02/01/17 08:53 Dose: 200 mg Hydralazine HCl (Apresoline) 100 mg PO TID [facility] Last Admin: 02/01/17 08:55 Dose: 100 mg Hydromorphone HCl (Dilaudid) 0.5 mg IV Q2HP PRN PRN Reason: Pain Last Admin: 01/29/17 13:36 Dose: 0.5 mcg Hydromorphone HCl (Dilaudid) 2 mg PO Q3HP PRN PRN Reason: Pain Last Admin: 02/01/17 09:39 Dose: 2 mg Nicardipine HCl 25 mg/ Sodium (Chloride) 250 mls @ 50 mls/hr IV Q5HP PRN; Protocol; 5 MG/HR PRN Reason: Hypertension Levetiracetam 500 mg/ Sodium (Chloride) 105 mls @ 200 mls/hr IV ONCE ONE Stop: 02/01/17 14:01 Levetiracetam (Keppra) 500 mg PO DAILY [facility] Last Admin: 02/01/17 08:53 Dose: 500 mg Lorazepam (Ativan) 1 mg IV Q2-4HP PRN PRN Reason: ANXIETY/SEDATION Last Admin: 02/01/17 12:15 Dose: 1 mg Metoprolol Tartrate (Lopressor) 100 mg PO BID [facility] Last Admin: 02/01/17 08:53 Dose: 100 mg Naloxone HCl (Narcan) 0.1 mg IV Q2MIN PRN PRN Reason: Opiate Reversal Nicotine (Nicoderm) 7 mg TOPICAL DAILY@1000 [facility] Last Admin: 02/01/17 09:41 Dose: 7 mg Nifedipine (Procardia Xl) 60 mg PO BID [facility] Last Admin: 02/01/17 08:53 Dose: 60 mg Omeprazole (Prilosec) 40 mg PO BIDAC [facility] Last Admin: 02/01/17 08:52 Dose: 40 mg Ondansetron HCl (Zofran) 4 mg IV Q4-6HP PRN PRN Reason: Nausea And Vomiting Ropinirole HCl (Requip) 0.5 mg PO HS [facility] Last Admin: 01/31/17 21:45 Dose: 0.5 mg Sertraline HCl (Zoloft) 100 mg PO DAILY [facility] Last Admin: 02/01/17 08:54 Dose: 100 mg Sodium Chloride (Saline Flush) 10 ml IV Q8 [facility] Last Admin: 02/01/17 06:18 Dose: 10 ml Sucralfate (Carafate) 1 gm PO ACHS [facility] Last Admin: 02/01/17 12:11 Dose: 1 gm Trazodone HCl (Desyrel) 150 mg PO HSP PRN PRN Reason: Insomnia Last Admin: 01/30/17 21:15 Dose: 150 mg Medical - PN: A/P - Time Spent With Patient Total time spent is greater than 50% in coordination of care (as documented) at patient's floor/unit and/or counseling patient: Greater than 35 minutes - Narrative A/P Narrative: A/P #1. Neurologic. Patient developed acute onset of multiple seizures this afternoon. These were generalized, tonic-clonic. Head CT is abnormal, worrisome for possible ischemic changes. Currently, the patient is sedated, but is still having myoclonic jerks. He is being given Ativan liberally, to prevent any further seizures. If he continues to seize, we will try to ship him out to a larger facility. If he settles down, we may try to get an EEG and an MRI with seizure protocol tomorrow. #2.. Cardiopulmonary. Patient presented with acute pulmonary vascular congestion due to volume overload, due to renal failure. He is now status post dialysis, and volume is closer to euvolemic. Today, he developed acute seizures, of uncertain etiology. EKG is mildly abnormal, but does not look much different from previous EKG. I will go ahead and check a screening troponin, although this is difficult to interpret in the setting of renal failure. #3. GI. Patient did have some heme positive emesis, and upper endoscopy showed gastritis. He is no longer having vomiting or abdominal pain, and is maintained on PPI. Hemoglobin has been stable. continue Carafate as well. #4.. Renal. Patient continues with regular dialysis to manage electrolytes and volume. Continue calcium acetate. Renal diet. 5. Malignant hypertension. Blood pressures are now well controlled. Continue hydralazine, metoprolol. He is no longer requiring nicardipine. continue doxazosin. Blood pressures ran a bit higher this afternoon. IV Lopressor as needed was added. Continue to monitor. 6. Anxiety. Continue as needed Xanax. Gabapentin ongoing may also help. Continue sertraline. Continue trazodone. 7. Restless leg syndrome. continue alprazolam, gabapentin, Requip. 8. Seizure disorder. Continue Keppra. 9. CODE STATUS: Full code. 10. DVT prophylaxis: SCDs. 11. Ongoing substance abuse issues. Patient met with QNatasha H. We were all hopeful that he can get into an inpatient rehab program, as he really hopes to work on this issue. Apparently the program we were looking at his objecting to his dialysis schedule, thinking it would be disruptive. We also try to get him into a fpc setting, so that he could do an outpatient rehab program, as social work feels that his home setting is too tempting in terms of resuming drugs. However, they also turned him down today. Approximately 45 minutes has been spent so far today, reviewing the patient's test results, interviewing and examining him twice, reviewing plan of care with staff, and then providing critical care during transfer. Medical - PN: Qual - VTE Deep Vein Thrombosis/Pulmonary Embolism Present on Admission: No
[2017-02-01] MEDS ORDERED: levETIRAcetam 500 MG in 0.9 % SODIUM CHLORIDE 100 ML IV ONE (13:30)
[2017-02-01 13:37] LABS: ALT/SGPT 52 U/l (0-40); Albumin 3.5 gm/dL (3.2-5.2); Albumin/Globulin Ratio 1.3 (1.0-2.3); Alkaline Phosphatase 60 U/L (39-117); Blood Urea Nitrogen 53 mg/dl (6-20)
[2017-02-01] MEDS ORDERED: ONDANSETRON 4 MG/2 ML VIAL IV PRN (14:10)
[2017-02-01] MEDS ORDERED: NALOXONE HCL 0.4 MG/ML VIAL IV PRN (14:10)
[2017-02-01] MEDS ORDERED: HYDROmorphone 2 MG/ML SYRINGE IV PRN (14:10)
[2017-02-01] MEDS ORDERED: IPRATROPIUM/ALBUTEROL 3 ML AMPUL.NEB NEB PRN (14:10)
[2017-02-01] MEDS ORDERED: CALCIUM CARBONATE 500 MG TAB.CHEW CHEWED PRN (14:10)
[2017-02-01] MEDS ORDERED: traZODone HCL 150 MG TABLET PO PRN (14:10)
[2017-02-01] MEDS: METOPROLOL TARTRATE 5 MG/5 ML VIAL IV PRN ×2 (15:25→16:11)
--- NOTE | 2017-02-01 16:26 | Cat Scan Report ---
CLINICAL INFORMATION: Seizures COMPARISON: 06/23/2016 TECHNIQUE: 2.5 mm helical slices were obtained in the skull base to vertex. Following reconstruction, axial reformatted images were reviewed at bone and parenchymal windows. FINDINGS: The ventricles, sulci, fissures, and cisterns are normal in size and configuration. No extra-axial fluid collections are identified. The cerebrum, brainstem and cerebellum are unremarkable. There are vague patchy low-attenuation region in the deep frontal and parietal white matter. There is no intracerebral hemorrhage, edema mass effect or other abnormality. Bone windows show no osseous abnormality. There is mild left mastoiditis which is unchanged IMPRESSION: Moderate sized patchy regions of low attenuation in the deep bifrontal and biparietal white matter which could indicate ischemia or other pathology. Note: patient has had several CTs to evaluate seizures. At this point, suggest brain MRI - seizure protocol in an attempt to establish an epileptogenic focus which may be amenable to radiosurgery or other therapy Mild left mastoiditis - stable Interpreted and Authenticated by: Roman Perez 02/01/17
[2017-02-01] MEDS: ALPRAZolam 0.5 MG TABLET PO PRN (22:10)
[2017-02-01] MEDS: DOXAZOSIN 4 MG TABLET PO SCH (22:13)
[2017-02-01] MEDS: rOPINIRole 0.25 MG TABLET PO SCH (22:13)
[2017-02-02] MEDS ORDERED: FUROSEMIDE 20 MG/2 ML VIAL IV ONE (04:52)
[2017-02-02] MEDS: 0.9 % SODIUM CHLORIDE 10 ML SYRINGE IV SCH ×3 (05:48→21:17)
[2017-02-02 05:51] LABS: Basophils # (Auto) 0.1 K/mcL (0.0-0.3); Eosinophils # (Auto) 0.4 K/mcL (0.0-0.7); Eosinophils % (Auto) 6.8 % (0.0-7.0); Lymphocytes # (Auto) 1.2 K/mcL (1.5-4.8); Lymphocytes % (Auto) 19.5 % (15.5-49.0); Mean Cell Volume 97.4 fL (80.0-100.0); Mean Corpuscular HGB Conc 33.4 g/dL (31.0-36.0); Mean Corpuscular Hemoglobin 32.6 pg (26.0-34.0); Monocytes # (Auto) 0.5 K/mcL (0.1-0.9); Monocytes % (Auto) 7.7 % (1.0-12.0); Platelet Count 221 K/mcL (140-440); RBC 2.53 M/mcL (4.50-5.90); Red Cell Distribution Width 16.7 % (11.5-14.5)
[2017-02-02 06:25] LABS: ALT/SGPT 38 U/l (0-40); Albumin 2.7 gm/dL (3.2-5.2); Albumin/Globulin Ratio 1.1 (1.0-2.3); Alkaline Phosphatase 45 U/L (39-117); Bilirubin,Direct < 0.2 mg/dL (0.0-0.3); Blood Urea Nitrogen 64 mg/dl (6-20); Gamma Glutamyl Transpeptidase 35 U/L (8-61); Magnesium 2.1 mg/dL (1.6-2.5); Uric Acid 5.7 mg/dL (2.5-8.0)
[2017-02-02] MEDS: OMEPRAZOLE 20 MG CAPSULE PO SCH ×2 (07:39→17:15)
[2017-02-02] MEDS: ALPRAZolam 0.5 MG TABLET PO PRN ×2 (07:39→15:32)
[2017-02-02] MEDS: CALCIUM ACETATE 667 MG CAPSULE PO SCH ×4 (07:39→18:38)
[2017-02-02] MEDS: SUCRALFATE 1 GM/10 ML ORAL.SUSP PO SCH ×4 (07:39→21:15)
[2017-02-02] MEDS: HYDROmorphone 2 MG TABLET PO PRN ×2 (08:13→15:32)
[2017-02-02] MEDS ORDERED: SERTRALINE 50 MG TABLET PO SCH (09:00)
[2017-02-02] MEDS ORDERED: levETIRAcetam 500 MG TABLET PO SCH (09:00)
[2017-02-02] MEDS ORDERED: NICOTINE 7 MG PATCH TOPICAL SCH (10:00)
[2017-02-02] MEDS: METOPROLOL TARTRATE 50 MG TABLET PO SCH ×2 (10:22→21:17)
[2017-02-02] MEDS: hydrALAZINE 25 MG TABLET PO SCH ×3 (10:22→21:16)
[2017-02-02] MEDS: GABAPENTIN 100 MG CAPSULE PO SCH ×3 (10:22→21:16)
[2017-02-02] MEDS: NIFEdipine 30 MG TAB.XL.24H PO SCH ×2 (10:23→21:17)
[2017-02-02] MEDS: LORazepam 2 MG/ML VIAL IV PRN ×3 (10:31→19:10)
--- NOTE | 2017-02-02 13:02 | Internal Med Progress Note ---
Medical - PN: Subj Patient information: Note initiated : 02/02/17 at 1:02 pm Service Date, if different from initiated Date: [] Patient: Jorge Bates 31 y/o M admitted on 01/26/17 for SOB, Coughing Up Blood/Upper GI Bleed. Chief Complaint: [] Interval history: Mr. Bates is a 31 year old Male presents to the ER last night with complaints of shortness of breath, he was also having some epigastric pain and nausea and some vomiting. Overnight he was noted to be chf and fluid overload secondary to his ESRD status. the patient had hb of 8.2 at that time. He underwent dialysis , but her had some coughing up of red sputum? vs spitting or vomiting bright red blood, not clear on the history here. The pt does admit having coffe ground emesis this AM before hemodialysis. The patient hb after hd is 7.4, and then dropped to 7.0 Initially there was no ICU bed available to admit the patient, later in the evening bed did become available, the patient was therefore admitted to the hospital ICu for close monitoring and treatment The patient notes that he has been having epigastric abdominal pain x 2 weeks, he note that he has had a few episodes of blood in his vomitus. He denies any conor or blood in the stools He denies using aspirin, nsaids, or consuming alcohol, admits to use of tobacco he does admit to having headaches and consuming some otc meds for same In the ER x ray chest showed chf, labs show hb of 7.0, hr was mildly tachycardic 100-120, bp elevated significantly likely as he did not get his bp meds january 27 Patient seen examined overnight events noted, bp is better on the nicardipine drip s/p EGD this Am, no ulcer only gastritis, plan for omeprazole and carafate outpatient surgery follow up with Dr gaby gandhi nephrology following, not sure if plan to have HD today. January 28 Patient seen examined no acute overnight events, still has migraine type headaches. he denies any other complaints his blood pressure went up again this AM needing reinitiation of nicardipine drip, he was off for a while. The patient bp meds this AM are resumed will check to see if his bp improves and if so d/c drip and get him on med surg status The patient has strong history of substance abuse, he has been trying to get in a inpatient rehab program to help. However as outpatient this has been difficult for him. He has been present in the ER 21 times this year in this facility, probably has been seen also in the other hospital. Case discussed with social work case manager to see if we can get him in a acute rehab program so as to help with his substance abuse issues. January 29 pt seen examined, notes had some vomiting with few blood streaks hb stable patient off nicardipine drip now, ok to xfer to med surg patient thinks he is withdrawing from his dailyi meth use, daily thc, tobacco use. prn ativan ordered. the patient later seen walking in his room and fairly comfortable and did not seem much in distress he is awaiting placement to inpatient rehab for his substance abuse issues. January 30: This 31-year-old man with a long-standing history of kidney failure, CHF, drug abuse, hypertension was admitted with volume overload and pulmonary vascular congestion. He also had nausea, vomiting and some bleeding, and endoscopy showed gastritis. Blood pressure was also initially poorly controlled. Both volume status and blood pressure are now improving, as he is receiving regular dialysis. He continues to have lots of discomforts related to drug withdrawal. He reports significant fatigue, aching all over, bitemporal headache, but is reportedly used to using daily marijuana and methamphetamines. Otherwise, he denies fever chills, shortness of breath, chest pain other than generalized aching, abdominal pain, nausea or vomiting, diarrhea or constipation. He is a anuric. January 31: The patient has no particular complaints today. He continues to have some chronic aches and pains and fatigue. He is still hopeful about getting into an inpatient rehab program, as he would like to move forward with his life. February 01: Earlier today, we got word from all of the rehab centers as well as the nursing homes, that they could not take the patient, as they could not accommodate both his rehab and his dialysis schedules. The patient was very upset, and was noted by staff to be sitting on the side of his bed crying. Shortly thereafter , an aide went in to help him, and found him lying on the floor. A rapid response was called, and as staff gathered to assist him, he had a grand mal seizure. Numerous staff members picked him up and placed him in his bed and rolled him onto his side. When vital signs were obtained, blood pressure, oxygenation, heart rate were fine. Patient was given IV Ativan, and the seizure ceased briefly, and then recurred. Seizures recurred numerous times after that, each time treated with IV Ativan. Eventually we obtained IV Keppra , and infuse that as well. Patient was then moved to the intensive care unit. Blood was drawn for chemistries and CBC, serum tox screen, Keppra level. Patient eventually settled down enough to go down for head CT. This shows patchy regions of low attenuation in the deep bifrontal and biparietal white matter, which could indicate ischemia versus other pathology. The radiologist notes the patient has already had several head CTs, and suggest that the next study be a brain MRI-seizure protocol. This morning, the patient was awake and alert. This evening, he is heavily sedated. He is only able to barely flutter his eyelids for me at this time. Nurses note that when he wakes up between seizures, he seems fairly alert and can follow commands. There was some concern of mild weakness of his left hand, but that appears inconsistent. Currently he is just too sedated to give any more of a history. We did search his bags in his room. We did find numerous loose pills as well as a pillbox. The pharmacist examined these, and they just appear to be his usual prescription medications. His girlfriend visited, and nurses asked her if the patient could have gotten hold of any illegal drugs. The girlfriend did not think so, although reportedly they both are known to abuse various drugs. February 02: Today, the patient notes all of his muscles feel quite sore. He is more awake and alert today. He is having some anxiety. Otherwise, he denies fever chills , chest pain or shortness of breath, abdominal pain nausea or vomiting. Medical History Fluid overload (Acute) Acute congestive heart failure (Acute) Hypertensive emergency (Acute) Mitral stenosis with insufficiency (Acute) Pulmonary hypertension (Acute) Substance use disorder (Chronic) Migraine (Acute) Pneumonia (Acute) HCAP (healthcare-associated pneumonia) (Acute) Acute anxiety (Acute) Sinusitis Hyperkalemia, diminished renal excretion (Acute) Gastroparesis (Acute) Generalized seizure (Acute) Anemia, blood loss (Acute) CRF (chronic renal failure) (Acute) Mitral regurgitation (Chronic) Epileptic seizure (Acute) FSGS (focal segmental glomerulosclerosis) with nephrosis (Resolved) Congestive heart failure (Acute) Anemia in chronic kidney disease (CKD) (Chronic) Restless legs (Chronic) - Constitutional Vitals: Vital Signs Temp Pulse Resp BP Pulse Ox 98.9 F 77 12 137/80 96 02/02/17 12:37 02/02/17 12:55 02/02/17 12:05 02/02/17 12:55 02/02/17 12:05 Period Temp Pulse Resp BP Sys/Umana Pulse Ox Last 24 Hr 98.2 F-98.9 F 72-86 10-23 132-201/66-139 90-100 Intake and Output 02/01/17 02/02/17 02/02/17 21:59 05:59 13:59 Intake Total 105 / 105 360 / 360 300 / 300 Balance 105 / 105 360 / 360 300 / 300 Weight 146 lb Intake & Output: Intake & Output 02/01/17 02/02/17 02/02/17 21:59 05:59 13:59 Intake Total 105 / 105 360 / 360 300 / 300 Balance 105 / 105 360 / 360 300 / 300 Weight 146 lb Intake: IV 105 / 105 Keppra 500 mg In Sodium 105 / 105 Chloride 0.9% 100 ml @ 200 mls/ hr IV ONCE ONE Rx#:[id number] Oral 360 / 360 300 / 300 Other: Meal Breakfast Percent of Meal Consumed 100% Patient was quite groggy this morning, but is more awake this evening. He did become anxious later this evening, and started asking to go home. However, since he has not been seizure-free for even 24 hours, it was discussed with him that he should stay, and he ultimately agreed. Neck shows no obvious lymphadenopathy or JVD. Cardiac exam shows regular rate and rhythm. Lungs are clear to auscultation. Abdomen is soft and nontender. Extremities show no edema. Neurologic exam: The patient is awake and oriented and cooperative. He has occasional muscle twitches, but otherwise neurologic exam is grossly nonfocal. Medical - PN: Obj Da - Labs CBC & Chem 7: 02/03/17 04:00 02/03/17 04:00 Labs: Abnormal Lab Results 02/02/17 02/02/17 02/01/17 03:55 03:55 12:50 RBC 2.53 L Hgb 8.3 L Hct 24.7 L RDW 16.7 H MPV 7.2 L Lymph # (Auto) 1.2 L Sodium Chloride 92 L Anion Gap BUN 64 H Creatinine 7.9 H* Glucose Calcium ALT Lactate Dehydrogenase Troponin T 0.07 H* Total Protein 5.2 L Albumin 2.7 L Triglycerides 02/01/17 02/01/17 02/01/17 12:50 12:50 04:15 RBC 2.87 L Hgb 9.6 L Hct 27.7 L RDW 16.9 H MPV 7.1 L Lymph # (Auto) 1.4 L Sodium Chloride 90 L 92 L Anion Gap 19.0 H BUN 53 H 41 H Creatinine 6.3 H* 5.5 H* Glucose 107 H Calcium 8.4 L ALT 52 H 52 H Lactate Dehydrogenase 254 H Troponin T Total Protein 5.6 L Albumin 2.9 L Triglycerides 175 H 02/01/17 01/31/17 01/31/17 04:15 04:10 04:10 RBC 2.65 L 2.36 L Hgb 8.8 L 7.9 L Hct 25.7 L 22.9 L RDW 16.5 H 16.9 H MPV 7.2 L 7.3 L Lymph # (Auto) 1.4 L 1.4 L Sodium 132 L Chloride 92 L Anion Gap BUN 58 H Creatinine 7.5 H* Glucose Calcium 8.4 L ALT 44 H Lactate Dehydrogenase Troponin T Total Protein 5.3 L Albumin 3.1 L Triglycerides February 02: Brain MRI: IMPRESSION: Moderate patchy high signal within the deep cerebral white matter with a vague region in the central marielle. Findings are most compatible with chronic small arterial ischemic changes related to methamphetamine use. No acute disease 11 mm x 2 mm slitlike low signal lesion in the left external capsule and 3-4 tiny foci in the left lentiform nucleus should represent a small foci of hemosiderin compatible with chronic old hemorrhage related to small vessel disease/hypertension from illicit drug use.] February 01: Serum tox screen: Is pending. CT of the brain without contrast: IMPRESSION: Moderate sized patchy regions of low attenuation in the deep bifrontal and biparietal white matter which could indicate ischemia or other pathology. Note: patient has had several CTs to evaluate seizures. At this point, suggest brain MRI - seizure protocol in an attempt to establish an epileptogenic focus which may be amenable to radiosurgery or other therapy EKG: Shows normal sinus rhythm at a rate of 79. He does have signs of LVH, and rather peaked T waves. This is compared to his EKG from January 26, 2017. There is some suggestion of ST elevation in leads V5 V6, but none of these changes appear significantly different from before. January 26: Nasal MRSA screen is negative. Chest x-ray: Showed pulmonary edema with mild cardiomegaly. This was improved on a follow-up film several hours later. Meds: Medications Albuterol/Ipratropium (Duoneb) 3 ml NEB Q4HRT PRN PRN Reason: Shortness Of Breath Or Wheezing Alprazolam (Xanax) 1 mg PO BIDP PRN PRN Reason: Anxiety Last Admin: 02/02/17 07:39 Dose: 1 mg Calcium Acetate (Phoslo) 667 mg PO TIDCC [facility] Last Admin: 02/02/17 12:46 Dose: 667 mg Calcium Carbonate/Glycine (Tums) 500 mg CHEWED Q4HP PRN PRN Reason: Dyspepsia Doxazosin Mesylate (Cardura) 2 mg PO HS [facility] Last Admin: 02/01/17 22:13 Dose: 2 mg Gabapentin (Neurontin) 200 mg PO TID [facility] Last Admin: 02/02/17 10:22 Dose: 200 mg Hydralazine HCl (Apresoline) 100 mg PO TID [facility] Last Admin: 02/02/17 10:22 Dose: 100 mg Hydromorphone HCl (Dilaudid) 0.5 mg IV Q2HP PRN PRN Reason: Pain Hydromorphone HCl (Dilaudid) 2 mg PO Q3HP PRN PRN Reason: Pain Last Admin: 02/02/17 08:13 Dose: 2 mg Levetiracetam (Keppra) 500 mg PO DAILY [facility] Last Admin: 02/02/17 10:22 Dose: 500 mg Lorazepam (Ativan) 1 mg IV Q2-4HP PRN PRN Reason: ANXIETY/SEDATION Last Admin: 02/02/17 10:31 Dose: 1 mg Metoprolol Tartrate (Lopressor) 100 mg PO BID [facility] Last Admin: 02/02/17 10:22 Dose: 100 mg Metoprolol Tartrate (Lopressor) 5 mg IV Q4HP PRN PRN Reason: Blood Pressure - High Last Admin: 02/01/17 16:11 Dose: 5 mg Naloxone HCl (Narcan) 0.1 mg IV Q2MIN PRN PRN Reason: Opiate Reversal Nicotine (Nicoderm) 7 mg TOPICAL DAILY@1000 [facility] Last Admin: 02/02/17 10:21 Dose: 7 mg Nifedipine (Procardia Xl) 60 mg PO BID [facility] Last Admin: 02/02/17 10:23 Dose: 60 mg Omeprazole (Prilosec) 40 mg PO BIDAC [facility] Last Admin: 02/02/17 07:39 Dose: 40 mg Ondansetron HCl (Zofran) 4 mg IV Q4-6HP PRN PRN Reason: Nausea And Vomiting Ropinirole HCl (Requip) 0.5 mg PO HS [facility] Last Admin: 02/01/17 22:13 Dose: 0.5 mg Sertraline HCl (Zoloft) 100 mg PO DAILY [facility] Last Admin: 02/02/17 10:22 Dose: 100 mg Sodium Chloride (Saline Flush) 10 ml IV Q8 [facility] Last Admin: 02/02/17 05:48 Dose: 10 ml Sucralfate (Carafate) 1 gm PO ACHS [facility] Last Admin: 02/02/17 12:28 Dose: Not Given Trazodone HCl (Desyrel) 150 mg PO HSP PRN PRN Reason: Insomnia Last Admin: 02/01/17 22:10 Dose: 150 mg Medical - PN: A/P - Time Spent With Patient Total time spent is greater than 50% in coordination of care (as documented) at patient's floor/unit and/or counseling patient: 25 - 35 minutes - Narrative A/P Narrative: A/P #1. Neurologic. Patient developed acute onset of multiple seizures yesterday afternoon. These were generalized, tonic-clonic. Head CT is abnormal, worrisome for possible ischemic changes. MRI today is also suggestive of possible ischemic changes. The radiologist was worried about the possibility of something very unusual in this young patient, possibly MS type changes, but after hearing his history, think these are likely ischemic changes due to chronic methamphetamine use. Patient may have an old chronic hemorrhage as well. This could certainly act as a seizure focus. Currently, the patient is sedated, but is still having myoclonic jerks. He is being given Ativan liberally, to prevent any further seizures. We will see if we can get an EEG tomorrow. Continue keppra, gabapentin. - Refer to neuro. #2.. Cardiopulmonary. Patient presented with acute pulmonary vascular congestion due to volume overload, due to renal failure. He is now status post dialysis, and volume is closer to euvolemic. #3. GI. Patient did have some heme positive emesis, and upper endoscopy showed gastritis. He is no longer having vomiting or abdominal pain, and is maintained on PPI. Hemoglobin has been stable. continue Carafate as well. #4.. Renal. Patient continues with regular dialysis to manage electrolytes and volume. Continue calcium acetate. Renal diet. 5. Malignant hypertension. Blood pressures are now well controlled. Continue hydralazine, metoprolol. He is no longer requiring nicardipine. continue doxazosin. Blood pressures ran a bit higher this afternoon. IV Lopressor as needed was added. Continue to monitor. 6. Anxiety. Continue as needed Xanax. Gabapentin ongoing may also help. Continue sertraline. Continue trazodone. 7. Restless leg syndrome. continue alprazolam, gabapentin, Requip. 8. Seizure disorder. Continue Keppra. 9. CODE STATUS: Full code. 10. DVT prophylaxis: SCDs. 11. Ongoing substance abuse issues. Patient met with [facility]. We were all hopeful that he can get into an inpatient rehab program, as he really hopes to work on this issue. Apparently the program we were looking at his objecting to his dialysis schedule, thinking it would be disruptive. We also try to get him into a long-term setting, so that he could do an outpatient rehab program, as social work feels that his home setting is too tempting in terms of resuming drugs. However, they also turned him down . Approximately 35 minutes has been spent so far today, reviewing the patient's test results, interviewing and examining him , reviewing plan of care with staff , and then providing critical care during transfer. Medical - PN: Qual - VTE Deep Vein Thrombosis/Pulmonary Embolism Present on Admission: No
--- NOTE | 2017-02-02 15:12 | Nephrology Progress Note ---
Subjective Patient information: Note initiated : 02/02/17 at 3:07 pm Service Date, if different from initiated Date: [] Patient: Jorge Bates 31 y/o M admitted on 01/26/17 for SOB, Coughing Up Blood/Upper GI Bleed. Chief Complaint: [] Principal diagnosis: GI Bleed Interval history: Patient had multiple seizures yesterday, has been treated with ativan and was loaded with keppra seizures have stopped, some concern of focal activity in right LE Will likely get MRI brain and EEG this hospital stay patient was awake when seen this am and denied any new complaints no SOB, CP, dizziness No edema Pertinent ROS: as above Objective - Vital Signs Vital signs: Vital Signs Temp Pulse Resp BP Pulse Ox 02/02/17 14:48 79 157/98 02/02/17 14:20 79 149/83 02/02/17 13:56 80 152/99 97 02/02/17 13:50 98.4 F 80 152/99 02/02/17 13:21 80 137/80 02/02/17 13:01 77 17 137/80 96 02/02/17 12:55 77 137/80 02/02/17 12:41 76 18 132/81 95 02/02/17 12:37 98.9 F 76 132/81 02/02/17 12:19 73 22 144/103 95 02/02/17 12:13 75 144/103 02/02/17 12:05 73 12 96 02/02/17 12:00 73 12 150/110 95 02/02/17 11:58 98.9 F 75 156/94 02/02/17 11:35 75 10 L 156/94 97 02/02/17 11:08 79 20 183/126 99 02/02/17 11:03 81 22 201/119 99 02/02/17 10:46 78 19 96 02/02/17 10:02 77 10 L 156/91 90 02/02/17 09:01 74 12 148/84 95 02/02/17 08:14 77 14 96 02/02/17 08:01 98.3 F 76 18 150/94 92 02/02/17 07:50 76 17 92 02/02/17 07:00 74 14 149/90 93 02/02/17 06:00 75 12 175/110 95 02/02/17 05:00 79 12 146/88 95 02/02/17 04:32 76 12 98 02/02/17 04:00 98.8 F 75 12 158/85 97 02/02/17 03:02 77 12 155/84 92 02/02/17 02:00 80 13 169/99 92 02/02/17 01:00 81 14 162/97 92 02/02/17 00:01 98.8 F 79 15 169/101 94 02/01/17 23:01 79 15 166/98 94 02/01/17 22:01 77 13 160/88 92 02/01/17 21:31 79 13 173/139 92 02/01/17 21:00 77 12 180/101 94 02/01/17 20:30 78 23 H 174/102 94 02/01/17 20:00 73 14 170/101 95 02/01/17 19:31 73 13 183/103 97 02/01/17 18:48 77 16 137/82 96 02/01/17 18:10 72 11 L 100 02/01/17 18:01 98.4 F 77 16 164/111 98 02/01/17 17:38 77 14 164/102 96 02/01/17 17:28 77 15 134/66 98 02/01/17 17:01 74 13 144/103 97 02/01/17 16:47 74 12 158/90 98 02/01/17 16:46 98.2 F 74 13 158/90 97 02/01/17 16:39 73 11 L 98 02/01/17 16:32 73 12 164/96 98 02/01/17 16:16 74 12 160/94 98 02/01/17 16:05 77 13 180/103 99 02/01/17 15:47 79 18 157/103 98 02/01/17 15:43 84 22 183/106 96 02/01/17 15:31 78 17 158/98 94 02/01/17 15:17 86 14 144/87 92 Intake and Output 02/02/17 02/02/17 02/02/17 05:59 13:59 21:59 Intake Total 360 / 360 700 / 700 Balance 360 / 360 700 / 700 Intake: Oral 360 / 360 700 / 700 Other: Meal Breakfast Lunch Percent of Meal Consumed 100% 100% Intake & Output: Intake & Output 1102/02/17 02/02/17 05:59 13:59 21:59 Intake Total 360 / 360 700 / 700 Balance 360 / 360 700 / 700 Intake: Oral 360 / 360 700 / 700 Other: Meal Breakfast Lunch Percent of Meal Consumed 100% 100% - General Appearance General appearance: appears started age EENT: mucous membranes moist Neck: no JVD Respiratory: clear Cardiology: no rub, normal S1, normal S2 Gastrointestinal: no tenderness, no guarding Integumentary: no rash, warm and dry Neurologic: no asterixis, alert and oriented x3 Musculoskeletal: no erythema, no cyanosis Psychiatric: mood/affect appropriate - Lab 02/02/17 03:55 02/02/17 03:55 Most recent lab results Calcium 8.6 mg/dl (8.6-10.4) 02/02/17 03:55 Phosphorus 4.0 mg/dL (2.7-4.5) 02/02/17 03:55 Magnesium 2.1 mg/dL (1.6-2.5) 02/02/17 03:55 Assessment and Plan (1) Anemia Status: Acute (2) ESRD (end stage renal disease) on dialysis Patient will be dialysed today dialysis today for 4 hrs using revaclear dialyser, 2K/2.5Ca dialysate, UF goal of 2-3L as tolerated or to DW, qb 400ml/min and qd700/800ml/min his next HD is on Sunday next week uncontrolled HTN: on meds, stable will follow and optimize seizures, will get MRI and EEG per nursing staff, left UE weakness has resolved will follow anemia: s/p one unit prbc and also received aranesp, will transfuse again if Hb drops to below 7, hopefully will improve though will follow Status: Acute
--- NOTE | 2017-02-02 19:42 | Magnetic Resonance Report ---
CLINICAL INFORMATION: Seizures.Methamphetamine use COMPARISON: Head CT from 02/01/2017. TECHNIQUE:Sagittal T1 FLAIR, axial T1 FLAIR, T2 FLAIR propeller, T2 propeller, gradient, diffusion, ADC and coronal T2 weighted images were acquired. 1.5 mm 3mm FSPGR images were obtained sagittal coronal axial reformatted images FINDINGS: The ventricles, sulci, fissures and cisterns are slightly prominent for patient age. No extra-axial fluid collections identified. There is moderate patchy high signal in the deep cerebral white matter and also a vague region of the central marielle. Findings are most compatible chronic ischemia related to methamphetamine use. There is no free hemorrhage, restricted diffusion, edema, mass effect or other acute findings. Signal void in the intracerebral arteries, extra-axial cranial nerves, pituitary and orbits are normal. The hippocampal formations are symmetric. No evidence of cortical dysplasia or other congenital anomaly IMPRESSION: Moderate patchy high signal within the deep cerebral white matter with a vague region in the central marielle. Findings are most compatible with chronic small arterial ischemic changes related to methamphetamine use. No acute disease 11 mm x 2 mm slitlike low signal lesion in the left external capsule and 3-4 tiny foci in the left lentiform nucleus should represent a small foci of hemosiderin compatible with chronic old hemorrhage related to small vessel disease/hypertension from illicit drug use.] Moderate left mastoiditis is incidentally noted Interpreted and Authenticated by: Roman Perez 02/02/17
[2017-02-02] MEDS: DOXAZOSIN 4 MG TABLET PO SCH (21:15)
[2017-02-02] MEDS: rOPINIRole 0.25 MG TABLET PO SCH (21:16)
[2017-02-03] MEDS ORDERED: MAGNESIUM HYDROXIDE 30 ML ORAL.SUSP PO PRN (00:12)
[2017-02-03] MEDS ORDERED: BISACODYL 10 MG SUPP.RECT PR PRN (00:12)
[2017-02-03] MEDS ORDERED: traZODone HCL 150 MG TABLET PO PRN (00:15)
[2017-02-03] MEDS ORDERED: LORazepam 2 MG/ML VIAL IV PRN ×2 (00:15→13:26)
[2017-02-03] MEDS ORDERED: CALCIUM CARBONATE 500 MG TAB.CHEW CHEWED PRN (00:15)
[2017-02-03] MEDS ORDERED: ONDANSETRON 4 MG/2 ML VIAL IV PRN (00:15)
[2017-02-03] MEDS ORDERED: IPRATROPIUM/ALBUTEROL 3 ML AMPUL.NEB NEB PRN (00:15)
[2017-02-03] MEDS ORDERED: ALPRAZolam 0.5 MG TABLET PO PRN (00:15)
[2017-02-03] MEDS ORDERED: NALOXONE HCL 0.4 MG/ML VIAL IV PRN (00:15)
[2017-02-03] MEDS ORDERED: HYDROmorphone 2 MG TABLET PO PRN (00:15)
[2017-02-03] MEDS ORDERED: BISACODYL 10 MG SUPP.RECT PR ONE (00:27)
[2017-02-03] MEDS ORDERED: HYDROmorphone 2 MG TABLET ONE (01:26)
[2017-02-03] MEDS ORDERED: ALPRAZolam 0.5 MG TABLET ONE (01:26)
[2017-02-03] MEDS ORDERED: HYDROmorphone 2 MG/ML SYRINGE ONE (04:09)
[2017-02-03] MEDS: CALCIUM ACETATE 667 MG CAPSULE PO SCH ×4 (04:54→17:22)
[2017-02-03] MEDS: 0.9 % SODIUM CHLORIDE 10 ML SYRINGE IV SCH ×5 (05:18→21:17)
[2017-02-03] MEDS ORDERED: LORazepam 2 MG/ML VIAL ONE (05:18)
[2017-02-03 05:35] LABS: Basophils # (Auto) 0 K/mcL (0.0-0.3); Basophils % (Auto) 0.7 % (0.0-2.0); Eosinophils # (Auto) 0.4 K/mcL (0.0-0.7); Granulocytes % (Auto) 70.5 % (38.0-78.0); Lymphocytes # (Auto) 1.2 K/mcL (1.5-4.8); Lymphocytes % (Auto) 18.1 % (15.5-49.0); Mean Cell Volume 96.9 fL (80.0-100.0); Mean Corpuscular HGB Conc 33.9 g/dL (31.0-36.0); Mean Corpuscular Hemoglobin 32.8 pg (26.0-34.0); Monocytes # (Auto) 0.3 K/mcL (0.1-0.9); Monocytes % (Auto) 4.7 % (1.0-12.0); Platelet Count 215 K/mcL (140-440); RBC 2.48 M/mcL (4.50-5.90); Red Cell Distribution Width 16.1 % (11.5-14.5)
[2017-02-03 06:24] LABS: ALT/SGPT 36 U/l (0-40); Albumin 3.1 gm/dL (3.2-5.2); Albumin/Globulin Ratio 1.3 (1.0-2.3); Alkaline Phosphatase 46 U/L (39-117); Bilirubin,Direct < 0.2 mg/dL (0.0-0.3); Blood Urea Nitrogen 29 mg/dl (6-20); Gamma Glutamyl Transpeptidase 35 U/L (8-61); Uric Acid 2.9 mg/dL (2.5-8.0)
[2017-02-03] MEDS: SUCRALFATE 1 GM/10 ML ORAL.SUSP PO SCH ×4 (07:28→21:16)
[2017-02-03] MEDS: OMEPRAZOLE 20 MG CAPSULE PO SCH ×2 (07:29→17:28)
[2017-02-03] MEDS ORDERED: levETIRAcetam 500 MG TABLET PO SCH (09:00)
[2017-02-03] MEDS: hydrALAZINE 25 MG TABLET PO SCH ×3 (09:27→21:16)
[2017-02-03] MEDS: DOCUSATE SODIUM 100 MG CAPSULE PO SCH ×2 (09:27→21:17)
[2017-02-03] MEDS: GABAPENTIN 100 MG CAPSULE PO SCH ×3 (09:28→21:17)
[2017-02-03] MEDS: NIFEdipine 30 MG TAB.XL.24H PO SCH ×2 (09:28→21:17)
[2017-02-03] MEDS: SERTRALINE 50 MG TABLET PO SCH (09:28)
[2017-02-03] MEDS: METOPROLOL TARTRATE 50 MG TABLET PO SCH ×2 (09:28→21:17)
[2017-02-03] MEDS: NICOTINE 7 MG PATCH TOPICAL SCH (09:29)
[2017-02-03] MEDS ORDERED: levETIRAcetam 500 MG in 0.9 % SODIUM CHLORIDE 100 ML IV STA (13:06)
[2017-02-03] MEDS ORDERED: LORazepam 2 MG/ML VIAL IV ONE (13:25)
[2017-02-03] MEDS ORDERED: PHENYTOIN SOD 250 MG/5 ML IV ONE (14:52)
[2017-02-03] MEDS: HYDROmorphone 2 MG/ML SYRINGE IV PRN (15:49)
--- NOTE | 2017-02-03 17:46 | Internal Med Progress Note ---
Medical - PN: Subj Patient information: Note initiated : 02/03/17 at 5:43 pm Service Date, if different from initiated Date: [] Patient: Jorge Bates 31 y/o M admitted on 01/26/17 for SOB, Coughing Up Blood/Upper GI Bleed. Chief Complaint: [] Interval history: Mr. Bates is a 31 year old Male presents to the ER last night with complaints of shortness of breath, he was also having some epigastric pain and nausea and some vomiting. Overnight he was noted to be chf and fluid overload secondary to his ESRD status. the patient had hb of 8.2 at that time. He underwent dialysis , but her had some coughing up of red sputum? vs spitting or vomiting bright red blood, not clear on the history here. The pt does admit having coffe ground emesis this AM before hemodialysis. The patient hb after hd is 7.4, and then dropped to 7.0 Initially there was no ICU bed available to admit the patient, later in the evening bed did become available, the patient was therefore admitted to the hospital ICu for close monitoring and treatment The patient notes that he has been having epigastric abdominal pain x 2 weeks, he note that he has had a few episodes of blood in his vomitus. He denies any conor or blood in the stools He denies using aspirin, nsaids, or consuming alcohol, admits to use of tobacco he does admit to having headaches and consuming some otc meds for same In the ER x ray chest showed chf, labs show hb of 7.0, hr was mildly tachycardic 100-120, bp elevated significantly likely as he did not get his bp meds january 27 Patient seen examined overnight events noted, bp is better on the nicardipine drip s/p EGD this Am, no ulcer only gastritis, plan for omeprazole and carafate outpatient surgery follow up with Dr gaby gandhi nephrology following, not sure if plan to have HD today. January 28 Patient seen examined no acute overnight events, still has migraine type headaches. he denies any other complaints his blood pressure went up again this AM needing reinitiation of nicardipine drip, he was off for a while. The patient bp meds this AM are resumed will check to see if his bp improves and if so d/c drip and get him on med surg status The patient has strong history of substance abuse, he has been trying to get in a inpatient rehab program to help. However as outpatient this has been difficult for him. He has been present in the ER 21 times this year in this facility, probably has been seen also in the other hospital. Case discussed with social studies department chair to see if we can get him in a acute rehab program so as to help with his substance abuse issues. January 29 pt seen examined, notes had some vomiting with few blood streaks hb stable patient off nicardipine drip now, ok to xfer to med surg patient thinks he is withdrawing from his dailyi meth use, daily thc, tobacco use. prn ativan ordered. the patient later seen walking in his room and fairly comfortable and did not seem much in distress he is awaiting placement to inpatient rehab for his substance abuse issues. January 30: This 31-year-old man with a long-standing history of kidney failure, CHF, drug abuse, hypertension was admitted with volume overload and pulmonary vascular congestion. He also had nausea, vomiting and some bleeding, and endoscopy showed gastritis. Blood pressure was also initially poorly controlled. Both volume status and blood pressure are now improving, as he is receiving regular dialysis. He continues to have lots of discomforts related to drug withdrawal. He reports significant fatigue, aching all over, bitemporal headache, but is reportedly used to using daily marijuana and methamphetamines. Otherwise, he denies fever chills, shortness of breath, chest pain other than generalized aching, abdominal pain, nausea or vomiting, diarrhea or constipation. He is a anuric. January 31: The patient has no particular complaints today. He continues to have some chronic aches and pains and fatigue. He is still hopeful about getting into an inpatient rehab program, as he would like to move forward with his life. February 01: Earlier today, we got word from all of the rehab centers as well as the nursing homes, that they could not take the patient, as they could not accommodate both his rehab and his dialysis schedules. The patient was very upset, and was noted by staff to be sitting on the side of his bed crying. Shortly thereafter , an aide went in to help him, and found him lying on the floor. A rapid response was called, and as staff gathered to assist him, he had a grand mal seizure. Numerous staff members picked him up and placed him in his bed and rolled him onto his side. When vital signs were obtained, blood pressure, oxygenation, heart rate were fine. Patient was given IV Ativan, and the seizure ceased briefly, and then recurred. Seizures recurred numerous times after that, each time treated with IV Ativan. Eventually we obtained IV Keppra , and infuse that as well. Patient was then moved to the intensive care unit. Blood was drawn for chemistries and CBC, serum tox screen, Keppra level. Patient eventually settled down enough to go down for head CT. This shows patchy regions of low attenuation in the deep bifrontal and biparietal white matter, which could indicate ischemia versus other pathology. The radiologist notes the patient has already had several head CTs, and suggest that the next study be a brain MRI-seizure protocol. This morning, the patient was awake and alert. This evening, he is heavily sedated. He is only able to barely flutter his eyelids for me at this time. Nurses note that when he wakes up between seizures, he seems fairly alert and can follow commands. There was some concern of mild weakness of his left hand, but that appears inconsistent. Currently he is just too sedated to give any more of a history. We did search his bags in his room. We did find numerous loose pills as well as a pillbox. The pharmacist examined these, and they just appear to be his usual prescription medications. His girlfriend visited, and nurses asked her if the patient could have gotten hold of any illegal drugs. The girlfriend did not think so, although reportedly they both are known to abuse various drugs. February 02: Today, the patient notes all of his muscles feel quite sore. He is more awake and alert today. He is having some anxiety. Otherwise, he denies fever chills , chest pain or shortness of breath, abdominal pain nausea or vomiting. February 03: The patient was fairly sleepy this morning, but had reported increasing anxiety to the nurse earlier today, and had received Ativan. A little bit later he had a grand mal seizure, after taking a walk in the hallway. The nurses were able to get him into a chair as he started to say he was feeling odd, and then onto the floor. He did vomit, and they had his head turned to the side for that. He was given IV Ativan and the seizure resolved fairly quickly. However, he had at least 4 seizures after that. I contacted Dr. Kevin of the neurology service at [facility] in [place]. We reviewed the case. We pushed the patient's head CT and MRI to their facility. Dr. Kevin agreed with continued Keppra loading, and suggested we also add IV Dilantin. He said if the patient continues to have seizures, then we should try to send him to [place], to a facility where he could have continuous EEG monitoring, to confirm that these are seizures. The second time I saw the patient today, he was postictal. He could open his eyes, but was really quite limp and weak otherwise. Earlier today, he denied fever chills, chest pain or shortness of breath, GI or symptoms. Medical History Fluid overload (Acute) Acute congestive heart failure (Acute) Hypertensive emergency (Acute) Mitral stenosis with insufficiency (Acute) Pulmonary hypertension (Acute) Substance use disorder (Chronic) Migraine (Acute) Pneumonia (Acute) HCAP (healthcare-associated pneumonia) (Acute) Acute anxiety (Acute) Sinusitis Hyperkalemia, diminished renal excretion (Acute) Gastroparesis (Acute) Generalized seizure (Acute) Anemia, blood loss (Acute) CRF (chronic renal failure) (Acute) Mitral regurgitation (Chronic) Epileptic seizure (Acute) FSGS (focal segmental glomerulosclerosis) with nephrosis (Resolved) Congestive heart failure (Acute) Anemia in chronic kidney disease (CKD) (Chronic) Restless legs (Chronic) - Constitutional Vitals: Vital Signs Temp Pulse Resp BP Pulse Ox 100.9 F H 71 14 153/86 95 02/03/17 16:00 02/03/17 17:09 02/03/17 16:00 02/03/17 17:09 02/03/17 17:09 Period Temp Pulse Resp BP Sys/[place] Pulse Ox Last 24 Hr 98.1 F-100.9 F 70-81 10-20 136-175/81-119 93-100 Intake and Output 02/03/17 02/03/17 02/03/17 05:59 13:59 21:59 Intake Total 200 / 200 490 / 490 105 / 105 Balance 200 / 200 490 / 490 105 / 105 Intake & Output: Intake & Output 02/03/17 02/03/17 02/03/17 05:59 13:59 21:59 Intake Total 200 / 200 490 / 490 105 / 105 Balance 200 / 200 490 / 490 105 / 105 Intake: IV 105 / 105 Oral 200 / 200 490 / 490 Other: Meal Breakfast Lunch Percent of Meal Consumed 100% 0% Patient was quite groggy this morning,, and then after his seizures was fairly lethargic. He has received at least 6 mg of IV Ativan today. Neck shows no obvious lymphadenopathy or JVD. Cardiac exam shows regular rate and rhythm. Lungs are clear to auscultation. Abdomen is soft and nontender. Extremities show no edema. Neurologic exam: The patient is currently quite weak, being post ictal. Medical - PN: Obj Da - Labs CBC & Chem 7: 02/03/17 04:00 02/03/17 04:00 Labs: Abnormal Lab Results 02/03/17 02/03/17 02/02/17 04:00 04:00 03:55 RBC 2.48 L Hgb 8.1 L Hct 24.0 L RDW 16.1 H MPV 7.0 L Lymph # (Auto) 1.2 L Chloride 93 L 92 L Anion Gap BUN 29 H 64 H Creatinine 5.1 H* 7.9 H* Glucose Calcium 8.3 L ALT Lactate Dehydrogenase Troponin T Total Protein 5.4 L 5.2 L Albumin 3.1 L 2.7 L Triglycerides 02/02/17 02/01/17 02/01/17 03:55 12:50 12:50 RBC 2.53 L Hgb 8.3 L Hct 24.7 L RDW 16.7 H MPV 7.2 L Lymph # (Auto) 1.2 L Chloride 90 L Anion Gap 19.0 H BUN 53 H Creatinine 6.3 H* Glucose Calcium ALT 52 H Lactate Dehydrogenase Troponin T 0.07 H* Total Protein Albumin Triglycerides 02/01/17 02/01/17 02/01/17 12:50 04:15 04:15 RBC 2.87 L 2.65 L Hgb 9.6 L 8.8 L Hct 27.7 L 25.7 L RDW 16.9 H 16.5 H MPV 7.1 L 7.2 L Lymph # (Auto) 1.4 L 1.4 L Chloride 92 L Anion Gap BUN 41 H Creatinine 5.5 H* Glucose 107 H Calcium 8.4 L ALT 52 H Lactate Dehydrogenase 254 H Troponin T Total Protein 5.6 L Albumin 2.9 L Triglycerides 175 H February 02: Brain MRI: IMPRESSION: Moderate patchy high signal within the deep cerebral white matter with a vague region in the central marielle. Findings are most compatible with chronic small arterial ischemic changes related to methamphetamine use. No acute disease 11 mm x 2 mm slitlike low signal lesion in the left external capsule and 3-4 tiny foci in the left lentiform nucleus should represent a small foci of hemosiderin compatible with chronic old hemorrhage related to small vessel disease/hypertension from illicit drug use.] February 01: Serum tox screen: Is pending. Keppra level is still pending also. CT of the brain without contrast: IMPRESSION: Moderate sized patchy regions of low attenuation in the deep bifrontal and biparietal white matter which could indicate ischemia or other pathology. Note: patient has had several CTs to evaluate seizures. At this point, suggest brain MRI - seizure protocol in an attempt to establish an epileptogenic focus which may be amenable to radiosurgery or other therapy EKG: Shows normal sinus rhythm at a rate of 79. He does have signs of LVH, and rather peaked T waves. This is compared to his EKG from January 26, 2017. There is some suggestion of ST elevation in leads V5 V6, but none of these changes appear significantly different from before. January 26: Nasal MRSA screen is negative. Chest x-ray: Showed pulmonary edema with mild cardiomegaly. This was improved on a follow-up film several hours later. Meds: Medications Albuterol/Ipratropium (Duoneb) 3 ml NEB Q4HRT PRN PRN Reason: Shortness Of Breath Or Wheezing Alprazolam (Xanax) 1 mg PO BIDP PRN PRN Reason: Anxiety Last Admin: 02/03/17 09:34 Dose: 1 mg Bisacodyl (Dulcolax) 10 mg WV Q2-3DAYS PRN PRN Reason: Constipation Calcium Acetate (Phoslo) 667 mg PO TIDCC [facility] Last Admin: 02/03/17 17:22 Dose: Not Given Calcium Carbonate/Glycine (Tums) 500 mg CHEWED Q4HP PRN PRN Reason: Dyspepsia Docusate Sodium (Colace) 100 mg PO BID [facility] Last Admin: 02/03/17 09:27 Dose: 100 mg Doxazosin Mesylate (Cardura) 2 mg PO BID [facility] Gabapentin (Neurontin) 200 mg PO TID [facility] Last Admin: 02/03/17 16:16 Dose: Not Given Hydralazine HCl (Apresoline) 100 mg PO TID [facility] Last Admin: 02/03/17 16:16 Dose: Not Given Hydromorphone HCl (Dilaudid) 0.5 mg IV Q2HP PRN PRN Reason: Pain Last Admin: 02/03/17 15:49 Dose: 0.5 mg Hydromorphone HCl (Dilaudid) 2 mg PO Q3HP PRN PRN Reason: Pain Levetiracetam (Keppra) 500 mg PO BID [facility] Lorazepam (Ativan) 2 mg IV Q30M PRN PRN Reason: Seizures Magnesium Hydroxide (Milk Of Magnesia) 30 ml PO DAILYP PRN PRN Reason: Constipation Metoprolol Tartrate (Lopressor) 5 mg IV Q4HP PRN PRN Reason: Blood Pressure - High Metoprolol Tartrate (Lopressor) 100 mg PO BID [facility] Last Admin: 02/03/17 09:28 Dose: 100 mg Naloxone HCl (Narcan) 0.1 mg IV Q2MIN PRN PRN Reason: Opiate Reversal Nicotine (Nicoderm) 7 mg TOPICAL DAILY@1000 [facility] Last Admin: 02/03/17 09:29 Dose: 7 mg Nifedipine (Procardia Xl) 60 mg PO BID [facility] Last Admin: 02/03/17 09:28 Dose: 60 mg Omeprazole (Prilosec) 40 mg PO BIDAC [facility] Last Admin: 02/03/17 17:28 Dose: Not Given Ondansetron HCl (Zofran) 4 mg IV Q4-6HP PRN PRN Reason: Nausea And Vomiting Ropinirole HCl (Requip) 0.5 mg PO HS [facility] Sertraline HCl (Zoloft) 100 mg PO DAILY [facility] Last Admin: 02/03/17 09:28 Dose: 100 mg Sodium Chloride (Saline Flush) 10 ml IV Q8 [facility] Last Admin: 02/03/17 15:50 Dose: 10 ml Sucralfate (Carafate) 1 gm PO [facility] Last Admin: 02/03/17 17:21 Dose: Not Given Trazodone HCl (Desyrel) 150 mg PO HSP PRN PRN Reason: Insomnia Medical - PN: A/P - Time Spent With Patient Total time spent is greater than 50% in coordination of care (as documented) at patient's floor/unit and/or counseling patient: Greater than 35 minutes - Narrative A/P Narrative: A/P #1. Neurologic. Patient developed acute onset of multiple seizures day before yesterday. These were generalized, tonic-clonic. Head CT is abnormal, worrisome for possible ischemic changes. MRI is also suggestive of possible ischemic changes. The radiologist was worried about the possibility of something very unusual in this young patient, possibly MS type changes, but after hearing his history, thinks these are likely ischemic changes due to chronic methamphetamine use. Patient may have an old chronic hemorrhage as well. This could certainly act as a seizure focus. -The patient had multiple seizures today. After reviewing the case with Dr. Kevin of neurology, at [place], he has suggested we also load the patient with Dilantin. If the patient has breakthrough seizures after this, he suggested we ship him up there so he can have continuous EEG monitoring. The cause of his seizures is still not clear, although there is concern for methamphetamine-induced ischemia. The patient is also, however, at risk for cerebrovascular disease due to renal failure and hypertension. Continue keppra, gabapentin. Dilantin added. He will need follow-up with neurology at some point. #2.. Cardiopulmonary. Patient presented with acute pulmonary vascular congestion due to volume overload, due to renal failure. He is now status post dialysis, and volume is closer to euvolemic. #3. GI. Patient did have some heme positive emesis, and upper endoscopy showed gastritis. He is no longer having vomiting or abdominal pain, and is maintained on PPI. Hemoglobin has been stable. continue Carafate as well. #4.. Renal. Patient continues with regular dialysis to manage electrolytes and volume. Continue calcium acetate. Renal diet. 5. Malignant hypertension. Blood pressures are now well controlled. Continue hydralazine, metoprolol. He is no longer requiring nicardipine. continue doxazosin. Blood pressures ran a bit higher this afternoon. IV Lopressor as needed was added. Continue to monitor. 6. Anxiety. Continue as needed Xanax. Gabapentin ongoing may also help. Continue sertraline. Continue trazodone. 7. Restless leg syndrome. continue alprazolam, gabapentin, Requip. 8. Seizure disorder. Continue Keppra. 9. CODE STATUS: Full code. 10. DVT prophylaxis: SCDs. 11. Ongoing substance abuse issues. Patient met with [facility]. We were all hopeful that he could get into an inpatient rehab program, as he really hopes to work on this issue. Apparently the program we were looking at his objecting to his dialysis schedule, thinking it would be disruptive. We also tried to get him into a group home setting, so that he could do an outpatient rehab program, as social work feels that his home setting is too tempting in terms of resuming drugs. However, they also turned him down . Approximately 35 minutes has been spent so far today, reviewing the patient's test results, interviewing and examining him , reviewing plan of care with staff , reviewing his case with both radiology and with Dr. Kevin of neurology.. Medical - PN: Qual - VTE Deep Vein Thrombosis/Pulmonary Embolism Present on Admission: No
[2017-02-03] MEDS ORDERED: DOXAZOSIN 4 MG TABLET PO SCH (21:00)
[2017-02-03] MEDS ORDERED: rOPINIRole 0.25 MG TABLET PO SCH (21:00)
[2017-02-03] MEDS: levETIRAcetam 500 MG TABLET PO SCH (21:17)
[2017-02-03] MEDS: DOXAZOSIN 4 MG TABLET PO SCH (21:17)
[2017-02-04] MEDS: HYDROmorphone 2 MG/ML SYRINGE IV PRN ×3 (01:10→15:05)
[2017-02-04] MEDS: 0.9 % SODIUM CHLORIDE 10 ML SYRINGE IV SCH ×4 (05:07→22:00)
[2017-02-04] MEDS: METOPROLOL TARTRATE 5 MG/5 ML VIAL IV PRN ×3 (06:13→11:26)
[2017-02-04 06:27] LABS: Basophils # (Auto) 0.1 K/mcL (0.0-0.3); Basophils % (Auto) 0.8 % (0.0-2.0); Eosinophils # (Auto) 0.5 K/mcL (0.0-0.7); Eosinophils % (Auto) 5.6 % (0.0-7.0); Granulocytes % (Auto) 71.2 % (38.0-78.0); Lymphocytes # (Auto) 1.2 K/mcL (1.5-4.8); Lymphocytes % (Auto) 13.9 % (15.5-49.0); Mean Cell Volume 97.9 fL (80.0-100.0); Mean Corpuscular HGB Conc 33.3 g/dL (31.0-36.0); Mean Corpuscular Hemoglobin 32.6 pg (26.0-34.0); Monocytes # (Auto) 0.8 K/mcL (0.1-0.9); Monocytes % (Auto) 8.5 % (1.0-12.0); Platelet Count 225 K/mcL (140-440); RBC 2.52 M/mcL (4.50-5.90); Red Cell Distribution Width 16.1 % (11.5-14.5)
[2017-02-04] MEDS ORDERED: hydrALAZINE 20 MG/ML VIAL ONE (06:46)
[2017-02-04] MEDS ORDERED: hydrALAZINE 20 MG/ML VIAL IV PRN ×2 (06:52→17:25)
[2017-02-04] MEDS: levETIRAcetam 500 MG TABLET PO SCH (06:56)
[2017-02-04] MEDS ORDERED: levETIRAcetam 500 MG in 0.9 % SODIUM CHLORIDE 100 ML IV ONE (06:56)
[2017-02-04 07:22] LABS: ALT/SGPT 33 U/l (0-40); Albumin 3.3 gm/dL (3.2-5.2); Albumin/Globulin Ratio 1.3 (1.0-2.3); Alkaline Phosphatase 47 U/L (39-117); Bilirubin,Direct < 0.2 mg/dL (0.0-0.3); Blood Urea Nitrogen 45 mg/dl (6-20); Gamma Glutamyl Transpeptidase 37 U/L (8-61); Magnesium 2.3 mg/dL (1.6-2.5); Uric Acid 4.4 mg/dL (2.5-8.0)
[2017-02-04] MEDS: SUCRALFATE 1 GM/10 ML ORAL.SUSP PO SCH ×4 (07:25→21:55)
[2017-02-04] MEDS: PANTOPRAZOLE 40 MG VIAL IV SCH ×2 (07:29→17:20)
[2017-02-04] MEDS: CALCIUM ACETATE 667 MG CAPSULE PO SCH ×5 (07:59→17:47)
--- NOTE | 2017-02-04 08:10 | XRay Report ---
CLINICAL INFORMATION: Cough shortness of breath COMPARISON: 01/26/2017 FINDINGS: The heart has increased in size now markedly enlarged. Mediastinum is unremarkable. Pulmonary vessels are moderately distended with mild interstitial edema throughout both lungs. Minor airspace disease in the right base could indicate developing infiltrate. No effusions IMPRESSION: Moderate recurrent CHF. Possible developing right basilar infiltrate Interpreted and Authenticated by: Roman Perez 02/04/17
[2017-02-04] MEDS ORDERED: levETIRAcetam 500 MG in 0.9 % SODIUM CHLORIDE 100 ML IV SCH ×2 (09:00→19:00)
[2017-02-04] MEDS: PHENYTOIN SOD 100 MG/2 ML VIAL IV SCH ×3 (09:38→21:54)
[2017-02-04] MEDS: hydrALAZINE 25 MG TABLET PO SCH ×3 (11:07→21:58)
[2017-02-04] MEDS: METOPROLOL TARTRATE 50 MG TABLET PO SCH ×2 (11:08→21:57)
[2017-02-04] MEDS: DOCUSATE SODIUM 100 MG CAPSULE PO SCH ×2 (11:08→21:59)
[2017-02-04] MEDS: NIFEdipine 30 MG TAB.XL.24H PO SCH ×2 (11:08→21:57)
[2017-02-04] MEDS: SERTRALINE 50 MG TABLET PO SCH (11:08)
[2017-02-04] MEDS: GABAPENTIN 100 MG CAPSULE PO SCH ×3 (11:08→21:57)
[2017-02-04] MEDS: DOXAZOSIN 4 MG TABLET PO SCH ×2 (11:08→21:58)
[2017-02-04] MEDS: NICOTINE 7 MG PATCH TOPICAL SCH (11:09)
[2017-02-04] MEDS ORDERED: cloNIDine HCL 0.1 MG TABLET SL PRN ×2 (11:15→17:25)
[2017-02-04] MEDS ORDERED: cloNIDine HCL 0.1 MG TABLET ONE (11:37)
[2017-02-04] MEDS ORDERED: niCARdipine 25 MG in 0.9 % SODIUM CHLORIDE 240 ML IV SCH ×2 (12:30→13:00)
--- NOTE | 2017-02-04 12:30 | Internal Med Progress Note ---
Medical - PN: Subj Patient information: Note initiated : 02/04/17 at 12:27 pm Service Date, if different from initiated Date: [] Patient: Jorge Bates 31 y/o M admitted on 01/26/17 for SOB, Coughing Up Blood/Upper GI Bleed. Chief Complaint: [] Interval history: Mr. Bates is a 31 year old Male presents to the ER last night with complaints of shortness of breath, he was also having some epigastric pain and nausea and some vomiting. Overnight he was noted to be chf and fluid overload secondary to his ESRD status. the patient had hb of 8.2 at that time. He underwent dialysis , but her had some coughing up of red sputum? vs spitting or vomiting bright red blood, not clear on the history here. The pt does admit having coffe ground emesis this AM before hemodialysis. The patient hb after hd is 7.4, and then dropped to 7.0 Initially there was no ICU bed available to admit the patient, later in the evening bed did become available, the patient was therefore admitted to the hospital ICu for close monitoring and treatment The patient notes that he has been having epigastric abdominal pain x 2 weeks, he note that he has had a few episodes of blood in his vomitus. He denies any conor or blood in the stools He denies using aspirin, nsaids, or consuming alcohol, admits to use of tobacco he does admit to having headaches and consuming some otc meds for same In the ER x ray chest showed chf, labs show hb of 7.0, hr was mildly tachycardic 100-120, bp elevated significantly likely as he did not get his bp meds january 27 Patient seen examined overnight events noted, bp is better on the nicardipine drip s/p EGD this Am, no ulcer only gastritis, plan for omeprazole and carafate outpatient surgery follow up with Dr gaby gandhi nephrology following, not sure if plan to have HD today. January 28 Patient seen examined no acute overnight events, still has migraine type headaches. he denies any other complaints his blood pressure went up again this AM needing reinitiation of nicardipine drip, he was off for a while. The patient bp meds this AM are resumed will check to see if his bp improves and if so d/c drip and get him on med surg status The patient has strong history of substance abuse, he has been trying to get in a inpatient rehab program to help. However as outpatient this has been difficult for him. He has been present in the ER 21 times this year in this facility, probably has been seen also in the other hospital. Case discussed with executive secretary social welfare to see if we can get him in a acute rehab program so as to help with his substance abuse issues. January 29 pt seen examined, notes had some vomiting with few blood streaks hb stable patient off nicardipine drip now, ok to xfer to med surg patient thinks he is withdrawing from his dailyi meth use, daily thc, tobacco use. prn ativan ordered. the patient later seen walking in his room and fairly comfortable and did not seem much in distress he is awaiting placement to inpatient rehab for his substance abuse issues. January 30: This 31-year-old man with a long-standing history of kidney failure, CHF, drug abuse, hypertension was admitted with volume overload and pulmonary vascular congestion. He also had nausea, vomiting and some bleeding, and endoscopy showed gastritis. Blood pressure was also initially poorly controlled. Both volume status and blood pressure are now improving, as he is receiving regular dialysis. He continues to have lots of discomforts related to drug withdrawal. He reports significant fatigue, aching all over, bitemporal headache, but is reportedly used to using daily marijuana and methamphetamines. Otherwise, he denies fever chills, shortness of breath, chest pain other than generalized aching, abdominal pain, nausea or vomiting, diarrhea or constipation. He is a anuric. January 31: The patient has no particular complaints today. He continues to have some chronic aches and pains and fatigue. He is still hopeful about getting into an inpatient rehab program, as he would like to move forward with his life. February 01: Earlier today, we got word from all of the rehab centers as well as the nursing homes, that they could not take the patient, as they could not accommodate both his rehab and his dialysis schedules. The patient was very upset, and was noted by staff to be sitting on the side of his bed crying. Shortly thereafter , an aide went in to help him, and found him lying on the floor. A rapid response was called, and as staff gathered to assist him, he had a grand mal seizure. Numerous staff members picked him up and placed him in his bed and rolled him onto his side. When vital signs were obtained, blood pressure, oxygenation, heart rate were fine. Patient was given IV Ativan, and the seizure ceased briefly, and then recurred. Seizures recurred numerous times after that, each time treated with IV Ativan. Eventually we obtained IV Keppra , and infuse that as well. Patient was then moved to the intensive care unit. Blood was drawn for chemistries and CBC, serum tox screen, Keppra level. Patient eventually settled down enough to go down for head CT. This shows patchy regions of low attenuation in the deep bifrontal and biparietal white matter, which could indicate ischemia versus other pathology. The radiologist notes the patient has already had several head CTs, and suggest that the next study be a brain MRI-seizure protocol. This morning, the patient was awake and alert. This evening, he is heavily sedated. He is only able to barely flutter his eyelids for me at this time. Nurses note that when he wakes up between seizures, he seems fairly alert and can follow commands. There was some concern of mild weakness of his left hand, but that appears inconsistent. Currently he is just too sedated to give any more of a history. We did search his bags in his room. We did find numerous loose pills as well as a pillbox. The pharmacist examined these, and they just appear to be his usual prescription medications. His girlfriend visited, and nurses asked her if the patient could have gotten hold of any illegal drugs. The girlfriend did not think so, although reportedly they both are known to abuse various drugs. February 02: Today, the patient notes all of his muscles feel quite sore. He is more awake and alert today. He is having some anxiety. Otherwise, he denies fever chills , chest pain or shortness of breath, abdominal pain nausea or vomiting. February 03: The patient was fairly sleepy this morning, but had reported increasing anxiety to the nurse earlier today, and had received Ativan. A little bit later he had a grand mal seizure, after taking a walk in the hallway. The nurses were able to get him into a chair as he started to say he was feeling odd, and then onto the floor. He did vomit, and they had his head turned to the side for that. He was given IV Ativan and the seizure resolved fairly quickly. However, he had at least 4 seizures after that. I contacted Dr. Kevin of the neurology service at [facility] in [place]. We reviewed the case. We pushed the patient's head CT and MRI to their facility. Dr. Kevin agreed with continued Keppra loading, and suggested we also add IV Dilantin. He said if the patient continues to have seizures, then we should try to send him to [place], to a facility where he could have continuous EEG monitoring, to confirm that these are seizures. The second time I saw the patient today, he was postictal. He could open his eyes, but was really quite limp and weak otherwise. Earlier today, he denied fever chills, chest pain or shortness of breath, GI or symptoms. February 04: This morning, the patient had another seizure. This responded to 2 mg of IV Ativan. Reviewing his records, it appeared that he did not get his evening dose of oral Keppra last night. This was given IV this morning, in addition to his IV Dilantin. He remains quite groggy ever since then. He reports generalized pain, but nothing focal. He reports he is hungry. However, when he seized, they did suction emesis out of his mouth, that look like it contained crackers, that he had eaten last night. Otherwise she denies fever chills, chest pain or shortness of breath, nausea or vomiting. Since this morning, blood pressures have been running very high. He is not responding well to IV hydralazine, IV Lopressor, sublingual clonidine. Medical History Fluid overload (Acute) Acute congestive heart failure (Acute) Hypertensive emergency (Acute) Mitral stenosis with insufficiency (Acute) Pulmonary hypertension (Acute) Substance use disorder (Chronic) Migraine (Acute) Pneumonia (Acute) HCAP (healthcare-associated pneumonia) (Acute) Acute anxiety (Acute) Sinusitis Hyperkalemia, diminished renal excretion (Acute) Gastroparesis (Acute) Generalized seizure (Acute) Anemia, blood loss (Acute) CRF (chronic renal failure) (Acute) Mitral regurgitation (Chronic) Epileptic seizure (Acute) FSGS (focal segmental glomerulosclerosis) with nephrosis (Resolved) Congestive heart failure (Acute) Anemia in chronic kidney disease (CKD) (Chronic) Restless legs (Chronic) - Constitutional Vitals: Vital Signs Temp Pulse Resp BP Pulse Ox 97.9 F 107 H 14 237/109 98 02/04/17 06:42 02/04/17 12:00 02/04/17 05:01 02/04/17 12:10 02/04/17 12:00 Period Temp Pulse Resp BP Sys/[place] Pulse Ox Last 24 Hr 97.9 F-100.9 F 69-108 14-18 122-240/77-138 92-100 Intake and Output 02/03/17 02/04/17 02/04/17 22:59 05:59 13:59 Intake Total 105 / 105 Balance 105 / 105 Weight Intake & Output: Intake & Output 02/03/17 02/04/17 02/04/17 22:59 05:59 13:59 Intake Total 105 / 105 Balance 105 / 105 Weight Intake: IV 105 / 105 Keppra 500 mg In Sodium 105 / 105 Chloride 0.9% 100 ml @ 200 mls/ hr IV Q12 [facility] Rx#:[id number] Oral Other: Meal Percent of Meal Consumed He remains quite groggy. His face was quite swollen this morning, according to nursing staff. It is less swollen at this time, but he still feels like his lips might be a little swollen. He does not report any trouble swallowing or feeling like he is having trouble breathing. Neck shows no obvious lymphadenopathy or JVD. Cardiac exam shows regular rate and rhythm. Lungs are clear to auscultation. Abdomen is soft and nontender. Extremities show no edema. Neurologic exam: The patient is currently quite weak, being post ictal. He is awake, but lethargic. He seems to be oriented. Cranial nerves are grossly intact. However, he has both horizontal and vertical nystagmus on EOM testing. Motor exam: Shows about 4 out of 5 strength in all extremities, without focal weakness. Cerebellar exam appears slow but without definite deficit. Deep tendon reflexes: Are 3+ and very brisk at biceps, and patellae. Toes are downgoing to plantar stimulation.. Medical - PN: Obj Da - Labs CBC & Chem 7: 02/04/17 04:00 02/04/17 04:00 Labs: Abnormal Lab Results 02/04/17 02/04/17 02/03/17 04:00 04:00 04:00 RBC 2.52 L Hgb 8.2 L Hct 24.6 L RDW 16.1 H MPV 7.2 L Lymph % (Auto) 13.9 L Lymph # (Auto) 1.2 L Sodium 132 L Chloride 89 L 93 L Anion Gap BUN 45 H 29 H Creatinine 6.8 H* 5.1 H* Calcium 8.5 L 8.3 L Phosphorus 5.4 H ALT Troponin T Total Protein 5.4 L Albumin 3.1 L 02/03/17 02/02/17 02/02/17 04:00 03:55 03:55 RBC 2.48 L 2.53 L Hgb 8.1 L 8.3 L Hct 24.0 L 24.7 L RDW 16.1 H 16.7 H MPV 7.0 L 7.2 L Lymph % (Auto) Lymph # (Auto) 1.2 L 1.2 L Sodium Chloride 92 L Anion Gap BUN 64 H Creatinine 7.9 H* Calcium Phosphorus ALT Troponin T Total Protein 5.2 L Albumin 2.7 L 02/01/17 02/01/17 12:50 12:50 RBC Hgb Hct RDW MPV Lymph % (Auto) Lymph # (Auto) Sodium Chloride 90 L Anion Gap 19.0 H BUN 53 H Creatinine 6.3 H* Calcium Phosphorus ALT 52 H Troponin T 0.07 H* Total Protein Albumin February 02: Brain MRI: IMPRESSION: Moderate patchy high signal within the deep cerebral white matter with a vague region in the central marielle. Findings are most compatible with chronic small arterial ischemic changes related to methamphetamine use. No acute disease 11 mm x 2 mm slitlike low signal lesion in the left external capsule and 3-4 tiny foci in the left lentiform nucleus should represent a small foci of hemosiderin compatible with chronic old hemorrhage related to small vessel disease/hypertension from illicit drug use.] February 01: Serum tox screen: Is pending. Keppra level is still pending also. CT of the brain without contrast: IMPRESSION: Moderate sized patchy regions of low attenuation in the deep bifrontal and biparietal white matter which could indicate ischemia or other pathology. Note: patient has had several CTs to evaluate seizures. At this point, suggest brain MRI - seizure protocol in an attempt to establish an epileptogenic focus which may be amenable to radiosurgery or other therapy EKG: Shows normal sinus rhythm at a rate of 79. He does have signs of LVH, and rather peaked T waves. This is compared to his EKG from January 26, 2017. There is some suggestion of ST elevation in leads V5 V6, but none of these changes appear significantly different from before. January 26: Nasal MRSA screen is negative. Chest x-ray: Showed pulmonary edema with mild cardiomegaly. This was improved on a follow-up film several hours later. Meds: Medications Albuterol/Ipratropium (Duoneb) 3 ml NEB Q4HRT PRN PRN Reason: Shortness Of Breath Or Wheezing Alprazolam (Xanax) 1 mg PO BIDP PRN PRN Reason: Anxiety Last Admin: 02/03/17 09:34 Dose: 1 mg Bisacodyl (Dulcolax) 10 mg NM Q2-3DAYS PRN PRN Reason: Constipation Calcium Acetate (Phoslo) 667 mg PO TIDCC [facility] Last Admin: 02/04/17 07:59 Dose: Not Given Calcium Carbonate/Glycine (Tums) 500 mg CHEWED Q4HP PRN PRN Reason: Dyspepsia Clonidine HCl (Catapres) 0.1 mg SL Q4HP PRN PRN Reason: Hypertension Stop: 02/04/17 23:59 Last Admin: 02/04/17 11:36 Dose: 0.1 mg Docusate Sodium (Colace) 100 mg PO BID [facility] Last Admin: 02/04/17 11:08 Dose: Not Given Doxazosin Mesylate (Cardura) 2 mg PO BID [facility] Last Admin: 02/04/17 11:08 Dose: Not Given Gabapentin (Neurontin) 200 mg PO TID [facility] Last Admin: 02/04/17 11:08 Dose: Not Given Hydralazine HCl (Apresoline) 100 mg PO TID [facility] Last Admin: 02/04/17 11:07 Dose: Not Given Hydralazine HCl (Apresoline) 20 mg IV Q8HP PRN PRN Reason: Hypertension Last Admin: 02/04/17 11:02 Dose: 20 mg Hydromorphone HCl (Dilaudid) 0.5 mg IV Q2HP PRN PRN Reason: Pain Last Admin: 02/04/17 07:38 Dose: 0.5 mg Hydromorphone HCl (Dilaudid) 2 mg PO Q3HP PRN PRN Reason: Pain Levetiracetam 500 mg/ Sodium (Chloride) 105 mls @ 200 mls/hr IV Q12 [facility] Last Infusion: 02/04/17 07:25 Dose: Infused Lorazepam (Ativan) 2 mg IV Q30M PRN PRN Reason: Seizures Last Admin: 02/04/17 06:10 Dose: 2 mg Magnesium Hydroxide (Milk Of Magnesia) 30 ml PO DAILYP PRN PRN Reason: Constipation Metoprolol Tartrate (Lopressor) 5 mg IV Q4HP PRN PRN Reason: Blood Pressure - High Last Admin: 02/04/17 07:58 Dose: 5 mg Metoprolol Tartrate (Lopressor) 100 mg PO BID [facility] Last Admin: 02/04/17 11:08 Dose: Not Given Naloxone HCl (Narcan) 0.1 mg IV Q2MIN PRN PRN Reason: Opiate Reversal Nicotine (Nicoderm) 7 mg TOPICAL DAILY@1000 [facility] Last Admin: 02/04/17 11:09 Dose: Not Given Nifedipine (Procardia Xl) 60 mg PO BID [facility] Last Admin: 02/04/17 11:08 Dose: Not Given Ondansetron HCl (Zofran) 4 mg IV Q4-6HP PRN PRN Reason: Nausea And Vomiting Last Admin: 02/03/17 19:08 Dose: 4 mg Pantoprazole Sodium (Protonix) 40 mg IV BIDAC [facility] Last Admin: 02/04/17 07:29 Dose: 40 mg Phenytoin Sodium (Dilantin) 100 mg IV TID [facility] Last Admin: 02/04/17 09:38 Dose: 100 mg Ropinirole HCl (Requip) 0.5 mg PO HS [facility] Last Admin: 02/03/17 21:17 Dose: Not Given Sertraline HCl (Zoloft) 100 mg PO DAILY [facility] Last Admin: 02/04/17 11:08 Dose: Not Given Sodium Chloride (Saline Flush) 10 ml IV Q8 [facility] Last Admin: 02/04/17 11:02 Dose: 10 ml Sucralfate (Carafate) 1 gm PO ACHS [facility] Last Admin: 02/04/17 11:36 Dose: Not Given Trazodone HCl (Desyrel) 150 mg PO HSP PRN PRN Reason: Insomnia Medical - PN: A/P - Time Spent With Patient Total time spent is greater than 50% in coordination of care (as documented) at patient's floor/unit and/or counseling patient: Greater than 35 minutes - Narrative A/P Narrative: A/P #1. Neurologic. Patient developed acute onset of multiple seizures day before 3 days ago.. These were generalized, tonic-clonic. Head CT is abnormal, worrisome for possible ischemic changes. MRI is also suggestive of possible ischemic changes. The radiologist was worried about the possibility of something very unusual in this young patient, possibly MS type changes, but after hearing his history, thinks these are likely ischemic changes due to chronic methamphetamine use. Patient may have an old chronic hemorrhage as well. This could certainly act as a seizure focus. -The patient had multiple seizures yesterday.. After reviewing the case with Dr. Kevin of neurology, at [facility], he suggested we also load the patient with Dilantin. If the patient has breakthrough seizures after this, he suggested we ship him up there so he can have continuous EEG monitoring. The cause of his seizures is still not clear, although there is concern for methamphetamine-induced ischemia. The patient is also, however, at risk for cerebrovascular disease due to renal failure and hypertension. -The patient did have another seizure this morning. However, it was discovered that he missed his evening dose of Keppra last night. Apparently he was not awake enough to take the p.o. dose, and no one requested we change that to IV. He was given both IV Keppra and IV Dilantin this morning, in addition to Ativan for the seizure. His neurologic exam is currently abnormal, but this may just be post ictal. He is having significant nystagmus also. We are now dealing with quite severe hypertension. So far this is not responded to IV hydralazine, IV Lopressor, sublingual clonidine. I will now add back the nicardipine drip. -If he has any further seizures, we need to call [facility] in [place] back, and request transfer to their neurology unit, where he can be monitored with continuous EEG. They did not have any ICU beds for him yesterday. He will need follow-up with neurology at some point. #2.. Cardiopulmonary. Patient presented with acute pulmonary vascular congestion due to volume overload, due to renal failure. He is now status post dialysis, and volume is closer to euvolemic. #3. GI. Patient did have some heme positive emesis, and upper endoscopy showed gastritis. He is no longer having vomiting or abdominal pain, and is maintained on PPI. Hemoglobin has been stable. continue Carafate as well. #4.. Renal. Patient continues with regular dialysis to manage electrolytes and volume. Continue calcium acetate. Renal diet. 5. Malignant hypertension. Blood pressures are now well controlled. Continue hydralazine, metoprolol. continue doxazosin. Blood pressure is again very high this afternoon. See above. 6. Anxiety. Continue as needed Xanax. Gabapentin ongoing may also help. Continue sertraline. Continue trazodone. 7. Restless leg syndrome. continue alprazolam, gabapentin, Requip. 8. Seizure disorder. See #1 above. Keppra level was ordered, but is a send out, so has not come back yet. 9. CODE STATUS: Full code. 10. DVT prophylaxis: SCDs. 11. Ongoing substance abuse issues. Patient met with [facility]. We were all hopeful that he could get into an inpatient rehab program, as he really hopes to work on this issue. Apparently the program we were looking at his objecting to his dialysis schedule, thinking it would be disruptive. We also tried to get him into a retirement setting, so that he could do an outpatient rehab program, as social work feels that his home setting is too tempting in terms of resuming drugs. However, they also turned him down . Approximately 45 minutes has been spent so far today, reviewing the patient's test results, interviewing and examining him , reviewing plan of care with staff , . Medical - PN: Qual - VTE Deep Vein Thrombosis/Pulmonary Embolism Present on Admission: No
[2017-02-04] MEDS ORDERED: PIPERACILLIN SODIUM/TAZOBACTAM 2.25 GM in DEXTROSE 5% IN WATER 50 ML IV SCH (13:00)
--- NOTE | 2017-02-04 16:44 | Nephrology Progress Note ---
Subjective Patient information: Note initiated : 02/04/17 at 4:42 pm Service Date, if different from initiated Date: [] Patient: Jorge Bates 31 y/o M admitted on 01/26/17 for SOB, Coughing Up Blood/Upper GI Bleed. Chief Complaint: [] Principal diagnosis: GI Bleed Interval history: Patient continues to have repeated seizures His case was discussed by Dr East with neurology at [facility] she was advised to load the patient with dilantin Patient however had a seizure again this as he did not get his routine antiseizure meds He c/o SOB with minimal activity, he is on 4L oxygen today and hiS CXR shows moderate CHF again His BP has been uncontrolled and he was restarted on nicardipine gtt He denies CP he has no new concerns Pertinent ROS: as above Objective - Vital Signs Vital signs: Vital Signs Temp Pulse Resp BP Pulse Ox 02/04/17 16:00 184/102 02/04/17 15:55 184/106 02/04/17 15:50 103 H 178/104 95 02/04/17 15:45 100 H 163/93 96 02/04/17 15:40 100 H 163/92 95 02/04/17 15:35 105 H 164/95 78 L 02/04/17 15:30 101 H 157/91 96 02/04/17 15:25 103 H 162/89 97 02/04/17 15:20 105 H 164/98 97 02/04/17 15:15 103 H 161/91 93 02/04/17 15:10 105 H 158/93 94 02/04/17 15:05 106 H 161/94 94 02/04/17 15:00 107 H 144/97 99 02/04/17 14:59 104 H 94 02/04/17 14:50 105 H 154/84 91 02/04/17 14:45 105 H 157/85 91 02/04/17 14:40 105 H 157/85 92 02/04/17 14:35 106 H 158/89 92 02/04/17 14:31 106 H 166/89 91 02/04/17 14:25 106 H 167/84 96 02/04/17 14:20 107 H 166/89 91 02/04/17 14:15 108 H 166/93 92 02/04/17 14:10 108 H 170/97 91 02/04/17 14:05 109 H 168/95 89 L 02/04/17 14:04 108 H 88 L 02/04/17 14:00 108 H 173/99 89 L 02/04/17 13:57 108 H 174/98 92 02/04/17 13:50 112 H 199/112 94 02/04/17 13:45 113 H 208/112 97 02/04/17 13:40 110 H 206/114 96 02/04/17 13:35 109 H 194/111 97 02/04/17 13:30 110 H 204/111 94 02/04/17 13:25 112 H 210/116 95 02/04/17 13:20 109 H 205/108 94 02/04/17 13:10 108 H 202/105 95 02/04/17 13:05 107 H 201/106 97 02/04/17 13:00 106 H 189/102 100 02/04/17 12:45 108 H 204/98 95 02/04/17 12:30 108 H 241/119 100 02/04/17 12:15 230/106 02/04/17 12:10 237/109 02/04/17 12:00 107 H 240/112 98 02/04/17 11:45 108 H 230/122 97 02/04/17 11:30 99 H 223/108 97 02/04/17 11:25 99 H 213/106 92 02/04/17 11:22 100 H 100 02/04/17 11:15 232/101 02/04/17 11:12 223/105 02/04/17 11:08 221/109 02/04/17 11:01 207/133 02/04/17 10:01 192/116 02/04/17 09:01 178/110 02/04/17 08:36 82 190/111 98 02/04/17 08:31 81 184/109 100 02/04/17 08:26 80 187/100 100 02/04/17 08:21 80 191/108 100 02/04/17 08:16 80 186/105 100 02/04/17 08:11 80 186/107 100 02/04/17 08:06 78 188/105 100 02/04/17 08:05 79 100 02/04/17 08:01 82 184/110 100 02/04/17 08:00 100 02/04/17 07:56 79 192/106 100 02/04/17 07:51 185/107 02/04/17 07:46 191/111 02/04/17 07:41 200/111 02/04/17 07:36 80 201/112 100 02/04/17 07:31 82 200/116 100 02/04/17 07:26 79 199/112 99 02/04/17 07:22 81 99 02/04/17 07:21 79 189/108 100 02/04/17 07:16 78 200/112 100 02/04/17 07:11 80 178/112 100 02/04/17 07:06 80 151/138 100 02/04/17 07:01 77 185/102 99 02/04/17 06:56 77 197/106 99 02/04/17 06:51 77 201/110 100 02/04/17 06:46 77 200/123 99 02/04/17 06:42 97.9 F 02/04/17 06:41 77 200/116 100 02/04/17 06:36 76 200/115 100 02/04/17 06:31 75 200/109 100 02/04/17 06:27 77 188/116 100 02/04/17 06:25 77 212/121 100 02/04/17 06:21 78 211/120 100 02/04/17 06:01 76 205/120 93 02/04/17 05:01 14 183/126 95 02/04/17 04:01 98.8 F 74 18 159/105 100 02/04/17 03:01 72 182/107 100 02/04/17 02:01 71 169/111 100 02/04/17 01:01 PST 73 174/100 98 02/04/17 00:00 98.3 F 71 148/95 99 02/03/17 23:30 71 147/89 98 02/03/17 23:00 71 144/87 97 02/03/17 22:30 70 140/94 97 02/03/17 22:00 70 138/85 97 02/03/17 21:30 69 144/84 96 02/03/17 21:00 149/91 96 02/03/17 20:31 71 135/80 98 02/03/17 20:01 98.3 F 72 16 122/77 97 02/03/17 19:48 72 96 02/03/17 19:31 73 133/77 93 02/03/17 19:16 92 02/03/17 19:01 74 139/84 94 02/03/17 18:31 72 132/86 95 02/03/17 18:01 72 135/83 96 Intake and Output 02/04/17 02/04/17 02/04/17 05:59 13:59 21:59 Intake Total 105 / 105 308 / 308 Balance 105 / 105 308 / 308 Intake: IV 105 / 105 108 / 108 Zosyn 2.25 gm In Dextrose 5% in 50 / 50 Water 50 ml @ 100 mls/hr IV Q8H ANDRE Rx#:[id number] Keppra 500 mg In Sodium 105 / 105 Chloride 0.9% 100 ml @ 200 mls/ hr IV Q12 ANDRE Rx#:[id number] Cardene 25 MG In Sodium 58 / 58 Chloride 0.9% 240 ml @ 5 MG/HR 50 mls/hr IV Q5H ANDRE Rx#: [id number] Oral 200 / 200 Other: Meal Dinner Percent of Meal Consumed 100% Intake & Output: Intake & Output 02/04/17 02/04/17 02/04/17 05:59 13:59 21:59 Intake Total 105 / 105 308 / 308 Balance 105 / 105 308 / 308 Intake: IV 105 / 105 108 / 108 Zosyn 2.25 gm In Dextrose 5% in 50 / 50 Water 50 ml @ 100 mls/hr IV Q8H ANDRE Rx#:[id number] Keppra 500 mg In Sodium 105 / 105 Chloride 0.9% 100 ml @ 200 mls/ hr IV Q12 ANDRE Rx#:[id number] Cardene 25 MG In Sodium 58 / 58 Chloride 0.9% 240 ml @ 5 MG/HR 50 mls/hr IV Q5H ANDRE Rx#: [id number] Oral 200 / 200 Other: Meal Dinner Percent of Meal Consumed 100% - General Appearance General appearance: appears started age, chronically ill EENT: mucous membranes moist Neck: JVD Respiratory: rales Cardiology: no rub, edema, rapid rhythm Gastrointestinal: no tenderness, no organomegaly Integumentary: warm and dry Neurologic: alert and oriented x3 Musculoskeletal: no erythema, no cyanosis Psychiatric: mood/affect appropriate - Lab 11/05/17 04:00 02/04/17 04:00 Most recent lab results Calcium 8.5 mg/dl (8.6-10.4) L 02/04/17 04:00 Phosphorus 5.4 mg/dL (2.7-4.5) H 02/04/17 04:00 Magnesium 2.3 mg/dL (1.6-2.5) 02/04/17 04:00 Assessment and Plan (1) Anemia Status: Acute (2) ESRD (end stage renal disease) on dialysis Patient will be dialysed today for fluid overload dialysis today for 3 hrs using revaclear dialyser, 3K/2.5Ca dialysate, UF goal of 2-3L as tolerated or to DW, qb 400ml/min and qd700/800ml/min his next HD is on Sunday uncontrolled HTN: on nicardipine drip seizures, on keppra and dilantin [facility] if another seizure for neurology care anemia: s/p one unit prbc and also received aranesp, will transfuse again if Hb drops to below 7, hopefully will improve though will follow appreciate hospitalist help in this patient Status: Acute
[2017-02-04] MEDS ORDERED: IPRATROPIUM/ALBUTEROL 3 ML AMPUL.NEB NEB PRN (17:25)
[2017-02-04] MEDS ORDERED: MAGNESIUM HYDROXIDE 30 ML ORAL.SUSP PO PRN (17:25)
[2017-02-04] MEDS ORDERED: traZODone HCL 150 MG TABLET PO PRN (17:25)
[2017-02-04] MEDS ORDERED: HYDROmorphone 2 MG/ML SYRINGE IV PRN (17:25)
[2017-02-04] MEDS ORDERED: ONDANSETRON 4 MG/2 ML VIAL IV PRN (17:25)
[2017-02-04] MEDS ORDERED: NALOXONE HCL 0.4 MG/ML VIAL IV PRN (17:25)
[2017-02-04] MEDS ORDERED: BISACODYL 10 MG SUPP.RECT PR PRN (17:25)
[2017-02-04] MEDS ORDERED: CALCIUM CARBONATE 500 MG TAB.CHEW CHEWED PRN (17:25)
[2017-02-04] MEDS: niCARdipine 25 MG in 0.9 % SODIUM CHLORIDE 240 ML IV SCH ×3 (17:52→22:39)
[2017-02-04] MEDS ORDERED: HYDROmorphone 2 MG/ML SYRINGE ONE (18:05)
[2017-02-04] MEDS ORDERED: HYDROmorphone 2 MG TABLET ONE (18:05)
[2017-02-04] MEDS ORDERED: LORazepam 2 MG/ML VIAL ONE (18:06)
--- NOTE | 2017-02-04 18:35 | XRay Report ---
CLINICAL INFORMATION: Shortness of breath COMPARISON: 02/03/2017 FINDINGS: The heart is moderately enlarged, but slightly decreased. Mediastinum unremarkable. Pulmonary vessels have decreased in caliber slightly, but remain mildly distended. Diffuse interstitial edema has improved but there is a modest residual. No infiltrates or effusions IMPRESSION: Mild/moderate CHF - improved radiographically from yesterday Interpreted and Authenticated by: Roman Perez 02/04/17
[2017-02-04] MEDS ORDERED: 0.9 % SODIUM CHLORIDE 10 ML SYRINGE IV PRN (19:41)
--- NOTE | 2017-02-04 20:01 | XRay Report ---
CLINICAL INFORMATION: PICC placement and CHF COMPARISON: 02/04/2017 1259 hours FINDINGS: Moderate cardiomegaly is unchanged. Mediastinum is unremarkable. The pulmonary vessels decrease in caliber remain mildly distended. Mild interstitial edema is improved slightly. Right PICC line is in satisfactory position with tip overlying the SVC right atrial junction. There are no effusions IMPRESSION: PICC line satisfactory position. Mild to moderate CHF - improved slightly Interpreted and Authenticated by: Roman Perez 02/04/17
[2017-02-04] MEDS ORDERED: ALPRAZolam 0.5 MG TABLET PO SCH (21:00)
[2017-02-04] MEDS ORDERED: rOPINIRole 0.25 MG TABLET PO SCH (21:00)
[2017-02-04] MEDS ORDERED: HEPARIN 5,000 UNIT/ML VIAL SQ SCH (21:00)
[2017-02-04] MEDS: LORazepam 2 MG/ML VIAL IV PRN (21:38)
[2017-02-04] MEDS: HEPARIN 5,000 UNIT/ML VIAL SQ SCH (21:55)
[2017-02-04] MEDS: ALPRAZolam 0.5 MG TABLET PO SCH (21:57)
[2017-02-04] MEDS: HYDROmorphone 2 MG TABLET PO PRN (21:59)
[2017-02-04] MEDS: levETIRAcetam 500 MG in 0.9 % SODIUM CHLORIDE 100 ML IV SCH (21:59)
[2017-02-04] MEDS: PIPERACILLIN SODIUM/TAZOBACTAM 2.25 GM in DEXTROSE 5% IN WATER 50 ML IV SCH (22:14)
[2017-02-05] MEDS: niCARdipine 25 MG in 0.9 % SODIUM CHLORIDE 240 ML IV SCH ×2 (05:10→09:10)
[2017-02-05] MEDS: PIPERACILLIN SODIUM/TAZOBACTAM 2.25 GM in DEXTROSE 5% IN WATER 50 ML IV SCH ×2 (05:56→15:22)
[2017-02-05] MEDS: 0.9 % SODIUM CHLORIDE 10 ML SYRINGE IV SCH ×2 (05:56→16:25)
[2017-02-05 05:59] LABS: Basophils # (Auto) 0 K/mcL (0.0-0.3); Basophils % (Auto) 0.3 % (0.0-2.0); Eosinophils # (Auto) 0.3 K/mcL (0.0-0.7); Eosinophils % (Auto) 2.6 % (0.0-7.0); Granulocytes % (Auto) 79.9 % (38.0-78.0); Lymphocytes # (Auto) 1.1 K/mcL (1.5-4.8); Lymphocytes % (Auto) 9.8 % (15.5-49.0); Mean Cell Volume 97.9 fL (80.0-100.0); Mean Corpuscular HGB Conc 32.7 g/dL (31.0-36.0); Mean Corpuscular Hemoglobin 32.1 pg (26.0-34.0); Monocytes # (Auto) 0.9 K/mcL (0.1-0.9); Monocytes % (Auto) 7.4 % (1.0-12.0); Platelet Count 170 K/mcL (140-440); RBC 2.23 M/mcL (4.50-5.90); Red Cell Distribution Width 15.7 % (11.5-14.5)
[2017-02-05 06:01] LABS: ALT/SGPT 30 U/l (0-40); Albumin 3.1 gm/dL (3.2-5.2); Albumin/Globulin Ratio 1.4 (1.0-2.3); Alkaline Phosphatase 50 U/L (39-117); Bilirubin,Direct < 0.2 mg/dL (0.0-0.3); Blood Urea Nitrogen 31 mg/dl (6-20); Gamma Glutamyl Transpeptidase 36 U/L (8-61); Uric Acid 2.6 mg/dL (2.5-8.0)
[2017-02-05] MEDS: LORazepam 2 MG/ML VIAL IV PRN ×4 (06:39→18:55)
[2017-02-05] MEDS: levETIRAcetam 500 MG in 0.9 % SODIUM CHLORIDE 100 ML IV SCH (07:37)
[2017-02-05 07:46] LABS: Iron 33 mcg/dl (61-157)
[2017-02-05] MEDS: HYDROmorphone 2 MG TABLET PO PRN ×2 (07:48→17:11)
[2017-02-05] MEDS: PANTOPRAZOLE 40 MG VIAL IV SCH ×2 (07:48→17:13)
[2017-02-05] MEDS: SUCRALFATE 1 GM/10 ML ORAL.SUSP PO SCH ×3 (07:48→17:14)
[2017-02-05] MEDS: CALCIUM ACETATE 667 MG CAPSULE PO SCH ×3 (08:17→17:13)
[2017-02-05] MEDS: NIFEdipine 30 MG TAB.XL.24H PO SCH (08:44)
[2017-02-05] MEDS: HEPARIN 5,000 UNIT/ML VIAL SQ SCH (08:45)
[2017-02-05] MEDS: METOPROLOL TARTRATE 50 MG TABLET PO SCH (08:46)
[2017-02-05] MEDS: ALPRAZolam 0.5 MG TABLET PO SCH (08:49)
[2017-02-05] MEDS: hydrALAZINE 25 MG TABLET PO SCH ×2 (08:50→16:24)
[2017-02-05] MEDS: PHENYTOIN SOD 100 MG/2 ML VIAL IV SCH ×2 (08:53→16:24)
[2017-02-05] MEDS: GABAPENTIN 100 MG CAPSULE PO SCH ×2 (08:54→16:24)
[2017-02-05] MEDS: DOXAZOSIN 4 MG TABLET PO SCH (08:58)
[2017-02-05] MEDS ORDERED: SERTRALINE 50 MG TABLET PO SCH (09:00)
[2017-02-05] MEDS: DOCUSATE SODIUM 100 MG CAPSULE PO SCH (09:05)
[2017-02-05] MEDS ORDERED: 0.9 % SODIUM CHLORIDE 250 ML IV SCH (09:15)
[2017-02-05] MEDS ORDERED: NICOTINE 7 MG PATCH TOPICAL SCH (10:00)
[2017-02-05] MEDS: METOPROLOL TARTRATE 5 MG/5 ML VIAL IV PRN ×2 (12:45→17:38)
--- NOTE | 2017-02-05 13:30 | Internal Med Progress Note ---
Medical - PN: Subj Patient information: Note initiated : 02/05/17 at 1:27 pm Service Date, if different from initiated Date: [] Patient: Jorge Bates 31 y/o M admitted on 01/26/17 for SOB, Coughing Up Blood/Upper GI Bleed. Chief Complaint: [] Interval history: Mr. Bates is a 31 year old Male presents to the ER last night with complaints of shortness of breath, he was also having some epigastric pain and nausea and some vomiting. Overnight he was noted to be chf and fluid overload secondary to his ESRD status. the patient had hb of 8.2 at that time. He underwent dialysis , but her had some coughing up of red sputum? vs spitting or vomiting bright red blood, not clear on the history here. The pt does admit having coffe ground emesis this AM before hemodialysis. The patient hb after hd is 7.4, and then dropped to 7.0 Initially there was no ICU bed available to admit the patient, later in the evening bed did become available, the patient was therefore admitted to the hospital ICu for close monitoring and treatment The patient notes that he has been having epigastric abdominal pain x 2 weeks, he note that he has had a few episodes of blood in his vomitus. He denies any conor or blood in the stools He denies using aspirin, nsaids, or consuming alcohol, admits to use of tobacco he does admit to having headaches and consuming some otc meds for same In the ER x ray chest showed chf, labs show hb of 7.0, hr was mildly tachycardic 100-120, bp elevated significantly likely as he did not get his bp meds january 27 Patient seen examined overnight events noted, bp is better on the nicardipine drip s/p EGD this Am, no ulcer only gastritis, plan for omeprazole and carafate outpatient surgery follow up with Dr gaby gandhi nephrology following, not sure if plan to have HD today. January 28 Patient seen examined no acute overnight events, still has migraine type headaches. he denies any other complaints his blood pressure went up again this AM needing reinitiation of nicardipine drip, he was off for a while. The patient bp meds this AM are resumed will check to see if his bp improves and if so d/c drip and get him on med surg status The patient has strong history of substance abuse, he has been trying to get in a inpatient rehab program to help. However as outpatient this has been difficult for him. He has been present in the ER 21 times this year in this facility, probably has been seen also in the other hospital. Case discussed with adoption social worker to see if we can get him in a acute rehab program so as to help with his substance abuse issues. January 29 pt seen examined, notes had some vomiting with few blood streaks hb stable patient off nicardipine drip now, ok to xfer to med surg patient thinks he is withdrawing from his dailyi meth use, daily thc, tobacco use. prn ativan ordered. the patient later seen walking in his room and fairly comfortable and did not seem much in distress he is awaiting placement to inpatient rehab for his substance abuse issues. January 30: This 31-year-old man with a long-standing history of kidney failure, CHF, drug abuse, hypertension was admitted with volume overload and pulmonary vascular congestion. He also had nausea, vomiting and some bleeding, and endoscopy showed gastritis. Blood pressure was also initially poorly controlled. Both volume status and blood pressure are now improving, as he is receiving regular dialysis. He continues to have lots of discomforts related to drug withdrawal. He reports significant fatigue, aching all over, bitemporal headache, but is reportedly used to using daily marijuana and methamphetamines. Otherwise, he denies fever chills, shortness of breath, chest pain other than generalized aching, abdominal pain, nausea or vomiting, diarrhea or constipation. He is a anuric. January 31: The patient has no particular complaints today. He continues to have some chronic aches and pains and fatigue. He is still hopeful about getting into an inpatient rehab program, as he would like to move forward with his life. February 01: Earlier today, we got word from all of the rehab centers as well as the nursing homes, that they could not take the patient, as they could not accommodate both his rehab and his dialysis schedules. The patient was very upset, and was noted by staff to be sitting on the side of his bed crying. Shortly thereafter , an aide went in to help him, and found him lying on the floor. A rapid response was called, and as staff gathered to assist him, he had a grand mal seizure. Numerous staff members picked him up and placed him in his bed and rolled him onto his side. When vital signs were obtained, blood pressure, oxygenation, heart rate were fine. Patient was given IV Ativan, and the seizure ceased briefly, and then recurred. Seizures recurred numerous times after that, each time treated with IV Ativan. Eventually we obtained IV Keppra , and infuse that as well. Patient was then moved to the intensive care unit. Blood was drawn for chemistries and CBC, serum tox screen, Keppra level. Patient eventually settled down enough to go down for head CT. This shows patchy regions of low attenuation in the deep bifrontal and biparietal white matter, which could indicate ischemia versus other pathology. The radiologist notes the patient has already had several head CTs, and suggest that the next study be a brain MRI-seizure protocol. This morning, the patient was awake and alert. This evening, he is heavily sedated. He is only able to barely flutter his eyelids for me at this time. Nurses note that when he wakes up between seizures, he seems fairly alert and can follow commands. There was some concern of mild weakness of his left hand, but that appears inconsistent. Currently he is just too sedated to give any more of a history. We did search his bags in his room. We did find numerous loose pills as well as a pillbox. The pharmacist examined these, and they just appear to be his usual prescription medications. His girlfriend visited, and nurses asked her if the patient could have gotten hold of any illegal drugs. The girlfriend did not think so, although reportedly they both are known to abuse various drugs. February 02: Today, the patient notes all of his muscles feel quite sore. He is more awake and alert today. He is having some anxiety. Otherwise, he denies fever chills , chest pain or shortness of breath, abdominal pain nausea or vomiting. February 03: The patient was fairly sleepy this morning, but had reported increasing anxiety to the nurse earlier today, and had received Ativan. A little bit later he had a grand mal seizure, after taking a walk in the hallway. The nurses were able to get him into a chair as he started to say he was feeling odd, and then onto the floor. He did vomit, and they had his head turned to the side for that. He was given IV Ativan and the seizure resolved fairly quickly. However, he had at least 4 seizures after that. I contacted Dr. Kevin of the neurology service at [facility] in [place]. We reviewed the case. We pushed the patient's head CT and MRI to their facility. Dr. Kevin agreed with continued Keppra loading, and suggested we also add IV Dilantin. He said if the patient continues to have seizures, then we should try to send him to [place], to a facility where he could have continuous EEG monitoring, to confirm that these are seizures. The second time I saw the patient today, he was postictal. He could open his eyes, but was really quite limp and weak otherwise. Earlier today, he denied fever chills, chest pain or shortness of breath, GI or symptoms. February 04: This morning, the patient had another seizure. This responded to 2 mg of IV Ativan. Reviewing his records, it appeared that he did not get his evening dose of oral Keppra last night. This was given IV this morning, in addition to his IV Dilantin. He remains quite groggy ever since then. He reports generalized pain, but nothing focal. He reports he is hungry. However, when he seized, they did suction emesis out of his mouth, that look like it contained crackers, that he had eaten last night. Otherwise she denies fever chills, chest pain or shortness of breath, nausea or vomiting. Since this morning, blood pressures have been running very high. He is not responding well to IV hydralazine, IV Lopressor, sublingual clonidine. February 05 Patient seen examined, this AM was groggy but denies any acute issues, he still notes some blurring of vision in his eyes, but has not had any seizures since yesterday AM. The patient remains on nicardipine drip for his HTN, as well as IV anti seizure medications. HE seems to be awake enough to take his oral meds this AM. Patient hb dropped agin, luisa e/o bleeding, transfuse 2 units prbc today, hd as per nephrology if patient has any further seizure episodes, will need to xfer to higher center. He was not transferred yesterday as he had missed his anti seizure medication. Patient denies using drugs while in the hospital. Medical History Fluid overload (Acute) Acute congestive heart failure (Acute) Hypertensive emergency (Acute) Mitral stenosis with insufficiency (Acute) Pulmonary hypertension (Acute) Substance use disorder (Chronic) Migraine (Acute) Pneumonia (Acute) HCAP (healthcare-associated pneumonia) (Acute) Acute anxiety (Acute) Sinusitis Hyperkalemia, diminished renal excretion (Acute) Gastroparesis (Acute) Generalized seizure (Acute) Anemia, blood loss (Acute) CRF (chronic renal failure) (Acute) Mitral regurgitation (Chronic) Epileptic seizure (Acute) FSGS (focal segmental glomerulosclerosis) with nephrosis (Resolved) Congestive heart failure (Acute) Anemia in chronic kidney disease (CKD) (Chronic) Restless legs (Chronic) Pertinent ROS: Present headache, dizziness Denies chest pain, palpitations Denies cough or shortness of breath Denies abdominal pain, nausea or vomiting. - Constitutional Vitals: Vital Signs Temp Pulse Resp BP Pulse Ox 98.6 F 79 12 153/90 100 02/05/17 12:21 02/05/17 12:58 02/05/17 11:31 02/05/17 12:58 02/05/17 12:37 Period Temp Pulse Resp BP Sys/Umana Pulse Ox Last 24 Hr 98.6 F-100.5 F 73-113 12-15 114-208/59-168 78-100 Intake and Output 02/04/17 02/05/17 02/05/17 21:59 05:59 13:59 Intake Total 308 / 308 795 / 795 50 / 50 Output Total 3000 / 3000 Balance -2692 / -2692 795 / 795 50 / 50 Weight 156 lb 4.8 oz Intake & Output: Intake & Output 02/04/17 02/05/17 02/05/17 21:59 05:59 13:59 Intake Total 308 / 308 795 / 795 50 / 50 Output Total 3000 / 3000 Balance -2692 / -2692 795 / 795 50 / 50 Weight 156 lb 4.8 oz Intake: IV 108 / 108 555 / 555 50 / 50 Zosyn 2.25 gm In Dextrose 5% in 50 / 50 50 / 50 50 / 50 Water 50 ml @ 100 mls/hr IV Q8H ANDRE Rx#:[id number] Keppra 500 mg In Sodium 105 / 105 Chloride 0.9% 100 ml @ 200 mls/ hr IV Q12H ANDRE Rx#:[id number] Cardene 25 MG In Sodium 58 / 58 208 / 208 Chloride 0.9% 240 ml @ 5 MG/HR 50 mls/hr IV Q5H ANDRE Rx#: [id number] Oral 200 / 200 240 / 240 Output: Hemodialysis UF 3000 / 3000 Other: Meal Dinner Percent of Meal Consumed 100% Exam: Constitutional; Afebrile, cooperative, drowsy, not in distress. Eyes- No icterus, , No periorbital swelling, pupils reactiev to light. Ears- Ext ear normal, hearing normal to conversation. Neck- Midline trachea, supple Respiratory system: Air Entry equal on both sides, No crackles or wheezing, no rhonchi. CVS- Rate rhythm regular, S1,S2 heard, no gallop, no rub. Abdomen- Soft nontender abdomen, no organomegaly, no tenderness, no guarding or rigidity, MOUNTER CLARINETS- AOOx3, moving all extremities, no gross focal deficit noted. Medical - PN: Obj Da - Labs CBC & Chem 7: 02/05/17 07:15 02/05/17 04:00 Labs: Abnormal Lab Results 02/05/17 02/05/17 02/05/17 07:15 04:10 04:00 WBC RBC Hgb 7.3 L Hct 21.7 L RDW MPV Gran % Lymph % (Auto) Gran # Lymph # (Auto) Sodium 130 L Chloride 91 L BUN 31 H Creatinine 5.8 H* Calcium 8.2 L Phosphorus Iron 33 L Total Protein 5.3 L Albumin 3.1 L 02/05/17 02/04/17 02/04/17 04:00 04:00 04:00 WBC 11.8 H RBC 2.23 L 2.52 L Hgb 7.1 L 8.2 L Hct 21.8 L 24.6 L RDW 15.7 H 16.1 H MPV 7.2 L 7.2 L Gran % 79.9 H Lymph % (Auto) 9.8 L 13.9 L Gran # 9.4 H Lymph # (Auto) 1.1 L 1.2 L Sodium 132 L Chloride 89 L BUN 45 H Creatinine 6.8 H* Calcium 8.5 L Phosphorus 5.4 H Iron Total Protein Albumin 02/03/17 02/03/17 04:00 04:00 WBC RBC 2.48 L Hgb 8.1 L Hct 24.0 L RDW 16.1 H MPV 7.0 L Gran % Lymph % (Auto) Gran # Lymph # (Auto) 1.2 L Sodium Chloride 93 L BUN 29 H Creatinine 5.1 H* Calcium 8.3 L Phosphorus Iron Total Protein 5.4 L Albumin 3.1 L Meds: Medications Albuterol/Ipratropium (Duoneb) 3 ml NEB Q4HRT PRN PRN Reason: Shortness Of Breath Or Wheezing Alprazolam (Xanax) 0.5 mg PO BID [facility] Last Admin: 02/05/17 08:49 Dose: 0.5 mg Bisacodyl (Dulcolax) 10 mg NV Q2-3DAYS PRN PRN Reason: Constipation Calcium Acetate (Phoslo) 667 mg PO TIDCC [facility] Last Admin: 02/05/17 12:40 Dose: 667 mg Calcium Carbonate/Glycine (Tums) 500 mg CHEWED Q4HP PRN PRN Reason: Dyspepsia Docusate Sodium (Colace) 100 mg PO BID [facility] Last Admin: 02/05/17 09:05 Dose: Not Given Doxazosin Mesylate (Cardura) 2 mg PO BID [facility] Last Admin: 02/05/17 08:58 Dose: 2 mg Gabapentin (Neurontin) 200 mg PO TID [facility] Last Admin: 02/05/17 08:54 Dose: 200 mg Heparin Sodium (Porcine) (Heparin) 5,000 unit SQ Q12 [facility] Last Admin: 02/05/17 08:45 Dose: 5,000 unit Heparin Sodium (Porcine) (Heparin Flush) 2 ml IV Q12 [facility] Last Admin: 02/05/17 08:54 Dose: 2 ml Hydralazine HCl (Apresoline) 20 mg IV Q8HP PRN PRN Reason: Hypertension Hydralazine HCl (Apresoline) 100 mg PO TID [facility] Last Admin: 02/05/17 08:50 Dose: 100 mg Hydromorphone HCl (Dilaudid) 0.5 mg IV Q2HP PRN PRN Reason: Pain Last Admin: 02/04/17 22:12 Dose: 0.5 mg Hydromorphone HCl (Dilaudid) 2 mg PO Q3HP PRN PRN Reason: Pain Last Admin: 02/05/17 07:48 Dose: 2 mg Levetiracetam 500 mg/ Sodium (Chloride) 105 mls @ 200 mls/hr IV Q12H [facility] Last Admin: 02/05/17 07:37 Dose: 200 mls/hr Nicardipine HCl 25 mg/ Sodium (Chloride) 250 mls @ 50 mls/hr IV Q5H ANDRE; 5 MG/ HR PRN Reason: Protocol Last Admin: 02/05/17 09:10 Dose: Not Given Piperacillin Sod/Tazobactam (Sod 2.25 gm/ Dextrose) 50 mls @ 100 mls/hr IV Q8H [facility] Last Infusion: 02/05/17 10:08 Dose: Infused Sodium Chloride (Sodium Chloride 0.9%) 250 mls @ 20 mls/hr IV .[id number] [facility] Stop: 02/05/17 21:44 Last Admin: 02/05/17 11:37 Dose: Not Given Lorazepam (Ativan) 2 mg IV Q30M PRN PRN Reason: Seizures Last Admin: 02/05/17 06:39 Dose: 2 mg Magnesium Hydroxide (Milk Of Magnesia) 30 ml PO DAILYP PRN PRN Reason: Constipation Metoprolol Tartrate (Lopressor) 5 mg IV Q4HP PRN PRN Reason: Blood Pressure - High Last Admin: 02/05/17 12:45 Dose: 5 mg Metoprolol Tartrate (Lopressor) 100 mg PO BID [facility] Last Admin: 02/05/17 08:46 Dose: 100 mg Naloxone HCl (Narcan) 0.1 mg IV Q2MIN PRN PRN Reason: Opiate Reversal Nicotine (Nicoderm) 7 mg TOPICAL DAILY@1000 [facility] Last Admin: 02/05/17 08:59 Dose: 7 mg Nifedipine (Procardia Xl) 60 mg PO BID [facility] Last Admin: 02/05/17 08:44 Dose: 60 mg Ondansetron HCl (Zofran) 4 mg IV Q4-6HP PRN PRN Reason: Nausea And Vomiting Pantoprazole Sodium (Protonix) 40 mg IV BIDAC [facility] Last Admin: 02/05/17 07:48 Dose: 40 mg Phenytoin Sodium (Dilantin) 100 mg IV TID [facility] Last Admin: 02/05/17 08:53 Dose: 100 mg Ropinirole HCl (Requip) 0.5 mg PO HS [facility] Last Admin: 02/04/17 21:59 Dose: 0.5 mg Sertraline HCl (Zoloft) 100 mg PO DAILY [facility] Last Admin: 02/05/17 08:45 Dose: 100 mg Sodium Chloride (Saline Flush) 10 ml IV Q8 [facility] Last Admin: 02/05/17 05:56 Dose: 10 ml Sodium Chloride (Saline Flush) 10 ml IV UD PRN PRN Reason: FLUSH Sucralfate (Carafate) 1 gm PO ACHS [facility] Last Admin: 02/05/17 12:39 Dose: Not Given Trazodone HCl (Desyrel) 150 mg PO HSP PRN PRN Reason: Insomnia Medical - PN: A/P - Time Spent With Patient Total time spent is greater than 50% in coordination of care (as documented) at patient's floor/unit and/or counseling patient: - Narrative A/P Narrative: A/P End stage renal disease on Hemodiaysis CHF Seizure disorder, reucrrent seizures Substance abuse Uncontrolled Malignant Hypertension. Anemia, secondary to CKD. ANxieyt Restliess leg syndrome Plan Continue to monitor in the pcu continue seizure precautions and use IV ativan for seziures STart on scheduled alprazolam 0.5mg bid, patient has been getting benzo thought the stay as per pharmacy was ordered as 1mg bid prn, not sure of he was taking mroe than this at home. On reviewing his home prescriptions it seems he was filling his medications on a regular schedule, given his history of substance abuse I wonder if he was taking any additional medications. none the less I am ont sure if benzo withdrawal is the reason for patients symptoms. Having him on low dose of benzo on a scheduled basis may help us rule this out. His MRI shows chr ischemic changes from his meth use, also some old hemorrage, which may be the focus of his seizures? He will continue on his anti seizure medications for now. Should he seize again, I will call for transfer him to a higher center with neurology and continous eeg monitoring. The patient denies use of substances while in the hospital, but its plausible given his history that he may have abused meth while in the hospital which would account for his bp and seizure issues. AT [facility] time we are watching the patietn closely, and his visits monitored. He will contiue on the nicardipine drip for now, resume home meds and wean off drip as tolerated transfuse 2 units of blood, HD as per nephrology dvt hep sq, no e/o acute gi bleed continue ppi and carafate for now. continue trazodone and sertraline. use of trazodone related to seizures? will d/ c same for now. his anxiety seems to be related to his chr use of meth, not sure how much trazodone will help. He did agree to take trazodone from his home medications when his Girlfriend was here. He is taking zoloft already for this issue, I am not certain he needs 2 agents of similar category. He may benefit from atypical antipsychotic if needed. Alternatively we can switch between sertraline and trazodone to see which one provides better relief. FUll code Renal diet Ongoing substance abuse issues. Patient met with [facility]. We were all hopeful that he could get into an inpatient rehab program, as he really hopes to work on this issue. Apparently the program we were looking at his objecting to his dialysis schedule, thinking it would be disruptive. We also tried to get him into a halfway setting, so that he could do an outpatient rehab program, as social work feels that his home setting is too tempting in terms of resuming drugs. However, they also turned him down . . Medical - PN: Qual - VTE Deep Vein Thrombosis/Pulmonary Embolism Present on Admission: No
[2017-02-05] MEDS ORDERED: niCARdipine 25 MG in 0.9 % SODIUM CHLORIDE 240 ML IV PRN (15:15)
[2017-02-05] MEDS ORDERED: levETIRAcetam 500 MG in 0.9 % SODIUM CHLORIDE 100 ML IV ONE (16:09)
--- NOTE | 2017-02-05 16:50 | Transfer Summary ---
Transfer Discharge Sum: Prov Patient information: Note initiated : 02/05/17 at 4:34 pm Service Date, if different from initiated Date: [] Patient: Jorge Bates 31 y/o M admitted on 01/26/17 for SOB, Coughing Up Blood/Upper GI Bleed. Chief Complaint: [] Date of admission: 01/26/17 22:02 Discharge Date: 02/05/17 Primary care physician: Pat Martinez DO Admitting clinician: Clayton Zee Consults: 01/26/17 Consult to Physician [CONS] Stat Comment: GI bleed. Consulting Provider: Terry Yo Reason For Exam: Physician to Consult Receiving physician/facility: Dr Means Hospitalist Dr Ford Neurologist Transfer Discharge Sum: Med - Medications Active and Home Medications: Home Medications ALPRAZolam [Xanax] 1 mg PO BIDP PRN 01/26/17 [History Confirmed 01/27/17] Calcium Acetate [Phoslyra] 667 mg PO TIDCC 01/26/17 [History Confirmed 01/27/17] Metoprolol Tartrate [Lopressor] 50 mg PO BID 01/26/17 [History Confirmed ] Omeprazole [Prilosec] 20 mg PO BIDAC 01/26/17 [History Confirmed 01/27/17] hydrALAZINE HCL [Hydralazine HCl] 75 mg PO TID 01/26/17 [History Confirmed 01/27] Doxazosin [Cardura] 2 mg PO HS 01/27/17 [History Confirmed 01/27/17] Gabapentin [Neurontin] 200 mg PO TID 01/27/17 [History Confirmed 01/27/17] NIFEdipine [Nifedipine ER] 60 mg PO BID 01/27/17 [History Confirmed 01/27/17] Sertraline [Zoloft] 100 mg PO DAILY 01/27/17 [History Confirmed 01/27/17] levETIRAcetam [Keppra] 500 mg PO DAILY 01/27/17 [History Confirmed 01/27/17] rOPINIRole [Requip] 0.5 mg PO HS 01/27/17 [History Confirmed 01/27/17] traZODone HCL [Desyrel] 150 mg PO HSP PRN 01/27/17 [History Confirmed 01/27/17] Active Medications Albuterol/Ipratropium (Duoneb) 3 ml NEB Q4HRT PRN PRN Reason: Shortness Of Breath Or Wheezing Alprazolam (Xanax) 0.5 mg PO BID [facility] Last Admin: 02/05/17 08:49 Dose: 0.5 mg Bisacodyl (Dulcolax) 10 mg VT Q2-3DAYS PRN PRN Reason: Constipation Calcium Acetate (Phoslo) 667 mg PO TIDCC [facility] Last Admin: 02/05/17 12:40 Dose: 667 mg Calcium Carbonate/Glycine (Tums) 500 mg CHEWED Q4HP PRN PRN Reason: Dyspepsia Docusate Sodium (Colace) 100 mg PO BID [facility] Last Admin: 02/05/17 09:05 Dose: Not Given Doxazosin Mesylate (Cardura) 2 mg PO BID [facility] Last Admin: 02/05/17 08:58 Dose: 2 mg Gabapentin (Neurontin) 200 mg PO TID [facility] Last Admin: 02/05/17 16:24 Dose: 200 mg Heparin Sodium (Porcine) (Heparin) 5,000 unit SQ Q12 [facility] Last Admin: 02/05/17 08:45 Dose: 5,000 unit Heparin Sodium (Porcine) (Heparin Flush) 2 ml IV Q12 [facility] Last Admin: 02/05/17 08:54 Dose: 2 ml Hydralazine HCl (Apresoline) 20 mg IV Q8HP PRN PRN Reason: Hypertension Hydralazine HCl (Apresoline) 100 mg PO TID [facility] Last Admin: 02/05/17 16:24 Dose: 100 mg Hydromorphone HCl (Dilaudid) 2 mg PO Q3HP PRN PRN Reason: Pain Last Admin: 02/05/17 07:48 Dose: 2 mg Levetiracetam 500 mg/ Sodium (Chloride) 105 mls @ 200 mls/hr IV Q12H [facility] Last Admin: 02/05/17 07:37 Dose: 200 mls/hr Piperacillin Sod/Tazobactam (Sod 2.25 gm/ Dextrose) 50 mls @ 100 mls/hr IV Q8H [facility] Last Admin: 02/05/17 15:22 Dose: 100 mls/hr Sodium Chloride (Sodium Chloride 0.9%) 250 mls @ 20 mls/hr IV .[id number] [facility] Stop: 02/05/17 21:44 Last Admin: 02/05/17 11:37 Dose: Not Given Nicardipine HCl 25 mg/ Sodium (Chloride) 250 mls @ 50 mls/hr IV Q5HP PRN; Protocol; 5 MG/HR PRN Reason: Titrate to keep BP <180/100 Levetiracetam 500 mg/ Sodium (Chloride) 105 mls @ 200 mls/hr IV ONCE ONE Stop: 02/05/17 16:40 Last Admin: 02/05/17 16:24 Dose: 200 mls/hr Lorazepam (Ativan) 2 mg IV Q30M PRN PRN Reason: Seizures Last Admin: 02/05/17 15:40 Dose: 2 mg Magnesium Hydroxide (Milk Of Magnesia) 30 ml PO DAILYP PRN PRN Reason: Constipation Metoprolol Tartrate (Lopressor) 5 mg IV Q4HP PRN PRN Reason: Blood Pressure - High Last Admin: 02/05/17 12:45 Dose: 5 mg Metoprolol Tartrate (Lopressor) 100 mg PO BID [facility] Last Admin: 02/05/17 08:46 Dose: 100 mg Morphine Sulfate (Morphine) 2 mg IV Q4HP PRN PRN Reason: Pain Naloxone HCl (Narcan) 0.1 mg IV Q2MIN PRN PRN Reason: Opiate Reversal Nicotine (Nicoderm) 7 mg TOPICAL DAILY@1000 [facility] Last Admin: 02/05/17 08:59 Dose: 7 mg Nifedipine (Procardia Xl) 60 mg PO BID [facility] Last Admin: 02/05/17 08:44 Dose: 60 mg Ondansetron HCl (Zofran) 4 mg IV Q4-6HP PRN PRN Reason: Nausea And Vomiting Pantoprazole Sodium (Protonix) 40 mg IV BIDAC [facility] Last Admin: 02/05/17 07:48 Dose: 40 mg Phenytoin Sodium (Dilantin) 100 mg IV TID [facility] Last Admin: 02/05/17 16:24 Dose: 100 mg Ropinirole HCl (Requip) 0.5 mg PO HS [facility] Last Admin: 02/04/17 21:59 Dose: 0.5 mg Sertraline HCl (Zoloft) 100 mg PO DAILY [facility] Last Admin: 02/05/17 08:45 Dose: 100 mg Sodium Chloride (Saline Flush) 10 ml IV Q8 [facility] Last Admin: 02/05/17 16:25 Dose: 10 ml Sodium Chloride (Saline Flush) 10 ml IV UD PRN PRN Reason: FLUSH Sucralfate (Carafate) 1 gm PO ACHS [facility] Last Admin: 02/05/17 12:39 Dose: Not Given Transfer Discharge Sum: Hosp Hospital course: heath Bates is a 31 year old Male presents to the ER with complaints of shortness of breath, he was also having some epigastric pain and nausea and some vomiting. Overnight he was noted to be chf and fluid overload secondary to his ESRD status. the patient had hb of 8.2 at that time. He underwent dialysis, but her had some coughing up of red sputum? vs spitting or vomiting bright red blood, not clear on the history here. The pt does admit having coffee ground emesis the AM before hemodialysis. The patient hb after hd is 7.4, and then dropped to 7.0 Initially there was no ICU bed available to admit the patient, later in the evening bed did become available, the patient was therefore admitted to the hospital ICU for close monitoring and treatment The patient notes that he has been having epigastric abdominal pain x 2 weeks, he note that he has had a few episodes of blood in his vomitus. He denies any melena or blood in the stools He denies using aspirin, nsaids, or consuming alcohol, admits to use of tobacco he does admit to having headaches and consuming some otc meds for same In the ER x ray chest showed chf, labs show hb of 7.0, hr was mildly tachycardic 100-120, bp elevated significantly likely as he did not get his bp meds, he was admitted to the hospital for management of his Upper GI bleed, uncontrolled Hypertension as well as CHF. During the hospital stay, given the difficulty outpatient team has had getting the patient in drug rehab program, it was planned to see if we could transfer him to an acute drug rehab program for his meth addiction. The patient started having seziures while in the hospiotal nearly daily 2 -3 from february 01, The patient was treated with his home dose of keppra and ativan. [facility] was called and Dr Kevin advised addition of dilantin, the patient despite getting these medications continues to have seizures on daily basis. We called neurology again today and the patient was accepted for transfer for further evaluation and treatment. Upper GI bleed: EGD done, no ulcer noted, EGD noted acute erosive gastritis and duodenitis. The patient is on PPI and carafate for same. 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 Uncontrolled HTN: The patient has h/o uncontrolled HTN, and needs multiple medications for control of his blood pressure. While in the hospital his bp was well controlled with metoprolol 100mg bid, hydralazine 100 tid, doxazosin 2mg qd , and nifidipine 60mg daily. Due to his seizure episodes he would miss his home meds and his blood pressure would be difficult to control with just prn IV meds , needing IV nicardipine drip. The patient is presently on the drip and needs to be weaned off as tolerated. Seizure disorder: The patient has had frequent outpatient ER visits for Seizures and has been placed on oral keppra, he has not seen a neurologist in the past neither has had workup for same. While in [facility] hospital he has had multiple rounds of witnessed seizures, GTC variety followed by post ictal phase which would last for a few hours. The patient has been on IV keppra as well as IV d ilantin. He also takes gabapentin. Despite these meds his seizures persisted. patient will need further evaluation by neurology to determine etiology as well as possible treatment. He may benefit from Continous EEG monitoring to document [facility] seizures. 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 Etiology of sesizures? benzo withdrawal? patient has been getting benzodiazpine in the hospital not at the same dose, but none the less had around 50 percent of his home dose. So dont think it plays a role. Not sure of trazodone aqnd sertraline are playing a role in the seizures. There was a suspicion that inpatient use of meth may have caused these spells, however there have been 2 spells of seizure which were witnessed by the staff. ESRD on hemodialysis, had HD today. 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 - Time Spent with Patient Total time spent providing and/or coordinating transfer services: Greater than 30 minutes Transfer Discharge Sum: Exam - Constitutional Vitals: Vital Signs Temp Pulse Pulse Resp BP Pulse Ox 02/05/17 16:10 99.4 F H 82 154/102 02/05/17 15:33 85 157/97 02/05/17 14:58 81 120/70 02/05/17 14:29 80 138/78 02/05/17 14:27 82 14 96 02/05/17 14:16 78 94 02/05/17 14:00 76 121/76 94 02/05/17 13:58 76 121/76 02/05/17 13:30 75 124/74 96 02/05/17 13:29 76 124/74 02/05/17 13:09 79 153/90 97 02/05/17 13:05 80 221/181 98 02/05/17 13:01 98.8 F 79 180/146 98 02/05/17 12:58 79 153/90 02/05/17 12:37 77 195/91 100 02/05/17 12:36 78 100 02/05/17 12:32 77 185/82 100 02/05/17 12:30 77 182/168 100 02/05/17 12:29 78 185/82 02/05/17 12:21 98.6 F 77 172/59 99 02/05/17 11:59 98.8 F 97 H 170/77 02/05/17 11:31 98.9 F 12 168/67 99 02/05/17 11:01 15 160/68 95 02/05/17 10:31 76 169/73 93 02/05/17 10:01 76 166/71 93 02/05/17 09:47 76 93 02/05/17 09:31 76 170/63 93 02/05/17 09:01 75 153/87 99 02/05/17 08:31 77 177/108 100 02/05/17 08:09 78 160/94 99 02/05/17 08:04 75 160/94 100 02/05/17 08:00 77 15 92 02/05/17 07:31 78 144/79 91 02/05/17 07:02 98.7 F 12 114/82 98 02/05/17 06:30 80 114/88 96 02/05/17 06:01 79 138/84 100 02/05/17 05:30 74 132/77 96 02/05/17 05:00 75 127/76 96 02/05/17 04:30 76 139/86 97 02/05/17 04:00 73 141/85 97 02/05/17 03:30 73 136/85 99 02/05/17 03:00 75 124/88 96 02/05/17 02:45 75 140/84 97 02/05/17 02:30 75 137/81 96 02/05/17 02:00 79 131/83 97 02/05/17 01:30 80 135/83 97 02/05/17 01:00 81 131/82 97 02/05/17 00:30 85 143/88 95 02/05/17 00:00 86 147/87 95 02/04/17 23:49 99.9 F H 88 96 02/04/17 23:30 88 151/98 97 02/04/17 23:00 91 H 172/103 97 02/04/17 22:40 97 H 93 02/04/17 22:30 94 H 187/104 90 02/04/17 22:00 95 H 177/102 94 02/04/17 21:50 186/104 02/04/17 21:45 189/110 02/04/17 21:40 168/103 02/04/17 21:35 176/90 02/04/17 21:30 94 H 185/107 95 02/04/17 21:25 190/105 02/04/17 21:20 94 H 198/102 97 02/04/17 21:15 96 H 201/114 98 02/04/17 21:11 93 H 169/90 100 02/04/17 21:06 99.0 F H 94 H 178/102 02/04/17 21:05 89 178/102 100 02/04/17 21:03 93 H 178/104 100 02/04/17 21:01 93 H 134/88 100 02/04/17 20:55 87 187/105 100 02/04/17 20:50 88 174/101 100 02/04/17 20:45 86 187/106 100 02/04/17 20:40 89 166/97 100 02/04/17 20:35 93 H 189/107 100 02/04/17 20:30 98.8 F 91 H 179/98 100 02/04/17 20:25 93 H 155/117 100 02/04/17 20:20 89 164/90 100 02/04/17 20:19 90 100 02/04/17 20:15 98.8 F 93 H 169/97 100 02/04/17 20:10 94 H 153/105 100 02/04/17 20:05 91 H 163/98 100 02/04/17 20:00 87 181/97 100 02/04/17 19:57 88 181/97 02/04/17 19:55 85 151/100 100 02/04/17 19:45 90 158/95 100 02/04/17 19:40 87 147/94 100 02/04/17 19:35 87 172/89 100 02/04/17 19:30 87 166/95 100 02/04/17 19:25 87 167/95 100 02/04/17 19:20 88 169/92 100 02/04/17 19:15 88 163/112 100 02/04/17 19:10 89 154/97 100 02/04/17 19:05 89 167/111 100 02/04/17 19:00 89 167/95 100 02/04/17 18:58 89 167/95 02/04/17 18:55 89 161/102 100 02/04/17 18:50 89 160/88 100 02/04/17 18:45 89 169/95 100 02/04/17 18:40 90 166/99 100 02/04/17 18:35 90 151/101 99 02/04/17 18:31 90 157/100 99 02/04/17 18:25 90 165/93 99 02/04/17 18:22 92 H 152/94 99 02/04/17 18:15 91 H 145/91 98 02/04/17 18:10 92 H 146/101 100 02/04/17 18:05 94 H 148/98 99 02/04/17 18:02 95 H 140/96 100 02/04/17 18:00 100.1 F H 95 H 142/89 100 02/04/17 17:55 95 H 139/83 98 02/04/17 17:50 94 H 154/86 99 02/04/17 17:45 95 H 156/83 99 02/04/17 17:40 94 H 155/89 100 02/04/17 17:35 97 H 149/88 99 02/04/17 17:30 98 H 160/93 100 02/04/17 17:26 100 H 149/94 100 02/04/17 17:20 97 H 164/89 99 02/04/17 17:15 98 H 173/99 99 02/04/17 17:10 99 H 172/105 100 02/04/17 17:05 97 H 162/93 97 02/04/17 17:00 97 H 157/90 98 02/04/17 16:55 97 H 154/87 97 02/04/17 16:50 96 H 169/85 98 02/04/17 16:45 100 H 167/100 94 02/04/17 16:40 98 H 155/90 97 02/04/17 16:35 96 H 147/95 96 Intake and Output 02/05/17 02/05/17 02/05/17 05:59 13:59 21:59 Intake Total 795 / 795 400 / 400 Output Total 2700 / 2700 Balance 795 / 795 400 / 400 -2700 / -2700 Intake: IV 555 / 555 50 / 50 Zosyn 2.25 gm In Dextrose 5% in 50 / 50 50 / 50 Water 50 ml @ 100 mls/hr IV Q8H [facility] Rx#:[id number] Keppra 500 mg In Sodium 105 / 105 Chloride 0.9% 100 ml @ 200 mls/ hr IV Q12H [facility] Rx#:[id number] Cardene 25 MG In Sodium 208 / 208 Chloride 0.9% 240 ml @ 5 MG/HR 50 mls/hr IV Q5H [facility] Rx#: [id number] Oral 240 / 240 Blood Product 350 / 350 Output: Hemodialysis UF 2700 / 2700 Other: Weight 156 lb 4.8 oz Patient Weight 02/06/17 05:59 Weight 156 lb 4.8 oz Additional comments: Constitutional; Afebrile, cooperative, alert and drowsy, not in distress. Eyes- No icterus, , No periorbital swelling Ears- Ext ear normal, hearing normal to conversation. Neck- Midline trachea, supple Respiratory system: Air Entry equal on both sides, No crackles or wheezing, no rhonchi. CVS- Rate rhythm regular, S1,S2 heard, no gallop, no rub. Abdomen- Soft nontender abdomen, no organomegaly, no tenderness, no guarding or rigidity, RADIO INTERFERENCE INVESTIGATOR- AOOx1, moving all extremities, no gross focal deficit noted. Transfer Discharge Sum: Data Procedures and tests throughout hospitalization: Pending Orders 01/26/17 Consult to Physician [CONS] Stat 01/26/17 15:45 Blood Product Documentation NOW 01/26/17 21:00 Resuscitation Status Routine 01/26/17 22:10 Case Management Referral .Routine Admit as Inpatient Routine Anti-Embolism Devices CONT Bedrest w/bedside commode .ROUTINE Condition Routine IV Insertion/Management QSHIFT Intake and Output 04,16 Oral hygiene .ROUTINE Vital Signs Q4H Weight Monitoring QHS RD to Adjust Diet/Supplements as Needed Routine Continuous pulse oximetry .ROUTINE Incentive Spirometry Assess/Tx Q2HWA Nebulizer management .Routine Oxygen Order .Routine 01/27/17 03:50 Drug Screen,Serum Routine 01/27/17 10:17 DIALYSIS [Hemodialysis Treatment] .ROUTINE 01/27/17 13:53 Nebulizer management .Routine Nebulizer management .Routine 01/29/17 09:40 Nebulizer management .Routine 01/29/17 12:00 DIALYSIS [Hemodialysis Treatment] .ROUTINE 01/31/17 09:22 DIALYSIS [Hemodialysis Treatment] .ROUTINE 02/01/17 12:50 Drug Screen,Serum Stat 02/01/17 14:10 Nebulizer management .Routine 02/02/17 09:38 DIALYSIS [Hemodialysis Treatment] .ROUTINE 02/03/17 00:15 Nebulizer management .Routine 02/04/17 06:51 Communication order ONCE 02/04/17 15:01 DIALYSIS [Hemodialysis Treatment] .ROUTINE 02/04/17 17:25 Bisacodyl [Dulcolax] 10 mg VT Q2-3DAYS PRN Calcium Carbonate [Tums] 500 mg CHEWED Q4HP PRN HYDROmorphone [Dilaudid] 2 mg PO Q3HP PRN Ipratropium/Albuterol [Duoneb] 3 ml NEB Q4HRT PRN LORazepam [Ativan] 2 mg IV Q30M PRN Magnesium Hydroxide [Milk of Magnesia] 30 ml PO DAILYP PRN Metoprolol Tartrate [Lopressor] 5 mg IV Q4HP PRN Naloxone HCl [Narcan] 0.1 mg IV Q2MIN PRN Ondansetron [Zofran] 4 mg IV Q4-6HP PRN hydrALAZINE [Apresoline] 20 mg IV Q8HP PRN Nebulizer management .Routine 02/04/17 17:30 Calcium Acetate [Phoslo] 667 mg PO TIDCC 02/04/17 19:00 levETIRAcetam [Keppra] 500 mg 0.9 % Sodium Chloride [Sodium Chloride 0.9%] 100 ml IV Q12H 02/04/17 19:41 Consent for Procedure NOW Heat Therapy Device Management DAILY PICC Dressing Change PRN PICC Line ONCE 0.9 % Sodium Chloride [Saline Flush] 10 ml IV UD PRN 02/04/17 21:00 ALPRAZolam [Xanax] 0.5 mg PO BID Docusate Sodium [Colace] 100 mg PO BID Doxazosin [Cardura] 2 mg PO BID Gabapentin [Neurontin] 200 mg PO TID Heparin 5,000 unit SQ Q12 Heparin Flush 2 ml IV Q12 Metoprolol Tartrate [Lopressor] 100 mg PO BID NIFEdipine [Procardia Xl] 60 mg PO BID Phenytoin Sod [Dilantin] 100 mg IV TID Sucralfate [Carafate] 1 gm PO ACHS hydrALAZINE [Apresoline] 100 mg PO TID rOPINIRole [Requip] 0.5 mg PO HS 02/04/17 22:00 0.9 % Sodium Chloride [Saline Flush] 10 ml IV Q8 Piperacillin Sodium/Tazobactam [Zosyn] 2.25 gm Dextrose 5% in Water 50 ml IV Q8H 02/05/17 07:30 Pantoprazole [Protonix] 40 mg IV BIDAC 02/05/17 09:00 Sertraline [Zoloft] 100 mg PO DAILY 02/05/17 09:06 Blood Product Documentation NOW 02/05/17 09:15 0.9 % Sodium Chloride [Sodium Chloride 0.9%] 250 ml IV 20 mls/hr 02/05/17 10:00 Nicotine [Nicoderm] 7 mg TOPICAL DAILY@1000 02/05/17 10:23 DIALYSIS [Hemodialysis Treatment] .ROUTINE 02/05/17 13:30 morphine 2 mg IV Q4HP PRN 02/05/17 14:06 Occupational Therapy Eval & Tx DAILY Physical Therapy Eval & Tx DAILY ST [Speech Therapy Eval & Treat] .Routine 02/05/17 15:15 niCARdipine [Cardene] 25 mg 0.9 % Sodium Chloride [Sodium Chloride 0.9%] 240 ml IV Q5HP 02/05/17 16:09 levETIRAcetam [Keppra] 500 mg 0.9 % Sodium Chloride [Sodium Chloride 0.9%] 100 ml IV ONCE 02/05/17 19:41 PICC Dressing Change ONCE 02/05/17 Lunch Renal Diet 02/06/17 04:00 Complete Blood Count DAILY Ferritin Routine Inpatient Panel DAILY Total Iron Binding Capacity Routine 02/07/17 04:00 Complete Blood Count DAILY Inpatient Panel DAILY 02/08/17 04:00 Complete Blood Count DAILY Inpatient Panel DAILY 02/09/17 04:00 Complete Blood Count DAILY Inpatient Panel DAILY 02/10/17 04:00 Complete Blood Count DAILY Inpatient Panel DAILY 02/10/17 19:41 PICC Dressing Change Q7D 02/11/17 04:00 Complete Blood Count DAILY Inpatient Panel DAILY Transfer Discharge Sum: A/P - Plan Disposition: er [facility] Quality Measure Queries - VTE Deep Vein Thrombosis/Pulmonary Embolism Present on Admission: No
--- NOTE | 2017-02-05 17:15 | Nephrology Progress Note ---
Subjective Patient information: Note initiated : 02/05/17 at 5:13 pm Service Date, if different from initiated Date: [] Patient: Jorge Bates 31 y/o M admitted on 01/26/17 for SOB, Coughing Up Blood/Upper GI Bleed. Chief Complaint: [] Principal diagnosis: GI Bleed Interval history: Patient had no seizures overnight but later had seizures during dialysis and hence patient was presented agin for transfer to [place] BP was well controlled this am, though still on nicardipine gtt he was noted to have Hb of 7.1 today, and hence we gave him 2 units of PRBC transfusion he denied SOB, CP, dizziness did state he was forgetting a few things also had CVA and seizures while on [facility], never has seen neurologist, did not follow with PCP to get this arranges, continued to abuse drugs Pertinent ROS: as above Objective - Vital Signs Vital signs: Vital Signs Temp Pulse Pulse Resp BP Pulse Ox 02/05/17 17:03 173/111 02/05/17 16:30 86 185/118 100 02/05/17 16:27 85 177/107 100 02/05/17 16:10 99.4 F H 82 154/102 02/05/17 16:08 85 161/105 96 02/05/17 16:00 82 154/102 97 02/05/17 15:53 83 145/95 97 02/05/17 15:33 85 157/97 02/05/17 15:32 157/97 02/05/17 15:18 87 163/86 100 02/05/17 15:01 80 126/70 97 02/05/17 14:58 81 120/70 02/05/17 14:57 80 126/77 97 02/05/17 14:30 99.8 F H 78 139/78 95 02/05/17 14:29 80 138/78 02/05/17 14:27 82 14 96 02/05/17 14:16 78 94 02/05/17 14:00 76 121/76 94 02/05/17 13:58 76 121/76 02/05/17 13:30 75 124/74 96 02/05/17 13:29 76 124/74 02/05/17 13:09 79 153/90 97 02/05/17 13:05 80 221/181 98 02/05/17 13:01 98.8 F 79 180/146 98 02/05/17 12:58 79 153/90 02/05/17 12:37 77 195/91 100 02/05/17 12:36 78 100 02/05/17 12:32 77 185/82 100 02/05/17 12:30 77 182/168 100 02/05/17 12:29 78 185/82 02/05/17 12:21 98.6 F 77 172/59 99 02/05/17 11:59 98.8 F 97 H 170/77 02/05/17 11:31 98.9 F 12 168/67 99 02/05/17 11:01 15 160/68 95 02/05/17 10:31 76 169/73 93 02/05/17 10:01 76 166/71 93 02/05/17 09:47 76 93 02/05/17 09:31 76 170/63 93 02/05/17 09:01 75 153/87 99 02/05/17 08:31 77 177/108 100 02/05/17 08:09 78 160/94 99 02/05/17 08:04 75 160/94 100 02/05/17 08:00 77 15 92 02/05/17 07:31 78 144/79 91 02/05/17 07:02 98.7 F 12 114/82 98 02/05/17 06:30 80 114/88 96 02/05/17 06:01 79 138/84 100 02/05/17 05:30 74 132/77 96 02/05/17 05:00 75 127/76 96 02/05/17 04:30 76 139/86 97 02/05/17 04:00 73 141/85 97 02/05/17 03:30 73 136/85 99 02/05/17 03:00 75 124/88 96 02/05/17 02:45 75 140/84 97 02/05/17 02:30 75 137/81 96 02/05/17 02:00 79 131/83 97 02/05/17 01:30 80 135/83 97 02/05/17 01:00 81 131/82 97 02/05/17 00:30 85 143/88 95 02/05/17 00:00 86 147/87 95 02/04/17 23:49 99.9 F H 88 96 02/04/17 23:30 88 151/98 97 02/04/17 23:00 91 H 172/103 97 02/04/17 22:40 97 H 93 02/04/17 22:30 94 H 187/104 90 02/04/17 22:00 95 H 177/102 94 02/04/17 21:50 186/104 02/04/17 21:45 189/110 02/04/17 21:40 168/103 02/04/17 21:35 176/90 02/04/17 21:30 94 H 185/107 95 02/04/17 21:25 190/105 02/04/17 21:20 94 H 198/102 97 02/04/17 21:15 96 H 201/114 98 02/04/17 21:11 93 H 169/90 100 02/04/17 21:06 99.0 F H 94 H 178/102 02/04/17 21:05 89 178/102 100 02/04/17 21:03 93 H 178/104 100 02/04/17 21:01 93 H 134/88 100 02/04/17 20:55 87 187/105 100 02/04/17 20:50 88 174/101 100 02/04/17 20:45 86 187/106 100 02/04/17 20:40 89 166/97 100 02/04/17 20:35 93 H 189/107 100 02/04/17 20:30 98.8 F 91 H 179/98 100 02/04/17 20:25 93 H 155/117 100 02/04/17 20:20 89 164/90 100 02/04/17 20:19 90 100 02/04/17 20:15 98.8 F 93 H 169/97 100 02/04/17 20:10 94 H 153/105 100 02/04/17 20:05 91 H 163/98 100 02/04/17 20:00 87 181/97 100 02/04/17 19:57 88 181/97 02/04/17 19:55 85 151/100 100 02/04/17 19:45 90 158/95 100 02/04/17 19:40 87 147/94 100 02/04/17 19:35 87 172/89 100 02/04/17 19:30 87 166/95 100 02/04/17 19:25 87 167/95 100 02/04/17 19:20 88 169/92 100 02/04/17 19:15 88 163/112 100 02/04/17 19:10 89 154/97 100 02/04/17 19:05 89 167/111 100 02/04/17 19:00 89 167/95 100 02/04/17 18:58 89 167/95 02/04/17 18:55 89 161/102 100 02/04/17 18:50 89 160/88 100 02/04/17 18:45 89 169/95 100 02/04/17 18:40 90 166/99 100 02/04/17 18:35 90 151/101 99 02/04/17 18:31 90 157/100 99 02/04/17 18:25 90 165/93 99 02/04/17 18:22 92 H 152/94 99 02/04/17 18:15 91 H 145/91 98 02/04/17 18:10 92 H 146/101 100 02/04/17 18:05 94 H 148/98 99 02/04/17 18:02 95 H 140/96 100 02/04/17 18:00 100.1 F H 95 H 142/89 100 02/04/17 17:55 95 H 139/83 98 02/04/17 17:50 94 H 154/86 99 02/04/17 17:45 95 H 156/83 99 02/04/17 17:40 94 H 155/89 100 02/04/17 17:35 97 H 149/88 99 02/04/17 17:30 98 H 160/93 100 02/04/17 17:26 100 H 149/94 100 02/04/17 17:20 97 H 164/89 99 02/04/17 17:15 98 H 173/99 99 Intake and Output 02/05/17 02/05/17 02/05/17 05:59 13:59 21:59 Intake Total 795 / 795 400 / 400 80 / 80 Output Total 2700 / 2700 Balance 795 / 795 400 / 400 -2620 / -2620 Intake: IV 555 / 555 50 / 50 Zosyn 2.25 gm In Dextrose 5% in 50 / 50 50 / 50 Water 50 ml @ 100 mls/hr IV Q8H [facility] Rx#:[id number] Keppra 500 mg In Sodium 105 / 105 Chloride 0.9% 100 ml @ 200 mls/ hr IV Q12H [facility] Rx#:[id number] Cardene 25 MG In Sodium 208 / 208 Chloride 0.9% 240 ml @ 5 MG/HR 50 mls/hr IV Q5H [facility] Rx#: [id number] Oral 240 / 240 Blood Product 350 / 350 GI Tube Flush 80 / 80 Output: Hemodialysis UF 2700 / 2700 Other: Weight 156 lb 4.8 oz Patient Weight 02/06/17 05:59 Weight 156 lb 4.8 oz Intake & Output: Intake & Output 02/05/17 02/05/17 02/05/17 05:59 13:59 21:59 Intake Total 795 / 795 400 / 400 80 / 80 Output Total 2700 / 2700 Balance 795 / 795 400 / 400 -2620 / -2620 Weight 156 lb 4.8 oz Intake: IV 555 / 555 50 / 50 Zosyn 2.25 gm In Dextrose 5% in 50 / 50 50 / 50 Water 50 ml @ 100 mls/hr IV Q8H [facility] Rx#:[id number] Keppra 500 mg In Sodium 105 / 105 Chloride 0.9% 100 ml @ 200 mls/ hr IV Q12H [facility] Rx#:[id number] Cardene 25 MG In Sodium 208 / 208 Chloride 0.9% 240 ml @ 5 MG/HR 50 mls/hr IV Q5H [facility] Rx#: [id number] Oral 240 / 240 Blood Product 350 / 350 GI Tube Flush 80 / 80 Output: Hemodialysis UF 2700 / 2700 - General Appearance General appearance: appears started age, chronically ill EENT: mucous membranes moist Neck: no JVD Respiratory: clear Cardiology: no rub, no edema, normal S1, normal S2 Gastrointestinal: no tenderness, no guarding Integumentary: no rash, warm and dry Neurologic: alert and oriented x3 Musculoskeletal: no erythema, no clubbing Psychiatric: mood/affect appropriate - Lab 02/05/17 07:15 02/05/17 04:00 Most recent lab results Calcium 8.2 mg/dl (8.6-10.4) L 02/05/17 04:00 Phosphorus 3.8 mg/dL (2.7-4.5) 02/05/17 04:00 Magnesium 2.0 mg/dL (1.6-2.5) 02/05/17 04:00 Assessment and Plan (1) Anemia Status: Acute (2) ESRD (end stage renal disease) on dialysis dialysis today for 4 hrs using revaclear dialyser, 3K/2.5Ca dialysate, UF goal of 2-3L as tolerated or to DW, qb 400ml/min and qd700/800ml/min uncontrolled HTN: on nicardipine drip seizures, on keppra and dilantin will be transferred to [place] if another seizure for neurology care anemia: 2 units of prbc and also received aranesp will need to be monitored, if continued to drop down will need work up again, his iron stores were normal on his mthly labs last mth will follow appreciate hospitalist help in this patient Status: Acute
[2017-02-06 11:23] LABS: Amphetamine Screen NEGATIVE (NEGATIVE); Benzodiazepine Screen ***POSITIVE*** (NEGATIVE); Opiate Screen ***POSITIVE*** (NEGATIVE)
[2017-02-06 11:45] LABS: Amphetamine Screen ***POSITIVE*** (NEGATIVE); Benzodiazepine Screen NEGATIVE (NEGATIVE); Opiate Screen ***POSITIVE*** (NEGATIVE)
== END 2017-02-05 19:00 | disposition short-term general hospital (02) | DRG 377 ==
LOC: ED 14:13 → SUATTDRO 22:02 → ICU 22:02
PROVIDERS: ADMIT Internal Medicine; ATTEND Internal Medicine

== ENCOUNTER 2017-08-13 20:02 | Inpatient (IN) ==
[2017-08-13] MEDS ORDERED: NALOXONE HCL 0.4 MG/ML VIAL IV PRN (20:03)
[2017-08-13] MEDS ORDERED: ONDANSETRON 4 MG/2 ML VIAL IV PRN (20:03)
[2017-08-13] MEDS ORDERED: PROMETHAZINE 25 MG/ML VIAL IV PRN (20:03)
[2017-08-13] MEDS ORDERED: clonazePAM 1 MG TABLET PO ONE (20:08)
[2017-08-13] MEDS ORDERED: VALSARTAN 160 MG TABLET PO ONE (20:08)
[2017-08-13] MEDS ORDERED: MINOXIDIL 2.5 MG TABLET PO SCH (20:10)
[2017-08-13] MEDS ORDERED: niCARdipine 25 MG in 0.9 % SODIUM CHLORIDE 240 ML IV SCH (20:15)
[2017-08-13] MEDS: ACETAMINOPHEN 325 MG TABLET PO PRN (20:55)
[2017-08-13] MEDS: DOXAZOSIN 4 MG TABLET PO SCH ×2 (20:57→21:13)
[2017-08-13] MEDS ORDERED: GABAPENTIN 100 MG CAPSULE PO SCH (21:00)
[2017-08-13] MEDS ORDERED: hydrALAZINE 25 MG TABLET PO SCH (21:00)
[2017-08-13] MEDS ORDERED: METOPROLOL TARTRATE 50 MG TABLET PO SCH (21:00)
[2017-08-13] MEDS ORDERED: NIFEdipine 30 MG TAB.XL.24H PO SCH (21:00)
--- NOTE | 2017-08-13 21:20 | Internal Med History&Physical ---
Medical - H&P: HPI Patient information: Note initiated : 08/13/17 at 9:10 pm Service Date, if different from initiated Date: [] Patient: Jorge Bates 32 y/o M admitted on 08/13/17 for hypertension. Chief Complaint: [] History of present illness: Mr. Bates is a 32 year old Male with h/o esrd on HD, meth use, chr, chr non compliance with meds, presents directly from the HD unit for treatment of uncontrolled hypertension as well has acute hypekalemia The patient missed his HD on sunday as per him, he was trying to reschedule for today. for the last 2 days he has not feeling well, notes nausea, poor oral intake, myalgia as well as not taking his medications. He is a smoker, and also uses meth, but denies using meth over the last 2 days. The patient had some headaches, but otherwise no other complaints He presented to the ER with the above complaints In the her the pt was noted to be afebrile, hypertensive, labs showed normal wbc , elevated K at 6.1, Ca at 6.5 Pt EKG showed peaked t waves ( he always has peaked t waves despite level of K ) , He was given Calcium in ER Initially he was sent to outpatient dialysis for immediate dialysis. The patient bp worsened on dialysis, with diastolics in 140-150's, the patient usually runs 100 to 120's for his diastolic bp intermitently not this high. Given his electrolyte abnormalities and uncontrolled htn, it was deemed it was unsafe for the patient to run HD as outpatient and therefore he is admitted to pcu for bp management as well as his hemodialysis treatment. All systems: reviewed and no additional remarkable complaints except as stated ( as per HPI, admits to maylgia and chr depression in addition.) Medical - H&P: H Medical history: Medical History (Last Reviewed 02/14/17 @ 17:42 by Pat Martinez DO) Fluid overload (Acute) Fluid overload (Acute) Acute congestive heart failure (Acute) Hypertensive emergency (Acute) Mitral stenosis with insufficiency (Acute) Pulmonary hypertension (Acute) Substance use disorder (Chronic) Acute respiratory failure with hypoxia (Acute) Migraine (Acute) Pneumonia (Acute) Hypertensive urgency (Acute) HCAP (healthcare-associated pneumonia) (Acute) Fall (Acute) Acute anxiety (Acute) Sinusitis (Acute) End stage renal disease (Chronic) Mitral regurgitation (Chronic) Epileptic seizure (Acute) Anxiety disorder (Acute) Nausea (Acute) Medication side effects (Acute) 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) Congestive heart failure (Acute) ESRD (end stage renal disease) on dialysis (Acute) Uncontrolled hypertension (Chronic) Anemia in chronic kidney disease (CKD) (Chronic) Hyperkalemia (Acute) Restless legs (Chronic) Hypertensive crisis (Acute) Fracture of fifth metacarpal bone of left hand (Acute) Chest pain (Acute) Surgical history: Past Surgical History (Last Reviewed 02/14/17 @ 17:42 by Pat Martinez DO) S/p nephrectomy (Inactive) History of parathyroidectomy (Chronic) History of shoulder replacement (Chronic) History of surgery (Chronic) Pertinent family history: Family History (Last Reviewed 02/14/17 @ 17:42 by Pat Martinez DO) Father Heart failure Medical - H&P: Meds Home Medications Medication Instructions Recorded Confirmed Type metoprolol tartrate 100 mg tablet 150 mg PO BID tab 02/14/17 08/13/17 History omeprazole 20 mg capsule,delayed 20 mg PO BIDAC #60 cap 02/14/17 08/13/17 Rx release sertraline 100 mg tablet 100 mg PO QDAY #30 tab 02/15/17 08/13/17 Rx levetiracetam 500 mg tablet 500 mg PO DAILY #30 tab 03/20/17 08/13/17 Rx clonazepam 2 mg tablet 2 mg PO BID #60 tab 06/04/17 08/13/17 Rx valsartan 160 mg tablet 160 mg PO BID #60 tab 06/04/17 08/13/17 Rx nifedipine ER 60 mg 60 mg PO BID #60 tab 06/14/17 08/13/17 Rx tablet,extended release minoxidil 2.5 mg tablet 2.5 mg PO BID #60 tab 07/02/17 08/13/17 Rx doxazosin 4 mg tablet 2 mg PO QHS #30 tab 07/05/17 08/13/17 Rx calcium acetate 667 mg capsule 2,001 mg PO TID 90 Days #810 cap 07/17/17 Rx hydralazine 25 mg tablet 75 mg PO TID #90 tab 07/23/17 08/13/17 Rx gabapentin 100 mg capsule 200 mg PO BID #180 cap 08/10/17 08/13/17 Rx ropinirole 0.5 mg tablet 0.5 mg PO HS #30 tab 08/10/17 08/13/17 Rx trazodone 150 mg tablet 150 mg PO HSP PRN #30 tab 08/10/17 08/13/17 Rx Allergies Allergy/AdvReac Type Severity Reaction Status Date / Time Iodinated Contrast- Oral and AdvReac Mild Itching Verified 08/13/17 16:28 IV Dye [Iodinated Contrast Media - Oral and] Medical - H&P: Exam - Constitutional Exam: GENERAL: The patient is a well-developed, well-nourished in no apparent distress. Is alert and oriented x3. VITAL SIGNS: Reviewed and as noted elsewhere. HEENT: Head is normocephalic and atraumatic. Extraocular muscles are intact. Pupils are equal, round, and reactive to light. Nares appeared normal. Mouth appears any without lesions. Mucous membranes are moist. NECK: Normal to inspection, Supple, No lymphadenopathy or thyromegaly. LUNGS: Air entry equal on both sides, no wheezing, crackles or rhonchi noted. No accessory muscles of respiration HEART: Regular rate and rhythm normal, S1 and S2 heard, no Gallop, S3 or Rub Noted, No Gross murmur heard. ABDOMEN: Soft, nontender, and nondistended. Positive bowel sounds. No hepatosplenomegaly was noted. EXTREMITIES: No cyanosis, clubbing, rash, lesions or edema. NEUROLOGIC: Cranial nerves II through XII are grossly intact. Motor and Sensory System Grossly Intact PSYCHIATRIC: Normal affect, Normal Mood. Appropriate Behavior. SKIN: No ulceration or wounds noted, No jaundice, No rash noted. Medical - H&P: A/P - Narrative A/P Narrative: A/P Hypertensive emergency/ Uncontrolled Hypertension End stage renal disease Acute hyperkalemia Hypocalcemia h/o pseudoseizures nausea and poor intake chr substance abuse chr non compliance with treatment. Plan Admit to pcu monitor on tele IV nicardibine to control bp, goal to get sbp < 180 and dbp < 100 resume oral home meds given first dose now. prn nausesa meds HD as per nephrology resume home meds once verified. DVT scd for now, no hep given high bp Full code Renal diet. Social History - Tobacco smoking status: Current every day smoker - Tobacco Type tobacco type: cigarettes - Quit Details pack-years: 10 - Alcohol alcohol intake frequency: holiday/special occasion only - Substance use substance use type: marijuana, amphetamines counseling given: Yes
--- NOTE | 2017-08-13 21:40 | Nephrology Consult Note ---
History of Present Illness - Reason for Consult Patient information: Note initiated : 08/13/17 at 9:40 pm Service Date, if different from initiated Date: [] Patient: Jorge Bates 32 y/o M admitted on 08/13/17 for hypertension. Chief Complaint: [] Consult date: 08/13/17 end stage renal disease, hyperkalemia, accelerated hypertension Requesting physician: Clayton Zee - Chief Complaint weakness - History of Present Illness Patient is a 32 y/o non compliant male with ESRD on HD who presented to ER with c/o weakness, nausea, vomiting He missed his dialysis on Sunday and he has a different story to tell every one on this. He also has not taken any of his meds for the last 2 days he admits using meth 2 days ago and he continues to smoke pot every day he denies SOB, CP no edema c/o headache, no blurry vision no other complaints, feels anxious Review of Systems All systems PM: reviewed and no additional remarkable complaints except as stated (as in HPI) Past History Past medical history: ESRD on HD, h/o collapsing FSGS HTN anemia of CKD h/o tertiary hyperparathyroidism Past surgical history: multiple AVF surgery h/o parathyroidectomy h/o bilateral pilot point nephrectomy Past family history: not pertinent Past social history: h/o chronic meth use, smokes cigarette, smokes pot non compliant with dialysis recently Medications and Allergies Home Medications Medication Instructions Recorded Confirmed Type metoprolol tartrate 100 mg tablet 150 mg PO BID tab 02/14/17 08/14/17 History omeprazole 20 mg capsule,delayed 20 mg PO BIDAC #60 cap 02/14/17 08/14/17 Rx release sertraline 100 mg tablet 100 mg PO QDAY #30 tab 02/15/17 08/14/17 Rx levetiracetam 500 mg tablet 500 mg PO DAILY #30 tab 03/20/17 08/14/17 Rx clonazepam 2 mg tablet 2 mg PO BID #60 tab 06/04/17 08/14/17 Rx nifedipine ER 60 mg 60 mg PO BID #60 tab 06/14/17 08/14/17 Rx tablet,extended release minoxidil 2.5 mg tablet 2.5 mg PO BID #60 tab 07/02/17 08/14/17 Rx doxazosin 4 mg tablet 2 mg PO QHS #30 tab 07/05/17 08/14/17 Rx calcium acetate 667 mg capsule 2,001 mg PO TID 90 Days #810 cap 07/17/17 Rx hydralazine 25 mg tablet 75 mg PO TID #90 tab 07/23/17 08/14/17 Rx ropinirole 0.5 mg tablet 0.5 mg PO HS #30 tab 08/10/17 08/14/17 Rx trazodone 150 mg tablet 150 mg PO HSP PRN #30 tab 08/10/17 08/14/17 Rx Gabapentin [Neurontin] 200 mg PO TID 08/14/17 08/14/17 History Valsartan [Diovan] 320 mg PO BID 08/14/17 08/14/17 History Allergies Allergy/AdvReac Type Severity Reaction Status Date / Time Iodinated Contrast- Oral and AdvReac Mild Itching Verified 08/13/17 16:28 IV Dye [Iodinated Contrast Media - Oral and] Exam - General Appearance General appearance: appears started age, chronically ill EENT: mucous membranes moist Neck: no JVD Respiratory: clear Cardiology: no rub, regular rate, regular rhythm Gastrointestinal: no tenderness, no masses Integumentary: warm and dry Neurologic: alert and oriented x3 Musculoskeletal: no erythema, no cyanosis Psychiatric: mood/affect appropriate Results - Lab Results 08/14/17 03:35 08/14/17 04:00 Assessment and Plan (1) Hyperkalemia Status: Acute (2) Hypertensive emergency Status: Acute (3) Hypocalcemia Status: Acute (4) ESRD (end stage renal disease) Patient with hyperkalemia with EKG changes and hypocalcemia with prolonged QT interval, accelerated HTN Emergency dialysis done using revaclear dialyser, 1K/2.75CA dialysate, UF goal of 1-2L Will plan for dialysis tomorrow low calcium, high phos from non compliance to meds and dialysis received one dose of calcium gluconate in ER per my advise calcitriol dose increased patient requested to take his tums and phoslo will monitor HTN: on nipride gtt resum,e home meds, taper as possible and stop Status: Acute
[2017-08-13] MEDS: 0.9 % SODIUM CHLORIDE 10 ML SYRINGE IV SCH (23:34)
[2017-08-14 05:33] LABS: Basophils # (Auto) 0 K/mcL (0.0-0.3); Eosinophils # (Auto) 0.2 K/mcL (0.0-0.7); Eosinophils % (Auto) 3.9 % (0.0-7.0); Granulocytes % (Auto) 59.2 % (38.0-78.0); Lymphocytes # (Auto) 1.3 K/mcL (1.5-4.8); Lymphocytes % (Auto) 29.9 % (15.5-49.0); Mean Cell Volume 95.5 fL (80.0-100.0); Mean Corpuscular HGB Conc 33.5 g/dL (31.0-36.0); Monocytes # (Auto) 0.3 K/mcL (0.1-0.9); Platelet Count 165 K/mcL (140-440); RBC 3.54 M/mcL (4.50-5.90); Red Cell Distribution Width 14.8 % (11.5-14.5)
[2017-08-14] MEDS: 0.9 % SODIUM CHLORIDE 10 ML SYRINGE IV SCH ×2 (05:40→15:34)
[2017-08-14 06:01] LABS: ALT/SGPT 61 U/l (0-40); Albumin 3.7 gm/dL (3.2-5.2); Albumin/Globulin Ratio 1.4 (1.0-2.3); Alkaline Phosphatase 97 U/L (39-117); Bilirubin,Direct 0.2 mg/dL (0.0-0.3); Blood Urea Nitrogen 59 mg/dl (6-20); Gamma Glutamyl Transpeptidase 90 U/L (8-61); Uric Acid 4.3 mg/dL (2.5-8.0)
[2017-08-14] MEDS ORDERED: OMEPRAZOLE 20 MG CAPSULE PO SCH ×2 (07:30→17:00)
--- NOTE | 2017-08-14 08:03 | Cat Scan Report ---
CLINICAL INFORMATION: History of hypertension and seizures COMPARISON: Brain CT scan dated 07/17/2017 02/09/2017. MRI scan dated 02/02/2017 TECHNIQUE: Axial noncontrast-enhanced images through the brain. FINDINGS: Somewhat suboptimal evaluation which is mildly compromised by motion. There is white matter abnormality which is predominantly periventricular. There are more focal areas of low density in the periventricular parietal lobes bilaterally. Appearance is unchanged since MRI scan dated 02/02/2017. Findings are abnormal for age and may be related to hypertension and/or diabetes. No acute intra-axial abnormality. No hematoma. No new focal attenuation abnormality or localized mass effect. No midline shift. No hydrocephalus. Brain volume is within normal limits. Brainstem and cerebellum are negative. No intracranial, extra-axial abnormality. No subdural hematoma. No subarachnoid hemorrhage. Basilar cisterns are normal. No calvarial fracture. No lytic lesion. There is mild inflammatory disease in the left mastoid air cells. IMPRESSION: 1. No acute abnormality. No intracranial hemorrhage 2. White matter abnormality as above. No interval change The exam was performed using radiation dose optimization techniques including, but not limited to, automated exposure control, adjustment of the mA and/or kV according to patient size and use of iterative reconstruction technique. Interpreted and Authenticated by: Roman Mcqueen 08/14/17
[2017-08-14] MEDS: ACETAMINOPHEN 325 MG TABLET PO PRN (08:05)
[2017-08-14] MEDS ORDERED: 0.9 % SODIUM CHLORIDE 250 ML IV SCH (08:15)
[2017-08-14] MEDS ORDERED: traZODone HCL 150 MG TABLET PO PRN (08:32)
[2017-08-14] MEDS ORDERED: METOPROLOL TARTRATE 50 MG TABLET PO SCH (09:00)
[2017-08-14] MEDS ORDERED: NIFEdipine 30 MG TAB.XL.24H PO SCH (09:00)
[2017-08-14] MEDS ORDERED: levETIRAcetam 500 MG TABLET PO SCH (09:00)
[2017-08-14] MEDS ORDERED: clonazePAM 1 MG TABLET PO SCH (09:00)
[2017-08-14] MEDS ORDERED: SERTRALINE 50 MG TABLET PO SCH (09:00)
[2017-08-14] MEDS ORDERED: VALSARTAN 160 MG TABLET PO SCH (09:00)
[2017-08-14] MEDS: CALCIUM ACETATE 667 MG CAPSULE PO SCH ×2 (09:07→15:25)
[2017-08-14] MEDS: GABAPENTIN 100 MG CAPSULE PO SCH ×2 (09:08→15:34)
[2017-08-14] MEDS: hydrALAZINE 25 MG TABLET PO SCH ×2 (09:19→15:34)
[2017-08-14] MEDS: MINOXIDIL 2.5 MG TABLET PO SCH ×2 (09:56→10:41)
[2017-08-14] MEDS ORDERED: niCARdipine 25 MG in 0.9 % SODIUM CHLORIDE 240 ML IV SCH (10:00)
--- NOTE | 2017-08-14 10:35 | Nephrology Progress Note ---
Subjective Patient information: Note initiated : 08/14/17 at 10:28 am Service Date, if different from initiated Date: [] Patient: Jorge Bates 32 y/o M admitted on 08/13/17 for hypertension. Chief Complaint: [] Principal diagnosis: Hypertensive urgency Interval history: Patient seen this am still has headache, CT head negative for acute issues On minimal nipride gtt, home meds will be resumed no SOB, CP no edema no concerns with dialysis last night Pertinent ROS: as above Objective - Vital Signs Vital signs: Vital Signs Temp Pulse Resp BP Pulse Ox 08/14/17 10:01 14 158/103 08/14/17 10:00 14 08/14/17 09:30 76 13 94 08/14/17 09:02 21 08/14/17 09:01 24 H 142/96 08/14/17 09:00 21 08/14/17 08:30 78 18 95 08/14/17 08:24 97.9 F 08/14/17 08:16 72 14 159/109 96 08/14/17 08:02 16 08/14/17 08:01 151/110 08/14/17 07:46 162/116 08/14/17 07:15 146/98 08/14/17 07:00 145/102 08/14/17 06:49 16 08/14/17 06:45 14 157/107 08/14/17 06:30 19 152/105 08/14/17 06:15 24 H 156/100 08/14/17 06:01 15 08/14/17 06:00 16 159/106 08/14/17 05:45 21 168/111 08/14/17 05:30 19 169/112 08/14/17 05:15 72 15 155/107 100 08/14/17 05:00 72 16 151/110 98 08/14/17 04:45 73 12 158/105 97 08/14/17 04:30 72 14 157/120 95 08/14/17 04:15 73 11 L 150/103 91 08/14/17 04:00 73 13 149/103 92 08/14/17 03:45 74 11 L 148/101 91 08/14/17 03:30 74 11 L 143/91 91 08/14/17 03:15 75 13 151/95 91 08/14/17 03:00 76 13 151/92 93 0515/18 02:45 74 11 L 143/88 92 15/18 02:30 73 11 L 146/92 91 0515/18 02:16 74 11 L 139/88 91 15/18 02:01 74 12 141/89 92 1518 01:46 76 12 147/94 95 15/18 01:31 78 12 161/108 96 15 01:16 78 13 185/118 97 08/14/17 01:01 14 183/133 051518 00:40 96.3 F L 73 177/120 0515/18 00:31 15 177/120 0515/18 00:16 76 170/117 051518 00:01 12 170/117 96 14/18 23:50 78 173/98 0514/18 23:41 98.1 F 82 19 173/98 97 14/18 23:31 14 162/102 051418 23:25 83 170/108 18 23:01 86 25 H 170/108 97 14/18 22:49 97.7 F 86 166/107 05/14/18 22:46 86 12 166/107 93 14/18 22:41 86 12 169/105 93 14/18 22:36 86 11 L 167/99 92 14/18 22:31 86 11 L 166/106 93 14/18 22:26 86 14 166/104 92 1418 22:21 86 13 153/98 89 L 051418 22:20 86 150/93 05/14/18 22:16 13 150/93 0514/18 22:11 15 150/97 0514/18 22:06 14 145/90 0514/18 22:01 88 14 159/99 96 05/14/18 21:56 88 13 157/101 96 0514/18 21:51 88 14 153/100 96 05/14/18 21:46 87 13 155/98 96 0514/18 21:41 88 14 159/100 97 05/14/18 21:36 89 13 166/101 97 0514/18 21:31 92 H 15 167/101 99 14/18 21:26 95 H 15 165/127 99 08/13/17 21:21 98 H 21 189/123 100 08/13/17 21:16 98 H 20 202/128 97 08/13/17 21:11 93 H 24 H 185/116 96 08/13/17 21:06 93 H 19 190/142 95 08/13/17 21:01 92 H 14 203/132 92 08/13/17 20:56 92 H 17 214/146 89 L 08/13/17 20:51 91 H 16 222/142 91 08/13/17 20:46 91 H 17 230/155 95 08/13/17 20:41 91 H 20 226/156 97 08/13/17 20:36 96 H 17 269/190 97 08/13/17 20:16 97.8 F 91 H 32 H 229/157 99 Intake and Output 08/13/17 08/14/17 08/14/17 21:59 05:59 13:59 Intake Total 194 / 194 296 / 296 Output Total 1999 Balance 62 -1806 / -1806 296 / 296 Intake: IV 62 / 62 94 / 94 56 / 56 Cardene 25 MG In Sodium / 62 94 / 94 38 / 38 Chloride 0.9% 240 ml @ 5 MG/HR 50 mls/hr IV ONCE ANDRE Rx#: [id number] Oral 100 / 100 240 / 240 Output: Hemodialysis UF 1999 Other: Meal Breakfast Percent of Meal Consumed 100% Feeding Ability Independent Weight 137 lb 9.6 oz Intake & Output: Intake & Output 08/13/17 08/14/17 08/14/17 21:59 05:59 13:59 Intake Total 62 62 194 / 194 296 / 296 Output Total 1999 Balance 62 62 -1806 / -1806 296 / 296 Weight 137 lb 9.6 oz Intake: IV 62 / 62 94 / 94 56 / 56 Cardene 25 MG In Sodium 62 / 62 94 / 94 38 / 38 Chloride 0.9% 240 ml @ 5 MG/HR 50 mls/hr IV ONCE ANDRE Rx#: [id number] Oral 100 / 100 240 / 240 Output: Hemodialysis UF 1999 Other: Meal Breakfast Percent of Meal Consumed 100% Feeding Ability Independent - General Appearance General appearance: appears started age, chronically ill EENT: mucous membranes moist Neck: no JVD Respiratory: clear Cardiology: no rub, regular rate, regular rhythm Gastrointestinal: no tenderness, no guarding Integumentary: warm and dry Neurologic: no focal deficit, alert and oriented x3 Musculoskeletal: no erythema, no cyanosis Psychiatric: mood/affect appropriate - Lab 08/14/17 03:35 08/14/17 04:00 Most recent lab results Calcium 7.2 mg/dl (8.6-10.4) L 08/14/17 04:00 Phosphorus 6.6 mg/dL (2.7-4.5) H* 08/14/17 04:00 Magnesium 2.1 mg/dL (1.6-2.5) 08/14/17 04:00 Assessment and Plan (1) Hyperkalemia Status: Acute (2) Hypertensive emergency Status: Acute (3) Hypocalcemia Status: Acute (4) ESRD (end stage renal disease) Patient has been very non compliant recently I did talk to him at length he does not take meds as he feels sick, he needs to stop smoking pot he also needs to work on stopping meth use, discussed at length worsening cardiac issues patient has been non compliant with dialysis as well in the past we have tried getting him into inpatient rehab but he was declined at all possible places that he could go and he was recommended to have outpt rehab, he has never followed up, again emphasized need to do so I will dialyse him again today for 3 hrs to get him back on the schedule HD for 3 hrs using revaclear dialyser, QB 400ML/MIN, QD 800ML/MIN, 2K/2.75 ca, uf goal of 1-1.5L as tolerated he will resume outpatient dialysis from he may be discharged home his BP is controlled reasonable again emphasized that he needs to take his meds appreciate hospitalist help in managing this patient Status: Acute
--- NOTE | 2017-08-14 15:58 | Discharge Summary ---
Medical - DS: Prov Patient information: Note initiated : 08/14/17 at 3:52 pm Service Date, if different from initiated Date: [] Patient: Jorge Bates 32 y/o M admitted on 08/13/17 for Hypertension. Chief Complaint: [] Date of admission: 08/13/17 20:12 Discharge date: 08/14/17 Primary care physician: Pat Martinez DO Admitting clinician: Clayton Zee Consults: 08/13/17 21:54 Consult to Physician [CONS] Routine Comment: Consulting Provider: Elle Navarrete Reason For Exam: Physician to Consult Discharging clinician: Clayton Zee Medical - DS: Meds - Discharge Medications Active and Home Medications: Home Medications metoprolol tartrate 100 mg tablet 150 mg PO BID tab 02/14/17 [History Confirmed 08/14/17 Last Taken Unknown] omeprazole 20 mg capsule,delayed release 20 mg PO BIDAC #60 cap 02/14/17 [Rx Confirmed 08/14/17 Last Taken Unknown] sertraline 100 mg tablet 100 mg PO QDAY #30 tab 02/15/17 [Rx Confirmed 08/14/17 Last Taken Unknown] levetiracetam 500 mg tablet 500 mg PO DAILY #30 tab 03/20/17 [Rx Confirmed 08/14 Last Taken Unknown] clonazepam 2 mg tablet 2 mg PO BID #60 tab 06/04/17 [Rx Confirmed 08/14/17 Last Taken Unknown] nifedipine ER 60 mg tablet,extended release 60 mg PO BID #60 tab 06/14/17 [Rx Confirmed 08/14/17 Last Taken Unknown] minoxidil 2.5 mg tablet 2.5 mg PO BID #60 tab 07/02/17 [Rx Confirmed 08/14/17 Last Taken Unknown] doxazosin 4 mg tablet 2 mg PO QHS #30 tab 07/05/17 [Rx Confirmed 08/14/17 Last Taken Unknown] calcium acetate 667 mg capsule 2,001 mg PO TID 90 Days #810 cap 07/17/17 [Rx Confirmed 08/14/17 Last Taken Unknown] hydralazine 25 mg tablet 75 mg PO TID #90 tab 07/23/17 [Rx Confirmed 08/14/17 Last Taken Unknown] ropinirole 0.5 mg tablet 0.5 mg PO HS #30 tab 08/10/17 [Rx Confirmed 08/14/17 Last Taken Unknown] trazodone 150 mg tablet 150 mg PO HSP PRN #30 tab 08/10/17 [Rx Confirmed Last Taken Unknown] Gabapentin [Neurontin] 200 mg PO TID 08/14/17 [History Confirmed 08/14/17 Last Taken Unknown] Valsartan [Diovan] 320 mg PO BID 08/14/17 [History Confirmed 08/14/17 Last Taken Unknown] Medical - DS: Hosp Hospital course: Mr. Bates is a 32 year old Male with h/o esrd on HD, meth use, chr, chr non compliance with meds, presents directly from the HD unit for treatment of uncontrolled hypertension as well has acute hypekalemia, The patient missed his HD on sunday as per him, he was trying to reschedule for today. for the last 2 days he has not feeling well, notes nausea, poor oral intake, myalgia as well as not taking his medications. He is a smoker, and also uses meth, but denies using meth over the last 2 days. The patient had some headaches, but otherwise no other complaints, was in the emergency room with the above complaints, he was sent to dialysis for management of his hyperkalemia and urgent dialysis session. However during dialysis his blood pressure remained elevated with diastolic in 140s he was therefore admitted to PCU status for management of his blood pressure as well as to get him his scheduled dialysis. The patient was dialyzed yesterday as well as today. He was treated with IV nicardipine drip to control his blood pressure and his home medications were resumed. The patient's blood pressure came back to his baseline with resumption of his home medications, he has been off the nicardipine drip since morning. Given that the patient was noncompliant with medication, and the fact that resumption his oral medications control his blood pressure and brought back to where it was before I do not see any need for further monitoring at this point in time. The patient will be discharged home and has been educated to be compliant with his medications. The patient has a history of noncompliance as well as chronic substance abuse, has been educated multiple times and although he says that he wants to change his ways he has not been able to do that despite extensive support from case management and social work. Overall the patient has poor prognosis Discharge diagnosis: hyperkalemia, Hypertensive emergency - Time Spent with Patient Total time spent providing and/or coordinating discharge services: Less than 30 minutes Medical - DS: Exam - Constitutional Vitals: Vital Signs Temp Pulse Resp BP Pulse Ox 08/14/17 14:52 97.4 F 71 148/103 08/14/17 14:51 14 148/103 08/14/17 14:31 71 13 155/102 96 08/14/17 14:30 71 14 96 08/14/17 14:01 69 16 159/107 96 08/14/17 14:00 72 14 96 08/14/17 13:31 71 15 146/97 95 08/14/17 13:30 71 14 95 08/14/17 13:02 72 14 140/91 93 08/14/17 13:01 72 16 140/91 93 08/14/17 13:00 71 14 94 08/14/17 12:31 73 21 147/95 94 08/14/17 12:30 72 25 H 94 08/14/17 12:02 73 16 95 08/14/17 12:01 98.9 F 72 12 158/103 95 08/14/17 12:00 74 18 94 08/14/17 11:59 73 17 151/102 95 08/14/17 11:55 98.9 F 74 151/102 08/14/17 11:30 17 08/14/17 11:02 16 08/14/17 11:01 13 137/89 08/14/17 11:00 13 08/14/17 10:30 74 13 94 08/14/17 10:02 12 08/14/17 10:01 14 158/103 08/14/17 10:00 14 08/14/17 09:30 76 13 94 08/14/17 09:02 21 08/14/17 09:01 24 H 142/96 08/14/17 09:00 21 08/14/17 08:30 78 18 95 08/14/17 08:24 97.9 F 08/14/17 08:16 72 14 159/109 96 08/14/17 08:02 16 08/14/17 08:01 151/110 08/14/17 07:46 162/116 08/14/17 07:15 146/98 08/14/17 07:00 145/102 08/14/17 06:49 16 08/14/17 06:45 14 157/107 08/14/17 06:30 19 152/105 08/14/17 06:15 24 H 156/100 08/14/17 06:01 15 08/14/17 06:00 16 159/106 08/14/17 05:45 21 168/111 08/14/17 05:30 19 169/112 08/14/17 05:15 72 15 155/107 100 08/14/17 05:00 72 16 151/110 98 08/14/17 04:45 73 12 158/105 97 08/14/17 04:30 72 14 157/120 95 08/14/17 04:15 73 11 L 150/103 91 08/14/17 04:00 73 13 149/103 92 08/14/17 03:45 74 11 L 148/101 91 08/14/17 03:30 74 11 L 143/91 91 08/14/17 03:15 75 13 151/95 91 08/14/17 03:00 76 13 151/92 93 08/14/17 02:45 74 11 L 143/88 92 08/14/17 02:30 73 11 L 146/92 91 08/14/17 02:16 74 11 L 139/88 91 08/14/17 02:01 74 12 141/89 92 08/14/17 01:46 76 12 147/94 95 08/14/17 01:31 78 12 161/108 96 08/14/17 01:16 78 13 185/118 97 08/14/17 01:01 14 183/133 08/14/17 00:40 96.3 F L 73 177/120 1518 00:31 15 177/120 08/14/17 00:16 76 170/117 15 00:01 12 170/117 96 08/13/17 23:50 78 173/98 0518 23:41 98.1 F 82 19 173/98 97 05/18 23:31 14 162/102 18 23:25 83 170/108 051418 23:01 86 25 H 170/108 97 08/13/18 22:49 97.7 F 86 166/107 0514/18 22:46 86 12 166/107 93 05/14/18 22:41 86 12 169/105 93 08/13/17 22:36 86 11 L 167/99 92 08/13/17 22:31 86 11 L 166/106 93 08/13/17 22:26 86 14 166/104 92 08/13/17 22:21 86 13 153/98 89 L 08/13/17 22:20 86 150/93 08/13/17 22:16 13 150/93 08/13/17 22:11 15 150/97 08/13/17 22:06 14 145/90 08/13/17 22:01 88 14 159/99 96 08/13/17 21:56 88 13 157/101 96 08/13/17 21:51 88 14 153/100 96 08/13/17 21:46 87 13 155/98 96 08/13/17 21:41 88 14 159/100 97 08/13/17 21:36 89 13 166/101 97 08/13/17 21:31 92 H 15 167/101 99 08/13/17 21:26 95 H 15 165/127 99 08/13/17 21:21 98 H 21 189/123 100 08/13/17 21:16 98 H 20 202/128 97 08/13/17 21:11 93 H 24 H 185/116 96 08/13/17 21:06 93 H 19 190/142 95 08/13/17 21:01 92 H 14 203/132 92 08/13/17 20:56 92 H 17 214/146 89 L 08/13/17 20:51 91 H 16 222/142 91 08/13/17 20:46 91 H 17 230/155 95 08/13/17 20:41 91 H 20 226/156 97 08/13/17 20:36 96 H 17 269/190 97 08/13/17 20:16 97.8 F 91 H 32 H 229/157 99 Intake and Output 08/14/17 08/14/17 08/14/17 05:59 13:59 21:59 Intake Total 194 / 194 327 / 327 Output Total 1999 Balance -1806 / -1806 327 / 327 -1999 Intake: IV 94 / 94 87 / 87 Sodium Chloride 0.9% 250 ml @ 30 / 30 20 mls/hr IV .[id number] [facility] Rx#: [id number] Cardene 25 MG In Sodium 94 / 94 39 / 39 Chloride 0.9% 240 ml @ 0.1 MG/ HR 1 mls/hr IV Q24H ANDRE Rx#: [id number] Oral 100 / 100 240 / 240 Output: Hemodialysis UF 1999 Other: Meal Breakfast Percent of Meal Consumed 100% Feeding Ability Independent Additional comments: Constitutional; Afebrile, cooperative, alert, not in distress. Eyes- No icterus, , No periorbital swelling Ears- Ext ear normal, hearing normal to conversation. Neck- Midline trachea, supple Respiratory system: Air Entry equal on both sides, No crackles or wheezing, no rhonchi. CVS- Rate rhythm regular, S1,S2 heard, no gallop, no rub. Abdomen- Soft nontender abdomen, no organomegaly, no tenderness, no guarding or rigidity, [employer]- AOOx3, moving all extremities, no gross focal deficit noted. Medical - DS: Data Labs on day of discharge: Labs from last 24 hours 08/14/17 08/14/17 04:00 03:35 WBC 4.5 RBC 3.54 L Hgb 11.3 L Hct 33.8 L MCV 95.5 MCH 32.0 MCHC 33.5 RDW 14.8 H Plt Count 165 MPV 8.6 Gran % 59.2 Lymph % (Auto) 29.9 [place] % (Auto) 6.0 Eos % (Auto) 3.9 Baso % (Auto) 1.0 Gran # 2.7 Lymph # (Auto) 1.3 L [place] # (Auto) 0.3 Eos # (Auto) 0.2 Baso # (Auto) 0 Sodium 140 Potassium 4.0 Chloride 95 L Carbon Dioxide 26 Anion Gap 19.0 H BUN 59 H Creatinine 9.4 H* GFR Calculation 7 Glucose 82 Uric Acid 4.3 Calcium 7.2 L Phosphorus 6.6 H* Magnesium 2.1 Total Bilirubin 0.8 Direct Bilirubin 0.2 GGT 90 H AST 53 H ALT 61 H Alkaline Phosphatase 97 Lactate Dehydrogenase 559 H Total Protein 6.4 Albumin 3.7 Globulin 2.7 Albumin/Globulin Ratio 1.4 Triglycerides 139 Medical - DS: A/P - Patient/Caregiver Discharge Instructions Activity: increase activity as tolerated Diet: Renal Additional Instructions: Follow up with your PCP and Your regular dialysis as previously scheduled. Is taking medications as prescribed. Please make sure you do not miss your dialysis sessions, Please do not use any recreational drugs. go to the ER if worsening symptoms, chest pain, fever, shortness of breath or any other acute concerning symptoms. - Follow up Plan Disposition: Home, Self-Care Prognosis: Fair Rehab Potential: Fair I certify that the patient requires SNF services: No Overall status at discharge: patient is back to baseline
[2017-08-14] MEDS ORDERED: rOPINIRole 0.25 MG TABLET PO SCH (21:00)
[2017-08-14] MEDS ORDERED: DOXAZOSIN 4 MG TABLET PO SCH (21:00)
== END 2017-08-14 17:38 | disposition home or self-care (01) | DRG 640 ==
LOC: ICU 20:12
PROVIDERS: ADMIT Internal Medicine; ATTEND Internal Medicine